=== PATIENT | female | born 1935 | race Caucasian/White ===

== ENCOUNTER 2016-08-07 06:30 | Inpatient (IN) ==
[2016-08-07] MEDS ORDERED: 0.9 % Sodium Chloride 1,000 ML IVC ONE ×2 (06:49→07:46)
[2016-08-07 07:15] LABS: Basophils % 0.1 %; Eosinophils # 0.1 K/mcL (0.0-0.6); Eosinophils % 0.5 %; Hematocrit 36.7 % (35.3-44.9); Hemoglobin 11.8 g/dL (11.5-15.4); Immature Granulocytes % 0.7 % (0-4); Immature Platelets 1.2 % (1.1-6.1); Lymphocytes # 0.4 K/mcL (0.6-4.6); Mean Corpuscular HGB Conc 32.2 g/dL (31.6-35.5); Mean Corpuscular Hemoglobin 29.8 pg (28.0-33.3); Mean Corpuscular Volume 92.7 fL (83.0-100.0); Mean Platelet Volume 9.7 fL (9.4-12.4); Monocytes # 0.4 K/mcL (0.0-1.3); Monocytes % 3.1 %; Neutrophils # 12.1 K/mcL (1.6-8.9); Platelet Count 239 K/mcL (140-400); Red Blood Count 3.96 M/mcL (3.82-4.97); Red Cell Distribution Width 16.1 % (11.5-14.5); Segmented Neutrophils % 92.6 %
[2016-08-07 07:21] LABS: INR 3.2; Prothrombin Time 35.7 Seconds (9.4-12.1)
--- NOTE | 2016-08-07 07:21 | Emergency Department Note ---
Disposition Clinical Impression: SIRS (systemic inflammatory response syndrome) Cellulitis Qualifiers: Site of cellulitis: extremity Site of cellulitis of extremity: lower extremity Laterality: right Qualified Code(s): L03.115 - Cellulitis of right lower limb Disposition: Admitted As Inpatient Condition: Good Referrals: Beth Cedeno CNP [Primary Care Provider] - Forms: Work/School Release, ED Satisfaction Letter Time of Disposition: 09:02 General Adult HPI - General Chief complaint: ED Weakness Stated complaint: shaky Time Seen by Provider: 08/07/16 06:49 Source: patient, family Limitations: no limitations Nursing Notes Reviewed: Yes Vital Signs Reviewed: Yes - History of Present Illness HPI Narrative: Female patient workup this morning shaking all over. She does report an area of ulceration to her right lower extremity. She denies any chest pain or shortness of breath. She does report some dyspnea on exertion that is chronic for her. She does report some pain to the area of ulceration. She denies any calf tenderness. There are no provoking or alleviating factors. There is no radiation. Pain Scale: 0 - Related Data Home Medications Medication Instructions Recorded Confirmed Allopurinol [Zyloprim 100 MG] 100 mg PO DAILY 08/07/16 08/07/16 Amitriptyline HCl 100 mg PO DAILY 08/07/16 08/07/16 Atenolol 100 mg PO DAILY 08/07/16 08/07/16 Furosemide [Lasix] 20 mg PO DAILY 08/07/16 08/07/16 Lisinopril [Zestril] 40 mg PO BID 08/07/16 08/07/16 Pravastatin Sodium [Pravachol] 40 mg PO DAILY 08/07/16 08/07/16 Ropinirole HCl [Requip] 2 mg PO BID 08/07/16 08/07/16 Sitagliptin Phosphate [Januvia] 50 mg PO DAILY 08/07/16 08/07/16 Terazosin HCl 2 mg PO BID 08/07/16 08/07/16 Tramadol HCl [Ultram] 50 mg PO TID PRN 08/07/16 08/07/16 Warfarin [Coumadin] 3 mg PO TU 08/07/16 08/07/16 Warfarin [Coumadin] 6 mg PO SUMOWETHFRSA 08/07/16 08/07/16 cloNIDine HCl [Clonidine HCl] 0.3 mg PO TID 08/07/16 08/07/16 Allergies Allergy/AdvReac Type Severity Reaction Status Date / Time alendronate sodium Allergy See Verified 08/16/15 09:03 [From Fosamax] Comments amlodipine [From Norvasc] Allergy Blister Verified 08/16/15 09:00 atorvastatin Allergy See Verified 08/16/15 09:03 Comments cephalexin [From Keflex] Allergy Rash Verified 08/16/15 09:00 cinacalcet [From Sensipar] Allergy Blister Verified 08/07/16 08:46 denosumab [From Prolia] Allergy Blister Verified 08/16/15 09:00 felodipine Allergy Blister Verified 08/16/15 09:00 Hydralazine Allergy Blister Verified 08/16/15 09:00 olmesartan [From Benicar] Allergy See Verified 08/16/15 09:04 Comments Penicillins [PCN] Allergy Vomiting Verified 08/16/15 08:32 trandolapril Allergy See Verified 08/16/15 09:06 Comments Verapamil Allergy See Verified 08/16/15 09:06 Comments Review of Systems: Female patient complaining of shakiness. Denies any fevers or chills at home. Denies any shortness of breath or chest pain. She does report dyspnea on exertion. She denies any cough or congestion. She does report a clear rhinorrhea that is chronic for her. She denies a headache or vision changes. She denies any nausea vomiting or diarrhea. She denies any hematochezia or melena or hematuria. She denies any swelling to her extremities however she does report some ulcerations to her lower extremities. She states one has recently busted open. All systems ED: reviewed and negative except as stated. Past Medical History - Past Medical History Attestation: Yes The following information was validated with the patient. Medical history: Reports: diabetes, renal disease - Social History Smoking Status: Never smoker Smokeless Tobacco Status: No Alcohol use: Reports: none Drug use: Reports: none Physical Exam - General Limitations: no limitations General appearance: alert, in no apparent distress - Head Head exam: atraumatic, normocephalic, normal inspection - Eye Eye exam: Present: normal appearance, PERRL, EOMI. Absent: scleral icterus - ENT ENT exam: normal exam, normal oropharynx, mucous membranes moist - Neck Neck exam: Present: normal inspection, full ROM, trachea midline. Absent: tenderness, meningismus, lymphadenopathy - Chest Chest inspection: Present: normal inspection, symmetric chest wall rise. Absent : tenderness - Respiratory Respiratory exam: Present: normal lung sounds bilaterally. Absent: respiratory distress, wheezes - Cardiovascular Cardiovascular exam: Present: regular rate, normal rhythm, normal heart sounds - Abdominal Exam Abdominal exam: Present: soft, Non-Tender, normal bowel sounds. Absent: tenderness, distention, guarding, rebound, rigidity, organomegaly - Extremities Exam Extremities exam: Present: normal inspection, full ROM, normal capillary refill. Absent: tenderness, pedal edema - Back Exam Back exam: Present: normal inspection, full ROM. Absent: tenderness, CVA tenderness (R), CVA tenderness (L) - Neurological Exam Neurological exam: Present: alert, oriented X3 - Psychiatric Psychiatric exam: Present: normal affect, normal mood - Skin Skin exam: Present: warm, dry, intact, normal color. Absent: rash, cyanosis, diaphoresis Course Course Narrative: Well-appearing female patient resting in bed. She is complaining that this morning she woke up and she felt shaky all over. She denies any shortness of breath or chest pain. She does report a new open wound to her right lower leg. She states it was an ulcer and it looks like is starting to get worse. She has a Band-Aid over this. Anderson is removed there is a purulent discharge from this area. There are some mild cellulitic changes around it. She does have some venous stasis changes to her lower extremities. She is also complaining of some dyspnea on exertion. She states this is chronic for her however it is getting worse. Her oxygen saturation is in the low 90s on 2 L of oxygen. She does not wear oxygen at home. She has no respiratory complaints at this time While she is resting. Her skin feels warm to the touch but she is not febrile while she is here, I believe her shakiness was possibly due to rigor 's at home. Her lung sounds are clear heart tones are normal. Her abdomen is soft and nontender. She denies any urinary symptoms. We will begin the patient on some fluid at this time. Her mucous membranes are dry. She states she has been drinking but possibly not enough fluids. We will also do a sepsis workup on the patient. - Reevaluation(s) Reevaluation #1: Patient has a minimally elevated white blood cell count. It is heavy on neutrophils. We will begin patient on vancomycin due to a possible source of her infection being the site of lysis to her right lower extremity. Also gave her a second liter of fluid at this time. Her lactic acid is elevated. Her BUN and creatinine are also elevated however they have been this elevated previously. Anticipated admission for the patient. Time: 07:48 Reevaluation #2: We will admit patient to the hospital for sialitis of her right lower extremity. Generalized weakness. Patient has an elevated lactic acid. We will withhold the full fluid bolus of 30 mL/ kg due to patient's history of renal insufficiency. She sees Dr. Mitchell for this. Time: 08:16 - Consultations Consultation #1: Dr Willis accepted Pt in stable condition. Time: 08:31 Vital Signs Temperature 99.3 F 08/07/16 06:31 Pulse Rate 102 08/07/16 06:31 Respiratory Rate 22 08/07/16 06:31 Blood Pressure 114/69 08/07/16 06:31 O2 Sat by Pulse Oximetry 88 08/07/16 06:31 Temperature 99.3 F 08/07/16 06:31 Pulse Rate 93 08/07/16 08:06 Respiratory Rate 26 08/07/16 08:06 Blood Pressure 134/48 08/07/16 08:06 O2 Sat by Pulse Oximetry 97 08/07/16 08:06 Oxygen Delivery Oxygen Delivery Nasal Cannula Medical Decision Making - Medical Records Medical records reviewed: Yes I reviewed the patient's medical records. - Lab Data Lab results reviewed: Yes I reviewed the patient's lab results. Result diagrams: 08/07/16 06:59 08/07/16 06:59 Lab Results 08/07/16 08/07/16 08/07/16 Range/Units 06:59 06:59 06:59 WBC 13.1 H (4.3-11.1) K/mcL RBC 3.96 (3.82-4.97) M/mcL Hgb 11.8 (11.5-15.4) g/dL Hct 36.7 (35.3-44.9) % MCV 92.7 (83.0-100.0) fL MCH 29.8 (28.0-33.3) pg MCHC 32.2 (31.6-35.5) g/dL RDW 16.1 H (11.5-14.5) % Plt Count 239 (140-400) K/mcL MPV 9.7 (9.4-12.4) fL Immature Gran % 0.7 (0-4) % Seg Neutrophils % 92.6 % Lymphocytes % 3.0 % Monocytes % 3.1 % Eosinophils % 0.5 % Basophils % 0.1 % Neutrophils # 12.1 H (1.6-8.9) K/mcL Lymphocytes # 0.4 L (0.6-4.6) K/mcL Monocytes # 0.4 (0.0-1.3) K/mcL Eosinophils # 0.1 (0.0-0.6) K/mcL Basophils # 0.0 (0.0-0.2) K/mcL Immature Plt Fraction 1.2 (1.1-6.1) % PT 35.7 H (9.4-12.1) Seconds INR 3.2 APTT 32.9 (26.0-36.0) Seconds ABG pH (7.32-7.45) pH Units ABG pCO2 (35-45) mmHg ABG pO2 (85-104) mmHg ABG HCO3 (21-27) mEQ/L ABG Total CO2 (20-26) mEq/L ABG O2 Saturation (95-98) % ABG Base Excess (-2.0 to 3.0) mEq/L Liter Flow L/MIN Blood Gas Modality Inspired O2 % Sodium 138 (136-145) mEq/L Potassium 4.1 (3.5-4.5) mEq/L Chloride 109 (98-109) mEq/L Carbon Dioxide 20 (19-29) mEq/L BUN 53 H (7-20) mg/dL Creatinine 2.13 H (0.57-1.11) mg/dL Est GFR ( Amer) 27 L (> 60) Est GFR (Non-Af Amer) 22 L (> 60) BUN/Creatinine Ratio 25 (6-26) Glucose 103 H (70-99) mg/dL POC Glucose (58-89) Calculated Osmolality 301 H (280-300) Lactic Acid (0.5-2.2) mmol/L Calcium 10.7 (8.6-10.8) mg/dL Phosphorus 1.5 L (2.3-4.7) mg/dL Magnesium 1.6 (1.6-2.6) mg/dL Total Bilirubin 0.4 (0.2-1.2) mg/dL Direct Bilirubin 0.1 (0.0-0.5) mg/dL Indirect Bilirubin 0.3 (0.0-1.2) mg/dL AST 30 (5-34) Units/L ALT 21 (0-55) Units/L Alkaline Phosphatase 79 (38-126) Units/L Troponin I (0-0.03) ng/mL Serum Total Protein 7.0 (6.0-8.3) g/dL Albumin 3.1 L (3.5-5.0) g/dL Globulin 3.9 H (2.4-3.5) g/dL Albumin/Globulin Ratio 0.8 L (1.1-2.2) Urine Color (Yellow) Urine Clarity (Clear) Urine pH (5.0-8.0) pH Units Ur Specific [place] (1.010-1.025) Urine Protein (Neg-Trace) mg/dL Urine Glucose (UA) (Normal) mg/dL Urine Ketones (Negative) mg/dL Urine Blood (Negative) Urine Nitrite (Negative) Urine Bilirubin (Negative) Urine Urobilinogen (Normal) mg/dL Ur Leukocyte Esterase (Negative) Urine Microscopic RBC (0-3) per hpf Urine Microscopic WBC (0-3) per hpf Ur Squamous Epith Cells (None-Few) per lpf Urine Bacteria (None-Few) per hpf Hyaline Casts (None-Few) per lpf Ur Culture Indicated? (NO) 08/07/16 08/07/16 08/07/16 Range/Units 06:59 06:59 07:15 WBC (4.3-11.1) K/mcL RBC (3.82-4.97) M/mcL Hgb (11.5-15.4) g/dL Hct (35.3-44.9) % MCV (83.0-100.0) fL MCH (28.0-33.3) pg MCHC (31.6-35.5) g/dL RDW (11.5-14.5) % Plt Count (140-400) K/mcL MPV (9.4-12.4) fL Immature Gran % (0-4) % Seg Neutrophils % % Lymphocytes % % Monocytes % % Eosinophils % % Basophils % % Neutrophils # (1.6-8.9) K/mcL Lymphocytes # (0.6-4.6) K/mcL Monocytes # (0.0-1.3) K/mcL Eosinophils # (0.0-0.6) K/mcL Basophils # (0.0-0.2) K/mcL Immature Plt Fraction (1.1-6.1) % PT (9.4-12.1) Seconds INR APTT (26.0-36.0) Seconds ABG pH (7.32-7.45) pH Units ABG pCO2 (35-45) mmHg ABG pO2 (85-104) mmHg ABG HCO3 (21-27) mEQ/L ABG Total CO2 (20-26) mEq/L ABG O2 Saturation (95-98) % ABG Base Excess (-2.0 to 3.0) mEq/L Liter Flow L/MIN Blood Gas Modality Inspired O2 % Sodium (136-145) mEq/L Potassium (3.5-4.5) mEq/L Chloride (98-109) mEq/L Carbon Dioxide (19-29) mEq/L BUN (7-20) mg/dL Creatinine (0.57-1.11) mg/dL Est GFR ( Amer) (> 60) Est GFR (Non-Af Amer) (> 60) BUN/Creatinine Ratio (6-26) Glucose (70-99) mg/dL POC Glucose 98 H (58-89) Calculated Osmolality (280-300) Lactic Acid 2.4 H (0.5-2.2) mmol/L Calcium (8.6-10.8) mg/dL Phosphorus (2.3-4.7) mg/dL Magnesium (1.6-2.6) mg/dL Total Bilirubin (0.2-1.2) mg/dL Direct Bilirubin (0.0-0.5) mg/dL Indirect Bilirubin (0.0-1.2) mg/dL AST (5-34) Units/L ALT (0-55) Units/L Alkaline Phosphatase (38-126) Units/L Troponin I 0.02 (0-0.03) ng/mL Serum Total Protein (6.0-8.3) g/dL Albumin (3.5-5.0) g/dL Globulin (2.4-3.5) g/dL Albumin/Globulin Ratio (1.1-2.2) Urine Color (Yellow) Urine Clarity (Clear) Urine pH (5.0-8.0) pH Units Ur Specific [place] (1.010-1.025) Urine Protein (Neg-Trace) mg/dL Urine Glucose (UA) (Normal) mg/dL Urine Ketones (Negative) mg/dL Urine Blood (Negative) Urine Nitrite (Negative) Urine Bilirubin (Negative) Urine Urobilinogen (Normal) mg/dL Ur Leukocyte Esterase (Negative) Urine Microscopic RBC (0-3) per hpf Urine Microscopic WBC (0-3) per hpf Ur Squamous Epith Cells (None-Few) per lpf Urine Bacteria (None-Few) per hpf Hyaline Casts (None-Few) per lpf Ur Culture Indicated? (NO) 08/07/16 08/07/16 Range/Units 07:48 07:59 WBC (4.3-11.1) K/mcL RBC (3.82-4.97) M/mcL Hgb (11.5-15.4) g/dL Hct (35.3-44.9) % MCV (83.0-100.0) fL MCH (28.0-33.3) pg MCHC (31.6-35.5) g/dL RDW (11.5-14.5) % Plt Count (140-400) K/mcL MPV (9.4-12.4) fL Immature Gran % (0-4) % Seg Neutrophils % % Lymphocytes % % Monocytes % % Eosinophils % % Basophils % % Neutrophils # (1.6-8.9) K/mcL Lymphocytes # (0.6-4.6) K/mcL Monocytes # (0.0-1.3) K/mcL Eosinophils # (0.0-0.6) K/mcL Basophils # (0.0-0.2) K/mcL Immature Plt Fraction (1.1-6.1) % PT (9.4-12.1) Seconds INR APTT (26.0-36.0) Seconds ABG pH 7.42 (7.32-7.45) pH Units ABG pCO2 32 L (35-45) mmHg ABG pO2 60 L (85-104) mmHg ABG HCO3 20.8 L (21-27) mEQ/L ABG Total CO2 21.8 (20-26) mEq/L ABG O2 Saturation 91 L (95-98) % ABG Base Excess -3.0 L (-2.0 to 3.0) mEq/L Liter Flow 2 L/MIN Blood Gas Modality [place] Inspired O2 28 % Sodium (136-145) mEq/L Potassium (3.5-4.5) mEq/L Chloride (98-109) mEq/L Carbon Dioxide (19-29) mEq/L BUN (7-20) mg/dL Creatinine (0.57-1.11) mg/dL Est GFR ( Amer) (> 60) Est GFR (Non-Af Amer) (> 60) BUN/Creatinine Ratio (6-26) Glucose (70-99) mg/dL POC Glucose (58-89) Calculated Osmolality (280-300) Lactic Acid (0.5-2.2) mmol/L Calcium (8.6-10.8) mg/dL Phosphorus (2.3-4.7) mg/dL Magnesium (1.6-2.6) mg/dL Total Bilirubin (0.2-1.2) mg/dL Direct Bilirubin (0.0-0.5) mg/dL Indirect Bilirubin (0.0-1.2) mg/dL AST (5-34) Units/L ALT (0-55) Units/L Alkaline Phosphatase (38-126) Units/L Troponin I (0-0.03) ng/mL Serum Total Protein (6.0-8.3) g/dL Albumin (3.5-5.0) g/dL Globulin (2.4-3.5) g/dL Albumin/Globulin Ratio (1.1-2.2) Urine Color Yellow (Yellow) Urine Clarity Clear (Clear) Urine pH 6.0 (5.0-8.0) pH Units Ur Specific [place] 1.016 (1.010-1.025) Urine Protein Trace (Neg-Trace) mg/dL Urine Glucose (UA) Normal (Normal) mg/dL Urine Ketones Negative (Negative) mg/dL Urine Blood Trace H (Negative) Urine Nitrite Negative (Negative) Urine Bilirubin Negative (Negative) Urine Urobilinogen Normal (Normal) mg/dL Ur Leukocyte Esterase Moderate H (Negative) Urine Microscopic RBC 0-3 (0-3) per hpf Urine Microscopic WBC 5-15 H (0-3) per hpf Ur Squamous Epith Cells Many H (None-Few) per lpf Urine Bacteria None Seen (None-Few) per hpf Hyaline Casts None Seen (None-Few) per lpf Ur Culture Indicated? YES A (NO) - EKG Data EKG #2 EKG attestation: Yes I reviewed and interpreted this EKG.
[2016-08-07 07:23] LABS: Activated Partial Thrombo Time 32.9 Seconds (26.0-36.0)
--- NOTE | 2016-08-07 07:25 | Emergency Department Note ---
Disposition Clinical Impression: SIRS (systemic inflammatory response syndrome) Cellulitis Qualifiers: Site of cellulitis: extremity Site of cellulitis of extremity: lower extremity Laterality: right Qualified Code(s): L03.115 - Cellulitis of right lower limb Disposition: Admitted As Inpatient Condition: Good Referrals: Beth Cedeno CNP [Primary Care Provider] - Forms: ED Satisfaction Letter, Work/School Release General Adult HPI - General Chief complaint: ED Weakness Stated complaint: shaky Time Seen by Provider: 08/07/16 06:49 Source: patient, family Limitations: no limitations Nursing Notes Reviewed: Yes Vital Signs Reviewed: Yes - History of Present Illness Pain Scale: 0 - Related Data Home Medications Medication Instructions Recorded Confirmed Allopurinol [Zyloprim 100 MG] 100 mg PO DAILY 08/07/16 08/07/16 Amitriptyline HCl 100 mg PO DAILY 08/07/16 08/07/16 Atenolol 100 mg PO DAILY 08/07/16 08/07/16 Furosemide [Lasix] 20 mg PO DAILY 08/07/16 08/07/16 Lisinopril [Zestril] 40 mg PO BID 08/07/16 08/07/16 Pravastatin Sodium [Pravachol] 40 mg PO DAILY 08/07/16 08/07/16 Ropinirole HCl [Requip] 2 mg PO BID 08/07/16 08/07/16 Sitagliptin Phosphate [Januvia] 50 mg PO DAILY 08/07/16 08/07/16 Terazosin HCl 2 mg PO BID 08/07/16 08/07/16 Tramadol HCl [Ultram] 50 mg PO TID PRN 08/07/16 08/07/16 Warfarin [Coumadin] 3 mg PO TU 08/07/16 08/07/16 Warfarin [Coumadin] 6 mg PO SUMOWETHFRSA 08/07/16 08/07/16 cloNIDine HCl [Clonidine HCl] 0.3 mg PO TID 08/07/16 08/07/16 Allergies Allergy/AdvReac Type Severity Reaction Status Date / Time alendronate sodium Allergy See Verified 08/16/15 09:03 [From Fosamax] Comments amlodipine [From Norvasc] Allergy Blister Verified 08/16/15 09:00 atorvastatin Allergy See Verified 08/16/15 09:03 Comments cephalexin [From Keflex] Allergy Rash Verified 08/16/15 09:00 cinacalcet [From Sensipar] Allergy Blister Verified 08/07/16 08:46 denosumab [From Prolia] Allergy Blister Verified 08/16/15 09:00 felodipine Allergy Blister Verified 08/16/15 09:00 Hydralazine Allergy Blister Verified 08/16/15 09:00 olmesartan [From Benicar] Allergy See Verified 08/16/15 09:04 Comments Penicillins [PCN] Allergy Vomiting Verified 08/16/15 08:32 trandolapril Allergy See Verified 08/16/15 09:06 Comments Verapamil Allergy See Verified 08/16/15 09:06 Comments Past Medical History - Past Medical History Medical history: Reports: diabetes, renal disease - Social History Smoking Status: Never smoker Smokeless Tobacco Status: No Alcohol use: Reports: none Drug use: Reports: none Physical Exam - General Limitations: no limitations General appearance: alert, in no apparent distress Course Vital Signs Temperature 99.3 F 08/07/16 06:31 Pulse Rate 102 08/07/16 06:31 Respiratory Rate 22 08/07/16 06:31 Blood Pressure 114/69 08/07/16 06:31 O2 Sat by Pulse Oximetry 88 08/07/16 06:31 Temperature 99.3 F 08/07/16 06:31 Pulse Rate 87 08/07/16 09:00 Respiratory Rate 24 08/07/16 09:00 Blood Pressure 118/49 08/07/16 09:00 O2 Sat by Pulse Oximetry 96 08/07/16 09:00 Oxygen Delivery Oxygen Delivery Nasal Cannula Medical Decision Making - MDM Narrative Medical decision making narrative: I examined this patient and my medical decision-making was reviewed with the MENTAL HEALTH ASSISTANT/PA/Advanced Practice Nurse/Resident Physician. I agree with the documented findings, disposition and treatment plan as described except to the extent set forth below. Evaluate this patient on arrival with Dr. Nicole, I agree with her evaluation treatment plan, supravascular the patient's stay. Patient presents today with family she had an episode last evening about 2:30 in the morning where she felt really shaky possibly hot and sweaty. She says she had a little coughing she is a little bit dyspneic but she said that is, normal her lungs do sound congested on exam. She also is narrow and right lower extremity where there is an ulceration which she said is a blister but it is also get redness from the area consistent with a cellulitis, ordered a workup on her and then reassess. Most likely she will need admission. Once her blood is drawn and is started on vancomycin for the cellulitis. She is in agreement with this plan. 0706 hrs.: Patient had an EKG performed showing a sinus rhythm rate is 90, QRS is 120, QTC is 367, moderate interventricular conduction delay does have voltage criteria for LVH compared this to an EKG that had done in 2011 shows no changes except for your S is more wide now complexes of flipped in lead 3 no signs of acute ischemia today. She denies any chest pain. Chest X-Ray 08/07/16 07:50 IMPRESSION: No acute cardiopulmonary process. D/ / Jermain Gan MD / Jermain Gan MD Interpreting Provider: Jermain Gan MD 0829 hours: Patient has chronic renal deficiency and sees Dr. Beasley here for nephrology, she does have cellulitis in her leg, chest x-ray looks good. And patient is tolerating that well. Regarding and bring her in the hospital. She is in agreement. Possible slurred agreement to the admission. Impression is right lower extremity cellulitis, chronic renal insufficiency. Return to hold off on the full sepsis fluids since she does have her renal history and afraid that her kidneys will not tolerate that. Patient says she is feeling much better at this time. Critical care time exclusive of billable procedures is 30 minutes. - Lab Data Result diagrams: 08/07/16 06:59 08/07/16 06:59 Lab Results 08/07/16 08/07/16 08/07/16 Range/Units 06:59 06:59 06:59 WBC 13.1 H (4.3-11.1) K/mcL RBC 3.96 (3.82-4.97) M/mcL Hgb 11.8 (11.5-15.4) g/dL Hct 36.7 (35.3-44.9) % MCV 92.7 (83.0-100.0) fL MCH 29.8 (28.0-33.3) pg MCHC 32.2 (31.6-35.5) g/dL RDW 16.1 H (11.5-14.5) % Plt Count 239 (140-400) K/mcL MPV 9.7 (9.4-12.4) fL Immature Gran % 0.7 (0-4) % Seg Neutrophils % 92.6 % Lymphocytes % 3.0 % Monocytes % 3.1 % Eosinophils % 0.5 % Basophils % 0.1 % Neutrophils # 12.1 H (1.6-8.9) K/mcL Lymphocytes # 0.4 L (0.6-4.6) K/mcL Monocytes # 0.4 (0.0-1.3) K/mcL Eosinophils # 0.1 (0.0-0.6) K/mcL Basophils # 0.0 (0.0-0.2) K/mcL Immature Plt Fraction 1.2 (1.1-6.1) % PT 35.7 H (9.4-12.1) Seconds INR 3.2 APTT 32.9 (26.0-36.0) Seconds ABG pH (7.32-7.45) pH Units ABG pCO2 (35-45) mmHg ABG pO2 (85-104) mmHg ABG HCO3 (21-27) mEQ/L ABG Total CO2 (20-26) mEq/L ABG O2 Saturation (95-98) % ABG Base Excess (-2.0 to 3.0) mEq/L Liter Flow L/MIN Blood Gas Modality Inspired O2 % Sodium 138 (136-145) mEq/L Potassium 4.1 (3.5-4.5) mEq/L Chloride 109 (98-109) mEq/L Carbon Dioxide 20 (19-29) mEq/L BUN 53 H (7-20) mg/dL Creatinine 2.13 H (0.57-1.11) mg/dL Est GFR ( Amer) 27 L (> 60) Est GFR (Non-Af Amer) 22 L (> 60) BUN/Creatinine Ratio 25 (6-26) Glucose 103 H (70-99) mg/dL POC Glucose (58-89) Calculated Osmolality 301 H (280-300) Lactic Acid (0.5-2.2) mmol/L Calcium 10.7 (8.6-10.8) mg/dL Phosphorus 1.5 L (2.3-4.7) mg/dL Magnesium 1.6 (1.6-2.6) mg/dL Total Bilirubin 0.4 (0.2-1.2) mg/dL Direct Bilirubin 0.1 (0.0-0.5) mg/dL Indirect Bilirubin 0.3 (0.0-1.2) mg/dL AST 30 (5-34) Units/L ALT 21 (0-55) Units/L Alkaline Phosphatase 79 (38-126) Units/L Troponin I (0-0.03) ng/mL Serum Total Protein 7.0 (6.0-8.3) g/dL Albumin 3.1 L (3.5-5.0) g/dL Globulin 3.9 H (2.4-3.5) g/dL Albumin/Globulin Ratio 0.8 L (1.1-2.2) Urine Color (Yellow) Urine Clarity (Clear) Urine pH (5.0-8.0) pH Units Ur Specific [place] (1.010-1.025) Urine Protein (Neg-Trace) mg/dL Urine Glucose (UA) (Normal) mg/dL Urine Ketones (Negative) mg/dL Urine Blood (Negative) Urine Nitrite (Negative) Urine Bilirubin (Negative) Urine Urobilinogen (Normal) mg/dL Ur Leukocyte Esterase (Negative) Urine Microscopic RBC (0-3) per hpf Urine Microscopic WBC (0-3) per hpf Ur Squamous Epith Cells (None-Few) per lpf Urine Bacteria (None-Few) per hpf Hyaline Casts (None-Few) per lpf Ur Culture Indicated? (NO) 08/07/16 08/07/16 08/07/16 Range/Units 06:59 06:59 07:15 WBC (4.3-11.1) K/mcL RBC (3.82-4.97) M/mcL Hgb (11.5-15.4) g/dL Hct (35.3-44.9) % MCV (83.0-100.0) fL MCH (28.0-33.3) pg MCHC (31.6-35.5) g/dL RDW (11.5-14.5) % Plt Count (140-400) K/mcL MPV (9.4-12.4) fL Immature Gran % (0-4) % Seg Neutrophils % % Lymphocytes % % Monocytes % % Eosinophils % % Basophils % % Neutrophils # (1.6-8.9) K/mcL Lymphocytes # (0.6-4.6) K/mcL Monocytes # (0.0-1.3) K/mcL Eosinophils # (0.0-0.6) K/mcL Basophils # (0.0-0.2) K/mcL Immature Plt Fraction (1.1-6.1) % PT (9.4-12.1) Seconds INR APTT (26.0-36.0) Seconds ABG pH (7.32-7.45) pH Units ABG pCO2 (35-45) mmHg ABG pO2 (85-104) mmHg ABG HCO3 (21-27) mEQ/L ABG Total CO2 (20-26) mEq/L ABG O2 Saturation (95-98) % ABG Base Excess (-2.0 to 3.0) mEq/L Liter Flow L/MIN Blood Gas Modality Inspired O2 % Sodium (136-145) mEq/L Potassium (3.5-4.5) mEq/L Chloride (98-109) mEq/L Carbon Dioxide (19-29) mEq/L BUN (7-20) mg/dL Creatinine (0.57-1.11) mg/dL Est GFR ( Amer) (> 60) Est GFR (Non-Af Amer) (> 60) BUN/Creatinine Ratio (6-26) Glucose (70-99) mg/dL POC Glucose 98 H (58-89) Calculated Osmolality (280-300) Lactic Acid 2.4 H (0.5-2.2) mmol/L Calcium (8.6-10.8) mg/dL Phosphorus (2.3-4.7) mg/dL Magnesium (1.6-2.6) mg/dL Total Bilirubin (0.2-1.2) mg/dL Direct Bilirubin (0.0-0.5) mg/dL Indirect Bilirubin (0.0-1.2) mg/dL AST (5-34) Units/L ALT (0-55) Units/L Alkaline Phosphatase (38-126) Units/L Troponin I 0.02 (0-0.03) ng/mL Serum Total Protein (6.0-8.3) g/dL Albumin (3.5-5.0) g/dL Globulin (2.4-3.5) g/dL Albumin/Globulin Ratio (1.1-2.2) Urine Color (Yellow) Urine Clarity (Clear) Urine pH (5.0-8.0) pH Units Ur Specific [place] (1.010-1.025) Urine Protein (Neg-Trace) mg/dL Urine Glucose (UA) (Normal) mg/dL Urine Ketones (Negative) mg/dL Urine Blood (Negative) Urine Nitrite (Negative) Urine Bilirubin (Negative) Urine Urobilinogen (Normal) mg/dL Ur Leukocyte Esterase (Negative) Urine Microscopic RBC (0-3) per hpf Urine Microscopic WBC (0-3) per hpf Ur Squamous Epith Cells (None-Few) per lpf Urine Bacteria (None-Few) per hpf Hyaline Casts (None-Few) per lpf Ur Culture Indicated? (NO) 08/07/16 08/07/16 08/07/16 Range/Units 07:48 07:59 09:09 WBC (4.3-11.1) K/mcL RBC (3.82-4.97) M/mcL Hgb (11.5-15.4) g/dL Hct (35.3-44.9) % MCV (83.0-100.0) fL MCH (28.0-33.3) pg MCHC (31.6-35.5) g/dL RDW (11.5-14.5) % Plt Count (140-400) K/mcL MPV (9.4-12.4) fL Immature Gran % (0-4) % Seg Neutrophils % % Lymphocytes % % Monocytes % % Eosinophils % % Basophils % % Neutrophils # (1.6-8.9) K/mcL Lymphocytes # (0.6-4.6) K/mcL Monocytes # (0.0-1.3) K/mcL Eosinophils # (0.0-0.6) K/mcL Basophils # (0.0-0.2) K/mcL Immature Plt Fraction (1.1-6.1) % PT (9.4-12.1) Seconds INR APTT (26.0-36.0) Seconds ABG pH 7.42 (7.32-7.45) pH Units ABG pCO2 32 L (35-45) mmHg ABG pO2 60 L (85-104) mmHg ABG HCO3 20.8 L (21-27) mEQ/L ABG Total CO2 21.8 (20-26) mEq/L ABG O2 Saturation 91 L (95-98) % ABG Base Excess -3.0 L (-2.0 to 3.0) mEq/L Liter Flow 2 L/MIN Blood Gas Modality [place] Inspired O2 28 % Sodium (136-145) mEq/L Potassium (3.5-4.5) mEq/L Chloride (98-109) mEq/L Carbon Dioxide (19-29) mEq/L BUN (7-20) mg/dL Creatinine (0.57-1.11) mg/dL Est GFR ( Amer) (> 60) Est GFR (Non-Af Amer) (> 60) BUN/Creatinine Ratio (6-26) Glucose (70-99) mg/dL POC Glucose (58-89) Calculated Osmolality (280-300) Lactic Acid 2.0 (0.5-2.2) mmol/L Calcium (8.6-10.8) mg/dL Phosphorus (2.3-4.7) mg/dL Magnesium (1.6-2.6) mg/dL Total Bilirubin (0.2-1.2) mg/dL Direct Bilirubin (0.0-0.5) mg/dL Indirect Bilirubin (0.0-1.2) mg/dL AST (5-34) Units/L ALT (0-55) Units/L Alkaline Phosphatase (38-126) Units/L Troponin I (0-0.03) ng/mL Serum Total Protein (6.0-8.3) g/dL Albumin (3.5-5.0) g/dL Globulin (2.4-3.5) g/dL Albumin/Globulin Ratio (1.1-2.2) Urine Color Yellow (Yellow) Urine Clarity Clear (Clear) Urine pH 6.0 (5.0-8.0) pH Units Ur Specific [place] 1.016 (1.010-1.025) Urine Protein Trace (Neg-Trace) mg/dL Urine Glucose (UA) Normal (Normal) mg/dL Urine Ketones Negative (Negative) mg/dL Urine Blood Trace H (Negative) Urine Nitrite Negative (Negative) Urine Bilirubin Negative (Negative) Urine Urobilinogen Normal (Normal) mg/dL Ur Leukocyte Esterase Moderate H (Negative) Urine Microscopic RBC 0-3 (0-3) per hpf Urine Microscopic WBC 5-15 H (0-3) per hpf Ur Squamous Epith Cells Many H (None-Few) per lpf Urine Bacteria None Seen (None-Few) per hpf Hyaline Casts None Seen (None-Few) per lpf Ur Culture Indicated? YES A (NO)
[2016-08-07 07:29] LABS: Albumin 3.1 g/dL (3.5-5.0); Albumin/Globulin Ratio 0.8 (1.1-2.2); Bilirubin,Direct 0.1 mg/dL (0.0-0.5); Bilirubin,Indirect 0.3 mg/dL (0.0-1.2); Bilirubin,Total 0.4 mg/dL (0.2-1.2); Calcium 10.7 mg/dL (8.6-10.8); Globulin 3.9 g/dL (2.4-3.5); Magnesium 1.6 mg/dL (1.6-2.6); Phosphorous 1.5 mg/dL (2.3-4.7); Potassium 4.1 mEq/L (3.5-4.5)
[2016-08-07] MEDS ORDERED: Vancomycin 1,250 MG in D5% in Water 250 ML IVPB ONE (07:47)
[2016-08-07 07:57] LABS: ABG HCO3 20.8 mEQ/L (21-27); ABG Oxygen Saturation 91 % (95-98); ABG PCO2 32 mmHg (35-45); ABG PH 7.42 pH Units (7.32-7.45); ABG PO2 60 mmHg (85-104); ABG TCO2 21.8 mEq/L (20-26)
[2016-08-07 08:01] LABS: Blood Gas FiO2 28 %; Blood Gas Liter Flow 2 L/MIN
[2016-08-07 08:05] LABS: Bilirubin,Urine Negative (Negative); Blood,Urine Trace (Negative); Clarity,Urine Clear (Clear); Color,Urine Yellow (Yellow); Glucose,Urine (UA) Normal (Normal); Ketones,Urine Negative (Negative); Leukocyte Esterase,Urine Moderate (Negative); Nitrite,Urine Negative (Negative); Protein,Urine Trace mg/dL (Neg-Trace); Specific Gravity,Urine 1.016 (1.010-1.025); Urobilinogen,Urine Normal (Normal)
[2016-08-07 08:07] LABS: Bacteria,Urine None Seen per hpf (None-Few); Hyaline Casts,Urine None Seen per lpf (None-Few); RBC,Urine 0-3 per hpf (0-3); Squamous Epithelial Cell,Urine Many per lpf (None-Few)
--- NOTE | 2016-08-07 10:08 | Internal Med History&Physical ---
Date of Encounter: 08/07/16 Time of Encounter: 09:30 Assessment and Plan (1) Sepsis affecting skin Current visit: Yes Status: Acute Patient meets sepsis criteria with right LE cellulitis, HR 102, Lactic acid 2.4 and WBC of 13. Currently in stable but guarded condition. She has been started on broad spectrum antibiotics including Vancomycin, Flagyl and Azetronam. Blood cultures, urine culture have been collected in the emergency room. Plan: - Continue broad spectrum antibiotics as mentioned above - Repeat Lactic acid was 2.0, will continue IV fluids at 125ml/hr - continue inpatient monitoring. - Repeat CBC, CMP in am. (2) Cellulitis Current visit: Yes Status: Acute Patient has cellulites of the right LE with a 1cm x 1cm healing ulcer surrounded by erythema across the right pisano. There is symmetric warmth to both LE. The cellulites is superimposed on chronic venous stasis changes. - Patient says she has not been seen by wound care in the past and the lesion + erythema has improved. Her chills and shakes are new. - Risk factors: DM type II, venous stasis with vericous veins. - Recent SHEILA's of LE without significant findings of arterial obstruction. Plan: - Continue Vancomycin, Add Azetronam and Flagyl - Continue to keep healing ulcer clean and dry - Continue IV rehydration Qualifiers: Site of cellulitis: extremity Site of cellulitis of extremity: lower extremity Laterality: right Qualified Code(s): L03.115 - Cellulitis of right lower limb (3) Diabetes type 2, controlled Current visit: Yes Status: Acute Patient has a hx of controlled type II DM. She uses Jinuvia at home for glucose control. Her A1C has been roughly 6.5 since 2014. Admitting glucose is 103. Plan: - ACHS glucose checks - Low dose inpatient sliding scale - Diabetic diet. Qualifiers: Diabetes mellitus complication status: without complication Qualified Code( s): E11.9 - Type 2 diabetes mellitus without complications (4) Age related osteoporosis Current visit: Yes Status: Acute Hx of osteoperosis with numerous fractures requiring orthopedic intervention. She is a fall risk and has not been compliant with using assisted devices recently resulting in a fall one month ago. 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 She also has a IVC filter in place. - There should be consideration of the use of chronic warfarin therapy with the patient frequent falls. She denies any hx of arrhythmias - Patient fell one month ago with neck and facial injuries. Current mental stasis is appropriate and without notable AMS. Plan: - Continue warfarin therapy inpatient. - Daily PT/INR checks. (6) Venous stasis dermatitis Current visit: Yes Status: Acute Chronic. Continue LE care Qualifiers: Qualified Code(s): I87.2 - Venous insufficiency (chronic) (peripheral) (7) Insomnia Current visit: Yes Status: Acute Patient suffers from chronic insomina. - continue home medications. Qualifiers: Qualified Code(s): G47.00 - Insomnia, unspecified (8) Neck pain Current visit: Yes Status: Acute Patient has continued neck pain since a fall one month ago. She has the feeling that her head becomes to heavy to lift by the end of the day. MRI completed 12/2016 demonstrates chronic degenerative changes to the cervical spine with multilevel cervical foraminal narrowing. No fx were noted. - exam demonstrated tenderness to palpation of the left scalene muscles and spinous processes. Plan: - Inpatient physical therapy - Patient may require referral to outpatient orthopedic evaluation if her symptoms do not improve to evaluate if this is do to nerve compression. (9) HTN (hypertension) Current visit: Yes Status: Acute Hx of HTN, currently BP is controlled. Renal function is without KOBI. Will continue home medications. Qualifiers: Qualified Code(s): I10 - Essential (primary) hypertension (10) CKD (chronic kidney disease) stage 4, GFR 15-29 ml/min Current visit: Yes Status: Acute Known hx of CKD stage 4. Creatinine and GFR at baseline. - Patients Surgery Attendant is Dr. De La Rosa Plan: - Continue to renally dose antibiotics and avoid nephrotoxic medications - Monitor renal function daily with current therapy. (11) DVT prophylaxis Current visit: Yes Status: Acute SQ heparin at 5000 units Q8hrs. Internal Medicine - H&P: HPI Chief complaint: shakey Admitted From: Emergency Dept Plans for Post Hospital Care: Home History of present illness: Ms. Dobson is a 81 year old female with pmhx of DM type II, osteoperosis, HTN, Venous stasis, DVTs on chronic warfarin therapy was seen today in the emergency department after having shaking at home. She says that she started having shaking episodes this morning at 2am. She was awake watching television because she suffers from insomnia and can not sleep. She started to feel shakey and chilled but denies any other symptoms including fevers, N/V/D, chest pain, chest pressure, SOB, abdominal pain, cough, sputum production, change in urination, or urinary burning. She in general has not felt well over the past several months and has been seeking treatment for bilateral LE blisters and ulcers which are improving. She said that her lower extremity wounds are much better compared to the last several months and that the ulcer on her right lateral pisnao is improved and healing. She does have tenderness that is worse than before along the lateral ulcer and bilateral LE warmth that has been persistent.she feels the redness of her right LE is improved and has not worsened recently. There have been no changes to her appetite. She has fallen several times over the past few years resulting in a right hip fracture and left shoulder fracture. She fell roughly one month ago landing on her face resulting in left facial bruising and pain in her neck. She has had an MRI and cervical imaging that did not demonstrate a a fracture but continues to have discomfort in her neck that worsens throughout the day to the point she can not hold her head up at night. She denies any eyelid lagging, blurry vision. She does suffer from LE fatigue and cramping with walking but had recent SHEILA's performed that did not demonstrate claudication. Past Med Surg Social Fam HX - Past Medical History Medical history: diabetes, renal disease, venous stasis - Social History Smoking Status: Never smoker Smokeless Tobacco Status: No Alcohol use: none Drug use: none Internal Medicine - H&P: Meds Allopurinol [Zyloprim 100 MG] 100 mg PO DAILY 08/07/16 [History] Amitriptyline HCl 100 mg PO DAILY 08/07/16 [History] Atenolol 100 mg PO DAILY 08/07/16 [History] Furosemide [Lasix] 20 mg PO DAILY 08/07/16 [History] Lisinopril [Zestril] 40 mg PO BID 08/07/16 [History] Pravastatin Sodium [Pravachol] 40 mg PO DAILY 08/07/16 [History] Ropinirole HCl [Requip] 2 mg PO BID 08/07/16 [History] Sitagliptin Phosphate [Januvia] 50 mg PO DAILY 08/07/16 [History] Terazosin HCl 2 mg PO BID 08/07/16 [History] Tramadol HCl [Ultram] 50 mg PO TID PRN 08/07/16 [History] Warfarin [Coumadin] 3 mg PO TU 08/07/16 [History] Warfarin [Coumadin] 6 mg PO SUMOWETHFRSA 08/07/16 [History] cloNIDine HCl [Clonidine HCl] 0.3 mg PO TID 08/07/16 [History] Allergies alendronate sodium [From Fosamax] Allergy (Verified 08/16/15 09:03) See Comments jaw pain amlodipine [From Norvasc] Allergy (Verified 08/16/15 09:00) Blister atorvastatin Allergy (Verified 08/16/15 09:03) See Comments office and patient not sure of reaction cephalexin [From Keflex] Allergy (Verified 08/16/15 09:00) Rash cinacalcet [From Sensipar] Allergy (Verified 08/07/16 08:46) Blister denosumab [From Prolia] Allergy (Verified 08/16/15 09:00) Blister felodipine Allergy (Verified 08/16/15 09:00) Blister Hydralazine Allergy (Verified 08/16/15 09:00) Blister olmesartan [From Benicar] Allergy (Verified 08/16/15 09:04) See Comments dr davis's office did not have reaction listed and pt unsure. Penicillins [PCN] Allergy (Verified 08/16/15 08:32) Vomiting trandolapril Allergy (Verified 08/16/15 09:06) See Comments dr davis's office and pt unsure of reaction Verapamil Allergy (Verified 08/16/15 09:06) See Comments dr davis's office and pt unsure of reaction All Systems PM: A 10-system review of systems was performed and is negative for pertinent findings except as documented above in the HPI. - Constitutional Constitutional: chills, fatigue, falls, weakness, no anorexia, no excessive sweating - EENT Eyes: dry eye, no blurry vision, no change in vision, no diplopia, no loss of vision Nose, mouth and throat: neck pain, no change in voice, no dysphagia, no facial pain - Cardiovascular Cardiovascular ROS IM: dyspnea on exertion, no chest pain, no claudication, no dyspnea, no edema, no irregular heart rhythm, no palpitations - Respiratory Respiratory: dyspnea on exertion, no cough, no wheezing, no chest congestion, no excessive phlegm production, no pain with cough - Gastrointestinal Gastrointestinal: constipation, no abdominal pain, no change in bowel habits, no diarrhea - Genitourinary Genitourinary: no difficulty urinating, no urinary frequency, no urinary hesitancy - Integumentary Integumentary IM: erythema, non-healing lesions, skin ulcer - Constitutional Vitals: Temp Pulse Resp BP Pulse Ox 99.3 F 87 24 118/49 96 08/07/16 06:31 08/07/16 09:00 08/07/16 09:00 08/07/16 09:00 08/07/16 09:00 General appearance: Present: A&O X 3, pleasant, no acute distress - Head Head exam: Present: atraumatic, normal inspection, normocephalic - Eye Eye exam: Present: EOMI, conjuntiva pink, sclera anicteric - ENT ENT exam: Present: mucous membranes moist - Neck Neck exam general surgery: Present: normal inspection, supple, trachea midline Additional comments: tenderness to palpation of the left scalene muscles and spinus processes of C5- T2. Palpable nodule on right thyroid. - Respiratory Respiratory exam: Present: CTAB. Absent: accessory muscle use, rales, rhonchi, wheezes - Cardiovascular Cardiovascular exam: Present: RRR, +S1, +S2. Absent: diastolic murmur, gallop, rubs, systolic murmur - GI/Abdominal GI/Abdominal exam: Present: normal bowel sounds, soft, no peritoneal signs. Absent: distended, tenderness - Extremities Exam Extremities exam: Present: warm, radial pulses palpable and symetrical. Absent : calf tenderness, cyanotic, pedal edema Additional comments: Bilateral LE demonstrate chronic venous stasis changes around the bilateral mid to lower shins. The right LE has a lateral 1cm x 1cm healing ulcer with surrounding erythema that covers most of the right pisano. both LE are warm to palpation equally with appreciated pulses in the b/l posterior tibial. - Back Exam Back exam: Present: normal inspection - Neurological Exam Neurological exam: Present: alert, oriented X3, no focal deficits, strengths equal and symetr throughout. Absent: pronater drift, facial droop, speech deficit - Psychiatric Psychiatric exam: Present: normal affect, normal mood Internal Med - H&P Results - Labs CBC & Chem 7: 08/07/16 06:59 08/07/16 06:59 Labs: Short CBC 08/07/16 Range/Units 06:59 WBC 13.1 H (4.3-11.1) K/mcL Hgb 11.8 (11.5-15.4) g/dL Hct 36.7 (35.3-44.9) % Plt Count 239 (140-400) K/mcL Neutrophils # 12.1 H (1.6-8.9) K/mcL BMP 08/07/16 06:59 Sodium 138 Potassium 4.1 Chloride 109 Carbon Dioxide 20 BUN 53 H Creatinine 2.13 H Glucose 103 H Calcium 10.7 Cardiac Enzymes 08/07/16 Range/Units 06:59 Troponin I 0.02 (0-0.03) ng/mL Liver Function 08/07/16 Range/Units 06:59 Total Bilirubin 0.4 (0.2-1.2) mg/dL Direct Bilirubin 0.1 (0.0-0.5) mg/dL AST 30 (5-34) Units/L ALT 21 (0-55) Units/L Alkaline Phosphatase 79 (38-126) Units/L Albumin 3.1 L (3.5-5.0) g/dL Urine 08/07/16 Range/Units 07:59 Urine Color Yellow (Yellow) Urine Clarity Clear (Clear) Urine pH 6.0 (5.0-8.0) pH Units Ur Specific [place] 1.016 (1.010-1.025) Urine Protein Trace (Neg-Trace) mg/dL Urine Glucose (UA) Normal (Normal) mg/dL - ABG Interpretation ABG results: 08/07/16 07:48 ABG pH 7.42 ABG pCO2 32 L ABG pO2 60 L ABG HCO3 20.8 L ABG Total CO2 21.8 ABG O2 Saturation 91 L ABG Base Excess -3.0 L - Impressions ITS Impressions Chest X-Ray 08/07/16 07:50 IMPRESSION: No acute cardiopulmonary process. D/ / 08/07/2016 09:06:15 Jermain Gan MD / [place] Interpreting Provider: Jermain Gan MD
--- NOTE | 2016-08-07 11:00 | Event Note ---
Date of Encounter: 08/07/16 Time of Encounter: 10:57 Patient seen and examined with center medical director. Patient presents with right- leg cellulitis and severe sepsis. We give the patient Zyvox Aztreonam and Flagyl. She has CKD stage 4 and families concerned about vancomycin. 2 L of fluids given in the ER continue fluids cautiously because of hypoxemia in the emergency room requiring 2 L of oxygen probably due to some diastolic dysfunction. She complains of neck floppiness which occurs later through the day. She had recurrent falls with neck trauma and according to her MRI was performed showed evidence of arthritis only fractures. Will treat her cellulitis and see she still has that complain may consider ruling out myasthenia gravis. She is do not resuscitate. She is okay with intubation for respiratory purposes if the heart is still working
[2016-08-07] MEDS ORDERED: *HR* Dextrose 50 % in Water (Syg) 50 ML SYRINGE IVP PRN (11:04)
[2016-08-07] MEDS ORDERED: Dextrose Gel 15 GM PO PRN ×2 (11:04)
[2016-08-07] MEDS ORDERED: D5% in Water 1,000 ML IVC PRN (11:04)
[2016-08-07] MEDS ORDERED: Ondansetron ODT 4 MG TAB.RAPDIS SL PRN (11:09)
[2016-08-07] MEDS ORDERED: Naloxone 0.4 MG/ML INJ IVP PRN (11:09)
[2016-08-07] MEDS: 0.9 % Sodium Chloride 1,000 ML IVC SCH (11:41)
[2016-08-07] MEDS ORDERED: *HR* HYDROcodone/Acet 5/325 mg TABLET PO ONE (11:50)
[2016-08-07] MEDS ORDERED: *HR* Heparin 5,000 UNIT/ML VIAL SQ SCH (14:00)
[2016-08-07] MEDS: MetroNIDAZOLE 500 MG/100 ML 500 MG/100 ML BAG IVPB SCH ×2 (14:01→22:25)
[2016-08-07] MEDS: Insulin LISPRO 300 UNITS/3 ML VIAL SQ SCH ×3 (14:14→22:30)
[2016-08-07] MEDS: Aztreonam 500 MG in D5% in Water (Mini-Bag+) 100 ML IVPB SCH ×2 (16:53→22:20)
[2016-08-07] MEDS: cloNIDine HCl 0.1 MG TABLET PO SCH ×2 (16:53→22:18)
[2016-08-07] MEDS ORDERED: Warfarin perPT PO PRN (18:00)
[2016-08-07] MEDS: Acetaminophen 325 MG TABLET PO PRN (19:12)
[2016-08-07 19:52] LABS: Acinetobacter baumannii by PCR Not Detected (Not Detect); Candida albicans by PCR Not Detected (Not Detect); Candida glabrata by PCR Not Detected (Not Detect); Candida krusei by PCR Not Detected (Not Detect); Candida parapsilosis by PCR Not Detected (Not Detect); Candida tropicalis by PCR Not Detected (Not Detect); Enterococcus by PCR Not Detected (Not Detect); Escherichia coli by PCR Not Detected (Not Detect); Klebsiella oxytoca by PCR Not Detected (Not Detect); Klebsiella pneumoniae by PCR Not Detected (Not Detect); Pseudomonas aeruginosa by PCR Not Detected (Not Detect); Serratia marcescens by PCR Not Detected (Not Detect); Staphylococcus aureus by PCR Not Detected (Not Detect); Streptococcus agalactiae(B)PCR ***DETECTED*** (Not Detect); Streptococcus by PCR ***DETECTED*** (Not Detect); Streptococcus pneumoniae PCR Not Detected (Not Detect); Streptococcus pyogenes (A) PCR Not Detected (Not Detect); blaKPC Carbapenem-Resist Gene Not Detected (Not Detect); mecA Methicillin-Resist Gene Not Detected (Not Detect); vanA/B Vancomycin-Resist Genes Not Detected (Not Detect)
[2016-08-07] MEDS ORDERED: NON-FORMULARY MEDICATION 1 EACH EACH (Lisinopril [Zestril] 40 MG) PO SCH (21:00)
[2016-08-07] MEDS: rOPINIRole 1 MG TABLET PO SCH (22:19)
[2016-08-08] MEDS: 0.9 % Sodium Chloride 1,000 ML IVC SCH (01:10)
[2016-08-08] MEDS: Acetaminophen 325 MG TABLET PO PRN (04:06)
[2016-08-08 04:55] LABS: Basophils % 0.2 %; Eosinophils # 0.1 K/mcL (0.0-0.6); Eosinophils % 0.4 %; Hematocrit 30.6 % (35.3-44.9); Immature Granulocytes % 0.5 % (0-4); Lymphocytes % 7.3 %; Mean Corpuscular HGB Conc 32.4 g/dL (31.6-35.5); Mean Corpuscular Hemoglobin 29.8 pg (28.0-33.3); Mean Corpuscular Volume 92.2 fL (83.0-100.0); Mean Platelet Volume 9.9 fL (9.4-12.4); Monocytes # 0.9 K/mcL (0.0-1.3); Monocytes % 6.8 %; Neutrophils # 11.2 K/mcL (1.6-8.9); Platelet Count 207 K/mcL (140-400); Red Blood Count 3.32 M/mcL (3.82-4.97); Red Cell Distribution Width 16.5 % (11.5-14.5); Segmented Neutrophils % 84.8 %
[2016-08-08 04:56] LABS: Hemoglobin 9.9 g/dL (11.5-15.4)
[2016-08-08 05:02] LABS: INR 3.2; Prothrombin Time 35.6 Seconds (9.4-12.1)
[2016-08-08 05:04] LABS: Activated Partial Thrombo Time 37.1 Seconds (26.0-36.0)
[2016-08-08] MEDS: MetroNIDAZOLE 500 MG/100 ML 500 MG/100 ML BAG IVPB SCH (05:05)
[2016-08-08 05:11] LABS: Potassium 3.5 mEq/L (3.5-4.5)
[2016-08-08 05:15] LABS: Calcium 8.8 mg/dL (8.6-10.8)
[2016-08-08] MEDS: Aztreonam 500 MG in D5% in Water (Mini-Bag+) 100 ML IVPB SCH (06:23)
[2016-08-08] MEDS: cloNIDine HCl 0.1 MG TABLET PO SCH ×3 (08:38→20:06)
[2016-08-08] MEDS: Insulin LISPRO 300 UNITS/3 ML VIAL SQ SCH ×4 (08:38→21:51)
[2016-08-08] MEDS: rOPINIRole 1 MG TABLET PO SCH ×2 (08:38→20:07)
--- NOTE | 2016-08-08 12:58 | Internal Med Progress Note ---
<Asha Vgot - Last Filed: 08/08/16 18:58> Date of Encounter: 08/08/16 Time of Encounter: 12:56 - Assessment and plan (1) Bacteremia Current Visit: Yes Status: Acute Assessment and plan: Identified as gram-positive cocci blood cultures x2 and with concurrent urine culture results positive for Streptococcus agalactiae this is likely the cause of bacteremia. Urinary tract infection complicated with bacteremia there is a of pyelonephritis however will cover with antibiotics. Will treat with ampicillin IV 2 g every 6 hours to cover (G +) Streptococcus agalactiae. Repeat Blood cultures tomorrow Transthoracic echocardiogram tomorrow to rule out possible endocarditis/ vegetations. Morning labs: CBC as white count has continued to escalate. Have switched to appropriate ABX coverage of G + cocci. Will continue to monitor clinically for response. Discussed treatment with pharmacy per their recommendation as PCN not true allergy. (2) UTI (urinary tract infection) Current Visit: Yes Status: Acute Assessment and plan: Urine cultures positive for group B strep: Streptococcus agalactiae. Patient also has blood cultures with gram-positive bacteria suggestive of a likely source of bacteremia. Will continue to treat with ampicillin as above. Qualifiers: Urinary tract infection type: site unspecified Hematuria presence: without hematuria Qualified Code(s): N39.0 - Urinary tract infection, site not specified (3) Venous stasis dermatitis Current Visit: Yes Status: Acute Assessment and plan: Chronic. Lower extremity vascular changes/venous stasis with ulceration. Continue LE care: - Continue to keep healing ulcer clean and dry - Patient says she has not been seen by wound care in the past and the lesion + erythema has improved Qualifiers: Laterality: bilateral Qualified Code(s): I87.2 - Venous insufficiency ( chronic) (peripheral) (4) Insomnia Current Visit: Yes Status: Chronic Assessment and plan: Patient suffers from chronic insomina. - continue home medications: Amitriptyline at bedtime. Qualifiers: Insomnia type: unspecified Qualified Code(s): G47.00 - Insomnia, unspecified (5) Neck pain Current Visit: Yes Status: Acute Assessment and plan: Patient was in her lift chair and was attempting to stand when she slid down and hit her neck on the side of other furniture. Multilpe falls at home. Left SCM hypertonicity with muscle spasm is palpable on exam with warmth as tissue texture change. Patient has full range of motion however, she hesitates to turn her head to the left and winces in pain against shiva against resistance. May try a muscle relaxer such as cyclobenzaprine as pt needs medications that are tolerable to CKD to prevent further injury. Will start low dose due to patients age. 5 mg At bedtime. (6) CKD (chronic kidney disease) stage 4, GFR 15-29 ml/min Current Visit: Yes Status: Acute Assessment and plan: Continue to monitor BUN/Cr, GFR renal function daily. BUN:37<53 Cr:1.59<2.13 GFR:31>22 Renal dosing of medications to prevent further kidney injury and avoid nephrotoxic medications. IVF for hydration Renal function is without KOBI. - Patients Electrical Controls Assembler is Dr. De La Rosa (7) HTN (hypertension) Current Visit: Yes Status: Acute Assessment and plan: Hx of HTN, currently BP is controlled. Renal function is without KOBI. Will continue home medications. Qualifiers: Hypertension type: essential hypertension Qualified Code(s): I10 - Essential (primary) hypertension (8) Age related osteoporosis Current Visit: Yes Status: Acute Assessment and plan: Hx of osteoperosis with numerous fractures requiring orthopedic intervention. She is a fall risk and has not been compliant with using assisted devices recently resulting in a fall one month ago. - Allergies to Alendronate Plan: - Inpatient assisted devices Qualifiers: Presence of current pathological fracture: with current pathological fracture Encounter type: subsequent encounter Fracture healing: with routine healing Qualified Code(s): M80.00XD - Age-related osteoporosis with current pathological fracture, unspecified site, subsequent encounter for fracture with routine healing (9) Hx of deep venous thrombosis Current Visit: Yes Status: Acute (10) DVT prophylaxis Current Visit: Yes Status: Acute Assessment and plan: SQ heparin at 5000 units Q8hrs. - Subjective Interval history: Patient was seen and examined. Patient reports that she did not sleep well last night at all due to her neck being sore and that she is without her sleeping medication. She also describes that her mouth is very dry and that she uses Biotene at home for this and would like us to give her some. Patient reports that she has not had a bowel movement in days she is chronically constipated and takes docusate sodium once a day as well as MiraLAX for her chronic constipation. Patient is also requesting these medications be added to her regimen. Patient reports that she still feels "weak "but that she is minimally improved since admission. MAXIMUM TEMPERATURE 100.2 degrees Fahrenheit, otherwise stable vitals. No acute events overnight. Patient has been up to the bedside commode and has urinated without difficulty. She states that she has had increasing frequency in urination over the past few weeks but attributed it to her increased Lasix use and her diabetes. She denies urinary tract symptoms. - Constitutional Vitals: Temp Pulse Resp BP Pulse Ox 98.9 F 78 17 123/75 95 08/08/16 11:42 08/08/16 11:42 08/08/16 11:42 08/08/16 11:42 08/08/16 11:42 General appearance: Present: A&O X 3, pleasant, no acute distress Exam: General: Cooperative, pleasant, no acute distress, alert and oriented 3, answers questions appropriately HEENT: Normocephalic, traumatic left maxillary healing ecchymosis, neck with Left SCM hypertonicity with muscle spasm elicited on palpation warmth as tissue texture change. Patient has full range of motion however, she hesitates to turn her head to the left and winces in pain against shiva against resistance SCM strain/sprain, trachea midline, Conjunctiva pink, sclera anicteric, EOMI, PERRL, oral mucosa dry, no orophargeal erythema or exudates Respiratory: No accessory muscle usage, clear to auscultation bilaterally, no wheezes/rhonchi/rales appreciated Cardiovascular: Regular rate and rhythm, S1 and S2 present, no murmurs/rubs/ gallops/clicks appreciated GI/abdominal: Nondistended, nontender, soft, normal bowel sounds, no peritoneal signs Extremities: mild bilateral calf tenderness, noncyanotic, 1+ pedal edema appreciated, warm, lower extremity pulses palpable and symmetrical. Chronic venous stasis changes with ulceration. Neurological: Alert and oriented 3, no facial droop, no focal deficits Skin: Dry, intact, multiple areas of healing ecchymosis as patient frequently falls at home. There is a left inner thigh irregular macular erythematous rash that patient describes as "burning" on palpation Internal Medicine: Result - Labs CBC & Chem 7: 08/08/16 04:12 08/08/16 04:12 Labs: Short CBC 08/08/16 Range/Units 04:12 WBC 13.2 H (4.3-11.1) K/mcL Hgb 9.9 L D (11.5-15.4) g/dL Hct 30.6 L (35.3-44.9) % Plt Count 207 (140-400) K/mcL Neutrophils # 11.2 H (1.6-8.9) K/mcL BMP 08/08/16 04:12 Sodium 135 L Potassium 3.5 Chloride 107 Carbon Dioxide 21 BUN 37 H D Creatinine 1.59 H Glucose 99 Calcium 8.8 D - ABG Interpretation ABG results: ABG ABG pH 7.42 pH Units (7.32-7.45) 08/07/16 07:48 ABG pCO2 32 mmHg (35-45) L 08/07/16 07:48 ABG pO2 60 mmHg (85-104) L 08/07/16 07:48 ABG O2 Saturation 91 % (95-98) L 08/07/16 07:48 PT/INR, D-dimer PT 35.6 Seconds (9.4-12.1) H 08/08/16 04:12 Consult Discharge Plan - Plan Referrals: Beth Cedeno, PROPERTY DEVELOPER [Primary Care Provider] - <Zack Sarmiento - Last Filed: 08/09/16 08:23> Date of Encounter: 08/09/16 - Constitutional Vitals: Temp Pulse Resp BP Pulse Ox 98.5 F 62 14 150/87 96 08/09/16 07:36 08/09/16 07:36 08/09/16 07:36 08/09/16 07:36 08/09/16 07:36 Internal Medicine: Result - Labs CBC & Chem 7: 08/08/16 04:12 08/08/16 04:12 - ABG Interpretation ABG results: ABG ABG pH 7.42 pH Units (7.32-7.45) 08/07/16 07:48 ABG pCO2 32 mmHg (35-45) L 08/07/16 07:48 ABG pO2 60 mmHg (85-104) L 08/07/16 07:48 ABG O2 Saturation 91 % (95-98) L 08/07/16 07:48 PT/INR, D-dimer PT 27.7 Seconds (9.4-12.1) H 08/09/16 04:39 - Attending Attestation I examined this patient and my medical decision-making was reviewed with the LUMP ROLLER/PA/Advanced Practice Nurse/Resident Physician. I agree with the documented findings, disposition and treatment plan as described except to the extent set forth below. Bacteremia due to UTI, iv antibiotics, TTE. Zack Sarmiento
[2016-08-08] MEDS ORDERED: Saliva Stimulant 100ml BOTTLE PO PRN (13:52)
[2016-08-08] MEDS ORDERED: Simethicone 80 MG TAB.CHEW PO PRN (14:20)
[2016-08-08] MEDS: Ampicillin 2 GM in 0.9 % Sodium Chloride Mini Bag 100 ML IVPB SCH ×2 (18:29→23:54)
[2016-08-09] MEDS: 0.9 % Sodium Chloride 1,000 ML IVC SCH ×5 (03:04→23:46)
[2016-08-09 05:00] LABS: INR 2.5; Prothrombin Time 27.7 Seconds (9.4-12.1)
[2016-08-09] MEDS: Ampicillin 2 GM in 0.9 % Sodium Chloride Mini Bag 100 ML IVPB SCH ×4 (05:37→23:43)
[2016-08-09] MEDS: Insulin LISPRO 300 UNITS/3 ML VIAL SQ SCH ×4 (08:45→20:12)
[2016-08-09] MEDS: cloNIDine HCl 0.1 MG TABLET PO SCH ×3 (08:52→20:03)
[2016-08-09 08:53] LABS: Basophils % 0.1 %; Eosinophils # 0.2 K/mcL (0.0-0.6); Hematocrit 34.4 % (35.3-44.9); Hemoglobin 11.1 g/dL (11.5-15.4); Immature Granulocytes % 0.4 % (0-4); Lymphocytes # 1.1 K/mcL (0.6-4.6); Lymphocytes % 10.4 %; Mean Corpuscular HGB Conc 32.3 g/dL (31.6-35.5); Mean Corpuscular Hemoglobin 29.9 pg (28.0-33.3); Mean Corpuscular Volume 92.7 fL (83.0-100.0); Mean Platelet Volume 9.7 fL (9.4-12.4); Monocytes # 0.9 K/mcL (0.0-1.3); Monocytes % 8.7 %; Neutrophils # 8.4 K/mcL (1.6-8.9); Platelet Count 216 K/mcL (140-400); Red Blood Count 3.71 M/mcL (3.82-4.97); Red Cell Distribution Width 16.4 % (11.5-14.5); Segmented Neutrophils % 78.4 %
[2016-08-09] MEDS: rOPINIRole 1 MG TABLET PO SCH ×2 (08:53→20:01)
[2016-08-09 09:10] LABS: Potassium 3.7 mEq/L (3.5-4.5)
--- NOTE | 2016-08-09 10:09 | Internal Med Progress Note ---
<Asha Vogt - Last Filed: 08/09/16 12:01> Date of Encounter: 08/09/16 Time of Encounter: 08:00 - Assessment and plan (1) Bacteremia Current Visit: Yes Status: Acute Assessment and plan: Identified as gram-positive cocci blood cultures x2 and with concurrent urine culture results positive for Streptococcus agalactiae this is likely the cause of bacteremia. Urinary tract infection complicated with bacteremia there is a risk of pyelonephritis however will cover with antibiotics. Will treat with ampicillin IV 2 g every 6 hours to cover (G +) Streptococcus agalactiae. Repeat Blood cultures today. Pending. Will continue to follow. When blood cultres are negative patient may be discharged home on oral antibiotics for continued coverage for a total of 14 days. Transthoracic echocardiogram todayto rule out possible endocarditis/vegetations. Morning labs: CBC as white count has decreased since targeted therapy with Ampicillin to cover of G + cocci. Will continue to monitor clinically for response. Discussed treatment with pharmacy per their recommendation as PCN not true allergy. This morning patient reports no adverse rxn to abx. Will cocntinue therapy. Antibiotic therapy: Ampicillin IV 2 g every 6 hours; Day 2 for a total of 14 days antibiotic coverage due to complicated UTI with bacteremia. (2) UTI (urinary tract infection) Current Visit: Yes Status: Acute Assessment and plan: Urine cultures positive for group B strep: Streptococcus agalactiae. Patient also has blood cultures with gram-positive bacteria suggestive of a likely source of bacteremia. Will continue to treat with ampicillin as above. Qualifiers: Urinary tract infection type: site unspecified Hematuria presence: without hematuria Qualified Code(s): N39.0 - Urinary tract infection, site not specified (3) Venous stasis dermatitis Current Visit: Yes Status: Acute Assessment and plan: Chronic. Lower extremity vascular changes/venous stasis with ulceration. Continue LE care: - Continue to keep healing ulcer clean and dry - Patient says she has not been seen by wound care in the past and the lesion + erythema has improved Qualifiers: Laterality: bilateral Qualified Code(s): I87.2 - Venous insufficiency ( chronic) (peripheral) (4) Insomnia Current Visit: Yes Status: Chronic Assessment and plan: Patient suffers from chronic insomina. - continue home medications: Amitriptyline at bedtime. Qualifiers: Insomnia type: unspecified Qualified Code(s): G47.00 - Insomnia, unspecified (5) Neck pain Current Visit: Yes Status: Acute Assessment and plan: Patient was in her lift chair and was attempting to stand when she slid down and hit her neck on the side of other furniture. Multilpe falls at home. Left SCM hypertonicity with muscle spasm is palpable on exam with warmth as tissue texture change. Patient has full range of motion however, she hesitates to turn her head to the left and winces in pain against shiva against resistance. Tried a muscle relaxer: cyclobenzaprine as pt needs medications that are tolerable to CKD to prevent further injury. Will start low dose due to patients age. 5 mg At bedtime. Patient report significant improvement with relaxer slept well. Will continue. (6) CKD (chronic kidney disease) stage 4, GFR 15-29 ml/min Current Visit: Yes Status: Acute Assessment and plan: Continue to monitor BUN/Cr, GFR renal function daily. BUN: 24<37<53 Cr: 1.30<1.59<2.13 GFR: 40>31>22 Renal dosing of medications to prevent further kidney injury and avoid nephrotoxic medications. IVF for hydration Renal function is without KOBI. - Patients Ware Finisher is Dr. De La Rosa (7) HTN (hypertension) Current Visit: Yes Status: Acute Assessment and plan: Hx of HTN, currently BP is controlled. Renal function is without KOBI. Will continue home medications. Qualifiers: Hypertension type: essential hypertension Qualified Code(s): I10 - Essential (primary) hypertension (8) Age related osteoporosis Current Visit: Yes Status: Acute Assessment and plan: Hx of osteoperosis with numerous fractures requiring orthopedic intervention. She is a fall risk and has not been compliant with using assisted devices recently resulting in a fall one month ago. - Allergies to Alendronate Plan: - Inpatient assisted devices -PT OT have evaluated. Patient declines to go to extended care facility she would rather have home health that she feels that she gets better benefit and allotted time with therapist with home health. Qualifiers: Presence of current pathological fracture: with current pathological fracture Encounter type: subsequent encounter Fracture healing: with routine healing Qualified Code(s): M80.00XD - Age-related osteoporosis with current pathological fracture, unspecified site, subsequent encounter for fracture with routine healing (9) Hx of deep venous thrombosis Current Visit: Yes Status: Acute Assessment and plan: Patient has a history of DVTs as well as atrial fibrillation. She is on Coumadin however she presented supratherapeutic. Have been holding. Pharmacy to dose. (10) DVT prophylaxis Current Visit: Yes Status: Acute Assessment and plan: SQ heparin at 5000 units Q8hrs. (11) Atrial fibrillation Current Visit: Yes Status: Acute Assessment and plan: Patient presented supratherapeutic INR. Have been holding outpatient medication of Coumadin. Pharmacy to dose. We will plan to restart patient's Coumadin at 5 mg today. Patient has a long history of falling at home and is at high risk for intracranial bleeding. Discuss recent benefits of restarting Coumadin. Patient states that she will be more mindful at home with using her walker as directed. She would like to restart her medication. Patient does have DVTs and history of DVTs. [id number] -VASc score for atrial fibrillation stroke risk is 8 points. -Stroke risk was 10.8% per year in >90,000 patients (the [place] Atrial Fibrillation Cohort Study) and 15.2% risk of stroke/TIA/systemic embolism. We realize that 8 points showed a lower risk than 7 points, these were the findings in the study, obviously one should assume all scores =7 have a risk >10 %. Qualifiers: Atrial fibrillation type: unspecified Qualified Code(s): I48.91 - Unspecified atrial fibrillation - Subjective Interval history: Patient was seen and examined. Patient reports that she slept well last night. She states that she has not yet received her biotin and would like to have this. Patient states that after receiving the medication for her bowel she has had multiple bowel movements and gas this morning alone. No acute events overnight. Patient has been up ambulating with assistance to the restroom she has also been up to the chair and is feeling much stronger since admission. Patient has been receiving her ampicillin she reports no difficulty breathing, no rash, no abdominal pain or adverse reactions. Vital stable. Afebrile. - Constitutional Vitals: Temp Pulse Resp BP Pulse Ox 98.5 F 62 14 150/87 96 08/09/16 07:36 08/09/16 07:36 08/09/16 07:36 08/09/16 07:36 08/09/16 07:36 General appearance: Present: A&O X 3, pleasant, no acute distress Exam: General: Cooperative, pleasant, no acute distress, alert and oriented 3, answers questions appropriately HEENT: Normocephalic, traumatic left maxillary healing ecchymosis, neck with Left SCM hypertonicity with muscle spasm elicited on palpation warmth as tissue texture change. Patient has full range of motion however, she hesitates to turn her head to the left and winces in pain against shiva against resistance SCM strain/sprain, trachea midline, Conjunctiva pink, sclera anicteric, EOMI, PERRL, oral mucosa dry, no orophargeal erythema or exudates Respiratory: No accessory muscle usage, clear to auscultation bilaterally, no wheezes/rhonchi/rales appreciated Cardiovascular: Regular rate and rhythm, S1 and S2 present, no murmurs/rubs/ gallops/clicks appreciated GI/abdominal: Nondistended, nontender, soft, normal bowel sounds, no peritoneal signs Extremities: mild bilateral calf tenderness, noncyanotic, 1+ pedal edema appreciated, warm, lower extremity pulses palpable and symmetrical. Chronic venous stasis changes with ulceration. Neurological: Alert and oriented 3, no facial droop, no focal deficits Skin: Dry, intact, multiple areas of healing ecchymosis as patient frequently falls at home. There is a left inner thigh irregular macular erythematous rash that patient describes as "burning" on palpation unchanged from yesterday. Internal Medicine: Result - Labs CBC & Chem 7: 08/09/16 08:46 08/09/16 08:46 Labs: Short CBC 08/09/16 Range/Units 08:46 WBC 10.7 (4.3-11.1) K/mcL Hgb 11.1 L (11.5-15.4) g/dL Hct 34.4 L (35.3-44.9) % Plt Count 216 (140-400) K/mcL Neutrophils # 8.4 (1.6-8.9) K/mcL BMP 08/09/16 08:46 Sodium 138 Potassium 3.7 Chloride 110 H Carbon Dioxide 20 BUN 24 H D Creatinine 1.30 H Glucose 99 Calcium 9.0 - ABG Interpretation ABG results: ABG ABG pH 7.42 pH Units (7.32-7.45) 08/07/16 07:48 ABG pCO2 32 mmHg (35-45) L 08/07/16 07:48 ABG pO2 60 mmHg (85-104) L 08/07/16 07:48 ABG O2 Saturation 91 % (95-98) L 08/07/16 07:48 PT/INR, D-dimer PT 27.7 Seconds (9.4-12.1) H 08/09/16 04:39 Consult Discharge Plan - Plan Referrals: Beth Cedeno, REIMBURSEMENT REP [Primary Care Provider] - <Zack Sarmiento - Last Filed: 08/09/16 17:13> Date of Encounter: 08/09/16 - Constitutional Vitals: Temp Pulse Resp BP Pulse Ox 97.6 F 66 14 157/90 92 08/09/16 15:00 08/09/16 15:00 08/09/16 15:00 08/09/16 15:00 08/09/16 15:00 Internal Medicine: Result - Labs CBC & Chem 7: 08/09/16 08:46 08/09/16 08:46 Labs: Short CBC 08/09/16 Range/Units 08:46 WBC 10.7 (4.3-11.1) K/mcL Hgb 11.1 L (11.5-15.4) g/dL Hct 34.4 L (35.3-44.9) % Plt Count 216 (140-400) K/mcL Neutrophils # 8.4 (1.6-8.9) K/mcL BMP 08/09/16 08:46 Sodium 138 Potassium 3.7 Chloride 110 H Carbon Dioxide 20 BUN 24 H D Creatinine 1.30 H Glucose 99 Calcium 9.0 - ABG Interpretation ABG results: ABG ABG pH 7.42 pH Units (7.32-7.45) 08/07/16 07:48 ABG pCO2 32 mmHg (35-45) L 08/07/16 07:48 ABG pO2 60 mmHg (85-104) L 08/07/16 07:48 ABG O2 Saturation 91 % (95-98) L 08/07/16 07:48 PT/INR, D-dimer PT 27.7 Seconds (9.4-12.1) H 08/09/16 04:39 - Attending Attestation I examined this patient and my medical decision-making was reviewed with the IMAGING SERVICES DIRECTOR/PA/Advanced Practice Nurse/Resident Physician. I agree with the documented findings, disposition and treatment plan as described except to the extent set forth below. Agree wt Dr. Vogt. IV ampicilin, follow cultures, no endocarditis.
--- NOTE | 2016-08-09 15:26 | Electrocardiograph Report ---
NilaEVRYTHNG Test Date: 2016-08-07 Pat Name: Rhonda Dobson Department: [id number] Room: 3A41 Gender: F Hide Washer: GABRIEL : 1935 Requested By: Meera See Order Number: [id number] Reading MD: Isael Gu MD Measurements Intervals [place] Rate: 89 P: 31 NV: 162 QRS: 0 QRSD: 120 T: 12 QT: 321 QTc: 367 Interpretive Statements SINUS RHYTHM MODERATE INTRAVENTRICULAR CONDUCTION DELAY MINIMAL VOLTAGE CRITERIA FOR LVH, CONSIDER NORMAL VARIANT Electronically Signed On 08-09-2016 15:25:12 EDT by Isael Gu MD
[2016-08-09] MEDS ORDERED: *HR* Warfarin 5 MG TABLET PO ONE (18:00)
[2016-08-10] MEDS: 0.9 % Sodium Chloride 1,000 ML IVC SCH ×2 (01:35→08:04)
[2016-08-10] MEDS: Acetaminophen 325 MG TABLET PO PRN (04:04)
[2016-08-10 05:28] LABS: Prothrombin Time 21.8 Seconds (9.4-12.1)
[2016-08-10] MEDS: Ampicillin 2 GM in 0.9 % Sodium Chloride Mini Bag 100 ML IVPB SCH ×2 (05:53→12:29)
[2016-08-10] MEDS: Insulin LISPRO 300 UNITS/3 ML VIAL SQ SCH ×2 (07:57→12:19)
[2016-08-10] MEDS: cloNIDine HCl 0.1 MG TABLET PO SCH (08:01)
[2016-08-10] MEDS: rOPINIRole 1 MG TABLET PO SCH (08:02)
[2016-08-10] MEDS ORDERED: Furosemide 40 MG/4 ML VIAL IVP ONE (10:05)
--- NOTE | 2016-08-10 13:22 | Discharge Summary ---
<Asha Vogt - Last Filed: 08/10/16 14:23> Date of Encounter: 08/10/16 Time of Encounter: 08:00 - Discharge Diagnosis (1) Bacteremia Priority: Primary Status: Acute (2) UTI (urinary tract infection) Priority: Primary Status: Acute Qualifiers: Urinary tract infection type: site unspecified Hematuria presence: without hematuria Qualified Code(s): N39.0 - Urinary tract infection, site not specified (3) Venous stasis dermatitis Priority: Secondary Status: Chronic Qualifiers: Laterality: bilateral Qualified Code(s): I87.2 - Venous insufficiency ( chronic) (peripheral) (4) Insomnia Priority: Secondary Status: Chronic Qualifiers: Insomnia type: unspecified Qualified Code(s): G47.00 - Insomnia, unspecified (5) Neck pain Priority: Primary Status: Acute (6) CKD (chronic kidney disease) stage 4, GFR 15-29 ml/min Priority: Secondary Status: Chronic (7) HTN (hypertension) Priority: Secondary Status: Chronic Qualifiers: Hypertension type: essential hypertension Qualified Code(s): I10 - Essential (primary) hypertension (8) Age related osteoporosis Priority: Secondary Status: Chronic Qualifiers: Presence of current pathological fracture: with current pathological fracture Encounter type: subsequent encounter Fracture healing: with routine healing Qualified Code(s): M80.00XD - Age-related osteoporosis with current pathological fracture, unspecified site, subsequent encounter for fracture with routine healing (9) Hx of deep venous thrombosis Priority: Secondary Status: Chronic (10) DVT prophylaxis Priority: Secondary Status: Acute (11) Atrial fibrillation Priority: Secondary Status: Chronic Qualifiers: Atrial fibrillation type: unspecified Qualified Code(s): I48.91 - Unspecified atrial fibrillation - Discharge Medications Prescriptions: Amoxicillin/Clavulanate [Augmentin] 875 mg PO BID #24 tablet Cyclobenzaprine [Flexeril] 5 mg PO HS #7 tablet Docusate [Colace] 100 mg PO DAILY #60 capsule Polyethylene Glycol 3350 [MiraLAX Powder Bulk 17.9 Oz] 1 scoop PO DAILY #510 gm Home Medications: Allopurinol [Zyloprim 100 MG] 100 mg PO DAILY 08/07/16 [History] Amitriptyline HCl 100 mg PO DAILY 08/07/16 [History] Atenolol 100 mg PO DAILY 08/07/16 [History] Furosemide [Lasix] 20 mg PO DAILY 08/07/16 [History] Lisinopril [Zestril] 40 mg PO BID 08/07/16 [History] Pravastatin Sodium [Pravachol] 40 mg PO DAILY 08/07/16 [History] Ropinirole HCl [Requip] 2 mg PO BID 08/07/16 [History] Sitagliptin Phosphate [Januvia] 50 mg PO DAILY 08/07/16 [History] Terazosin HCl 2 mg PO BID 08/07/16 [History] Tramadol HCl [Ultram] 50 mg PO TID PRN 08/07/16 [History] Warfarin [Coumadin] 3 mg PO TU 08/07/16 [History] Warfarin [Coumadin] 6 mg PO SUMOWETHFRSA 08/07/16 [History] cloNIDine HCl [Clonidine HCl] 0.3 mg PO TID 08/07/16 [History] Amoxicillin/Clavulanate [Augmentin] 875 mg PO BID #24 tablet 08/10/16 [Rx] Cyclobenzaprine [Flexeril] 5 mg PO HS #7 tablet 08/10/16 [Rx] Docusate [Colace] 100 mg PO DAILY #60 capsule 08/10/16 [Rx] Polyethylene Glycol 3350 [MiraLAX Powder Bulk 17.9 Oz] 1 scoop PO DAILY #510 gm 08/10/16 [Rx] Allergies/Adverse Reactions: Allergies alendronate sodium [From Fosamax] Allergy (Verified 08/16/15 09:03) See Comments jaw pain amlodipine [From Norvasc] Allergy (Verified 08/16/15 09:00) Blister atorvastatin Allergy (Verified 08/16/15 09:03) See Comments office and patient not sure of reaction cephalexin [From Keflex] Allergy (Verified 08/16/15 09:00) Rash cinacalcet [From Sensipar] Allergy (Verified 08/07/16 08:46) Blister denosumab [From Prolia] Allergy (Verified 08/16/15 09:00) Blister felodipine Allergy (Verified 08/16/15 09:00) Blister Hydralazine Allergy (Verified 08/16/15 09:00) Blister olmesartan [From Benicar] Allergy (Verified 08/16/15 09:04) See Comments dr ryan's office did not have reaction listed and pt unsure. Penicillins [PCN] Allergy (Verified 08/16/15 08:32) Vomiting trandolapril Allergy (Verified 08/16/15 09:06) See Comments dr davis's office and pt unsure of reaction Verapamil Allergy (Verified 08/16/15 09:06) See Comments dr davis's office and pt unsure of reaction Procedures/tests Complete & Pending: Procedures Performed prior 72 hours Category Date Time Status EV echocardiogram Stat Y 08/08/16 14:42 Completed Date of admission: 08/07/16 18:48 Primary care physician: Beth Cedeno CNP Consults: 08/09/16 14:54 Consult to Wound Care [CONS] Routine Reason for Consult: lower extremity ulcer, DM Call Completed: No Discharging clinician: Zack Sarmiento Anticipated date of discharge: 08/10/16 - Patient Status Disposition: Home Health Service Condition: Fair Functional capacity at discharge: uses cane/walker Overall status at discharge: patient is progressing back to baseline - Discharge Instructions Instructions: Urinary Tract Infection in Women (DC) Follow Up With: Michelle Christina CNP [Advanced Practice Nurse] - 08/16/16 10:00 am - Diet and Activity Activity: ambulate only with your walker Diet: advance to your usual diet Interval History: Ms. Dobson is a 81-year-old female who presented to [facility] emergency department for evaluation of shaking and chills. Patient has long history of lower extremity venous stasis changes with occasional ulceration specifically occurring when she her legs become edematous from volume overload. On admission patient's white blood cell count was 13.1 with left shift elevated BUN and creatinine not above her baseline with mildly elevated BNP. Patient complained of urinary frequency and urgency as well as fever and chills. She was initially placed on broad-spectrum antibiotics including vancomycin, Flagyl, aztreonam pending blood cultures urine cultures. Patient's urinalysis demonstrated GBS: Streptococcus agalactiae and 2 concurrent peripheral blood cultures demonstrated Streptococcus agalactiae as likely the source of her bacteremia. Patient was diagnosed with urinary tract infection and bacteremia and her course of antibiotics was adjusted for coverage. She was started on ampicillin IV 2 g every 6 hours for 2 days pending negative blood cultures. On 08/09/16, patient's blood cultures were negative and she was switched to oral antibiotics for discharge home with renal dosing by creatinine clearance patient will be discharged home on Augmentin 875 mg PO BID for a 12 days to complete a total antibiotic coverage of 14 days. During the course of her stay patient had edema of her lower extremities that was treated with IV Lasix. Patient has a small ulceration on the right lower extremity that has had dressing change daily with daily wound checks. Patient will follow-up outpatient with wound care for further evaluation and management. No evidence of wound infection or cellulitis. Patient also had difficulty stooling and was given docusate and MiraLAX to help encourage bowel movement with success. Patient does have a history of chronic constipation. Additionally, patient complained of left sided neck pain after sustaining a fall at home on physical examination she demonstrated paraspinal musculature hypertonicity with muscle spasms on palpation suggestive of muscle strain sprain of the left sternocleidomastoid. Patient was given low-dose 5 mg cyclobenzaprine and she had significant relief of muscle spasm will continue medication outpatient. Patient has a history of atrial fibrillation and deep vein thrombosis as well as age-related osteoporosis and due to her recurrent falling at home she was evaluated by PT and OT here. Patient declined to be discharged to his intermediate facility for rehabilitation as she states that home health care spends more time and she has better success with rehabilitation at home. Her Coumadin was initially held because she was supratherapeutic on admission. Risks and benefits were discussed with restarting therapy as patient is a high risk for falls and potential intracranial bleeds. Patient elected to restart her Coumadin therapy at a lower dose. We will plan to discharge patient with home health rehabilitation. Patient is stable to discharge home from a medical standpoint. Continue home medications. Hospital course: Ms. Dobson is a 81 year old female - Time Spent with Patient Total time spent providing and/or coordinating discharge services: - Constitutional Vitals: Temp Pulse Resp BP Pulse Ox 97.6 F 59 18 153/80 95 08/10/16 10:29 08/10/16 10:29 08/10/16 10:29 08/10/16 10:29 08/10/16 10:29 General appearance: Present: A&O X 3, pleasant, no acute distress Exam: General: Cooperative, pleasant, no acute distress, alert and oriented 3, answers questions appropriately, is seen walking by herself from the bathroom to the bed without assistance HEENT: Normocephalic, traumatic left maxillary healing ecchymosis, neck with Left SCM hypertonicity with muscle spasm elicited on palpation warmth as tissue texture change. Patient has full range of motion however, she hesitates to turn her head to the left and winces in pain against shiva against resistance SCM strain/sprain, trachea midline, Conjunctiva pink, sclera anicteric, EOMI, PERRL, oral mucosa dry, no orophargeal erythema or exudates, patient is wearing her glasses today reading the paper Respiratory: No accessory muscle usage, clear to auscultation bilaterally, no wheezes/rhonchi/rales appreciated Cardiovascular: Regular rate and rhythm, S1 and S2 present, no murmurs/rubs/ gallops/clicks appreciated GI/abdominal: Nondistended, nontender, soft, normal bowel sounds, no peritoneal signs Extremities: mild bilateral calf tenderness, noncyanotic, 2+ pedal edema appreciated, warm, lower extremity pulses palpable and symmetrical. Chronic venous stasis changes with ulceration bandage present on right lower extremity. Neurological: Alert and oriented 3, no facial droop, no focal deficits Skin: Dry, intact, multiple areas of healing ecchymosis as patient frequently falls at home. There is a left inner thigh irregular macular erythematous rash that patient describes as "burning" on palpation unchanged from prior <Zack Sarmiento - Last Filed: 08/10/16 15:52> Date of Encounter: 08/10/16 Procedures/tests Complete & Pending: Procedures Performed prior 72 hours Category Date Time Status EV echocardiogram Stat Y 08/08/16 14:42 Completed Date of admission: 08/07/16 18:48 Primary care physician: Beth Cedeno CNP Consults: 08/09/16 14:54 Consult to Wound Care [CONS] Routine Reason for Consult: lower extremity ulcer, DM Call Completed: No Hospital course: Ms. Dobson is a 81 year old female - Time Spent with Patient Total time spent providing and/or coordinating discharge services: - Constitutional Vitals: Temp Pulse Resp BP Pulse Ox 97.3 F L 65 18 163/75 95 08/10/16 14:59 08/10/16 14:59 08/10/16 14:59 08/10/16 14:59 08/10/16 14:59 - Attending Attestation I examined this patient and my medical decision-making was reviewed with the FIRER PORTABLE BOILER/PA/Advanced Practice Nurse/Resident Physician. I agree with the documented findings, disposition and treatment plan as described except to the extent set forth below. UTI, continue with po augment, complete 2 weeks, follow up with pcp.
--- NOTE | 2016-08-10 14:20 | Physician Discharge Referral ---
<Asha Vogt - Last Filed: 08/10/16 14:17> Home Health/Hosp Referral Info Transfer to: Home Health Attending Provider: zuleima Provider in Charge Post Discharge: PCP - Diagnosis (1) Bacteremia Priority: Primary Status: Acute (2) UTI (urinary tract infection) Priority: Primary Status: Acute (3) Venous stasis dermatitis Priority: Secondary Status: Chronic (4) Insomnia Priority: Secondary Status: Chronic (5) Neck pain Priority: Primary Status: Acute (6) CKD (chronic kidney disease) stage 4, GFR 15-29 ml/min Priority: Secondary Status: Chronic (7) HTN (hypertension) Priority: Secondary Status: Chronic (8) Age related osteoporosis Priority: Secondary Status: Chronic (9) Hx of deep venous thrombosis Priority: Secondary Status: Chronic (10) DVT prophylaxis Priority: Secondary Status: Acute (11) Atrial fibrillation Priority: Secondary Status: Chronic - Respiratory Orders Smoking Cessation: Smoking cessation has been advised. For more information, call the [employer] Quit Line at 9-013-MSVB-NOW. - Dressing/Wound Care Site: Right lower extremity - Diet/Nutrition Diet/Nutrition Orders: Renal - Activity Activity Orders: Walker (Patient is high risk for falls with multiple falls in the past. She also has had fractures as she has osteoporosis. Encourage her to use her walker with ambulation to prevent this.) - Services Needed Following services are medically necessary services: Nursing (Wound care), Physical Therapy, Occupational Therapy - Transfer Medications Prescriptions: Amoxicillin/Clavulanate [Augmentin] 875 mg PO BID #24 tablet Cyclobenzaprine [Flexeril] 5 mg PO HS #7 tablet Docusate [Colace] 100 mg PO DAILY #60 capsule Polyethylene Glycol 3350 [MiraLAX Powder Bulk 17.9 Oz] 1 scoop PO DAILY #510 gm Home Medications: Allopurinol [Zyloprim 100 MG] 100 mg PO DAILY 08/07/16 [History] Amitriptyline HCl 100 mg PO DAILY 08/07/16 [History] Atenolol 100 mg PO DAILY 08/07/16 [History] Furosemide [Lasix] 20 mg PO DAILY 08/07/16 [History] Lisinopril [Zestril] 40 mg PO BID 08/07/16 [History] Pravastatin Sodium [Pravachol] 40 mg PO DAILY 08/07/16 [History] Ropinirole HCl [Requip] 2 mg PO BID 08/07/16 [History] Sitagliptin Phosphate [Januvia] 50 mg PO DAILY 08/07/16 [History] Terazosin HCl 2 mg PO BID 08/07/16 [History] Tramadol HCl [Ultram] 50 mg PO TID PRN 08/07/16 [History] Warfarin [Coumadin] 3 mg PO TU 08/07/16 [History] Warfarin [Coumadin] 6 mg PO SUMOWETHFRSA 08/07/16 [History] cloNIDine HCl [Clonidine HCl] 0.3 mg PO TID 08/07/16 [History] Amoxicillin/Clavulanate [Augmentin] 875 mg PO BID #24 tablet 08/10/16 [Rx] Cyclobenzaprine [Flexeril] 5 mg PO HS #7 tablet 08/10/16 [Rx] Docusate [Colace] 100 mg PO DAILY #60 capsule 08/10/16 [Rx] Polyethylene Glycol 3350 [MiraLAX Powder Bulk 17.9 Oz] 1 scoop PO DAILY #510 gm 08/10/16 [Rx] Allergies/Adverse Reactions: Allergies alendronate sodium [From Fosamax] Allergy (Verified 08/16/15 09:03) See Comments jaw pain amlodipine [From Norvasc] Allergy (Verified 08/16/15 09:00) Blister atorvastatin Allergy (Verified 08/16/15 09:03) See Comments office and patient not sure of reaction cephalexin [From Keflex] Allergy (Verified 08/16/15 09:00) Rash cinacalcet [From Sensipar] Allergy (Verified 08/07/16 08:46) Blister denosumab [From Prolia] Allergy (Verified 08/16/15 09:00) Blister felodipine Allergy (Verified 08/16/15 09:00) Blister Hydralazine Allergy (Verified 08/16/15 09:00) Blister olmesartan [From Benicar] Allergy (Verified 08/16/15 09:04) See Comments dr davis's office did not have reaction listed and pt unsure. Penicillins [PCN] Allergy (Verified 08/16/15 08:32) Vomiting trandolapril Allergy (Verified 08/16/15 09:06) See Comments dr davis's office and pt unsure of reaction Verapamil Allergy (Verified 08/16/15 09:06) See Comments dr davis's office and pt unsure of reaction Certification: Further, I certify that my clinical findings support that this patient is homebound (i.e. absences from home require considerable and taxing effort and are for medical reasons or sikhism services or infrequently or short duration when for other reasons) because: Homebound Reason: Patient requires assistance of a person or device to safely leave home Attestation: My signature below is to certify that this patient is under my care and that I, or nurse practitioner, or a physician's community relations assistant working with me, has a face-to -face encounter with this patient. <Zack Sarmiento - Last Filed: 08/10/16 15:53> - Respiratory Orders Smoking Cessation: Smoking cessation has been advised. For more information, call the [employer] Quit Line at 7-656-VCGH-NOW. Certification: Further, I certify that my clinical findings support that this patient is homebound (i.e. absences from home require considerable and taxing effort and are for medical reasons or sikhism services or infrequently or short duration when for other reasons) because: Attestation: My signature below is to certify that this patient is under my care and that I, or nurse practitioner, or a physician's community relations assistant working with me, has a face-to -face encounter with this patient.
[2016-08-10 15:01] VITALS: BP 163/75
[2016-08-10] MEDS ORDERED: Aminoglycoside Consult 1 EACH MC ONE (15:18)
[2016-08-10] MEDS ORDERED: *HR* Warfarin 5 MG TABLET PO ONE (18:00)
== END 2016-08-10 15:19 | disposition home health service (06) | DRG 872 ==
LOC: EMEROO 06:30 → 3ANU 06:30 → SUATTDRO 18:48
PROVIDERS: ADMIT Hospitalist; ATTEND Internal Medicine

== ENCOUNTER 2016-08-18 15:19 | Inpatient (IN) ==
[2016-08-18] MEDS ORDERED: 0.9 % Sodium Chloride 500 ML IVC ONE (16:21)
--- NOTE | 2016-08-18 16:23 | Emergency Department Note ---
Disposition Clinical Impression: KOBI (acute kidney injury), Supratherapeutic INR Disposition: Admitted As Inpatient Condition: Good Referrals: Beth Cedeno CNP [Primary Care Provider] - Forms: ED Satisfaction Letter Time of Disposition: 18:14 General Adult HPI - General Chief complaint: ED Extremity Problem,Nontraumatic Stated complaint: leg pain/swelling, possible allergic reaction Time Seen by Provider: 08/18/16 15:44 Source: patient Mode of arrival: ambulatory Limitations: no limitations Nursing Notes Reviewed: Yes Vital Signs Reviewed: Yes - History of Present Illness HPI Narrative: 81-year-old female history of atrial fibrillation on coumadin, hypertension, diabetes presents with worsening leg swelling. Patient has a history of chronic venous stasis for several years now. She was recently hospitalized for bacteremia initially thought due to wound infection to her leg. She was treated initially with ampicillin IV while hospitalized and 2 days later developed a drug reaction with erythema over her chest trunk and extremities. Since then she has been on all different antibiotics with no significant relief. Patient has home health nurse's that come to attend to her legs. Today they appear to be more erythematous and had crossed the demarcation line drawn by her PCP. She called Beth Cedeno her PCP was instructed to be here for further evaluation. She denies any recent fevers, illness, cough, difficulty breathing, chest pain or difficulty swallowing. Denies any abdominal pain, diarrhea, bloody stools or black tarry stools. She continues to have an increased drug rash developing with no significant relief. Her current antibiotics are Bactrim Levaquin for the group B strep. No other new medications. Denies history of congestive heart failure. Last echocardiogram revealed 55% ejection fraction. Pain Scale: 7 - Related Data Home Medications Medication Instructions Recorded Confirmed Allopurinol [Zyloprim 100 MG] 100 mg PO DAILY 08/07/16 08/07/16 Amitriptyline HCl 100 mg PO DAILY 08/07/16 08/07/16 Atenolol 100 mg PO DAILY 08/07/16 08/07/16 Furosemide [Lasix] 20 mg PO DAILY 08/07/16 08/07/16 Lisinopril [Zestril] 40 mg PO BID 08/07/16 08/07/16 Pravastatin Sodium [Pravachol] 40 mg PO DAILY 08/07/16 08/07/16 Ropinirole HCl [Requip] 2 mg PO BID 08/07/16 08/07/16 Sitagliptin Phosphate [Januvia] 50 mg PO DAILY 08/07/16 08/07/16 Terazosin HCl 2 mg PO BID 08/07/16 08/07/16 Tramadol HCl [Ultram] 50 mg PO TID PRN 08/07/16 08/07/16 Warfarin [Coumadin] 3 mg PO TU 08/07/16 08/07/16 Warfarin [Coumadin] 6 mg PO SUMOWETHFRSA 08/07/16 08/07/16 cloNIDine HCl [Clonidine HCl] 0.3 mg PO TID 08/07/16 08/07/16 Previous Rx's Medication Instructions Recorded Cyclobenzaprine [Flexeril] 5 mg PO HS #7 tablet 08/10/16 Docusate [Colace] 100 mg PO DAILY #60 capsule 08/10/16 Polyethylene Glycol 3350 [MiraLAX 1 scoop PO DAILY #510 gm 08/10/16 Powder Bulk 17.9 Oz] Sulfamethoxazole/Trimeth DS 1 each PO BID #20 tablet 08/12/16 [Bactrim DS] levoFLOXacin [Levaquin] 500 mg PO DAILY #10 tablet 08/12/16 Allergies Allergy/AdvReac Type Severity Reaction Status Date / Time alendronate sodium Allergy See Verified 08/12/16 20:29 [From Fosamax] Comments amlodipine [From Norvasc] Allergy Blister Verified 08/12/16 20:29 atorvastatin Allergy See Verified 08/12/16 20:29 Comments cephalexin [From Keflex] Allergy Rash Verified 08/12/16 20:29 cinacalcet [From Sensipar] Allergy Blister Verified 08/12/16 20:29 denosumab [From Prolia] Allergy Blister Verified 08/12/16 20:29 felodipine Allergy Blister Verified 08/12/16 20:29 Hydralazine Allergy Blister Verified 08/12/16 20:29 olmesartan [From Benicar] Allergy See Verified 08/12/16 20:29 Comments Penicillins [PCN] Allergy Vomiting Verified 08/12/16 20:29 trandolapril Allergy See Verified 08/12/16 20:29 Comments Verapamil Allergy See Verified 08/12/16 20:29 Comments All systems ED: reviewed and negative except as stated. Constitutional: Denies: fever, chills Cardiovascular: Denies: chest pain, palpitations Respiratory: Denies: cough, dyspnea Gastrointestinal: Denies: abdominal pain, nausea, vomiting, diarrhea Genitourinary: Denies: urgency, dysuria Musculoskeletal: Denies: back pain, neck pain Integumentary: Reports: rash, lesions. Denies: abrasion Neurological: Denies: headache, weakness, numbness Hematological/Lymphatic: Denies: easy bleeding, easy bruising Past Medical History - Past Medical History Attestation: Yes The following information was validated with the patient. Source: patient Medical history: Reports: diabetes, hypertension, osteoporosis, renal disease, venous stasis Surgical history: Reports: orthopedic, other, thyroidectomy Psychiatric history: Reports: no psych history - Social History Smoking Status: Never smoker Smokeless Tobacco Status: No Alcohol use: Reports: none Drug use: Reports: none Physical Exam - General Limitations: no limitations General appearance: alert, in no apparent distress, other (appears weak) - Head Head exam: atraumatic, normocephalic, normal inspection - Eye Eye exam: Present: normal appearance, PERRL, EOMI, other (no mucosal lesions) - ENT ENT exam: normal exam, normal oropharynx, mucous membranes dry - Neck Neck exam: Present: normal inspection, full ROM, trachea midline - Chest Chest inspection: Present: normal inspection, symmetric chest wall rise, rash ( confluent erythema to chest) - Respiratory Respiratory exam: Present: normal lung sounds bilaterally. Absent: respiratory distress, wheezes, stridor - Cardiovascular Cardiovascular exam: Present: regular rate, normal rhythm, normal heart sounds - Abdominal Exam Abdominal exam: Present: soft, Non-Tender, normal bowel sounds, other (rash, diffuse macular). Absent: tenderness, distention, guarding, rebound, rigidity - Extremities Exam Extremities exam: Present: normal inspection, full ROM, pedal edema (+2 symmetrical edema, likely chronic venous stasis), other (leg are seeping). Absent: tenderness, calf tenderness - Back Exam Back exam: Present: normal inspection, full ROM. Absent: tenderness - Neurological Exam Neurological exam: Present: alert, oriented X3 - Psychiatric Psychiatric exam: Present: normal affect, normal mood - Skin Skin exam: Present: warm, dry, intact, rash (diffuse along face, chest, abdomen , and extremities) - Expanded Skin Exam Description: Present: erythematous, confluent, other (open wound to right lower leg) Course Course Narrative: 81-year-old female presents with leg swelling. She has a generalized drug reaction has been chronic over the past week. Today she has noticed increase erythema above a demarcated line on her lower extremities. Airway is patent with good oxygen saturation. No evidence of anaphlyatic reaction at this time. It appears to be a drug like reaction and possible petechiae. No mucosal involvement to suggest SJS or TENS. The rash is non-blanchable. No desquamation. There is no fluctuance to the lower extremities. They are symmetrical and given her current anticoagulation stasis believe DVT is less likely at this time. Patients afebrile not tachycardic. Concern for possible infection, given her recent bacteremia will check CVC, BMP, INR, lactate and blood cultures. She is not have a cough to suggest infection. Will also get a urinalysis. Patient is in agreement with this plan. - Reevaluation(s) Reevaluation #1: Critical lab called for supratherapeutic INR 9.2. No signs of active bleeding. Will give Vit K 5mg according to the recommended management guidelines. Time: 17:14 Reevaluation #2: Significant elevation to creatinine 4.68. History of CKD and sees Dr. Fragoso. She continues to make urine but has been unable to urinate. Will straight cath. At this time is not required immediate HD. Will continue to hydrate cautiously and place on maintenance. CK 119. There does not appear to be any active source of infection at this time. Blood cultures have been ordered. Will defer any antibiotic treatment until a source arrives. Given her KOBI, suspect that it may be the cause of the KOBI and INR.S he is not septic appearing. Plan to admit, patient is in agreement with this plan. Time: 17:57 - Consultations Consultation #1: Spoke with on-call hospitalist wilbert Cruz to admit for supratherapeutic INR and KOBI. No further orders at this time. Time: 18:11 Vital Signs Temperature 97.8 F 08/18/16 15:22 Pulse Rate 73 08/18/16 15:22 Respiratory Rate 20 08/18/16 15:22 Blood Pressure 101/50 08/18/16 15:22 O2 Sat by Pulse Oximetry 95 06/16/17 15:22 Temperature 97.8 F 08/18/16 15:22 Pulse Rate 73 08/18/16 15:22 Respiratory Rate 20 08/18/16 15:22 Blood Pressure 101/50 08/18/16 15:22 O2 Sat by Pulse Oximetry 95 08/18/16 15:22 Oxygen Delivery Oxygen Delivery Room Air Medical Decision Making - Medical Records Medical records reviewed: Yes I reviewed the patient's medical records. - Lab Data Lab results reviewed: Yes I reviewed the patient's lab results. Result diagrams: 08/18/16 16:41 08/18/16 16:41 Lab Results 08/18/16 08/18/16 08/18/16 Range/Units 16:41 16:41 16:41 WBC 14.9 H (4.3-11.1) K/mcL RBC 3.40 L (3.82-4.97) M/mcL Hgb 10.2 L (11.5-15.4) g/dL Hct 30.7 L (35.3-44.9) % MCV 90.3 (83.0-100.0) fL MCH 30.0 (28.0-33.3) pg MCHC 33.2 (31.6-35.5) g/dL RDW 16.6 H (11.5-14.5) % Plt Count 319 (140-400) K/mcL MPV 9.4 (9.4-12.4) fL Immature Gran % 0.7 (0-4) % Seg Neutrophils % 83.5 % Lymphocytes % 5.6 % Monocytes % 6.5 % Eosinophils % 3.6 % Basophils % 0.1 % Neutrophils # 12.4 H (1.6-8.9) K/mcL Lymphocytes # 0.8 (0.6-4.6) K/mcL Monocytes # 1.0 (0.0-1.3) K/mcL Eosinophils # 0.5 (0.0-0.6) K/mcL Basophils # 0.0 (0.0-0.2) K/mcL Immature Plt Fraction 1.2 (1.1-6.1) % PT 106.7 H* (9.4-12.1) Seconds INR 9.2 H* APTT 52.0 H (26.0-36.0) Seconds Sodium 136 (136-145) mEq/L Potassium 4.8 H (3.5-4.5) mEq/L Chloride 105 (98-109) mEq/L Carbon Dioxide 18 L (19-29) mEq/L BUN 79 H (7-20) mg/dL Creatinine 4.63 H (0.57-1.11) mg/dL Est GFR ( Amer) 11 L (> 60) Est GFR (Non-Af Amer) 9 L (> 60) BUN/Creatinine Ratio 17 (6-26) Glucose 100 H (70-99) mg/dL Calculated Osmolality 306 H (280-300) Lactic Acid (0.5-2.2) mmol/L Calcium 9.9 (8.6-10.8) mg/dL Phosphorus (2.3-4.7) mg/dL Magnesium (1.6-2.6) mg/dL Creatine Kinase 119 (29-168) Units/L 08/18/16 08/18/16 Range/Units 16:41 16:41 WBC (4.3-11.1) K/mcL RBC (3.82-4.97) M/mcL Hgb (11.5-15.4) g/dL Hct (35.3-44.9) % MCV (83.0-100.0) fL MCH (28.0-33.3) pg MCHC (31.6-35.5) g/dL RDW (11.5-14.5) % Plt Count (140-400) K/mcL MPV (9.4-12.4) fL Immature Gran % (0-4) % Seg Neutrophils % % Lymphocytes % % Monocytes % % Eosinophils % % Basophils % % Neutrophils # (1.6-8.9) K/mcL Lymphocytes # (0.6-4.6) K/mcL Monocytes # (0.0-1.3) K/mcL Eosinophils # (0.0-0.6) K/mcL Basophils # (0.0-0.2) K/mcL Immature Plt Fraction (1.1-6.1) % PT (9.4-12.1) Seconds INR APTT (26.0-36.0) Seconds Sodium (136-145) mEq/L Potassium (3.5-4.5) mEq/L Chloride (98-109) mEq/L Carbon Dioxide (19-29) mEq/L BUN (7-20) mg/dL Creatinine (0.57-1.11) mg/dL Est GFR ( Amer) (> 60) Est GFR (Non-Af Amer) (> 60) BUN/Creatinine Ratio (6-26) Glucose (70-99) mg/dL Calculated Osmolality (280-300) Lactic Acid 1.1 (0.5-2.2) mmol/L Calcium (8.6-10.8) mg/dL Phosphorus 5.5 H (2.3-4.7) mg/dL Magnesium 1.8 (1.6-2.6) mg/dL Creatine Kinase (29-168) Units/L
[2016-08-18] MEDS ORDERED: Hydrocortisone Sodium Succ 100 MG/2 ML VIAL IVP ONE (16:30)
--- NOTE | 2016-08-18 16:36 | Emergency Department Note ---
START Narrative - START START: I examined this patient and my medical decision-making was reviewed with the DIP DYER/PA/Advanced Practice Nurse/Resident Physician. I agree with the documented findings, disposition and treatment plan as described except to the extent set forth below. ED attending note: Patient seen with emergency medicine resident Dr. DOUGLAS. Please see a copy of his note for details of the H&P, evaluation, management and disposition of this patient. We independently had [id number] contact with the patient Briefly: A 81-year-old female history of being admitted for septicemia treated with IV antibiotics which had a drug reaction to an discharge home on oral antibiotics Bactrim and another agent. Complains of increased swelling of bilateral lower extremity worsening rash. 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 No airway compromise or stridor no shortness of breath or chest pain. Patient get a sepsis workup. Admission anticipated disposition pending.
[2016-08-18 16:53] LABS: Basophils % 0.1 %; Eosinophils # 0.5 K/mcL (0.0-0.6); Eosinophils % 3.6 %; Hematocrit 30.7 % (35.3-44.9); Hemoglobin 10.2 g/dL (11.5-15.4); Immature Granulocytes % 0.7 % (0-4); Immature Platelets 1.2 % (1.1-6.1); Lymphocytes # 0.8 K/mcL (0.6-4.6); Lymphocytes % 5.6 %; Mean Corpuscular HGB Conc 33.2 g/dL (31.6-35.5); Mean Corpuscular Volume 90.3 fL (83.0-100.0); Mean Platelet Volume 9.4 fL (9.4-12.4); Monocytes % 6.5 %; Neutrophils # 12.4 K/mcL (1.6-8.9); Platelet Count 319 K/mcL (140-400); Red Cell Distribution Width 16.6 % (11.5-14.5); Segmented Neutrophils % 83.5 %
[2016-08-18 17:08] LABS: INR 9.2; Prothrombin Time 106.7 Seconds (9.4-12.1)
[2016-08-18 17:15] LABS: Magnesium 1.8 mg/dL (1.6-2.6); Phosphorous 5.5 mg/dL (2.3-4.7)
[2016-08-18 17:16] LABS: Calcium 9.9 mg/dL (8.6-10.8); Potassium 4.8 mEq/L (3.5-4.5)
[2016-08-18] MEDS ORDERED: *HR* Phytonadione 5 MG TABLET PO ONE (17:26)
[2016-08-18 18:20] LABS: Bilirubin,Urine Negative (Negative); Blood,Urine Negative (Negative); Clarity,Urine Clear (Clear); Color,Urine Yellow (Yellow); Glucose,Urine (UA) Normal (Normal); Ketones,Urine Negative (Negative); Leukocyte Esterase,Urine Negative (Negative); Nitrite,Urine Negative (Negative); PH,Urine 5.5 pH Units (5.0-8.0); Protein,Urine Negative (Neg-Trace); Specific Gravity,Urine 1.015 (1.010-1.025); Urobilinogen,Urine Normal (Normal)
[2016-08-18] MEDS: 0.9 % Sodium Chloride 1,000 ML IVC SCH (18:52)
[2016-08-18] MEDS ORDERED: Albuterol 2.5 MG/3 ML NEBULIZER IH STA (19:03)
[2016-08-18] MEDS ORDERED: Famotidine 20 MG/2 ML VIAL IVP SCH ×2 (19:06→19:45)
[2016-08-18] MEDS ORDERED: *HR* EPINEPHrine 0.3 MG/0.3 ML (PEN) IM PRN (19:11)
[2016-08-18] MEDS ORDERED: Naloxone 0.4 MG/ML INJ IVP PRN (19:32)
[2016-08-18] MEDS ORDERED: Levofloxacin 750 MG/150 ML 750 MG/150 ML BAG IVPB SCH (21:00)
[2016-08-18] MEDS: rOPINIRole 1 MG TABLET PO SCH (21:10)
[2016-08-18] MEDS: Acetaminophen 325 MG TABLET PO PRN (21:11)
[2016-08-18] MEDS: traMADol 50 MG TABLET PO PRN (21:11)
[2016-08-18] MEDS ORDERED: *HR* Dextrose 50 % in Water (Syg) 50 ML SYRINGE IVP PRN (21:42)
[2016-08-18] MEDS ORDERED: D5% in Water 1,000 ML IVC PRN (21:42)
[2016-08-18] MEDS ORDERED: Dextrose Gel 15 GM PO PRN ×2 (21:42)
--- NOTE | 2016-08-18 21:44 | Internal Med History&Physical ---
Date of Encounter: 08/18/16 Time of Encounter: 21:41 Assessment and Plan (1) Adverse reaction to drug Current visit: Yes Status: Acute Patient had reaction to ampicillin during previous hospitalization and augmentin as outpatient. She was switched to bactrim and levaquin. Patient continues with erythema, itching, and is reporting lip swelling and trouble swallowing. Patient does require antibiotics for cellulitis, will continue with levaquin, but hold bactrim. Solu-medrol 60mg IVP Q6hr benedryl 25mg IVP q6hr albuterol nebulizer Q2hr PRN pepcid 20mg IVP daily (renal dosing) Epi-pen PRN for anaphylaxis Qualifiers: Encounter type: initial encounter Qualified Code(s): T88.7XXA - Unspecified adverse effect of drug or medicament, initial encounter (2) Acute on chronic kidney failure Current visit: Yes Status: Acute Patient with chronic kidney disease, follows with Dr. Mitchell. Cr 4.63 today, up from previous of 1.3. Hold bactrim, lasix, lisinopril, NSAIDS. 0.9NS at 125mL/hr Recheck chemistry in the morning Consult to Nephrology/Dr. Mitchell, will need to be called in the morning. (3) Cellulitis Current visit: Yes Status: Acute Patient with BLE beefy red erythema, swelling and tenderness to palpation. RLE has chronic ulcer laterally. WBC elevated to 14.9. Previous blood cultures were sensitive to levaquin. Will give levaquin Q48hr ( renal dosing), and Zyvox. Blood cultures drawn and sent by ED. IV fluids Qualifiers: Site of cellulitis: extremity Site of cellulitis of extremity: lower extremity Laterality: right Qualified Code(s): L03.115 - Cellulitis of right lower limb (4) Supratherapeutic INR Current visit: Yes Status: Acute INR of 9.2. Patient without any reports of bleeding. Hgb stable at 10.2. 5mg Vitamin K given in ED. Hold coumadin. Check PT/INR/PTT daily. (5) Atrial fibrillation Current visit: No Status: Chronic Patient on atenolol for rate control and coumadin for anticoagulation. INR is supratherapeutic, we will hold coumadin and check PT/INR/PTT daily. Patient is hypotensive, holding atenolol for now. Qualifiers: Atrial fibrillation type: unspecified Qualified Code(s): I48.91 - Unspecified atrial fibrillation (6) DVT prophylaxis Current visit: No Status: Acute Patient on coumadin and INR is supratherpeutic at 9.2, additional pharmacologic prophylaxis not warranted. Internal Medicine - H&P: HPI Chief complaint: Leg pain Admitted From: Emergency Dept Plans for Post Hospital Care: Home History of present illness: Ms. Dobson is a 81 year old female with hypertension, diabetes, chronic kidney disease, atrial fibrillation on Coumadin, venous stasis presented to the emergency room today with complaints of increased leg pain and swelling. Patient was recently admitted with bacteremia and cellulitis. She had allergic reaction to the ampicillin and Augmentin she was given for her infection, and she was switched to Bactrim and Levaquin a few days after discharge. She presents today with increased erythema in her bilateral lower extremities spreading above the line demarcated by her PCP she is itching, has full body erythema, is complaining of swollen lips and difficulty swallowing. She is not drooling and reports she is able to swallow her saliva, she just feels there is something caught in her throat when she swallows food. She denies any headache , lightheadedness, chest pain, wheezing, palpitations nausea, vomiting. Evaluation in the emergency department revealed elevated white blood cell count of 14.9, supratherapeutic INR 9.2, KOBI on CKD with creatinine of 4.6, up from previous of 1.3, mildly elevated potassium of 4.8. She was given steroids for her allergic reaction, IV fluids for her KOBI, and vitamin K for her supratherapeutic INR. On exam, patient alert and oriented, lungs with diffuse wheezes. Heart has regular rate and rhythm. She is diffusely erythematous, with beefy redness in BLE below the knees. She has a venous stasis ulcer on right lateral calf. Lips are red, tongue is not swollen, airway is patent. Past Med Surg Social Fam HX - Past Medical History Medical history: atrial fibrillation, diabetes, hypertension, osteoporosis, renal disease, venous stasis Psychiatric history: no psych history - Past Surgical History Surgical History: orthopedic, other, thyroidectomy - Social History Smoking Status: Never smoker Smokeless Tobacco Status: No Alcohol use: none Drug use: none Internal Medicine - H&P: Meds Allopurinol [Zyloprim 100 MG] 100 mg PO DAILY 08/07/16 [History] Amitriptyline HCl 100 mg PO HS 08/07/16 [History] Atenolol 100 mg PO DAILY 08/07/16 [History] Furosemide [Lasix] 20 mg PO DAILY 08/07/16 [History] Lisinopril [Zestril] 40 mg PO BID 08/07/16 [History] Pravastatin Sodium [Pravachol] 40 mg PO HS 08/07/16 [History] Ropinirole HCl [Requip] 2 mg PO BID 08/07/16 [History] Sitagliptin Phosphate [Januvia] 50 mg PO DAILY 08/07/16 [History] Terazosin HCl 2 mg PO BID 08/07/16 [History] Tramadol HCl [Ultram] 50 mg PO TID PRN 08/07/16 [History] Warfarin [Coumadin] 3 mg PO TU 08/07/16 [History] Warfarin [Coumadin] 6 mg PO SUMOWETHFRSA 08/07/16 [History] cloNIDine HCl [Clonidine HCl] 0.3 mg PO TID 08/07/16 [History] Cyclobenzaprine [Flexeril] 5 mg PO HS #7 tablet 08/10/16 [Rx] Docusate [Colace] 100 mg PO DAILY #60 capsule 08/10/16 [Rx] Polyethylene Glycol 3350 [MiraLAX Powder Bulk 17.9 Oz] 1 scoop PO DAILY #510 gm 08/10/16 [Rx] Sulfamethoxazole/Trimeth DS [Bactrim DS] 1 each PO BID #20 tablet 08/12/16 [Rx] levoFLOXacin [Levaquin] 500 mg PO DAILY #10 tablet 08/12/16 [Rx] Allergies alendronate sodium [From Fosamax] Allergy (Verified 08/12/16 20:29) See Comments jaw pain amlodipine [From Norvasc] Allergy (Verified 08/12/16 20:29) Blister atorvastatin Allergy (Verified 08/12/16 20:29) See Comments office and patient not sure of reaction cephalexin [From Keflex] Allergy (Verified 08/12/16 20:29) Rash cinacalcet [From Sensipar] Allergy (Verified 08/12/16 20:29) Blister denosumab [From Prolia] Allergy (Verified 08/12/16 20:29) Blister felodipine Allergy (Verified 08/12/16 20:29) Blister Hydralazine Allergy (Verified 08/12/16 20:29) Blister olmesartan [From Benicar] Allergy (Verified 08/12/16 20:29) See Comments dr davis's office did not have reaction listed and pt unsure. Penicillins [PCN] Allergy (Verified 08/12/16 20:29) Vomiting trandolapril Allergy (Verified 08/12/16 20:29) See Comments dr davis's office and pt unsure of reaction Verapamil Allergy (Verified 08/12/16 20:29) See Comments dr davis's office and pt unsure of reaction All Systems PM: A 10-system review of systems was performed and is negative for pertinent findings except as documented above in the HPI. - Constitutional Constitutional: chills, no fever(s), no night sweats - EENT Eyes: no change in vision, no discharge, no pain, no photophobia Ears: no ear discharge, no ear pain, no tinnitus Nose, mouth and throat: dysphagia, lip swelling, no nasal discharge, no neck pain, no sore throat - Cardiovascular Cardiovascular ROS IM: edema, no chest pain, no diaphoresis, no dyspnea, no lightheadedness, no palpitations, no syncope - Respiratory Respiratory: no cough, no dyspnea, no wheezing, no excessive phlegm production - Gastrointestinal Gastrointestinal: no abdominal pain, no diarrhea, no hematemesis, no hematochezia, no melena, no nausea, no vomiting - Genitourinary Genitourinary: no change in urinary stream, no dysuria, no flank pain, no hematuria - Musculoskeletal Musculoskeletal ROS IM: no numbness, no tingling - Integumentary Integumentary IM: erythema, pruritus, rash (diffuse rash), skin ulcer (right leg ), no unusual bruising - Neurological Neurological ROS: no confusion, no convulsions, no focal weakness, no numbness, no tingling, no tremor(s) - Hematologic/Lymphatic Hematologic/Lymphatic: no easy bruising - Allergic/Immunologic Allergic/Immunologic: lip swelling - Constitutional Vitals: Temp Pulse Resp BP Pulse Ox 97.6 F 78 18 111/58 97 08/18/16 19:15 08/18/16 19:15 08/18/16 20:00 08/18/16 19:15 08/18/16 20:00 General appearance: Present: A&O X 3, pleasant - Head Head exam: Present: atraumatic, normocephalic - Eye Eye exam: Present: PERRL, conjuntiva pink, sclera anicteric Pupils: Present: PERRL - Expanded ENT Exam Mouth exam: Present: tongue normal Throat exam: Present: normal inspection - Neck Neck exam general surgery: Present: supple, trachea midline. Absent: lymphadenopathy - Respiratory Respiratory exam: Present: wheezes. Absent: accessory muscle use, rales, rhonchi - Cardiovascular Cardiovascular exam: Present: RRR, +S1, +S2. Absent: diastolic murmur, gallop, rubs, systolic murmur - GI/Abdominal GI/Abdominal exam: Present: distended, normal bowel sounds, no peritoneal signs. Absent: tenderness - Extremities Exam Extremities exam: Present: pedal edema, tenderness, warm, radial pulses palpable and symetrical. Absent: calf tenderness, cyanotic - Expanded Lower Extremities Exam Lower Leg exam: Present: erythema (beefy red below knees ) - Neurological Exam Neurological exam: Present: CN II-XII intact, oriented X3, no focal deficits. Absent: facial droop, speech deficit - Skin Skin exam: Present: dry, erythema, rash Internal Med - H&P Results - Labs CBC & Chem 7: 08/18/16 16:41 08/18/16 16:41 Labs: All Lab Results (24 Hours) 08/18/16 08/18/16 08/18/16 Range/Units 16:41 16:41 16:41 WBC 14.9 H (4.3-11.1) K/mcL RBC 3.40 L (3.82-4.97) M/mcL Hgb 10.2 L (11.5-15.4) g/dL Hct 30.7 L (35.3-44.9) % MCV 90.3 (83.0-100.0) fL MCH 30.0 (28.0-33.3) pg MCHC 33.2 (31.6-35.5) g/dL RDW 16.6 H (11.5-14.5) % Plt Count 319 (140-400) K/mcL MPV 9.4 (9.4-12.4) fL Immature Gran % 0.7 (0-4) % Seg Neutrophils % 83.5 % Lymphocytes % 5.6 % Monocytes % 6.5 % Eosinophils % 3.6 % Basophils % 0.1 % Neutrophils # 12.4 H (1.6-8.9) K/mcL Lymphocytes # 0.8 (0.6-4.6) K/mcL Monocytes # 1.0 (0.0-1.3) K/mcL Eosinophils # 0.5 (0.0-0.6) K/mcL Basophils # 0.0 (0.0-0.2) K/mcL Immature Plt Fraction 1.2 (1.1-6.1) % PT 106.7 H* (9.4-12.1) Seconds INR 9.2 H* APTT 52.0 H (26.0-36.0) Seconds Sodium 136 (136-145) mEq/L Potassium 4.8 H (3.5-4.5) mEq/L Chloride 105 (98-109) mEq/L Carbon Dioxide 18 L (19-29) mEq/L BUN 79 H (7-20) mg/dL Creatinine 4.63 H (0.57-1.11) mg/dL Est GFR ( Amer) 11 L (> 60) Est GFR (Non-Af Amer) 9 L (> 60) BUN/Creatinine Ratio 17 (6-26) Glucose 100 H (70-99) mg/dL Calculated Osmolality 306 H (280-300) Lactic Acid (0.5-2.2) mmol/L Calcium 9.9 (8.6-10.8) mg/dL Phosphorus (2.3-4.7) mg/dL Magnesium (1.6-2.6) mg/dL Creatine Kinase 119 (29-168) Units/L Urine Color (Yellow) Urine Clarity (Clear) Urine pH (5.0-8.0) pH Units Ur Specific [place] (1.010-1.025) Urine Protein (Neg-Trace) mg/dL Urine Glucose (UA) (Normal) mg/dL Urine Ketones (Negative) mg/dL Urine Blood (Negative) Urine Nitrite (Negative) Urine Bilirubin (Negative) Urine Urobilinogen (Normal) mg/dL Ur Leukocyte Esterase (Negative) Ur Culture Indicated? (NO) 06/16/17 06/16/17 06/16/17 Range/Units 16:41 16:41 18:00 WBC (4.3-11.1) K/mcL RBC (3.82-4.97) M/mcL Hgb (11.5-15.4) g/dL Hct (35.3-44.9) % MCV (83.0-100.0) fL MCH (28.0-33.3) pg MCHC (31.6-35.5) g/dL RDW (11.5-14.5) % Plt Count (140-400) K/mcL MPV (9.4-12.4) fL Immature Gran % (0-4) % Seg Neutrophils % % Lymphocytes % % Monocytes % % Eosinophils % % Basophils % % Neutrophils # (1.6-8.9) K/mcL Lymphocytes # (0.6-4.6) K/mcL Monocytes # (0.0-1.3) K/mcL Eosinophils # (0.0-0.6) K/mcL Basophils # (0.0-0.2) K/mcL Immature Plt Fraction (1.1-6.1) % PT (9.4-12.1) Seconds INR APTT (26.0-36.0) Seconds Sodium (136-145) mEq/L Potassium (3.5-4.5) mEq/L Chloride (98-109) mEq/L Carbon Dioxide (19-29) mEq/L BUN (7-20) mg/dL Creatinine (0.57-1.11) mg/dL Est GFR ( Amer) (> 60) Est GFR (Non-Af Amer) (> 60) BUN/Creatinine Ratio (6-26) Glucose (70-99) mg/dL Calculated Osmolality (280-300) Lactic Acid 1.1 (0.5-2.2) mmol/L Calcium (8.6-10.8) mg/dL Phosphorus 5.5 H (2.3-4.7) mg/dL Magnesium 1.8 (1.6-2.6) mg/dL Creatine Kinase (29-168) Units/L Urine Color Yellow (Yellow) Urine Clarity Clear (Clear) Urine pH 5.5 (5.0-8.0) pH Units Ur Specific [place] 1.015 (1.010-1.025) Urine Protein Negative (Neg-Trace) mg/dL Urine Glucose (UA) Normal (Normal) mg/dL Urine Ketones Negative (Negative) mg/dL Urine Blood Negative (Negative) Urine Nitrite Negative (Negative) Urine Bilirubin Negative (Negative) Urine Urobilinogen Normal (Normal) mg/dL Ur Leukocyte Esterase Negative (Negative) Ur Culture Indicated? NO (NO) - Diagnostic Studies Chest x-ray Additional comments: Chest X-Ray 08/18/16 19:25 IMPRESSION: No acute process. Bibasilar scarring unchanged. D/ / Alfonso Amos MD / Alfonso Amos MD Interpreting Provider: Alfonso Amos MD
[2016-08-18] MEDS ORDERED: Insulin LISPRO 300 UNITS/3 ML VIAL SQ SCH (21:45)
--- NOTE | 2016-08-18 21:56 | Event Note ---
Date of Encounter: 08/18/16 Time of Encounter: 21:50 Patient seen and examined with nurse practitioner. Multiple problems. 1st patient to the drug hypersensitivity reaction with diffuses rash but there is no disqualification of skin or mucous membranes affection. Patient will be started on IV steroids Benadryl and H1 lockers. Culprit medications will be discontinued. Hydrate. There are no clinical sciences suggest Ballesteros-Hernando syndrome or toxic epidermal necrolysis. 2nd patient has acute and chronic renal failure likely due to decrease PO intake, Bactrim therapy. She will be hydrated. We will also ruled out interstitial nephritis. check urine esinophils. Patient had 400 and muscles of urine in the Bruce catheter during my interview. I will cover patient empirically with antibiotics since she had recent group B strep bacteremia and has multiple areas of skin breakdown in her legs. She will be started on Zyvox took over from [place] as well as levofloxacin gofer for gram-negative according to prior culture. Super therapeutic INR without evidence of bleeding. She received vitamin K in the emergency room will follow INR. Prognosis guarded. she is do not resuscitate do not intubate
[2016-08-18] MEDS: methylPREDNISolone 125 MG/2 ML VIAL IVP SCH (23:40)
[2016-08-18] MEDS: Insulin LISPRO 300 UNITS/3 ML VIAL SQ SCH (23:47)
[2016-08-19] MEDS: methylPREDNISolone 125 MG/2 ML VIAL IVP SCH ×4 (06:25→18:58)
[2016-08-19] MEDS: Insulin LISPRO 300 UNITS/3 ML VIAL SQ SCH ×5 (06:27→21:21)
[2016-08-19 06:45] LABS: Basophils % 0.2 %; Eosinophils % 0.1 %; Hematocrit 32.5 % (35.3-44.9); Hemoglobin 10.5 g/dL (11.5-15.4); Immature Granulocytes % 0.7 % (0-4); Immature Platelets 1.1 % (1.1-6.1); Lymphocytes # 0.6 K/mcL (0.6-4.6); Lymphocytes % 6.6 %; Mean Corpuscular HGB Conc 32.3 g/dL (31.6-35.5); Mean Corpuscular Hemoglobin 29.6 pg (28.0-33.3); Mean Corpuscular Volume 91.5 fL (83.0-100.0); Mean Platelet Volume 9.8 fL (9.4-12.4); Monocytes # 0.1 K/mcL (0.0-1.3); Monocytes % 1.3 %; Neutrophils # 8.9 K/mcL (1.6-8.9); Platelet Count 321 K/mcL (140-400); Red Blood Count 3.55 M/mcL (3.82-4.97); Red Cell Distribution Width 16.5 % (11.5-14.5); Segmented Neutrophils % 91.1 %
[2016-08-19 06:55] LABS: Activated Partial Thrombo Time 47.4 Seconds (26.0-36.0)
[2016-08-19 06:58] LABS: INR 6.1; Prothrombin Time 69.8 Seconds (9.4-12.1)
[2016-08-19 07:05] LABS: Calcium 9.6 mg/dL (8.6-10.8); Magnesium 1.6 mg/dL (1.6-2.6); Phosphorous 3.7 mg/dL (2.3-4.7); Potassium 4.5 mEq/L (3.5-4.5)
[2016-08-19] MEDS ORDERED: Insulin LISPRO 300 UNITS/3 ML VIAL SQ SCH (07:30)
--- NOTE | 2016-08-19 08:12 | Nephrology Consult Note ---
Date of Encounter: 08/19/16 Time of Encounter: 08:10 Assessment and Plan (1) KOBI (acute kidney injury) Current Visit: Yes Status: Acute The patient has acute kidney injury superimposed on chronic kidney disease in the setting of what appears to be an allergic drug reaction. She may have accompanying acute interstitial nephritis. She is currently on steroids. Her renal function is already starting to improve. We need to avoid further nephrotoxins. Patient has a long list of medications that she is allergic to. We will continue to monitor her renal function. We will check a urine for eosinophils if that is not already been done. (2) CKD (chronic kidney disease) stage 4, GFR 15-29 ml/min Current Visit: No Status: Chronic (3) Atrial fibrillation Current Visit: No Status: Chronic Qualifiers: Atrial fibrillation type: unspecified Qualified Code(s): I48.91 - Unspecified atrial fibrillation (4) Adverse reaction to drug Current Visit: Yes Status: Acute Qualifiers: Encounter type: initial encounter Qualified Code(s): T88.7XXA - Unspecified adverse effect of drug or medicament, initial encounter History of Present Illness - History of Present Illness This is a 81-year-old female who is followed as an outpatient for stage III to stage IV chronic kidney disease. Patient was hospitalized in early August with a urinary tract infection and bacteremia as well as cellulitis. She was treated with ampicillin. Patient now returns to the hospital with worsening red rash on her legs as well as worsening diffuse drug type allergic reaction. She has been taken off ampicillin. She has been started on IV steroids and IV fluids. Her renal function has worsened. On admission creatinine was up to 4.63. In early August creatinine range from 1.3-1.59. Creatinine has improved down to 3.71 today. Patient has pain and itching of the legs as well as of her chest. She also was noted to have an INR of 9.2. This morning is down to 6.1. She is making urine. Vital signs are stable. Past Med Surg Social Fam HX - Past Medical History Medical history: atrial fibrillation, diabetes, hypertension, osteoporosis, renal disease, venous stasis Psychiatric history: no psych history - Past Surgical History Surgical History: orthopedic, other, thyroidectomy - Social History Smoking Status: Never smoker Smokeless Tobacco Status: No Alcohol use: none Drug use: none Medications and Allergies Allopurinol [Zyloprim 100 MG] 100 mg PO DAILY 06/05/17 [History] Amitriptyline HCl 100 mg PO HS 08/07/16 [History] Atenolol 100 mg PO DAILY 08/07/16 [History] Furosemide [Lasix] 20 mg PO DAILY 08/07/16 [History] Lisinopril [Zestril] 40 mg PO BID 08/07/16 [History] Pravastatin Sodium [Pravachol] 40 mg PO HS 08/07/16 [History] Ropinirole HCl [Requip] 2 mg PO BID 08/07/16 [History] Sitagliptin Phosphate [Januvia] 50 mg PO DAILY 08/07/16 [History] Terazosin HCl 2 mg PO BID 08/07/16 [History] Tramadol HCl [Ultram] 50 mg PO TID PRN 08/07/16 [History] Warfarin [Coumadin] 3 mg PO TU 08/07/16 [History] Warfarin [Coumadin] 6 mg PO SUMOWETHFRSA 08/07/16 [History] cloNIDine HCl [Clonidine HCl] 0.3 mg PO TID 08/07/16 [History] Cyclobenzaprine [Flexeril] 5 mg PO HS #7 tablet 08/10/16 [Rx] Docusate [Colace] 100 mg PO DAILY #60 capsule 08/10/16 [Rx] Polyethylene Glycol 3350 [MiraLAX Powder Bulk 17.9 Oz] 1 scoop PO DAILY #510 gm 08/10/16 [Rx] Sulfamethoxazole/Trimeth DS [Bactrim DS] 1 each PO BID #20 tablet 08/12/16 [Rx] levoFLOXacin [Levaquin] 500 mg PO DAILY #10 tablet 08/12/16 [Rx] Allergies alendronate sodium [From Fosamax] Allergy (Verified 08/12/16 20:29) See Comments jaw pain amlodipine [From Norvasc] Allergy (Verified 08/12/16 20:29) Blister atorvastatin Allergy (Verified 08/12/16 20:29) See Comments office and patient not sure of reaction cephalexin [From Keflex] Allergy (Verified 08/12/16 20:29) Rash cinacalcet [From Sensipar] Allergy (Verified 08/12/16 20:29) Blister denosumab [From Prolia] Allergy (Verified 08/12/16 20:29) Blister felodipine Allergy (Verified 08/12/16 20:29) Blister Hydralazine Allergy (Verified 08/12/16 20:29) Blister olmesartan [From Benicar] Allergy (Verified 08/12/16 20:29) See Comments dr davis's office did not have reaction listed and pt unsure. Penicillins [PCN] Allergy (Verified 08/12/16 20:29) Vomiting trandolapril Allergy (Verified 08/12/16 20:29) See Comments dr davis's office and pt unsure of reaction Verapamil Allergy (Verified 08/12/16 20:29) See Comments dr davis's office and pt unsure of reaction Review of Systems All Systems review (narrative): Patient is alert and oriented. Lungs diminished breath sounds. Heart irregular rate and rhythm. Abdomen normal bowel sounds appraise masses or megaly or tenderness. Lower extremity show bilateral edema with erythematous rash consistent with cellulitis. The patient's trunk demonstrates a erythematous rash as well that likely represents a drug eruption. Constitutional: as per HPI Eyes: bilateral: blurred vision (patient denies), diplopia (patient denies) Nose, mouth and throat: no dizziness, no headache(s) Cardiovascular: dyspnea, dyspnea on exertion, no chest pain, no palpitations Respiratory: cough, dyspnea, dyspnea on exertion Gastrointestinal: no abdominal pain, no change in bowel habits Musculoskeletal: no muscle weakness, no numbness Integumentary: new lesions, pruritus, rash, skin pain, swelling, wounds Exam - Vital Signs Vital signs: Initial Vital Signs Temp Pulse Resp BP Pulse Ox 97.8 F 73 20 101/50 95 08/18/16 15:22 08/18/16 15:22 08/18/16 15:22 08/18/16 15:22 08/18/16 15:22 Vital Signs - Last 8 Hours Temp Pulse Resp BP Pulse Ox 08/19/16 06:58 97.8 F 87 15 116/72 94 08/19/16 04:13 98.3 F 85 16 142/102 99 Intake and Output 08/18/16 08/19/16 08/19/16 23:59 07:59 15:59 Intake Total 270 / 770 Output Total 850 / 850 700 / 700 Balance -580 / -80 -700 / -700 Intake: IV Fluids 150 / 150 Levaquin Premix 750mg/150 150 / 150 mL 750 mg In 150 ml @ 100 mls/hr IVPB Q48H [facility] Rx#:[id number] Oral 120 / 120 Output: Catheter 850 / 850 700 / 700 Other: # Bowel Movements 0 Blood Glucose* 194 165 - General Appearance Exam: Patient is alert and oriented. Lungs diminished breath sounds. Heart irregular rate and rhythm. Abdomen shows normal bowel sounds braze masses or megaly or tenderness. Extremities show bilateral lower extremity edema. She has evidence of a erythematous rash consistent with cellulitis on both lower extremities. There is a diffuse erythematous rash on the trunk consistent with a drug eruption. Results - Lab Results 08/19/16 05:50 08/19/16 05:50 Most recent lab results Calcium 9.6 mg/dL (8.6-10.8) 08/19/16 05:50 Phosphorus 3.7 mg/dL (2.3-4.7) 08/19/16 05:50 Magnesium 1.6 mg/dL (1.6-2.6) 08/19/16 05:50 Consult Discharge Plan - Plan Referrals: Beth Cedeno MANUFACTURING MANAGER [Primary Care Provider] -
[2016-08-19] MEDS: rOPINIRole 1 MG TABLET PO SCH ×2 (08:16→21:08)
--- NOTE | 2016-08-19 10:59 | Internal Med Progress Note ---
Date of Encounter: 08/19/16 Time of Encounter: 10:57 - Assessment and plan (1) Hypersensitivity reaction Current Visit: Yes Status: Acute Assessment and plan: Patient is noted to have multiple medication allergies including penicillin. She was recently treated for lower extremity cellulitis with Unasyn and discharged on Augmentin after which she developed significant erythematous rash with scattered bullae over her trunk and extremities and face. As per admit notes, patient seems significantly improved clinically. Taper down IV steroids and continue H2 brianna and Benadryl. No evidence of mucosal involvement. Qualifiers: Encounter type: subsequent encounter Qualified Code(s): T78.40XD - Allergy , unspecified, subsequent encounter (2) Cellulitis Current Visit: Yes Status: Acute Assessment and plan: Patient is noted to have bilateral lower extremity cellulitis, right more than left. Continue IV Levaquin and Zyvox for now. Noted to have group B streptococcal bacteremia and UTI during previous admission. Follow-up blood cultures this time. Lower extremity elevation. Supportive care. Qualifiers: Site of cellulitis: extremity Site of cellulitis of extremity: lower extremity Laterality: right Qualified Code(s): L03.115 - Cellulitis of right lower limb (3) Diabetes type 2, controlled Current Visit: Yes Status: Chronic Assessment and plan: Accu-Chek blood glucose monitoring with sliding scale insulin. Diabetic diet. 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 Chronic kidney disease stage: stage 4 (severe) Qualified Code(s): E11.22 - Type 2 diabetes mellitus with diabetic chronic kidney disease; N18.4 - Chronic kidney disease, stage 4 (severe); Z79.4 - intermediate accountant (current) use of insulin (4) CKD (chronic kidney disease) stage 4, GFR 15-29 ml/min Current Visit: Yes Status: Chronic (5) HTN (hypertension) Current Visit: Yes Status: Chronic Qualifiers: Hypertension type: essential hypertension Qualified Code(s): I10 - Essential (primary) hypertension (6) Supratherapeutic INR Current Visit: Yes Status: Acute Assessment and plan: Due to Coumadin toxicity and concurrent use of multiple antibiotics. Received vitamin K in the emergency room. INR noted to be improving, 6.1 today. Continue to monitor. (7) Acute on chronic kidney failure Current Visit: Yes Status: Acute Assessment and plan: Baseline serum creatinine noted to be 1.5-2. Patient presented with serum creatinine of around 4.5, improving to 3.7 today. 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 Follow up urine eosinophil count. Avoid nephrotoxic agents and monitor closely. IV hydration. (8) Atrial fibrillation Current Visit: Yes Status: Chronic Assessment and plan: Currently rate controlled. Continue beta brianna. Hold Coumadin for now due to supratherapeutic INR. Telemetry monitoring. Qualifiers: Atrial fibrillation type: chronic Qualified Code(s): I48.2 - Chronic atrial fibrillation - Subjective Interval history: Sitting up in chair; diffuse erythema and allergic rash over face, chest wall, back- improving today; has leg swelling, pain and discoloration in both legs; also reports hand tremors; - Constitutional Vitals: Temp Pulse Resp BP Pulse Ox 97.8 F 87 15 116/72 94 08/19/16 06:58 08/19/16 06:58 08/19/16 06:58 08/19/16 06:58 08/19/16 06:58 General appearance: Present: A&O X 3, obese, answers questions appropriately - Respiratory Respiratory exam: Present: CTAB. Absent: accessory muscle use, rales, rhonchi, wheezes - Cardiovascular Cardiovascular exam: Present: RRR, +S1, +S2. Absent: diastolic murmur, gallop, rubs, systolic murmur - GI/Abdominal GI/Abdominal exam: Present: normal bowel sounds, soft, no peritoneal signs. Absent: distended, tenderness - Extremities Exam Extremities exam: Present: full ROM, pedal edema, warm, radial pulses palpable and symetrical. Absent: calf tenderness, cyanotic - Neurological Exam Neurological exam: Present: CN II-XII intact, oriented X3, no focal deficits. Absent: pronater drift, facial droop, speech deficit - Skin Skin exam: Present: dry, erythema (diffuse erythema with bulla- nape of neck, right leg- improving overall;), intact Additional comments: B/L legs- diffuse intense purplish erythema, edema, tenderness; right distal lateral leg ulcer; Internal Medicine: Result - Labs CBC & Chem 7: 08/19/16 05:50 08/19/16 05:50 Labs: Short CBC 08/19/16 Range/Units 05:50 WBC 9.8 (4.3-11.1) K/mcL Hgb 10.5 L (11.5-15.4) g/dL Hct 32.5 L (35.3-44.9) % Plt Count 321 (140-400) K/mcL Neutrophils # 8.9 (1.6-8.9) K/mcL BMP 08/19/16 05:50 Sodium 138 Potassium 4.5 Chloride 108 Carbon Dioxide 17 L BUN 69 H Creatinine 3.71 H Glucose 116 H Calcium 9.6 - ABG Interpretation ABG results: PT/INR, D-dimer PT 69.8 Seconds (9.4-12.1) H* 08/19/16 05:50 Consult Discharge Plan - Plan Referrals: Beth Cedeno, VINOD [Primary Care Provider] -
[2016-08-19] MEDS: 0.9 % Sodium Chloride 1,000 ML IVC SCH (14:54)
[2016-08-19] MEDS ORDERED: methylPREDNISolone 125 MG/2 ML VIAL IVP SCH (17:17)
[2016-08-19] MEDS: Famotidine 20 MG/2 ML VIAL IVP SCH (21:09)
[2016-08-20] MEDS: Insulin LISPRO 300 UNITS/3 ML VIAL SQ SCH ×6 (01:11→20:39)
[2016-08-20] MEDS: 0.9 % Sodium Chloride 1,000 ML IVC SCH ×3 (01:12→04:25)
[2016-08-20] MEDS: methylPREDNISolone 125 MG/2 ML VIAL IVP SCH ×2 (01:12→07:54)
[2016-08-20 03:39] LABS: Basophils % 0.1 %; Eosinophils % 0.1 %; Hematocrit 29.2 % (35.3-44.9); Hemoglobin 9.6 g/dL (11.5-15.4); Immature Granulocytes % 0.8 % (0-4); Lymphocytes # 0.9 K/mcL (0.6-4.6); Lymphocytes % 6.8 %; Mean Corpuscular HGB Conc 32.9 g/dL (31.6-35.5); Mean Corpuscular Hemoglobin 29.9 pg (28.0-33.3); Mean Platelet Volume 9.8 fL (9.4-12.4); Monocytes # 0.5 K/mcL (0.0-1.3); Monocytes % 3.9 %; Neutrophils # 11.5 K/mcL (1.6-8.9); Platelet Count 317 K/mcL (140-400); Red Blood Count 3.21 M/mcL (3.82-4.97); Red Cell Distribution Width 16.2 % (11.5-14.5); Segmented Neutrophils % 88.3 %
[2016-08-20 03:55] LABS: Albumin 2.5 g/dL (3.5-5.0); Albumin/Globulin Ratio 0.7 (1.1-2.2); Bilirubin,Total 0.3 mg/dL (0.2-1.2); Calcium 9.1 mg/dL (8.6-10.8); Globulin 3.4 g/dL (2.4-3.5); Phosphorous 2.3 mg/dL (2.3-4.7); Potassium 3.9 mEq/L (3.5-4.5); Total Protein 5.9 g/dL (6.0-8.3)
[2016-08-20] MEDS: rOPINIRole 1 MG TABLET PO SCH ×2 (07:54→20:18)
[2016-08-20 08:48] LABS: INR 2.9; Prothrombin Time 31.9 Seconds (9.4-12.1)
--- NOTE | 2016-08-20 09:42 | Internal Med Progress Note ---
Date of Encounter: 08/20/16 Time of Encounter: 08:45 - Assessment and plan (1) Acute encephalopathy Current Visit: Yes Status: Acute Assessment and plan: Likely related to medications-Benadryl, IV steroids, narcotic pain medications, tramadol, Elavil. Hold Benadryl and steroids for now. Supportive care and fall precautions. Patient slipped from the edge of her bed yesterday, no injuries noted, physical therapy evaluation. (2) Acute respiratory failure Current Visit: Yes Status: Acute Assessment and plan: Likely secondary to volume overload due to IV fluids. Chest x-ray reviewed independently, shows bilateral pulmonary edema. Discontinue IV fluids. Supplemental oxygen and supportive care. Will hold off on Lasix at this time due to underlying renal dysfunction. Monitor closely. Qualifiers: Respiratory failure complication: hypoxia Qualified Code(s): J96.01 - Acute respiratory failure with hypoxia (3) Hypersensitivity reaction Current Visit: Yes Status: Acute Assessment and plan: Patient is noted to have multiple medication allergies including penicillin. She was recently treated for lower extremity cellulitis with Unasyn and discharged on Augmentin after which she developed significant erythematous rash with scattered bullae over her trunk and extremities and face. Significantly improved today. Hold steroids, Benadryl. Qualifiers: Encounter type: subsequent encounter Qualified Code(s): T78.40XD - Allergy , unspecified, subsequent encounter (4) Cellulitis Current Visit: Yes Status: Acute Assessment and plan: Patient is noted to have bilateral lower extremity cellulitis, right more than left. Significant improvement noted clinically. Continue IV Levaquin and Zyvox for now. Noted to have group B streptococcal bacteremia and UTI during previous admission. Preliminary blood cultures are negative so far this time. Lower extremity elevation. Supportive care. Qualifiers: Site of cellulitis: extremity Site of cellulitis of extremity: lower extremity Laterality: right Qualified Code(s): L03.115 - Cellulitis of right lower limb (5) Diabetes type 2, controlled Current Visit: Yes Status: Chronic Assessment and plan: Accu-Chek blood glucose monitoring with sliding scale insulin. Diabetic diet. 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: with mcc use Chronic kidney disease stage: stage 4 (severe) Qualified Code(s): E11.22 - Type 2 diabetes mellitus with diabetic chronic kidney disease; N18.4 - Chronic kidney disease, stage 4 (severe); Z79.4 - [facility] (current) use of insulin (6) CKD (chronic kidney disease) stage 4, GFR 15-29 ml/min Current Visit: Yes Status: Chronic (7) HTN (hypertension) Current Visit: Yes Status: Chronic Qualifiers: Hypertension type: essential hypertension Qualified Code(s): I10 - Essential (primary) hypertension (8) Supratherapeutic INR Current Visit: Yes Status: Acute Assessment and plan: Due to Coumadin toxicity and concurrent use of multiple antibiotics. Received vitamin K in the emergency room. INR noted to be 2.9 today. Continue to monitor. (9) Acute on chronic kidney failure Current Visit: Yes Status: Acute Assessment and plan: Baseline serum creatinine noted to be 1.5-2. Patient presented with serum creatinine of around 4.5, improving to 2.6 today. 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 urine eosinophil count noted to be 0. Avoid nephrotoxic agents and monitor closely. (10) Atrial fibrillation Current Visit: Yes Status: Chronic Assessment and plan: Currently rate controlled. Continue beta brianna. Hold Coumadin for now due to supratherapeutic INR. Telemetry monitoring. Qualifiers: Atrial fibrillation type: chronic Qualified Code(s): I48.2 - Chronic atrial fibrillation - Subjective Interval history: Feels short of breath with some audible wheezing; able to answer questions but feels slightly off; improving leg swelling and rash; - Constitutional Vitals: Temp Pulse Resp BP Pulse Ox 97.8 F 92 18 150/87 97 08/20/16 07:28 08/20/16 07:28 08/20/16 07:28 08/20/16 07:28 08/20/16 07:28 General appearance: Present: mild distress, A&O X 3, answers questions appropriately - Respiratory Respiratory exam: Present: wheezes (bibasal wheezing and crackles). Absent: accessory muscle use, rales, rhonchi - Cardiovascular Cardiovascular exam: Present: RRR, +S1, +S2. Absent: diastolic murmur, gallop, rubs, systolic murmur - GI/Abdominal GI/Abdominal exam: Present: normal bowel sounds, soft, no peritoneal signs. Absent: distended, tenderness - Extremities Exam Extremities exam: Present: pedal edema (improving pedal edema), warm, radial pulses palpable and symetrical. Absent: calf tenderness, cyanotic - Skin Skin exam: Present: dry, erythema (significantly improved generalized erythematous reaction), intact Additional comments: improving erythema, edema and tenderness over B/L legs Internal Medicine: Result - Labs CBC & Chem 7: 08/20/16 02:48 08/20/16 02:48 Labs: Short CBC 08/20/16 Range/Units 02:48 WBC 13.0 H (4.3-11.1) K/mcL Hgb 9.6 L (11.5-15.4) g/dL Hct 29.2 L (35.3-44.9) % Plt Count 317 (140-400) K/mcL Neutrophils # 11.5 H (1.6-8.9) K/mcL BMP 08/20/16 02:48 Sodium 141 Potassium 3.9 Chloride 113 H Carbon Dioxide 19 BUN 58 H Creatinine 2.68 H Glucose 100 H Calcium 9.1 Liver Function 08/20/16 Range/Units 02:48 Total Bilirubin 0.3 (0.2-1.2) mg/dL AST 23 (5-34) Units/L ALT 18 (0-55) Units/L Alkaline Phosphatase 63 (38-126) Units/L Albumin 2.5 L (3.5-5.0) g/dL - ABG Interpretation ABG results: PT/INR, D-dimer PT 31.9 Seconds (9.4-12.1) H D 08/20/16 08:32 - Impressions Impressions Chest X-Ray 08/20/16 08:16 IMPRESSION: Cardiomegaly with mild interstitial edema. Atelectasis or infiltrate at the left lung base. Follow up to resolution is suggested. D/ / 08/20/2016 09:04:03 Jennifer Finn MD / karlee Interpreting Provider: Jennifer Finn MD Consult Discharge Plan - Plan Referrals: Beth Cedeno, VINOD [Primary Care Provider] -
[2016-08-20] MEDS: Levofloxacin 750 MG/150 ML 750 MG/150 ML BAG IVPB SCH (20:17)
[2016-08-20] MEDS: Famotidine 20 MG/2 ML VIAL IVP SCH (20:19)
[2016-08-20] MEDS ORDERED: Furosemide 40 MG/4 ML VIAL IVP ONE (22:56)
[2016-08-20] MEDS ORDERED: Furosemide 40 MG/4 ML VIAL ONE (22:58)
[2016-08-20] MEDS ORDERED: Ipratropium/Albuterol Neb 3 ML ONE (23:09)
[2016-08-20] MEDS ORDERED: *HR* LORazepam 2 MG/ML VIAL ONE (23:23)
[2016-08-20 23:38] LABS: ABG HCO3 21.2 mEQ/L (21-27); ABG Oxygen Saturation 100 % (95-98); ABG PCO2 43 mmHg (35-45); ABG PO2 295 mmHg (85-104); ABG TCO2 22.5 mEq/L (20-26); Blood Gas FiO2 100 %
[2016-08-21] MEDS ORDERED: *HR* LORazepam 2 MG/ML VIAL IVP ONE ×2 (00:02→05:43)
[2016-08-21] MEDS ORDERED: Furosemide 20 MG/2 ML VIAL IVP ONE (00:02)
--- NOTE | 2016-08-21 00:05 | Event Note ---
Date of Encounter: 08/20/16 Time of Encounter: 23:00 On-call Hospitalist note: I was paged to see the pt with Shortness of breath; Hypoxia. O/E: B/L crackles noted. Pt in respiratory distress. CXR showed pulmonary edema. Pt was given Lasix IV 60 mg stat; started on BiPAP therapy, with clinical improvement. Pt's family at bedside and discussed and expained the details. 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
[2016-08-21] MEDS: Insulin LISPRO 300 UNITS/3 ML VIAL SQ SCH ×6 (01:08→21:42)
[2016-08-21 05:58] LABS: Basophils % 0.1 %; Eosinophils % 0.2 %; Hemoglobin 9.7 g/dL (11.5-15.4); Immature Granulocytes % 0.7 % (0-4); Lymphocytes # 1.2 K/mcL (0.6-4.6); Lymphocytes % 7.2 %; Mean Corpuscular HGB Conc 31.3 g/dL (31.6-35.5); Mean Corpuscular Hemoglobin 28.9 pg (28.0-33.3); Mean Corpuscular Volume 92.3 fL (83.0-100.0); Mean Platelet Volume 9.4 fL (9.4-12.4); Monocytes # 1.4 K/mcL (0.0-1.3); Monocytes % 8.6 %; Neutrophils # 13.9 K/mcL (1.6-8.9); Platelet Count 337 K/mcL (140-400); Red Blood Count 3.36 M/mcL (3.82-4.97); Red Cell Distribution Width 16.8 % (11.5-14.5); Segmented Neutrophils % 83.2 %
[2016-08-21 06:11] LABS: Albumin 2.6 g/dL (3.5-5.0); Calcium 8.7 mg/dL (8.6-10.8); Phosphorous 2.8 mg/dL (2.3-4.7); Potassium 3.9 mEq/L (3.5-4.5)
[2016-08-21] MEDS: rOPINIRole 1 MG TABLET PO SCH ×2 (08:20→21:42)
[2016-08-21] MEDS ORDERED: Haloperidol Lactate 5 MG/ML VIAL IVP ONE (10:01)
[2016-08-21] MEDS ORDERED: Furosemide 40 MG/4 ML VIAL IVP ONE (11:06)
--- NOTE | 2016-08-21 11:58 | Nephrology Progress Note ---
Date of Encounter: 08/21/16 Time of Encounter: 11:30 - Assessment and Plan (1) Acute on chronic kidney failure Current Visit: Yes Status: Acute KOBI/CKD in setting of what appears to be an allergic reaction. Baseline creat 1.3-1.6. Renal fct improving. Creat today 2.23. Documented urine output 500cc past 24 hours. Will continue to monitor. Subjective Interval history: On BiPap. States breathing easier. Family in room. Objective - Vital Signs Vital signs: Vital Signs Temp Pulse Resp BP Pulse Ox 08/21/16 10:55 98.4 F 78 14 158/85 99 08/21/16 08:56 98.1 F 80 18 156/84 99 08/21/16 08:22 98.6 F 83 17 149/73 96 08/21/16 06:31 98.6 F 83 17 149/73 96 08/21/16 03:28 98.6 F 82 22 134/72 98 08/21/16 02:05 98.5 F 90 30 127/64 94 08/21/16 02:00 98.5 F 90 30 127/64 94 08/21/16 00:10 99.2 F 112 36 132/68 95 08/20/16 23:30 99.2 F 112 36 132/68 95 08/20/16 23:00 28 96 08/20/16 22:45 32 96 08/20/16 20:20 97.7 F 82 82 139/78 90 08/20/16 20:19 90 08/20/16 15:54 98.8 F 89 16 144/84 94 Intake and Output 08/20/16 08/21/16 08/21/16 23:59 07:59 15:59 Intake Total 450 / 450 0 / 0 0 / 0 Output Total 1200 / 1200 500 / 500 Balance 450 / 450 -1200 / -1200 -500 / -500 Intake: IV Fluids 450 / 450 Levaquin Premix 750mg/150 150 / 150 mL 750 mg In 150 ml @ 100 mls/hr IVPB Q48H ARMANDO Rx#:[id number] Zyvox Premix 600mg/300mL 300 / 300 600 mg In 300 ml @ 150 mls/hr IVPB Q12HR ARMANDO Rx# :[id number] Oral 0 / 0 0 / 0 0 / 0 Output: Urine 900 / 900 500 / 500 Urethral (Bruce) 300 / 300 Catheter 300 / 300 Other: Percent of Meal Consumed 45% # Voids 2 # Urine Diapers 1 Weight 94 kg Blood Glucose* 144 89 113 - General Appearance General appearance: Present: well-developed, well-nourished, appears started age EENT: Present: mucous membranes moist Neck: Present: no JVD Additional Comments: diminished BS Cardiology: Present: edema, irregular rhythm Additional Comments: LE edema, chronic vascular skin changes. Gastrointestinal: Present: normoactive bowel sounds, no tenderness, no guarding Integumentary: Present: warm and dry Psychiatric: Present: mood/affect appropriate, cooperative - Lab 08/21/16 05:09 08/21/16 05:09 Most recent lab results ABG pH 7.30 pH Units (7.32-7.45) L 08/20/16 23:00 ABG pCO2 43 mmHg (35-45) 08/20/16 23:00 ABG pO2 295 mmHg (85-104) H 08/20/16 23:00 ABG HCO3 21.2 mEQ/L (21-27) 08/20/16 23:00 ABG O2 Saturation 100 % (95-98) H 08/20/16 23:00 Calcium 8.7 mg/dL (8.6-10.8) 08/21/16 05:09 Phosphorus 2.8 mg/dL (2.3-4.7) 08/21/16 05:09 Magnesium 1.6 mg/dL (1.6-2.6) 08/19/16 05:50 Consult Discharge Plan - Plan Referrals: Beth Cedeno CNP [Primary Care Provider] - 08/28/16 1:45 pm (please follow up as schedule...)
[2016-08-21] MEDS: Famotidine 20 MG TABLET PO SCH (12:08)
[2016-08-21 13:03] LABS: INR 2.3
--- NOTE | 2016-08-21 14:47 | Internal Med Progress Note ---
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 Stable at this time but not at baseline. Off steroids and Benadryl now. When necessary Haldol for extreme agitation and restlessness. Continue soft restraints for patient's safety. Fall precautions and supportive care. Patient's family requests for placement. Physical and occupational therapy evaluation. (2) Acute respiratory failure Current Visit: Yes Status: Acute Assessment and plan: secondary to volume overload due to IV fluids. Off IV fluids. Received 60 mg IV Lasix last night, will give 40 mg IV Lasix now. Noted to have appropriate urine output. Continue BiPAP support and wean down FiO2 as tolerated. Supplemental oxygen and supportive care. Qualifiers: Respiratory failure complication: hypoxia Qualified Code(s): J96.01 - Acute respiratory failure with hypoxia (3) Hypersensitivity reaction Current Visit: Yes Status: Acute Assessment and plan: Stable. Continues to improve. Qualifiers: Encounter type: subsequent encounter Qualified Code(s): T78.40XD - Allergy , unspecified, subsequent encounter (4) Cellulitis Current Visit: Yes Status: Acute Assessment and plan: Patient is noted to have bilateral lower extremity cellulitis, right more than left. Significant improvement noted clinically. Continue IV Levaquin and Zyvox for 10 days total of antibiotics. Noted to have group B streptococcal bacteremia and UTI during previous admission. Preliminary blood cultures are negative so far this time. Lower extremity elevation. Supportive care. Qualifiers: Site of cellulitis: extremity Site of cellulitis of extremity: lower extremity Laterality: right Qualified Code(s): L03.115 - Cellulitis of right lower limb (5) Diabetes type 2, controlled Current Visit: Yes Status: Chronic Assessment and plan: Accu-Chek blood glucose monitoring with sliding scale insulin. Diabetic diet. 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 Chronic kidney disease stage: stage 4 (severe) Qualified Code(s): E11.22 - Type 2 diabetes mellitus with diabetic chronic kidney disease; N18.4 - Chronic kidney disease, stage 4 (severe); Z79.4 - jail (current) use of insulin (6) CKD (chronic kidney disease) stage 4, GFR 15-29 ml/min Current Visit: Yes Status: Chronic (7) HTN (hypertension) Current Visit: Yes Status: Chronic Qualifiers: Hypertension type: essential hypertension Qualified Code(s): I10 - Essential (primary) hypertension (8) Supratherapeutic INR Current Visit: Yes Status: Acute Assessment and plan: Due to Coumadin toxicity and concurrent use of multiple antibiotics. Received vitamin K in the emergency room. INR noted to be 2.3 today. Restart Coumadin and Continue to monitor. (9) Acute on chronic kidney failure Current Visit: Yes Status: Acute Assessment and plan: Baseline serum creatinine noted to be 1.5-2. Patient presented with serum creatinine of around 4.5, improving to 2.2 today. Nephrology follow-up appreciated, likely component of interstitial nephritis. urine eosinophil count noted to be 0. Avoid nephrotoxic agents and monitor closely. (10) Atrial fibrillation Current Visit: Yes Status: Chronic Assessment and plan: Currently rate controlled. Continue beta brianna. Restart Coumadin. Telemetry monitoring. Qualifiers: Atrial fibrillation type: chronic Qualified Code(s): I48.2 - Chronic atrial fibrillation - Subjective Interval history: Noted to be on BiPAP. Slightly drowsy but arousable to touch. Reports feeling well. Plan of care discussed with family at bedside. A shunt was noted to have respiratory distress overnight and she received 1 dose of IV Lasix and was placed on BiPAP with improvement. - Constitutional Vitals: Temp Pulse Resp BP Pulse Ox 98.4 F 78 14 158/85 99 08/21/16 10:55 08/21/16 10:55 08/21/16 10:55 08/21/16 10:55 08/21/16 10:55 General appearance: Present: A&O X 1 (Continues to be confused and disoriented) . Absent: answers questions appropriately - Respiratory Respiratory exam: Present: rales (Faint crackles bilateral bases). Absent: accessory muscle use, rhonchi, wheezes - Cardiovascular Cardiovascular exam: Present: RRR, +S1, +S2. Absent: diastolic murmur, gallop, rubs, systolic murmur - GI/Abdominal GI/Abdominal exam: Present: normal bowel sounds, soft, no peritoneal signs. Absent: distended, tenderness - Extremities Exam Extremities exam: Present: pedal edema (Significantly improved), warm, radial pulses palpable and symetrical. Absent: calf tenderness, cyanotic Additional comments: Bilateral legs with near complete resolution of erythema, edema and induration. - Skin Skin exam: Present: dry, erythema (Almost resolved hypersensitivity reaction over the face, trunk and extremities), intact Internal Medicine: Result - Labs CBC & Chem 7: 08/21/16 05:09 08/21/16 05:09 Labs: Short CBC 08/21/16 Range/Units 05:09 WBC 16.6 H (4.3-11.1) K/mcL Hgb 9.7 L (11.5-15.4) g/dL Hct 31.0 L (35.3-44.9) % Plt Count 337 (140-400) K/mcL Neutrophils # 13.9 H (1.6-8.9) K/mcL BMP 08/21/16 05:09 Sodium 142 Potassium 3.9 Chloride 112 H Carbon Dioxide 21 BUN 51 H Creatinine 2.23 H Glucose 88 Calcium 8.7 Liver Function 08/21/16 Range/Units 05:09 Albumin 2.6 L (3.5-5.0) g/dL - ABG Interpretation ABG results: ABG ABG pH 7.30 pH Units (7.32-7.45) L 08/20/16 23:00 ABG pCO2 43 mmHg (35-45) 08/20/16 23:00 ABG pO2 295 mmHg (85-104) H 08/20/16 23:00 ABG O2 Saturation 100 % (95-98) H 08/20/16 23:00 PT/INR, D-dimer PT 25.0 Seconds (9.4-12.1) H 08/21/16 12:30 - Impressions Impressions Chest X-Ray 08/20/16 00:00 IMPRESSION: Stable examination with cardiomegaly and mild central pulmonary edema. D/ / Garret Brennan MD / Garret Brennan MD Interpreting Provider: Garret Brennan MD Chest X-Ray 08/20/16 08:16 IMPRESSION: Cardiomegaly with mild interstitial edema. Atelectasis or infiltrate at the left lung base. Follow up to resolution is suggested. D/ / 08/20/2016 09:04:03 Jennifer Finn MD / karlee Interpreting Provider: Jennifer Finn MD Consult Discharge Plan - Plan Referrals: Beth Cedeno, VINOD [Primary Care Provider] - 08/28/16 1:45 pm (please follow up as schedule...)
[2016-08-21] MEDS: traMADol 50 MG TABLET PO PRN (14:51)
--- NOTE | 2016-08-21 15:05 | Electrocardiograph Report ---
[place] [id number] Test Date: 2016-08-18 Pat Name: Rhonda Dobson Department: 112 Room: 2A25 Gender: F Grades 1 Through 6 Teacher: ARIE : [id number] Requested By: Janina Webster Order Number: [id number] Reading MD: Vini Kuhn MD Measurements Intervals [place] Rate: 77 P: 3 WA: 161 QRS: 0 QRSD: 113 T: 1 QT: 379 QTc: 411 Interpretive Statements SINUS RHYTHM MODERATE VOLTAGE CRITERIA FOR LVH Electronically Signed On 08-21-2016 15:03:19 EDT by Vini Kuhn MD
[2016-08-21] MEDS ORDERED: *HR* Warfarin 3 MG TABLET PO ONE (18:00)
[2016-08-21] MEDS ORDERED: Warfarin perPT PO PRN (18:00)
[2016-08-22] MEDS: traMADol 50 MG TABLET PO PRN (03:03)
[2016-08-22 06:12] LABS: Basophils % 0.1 %; Eosinophils # 1.5 K/mcL (0.0-0.6); Eosinophils % 10.8 %; Immature Granulocytes % 0.7 % (0-4); Lymphocytes # 1.6 K/mcL (0.6-4.6); Lymphocytes % 11.9 %; Mean Corpuscular HGB Conc 32.2 g/dL (31.6-35.5); Mean Corpuscular Hemoglobin 29.7 pg (28.0-33.3); Mean Corpuscular Volume 92.3 fL (83.0-100.0); Mean Platelet Volume 9.2 fL (9.4-12.4); Monocytes # 1.3 K/mcL (0.0-1.3); Monocytes % 9.3 %; Neutrophils # 9.1 K/mcL (1.6-8.9); Platelet Count 351 K/mcL (140-400); Red Cell Distribution Width 16.8 % (11.5-14.5); Segmented Neutrophils % 67.2 %
[2016-08-22 06:18] LABS: Hemoglobin 11.6 g/dL (11.5-15.4)
[2016-08-22 06:19] LABS: INR 2.1; Prothrombin Time 23.7 Seconds (9.4-12.1)
[2016-08-22 06:30] LABS: Albumin 2.7 g/dL (3.5-5.0); Calcium 9.2 mg/dL (8.6-10.8); Phosphorous 2.2 mg/dL (2.3-4.7); Potassium 3.9 mEq/L (3.5-4.5)
[2016-08-22] MEDS: Insulin LISPRO 300 UNITS/3 ML VIAL SQ SCH ×4 (07:40→23:41)
[2016-08-22] MEDS: Famotidine 20 MG TABLET PO SCH (07:52)
[2016-08-22] MEDS: rOPINIRole 1 MG TABLET PO SCH ×2 (07:52→20:33)
--- NOTE | 2016-08-22 16:17 | Internal Med Progress Note ---
Date of Encounter: 08/22/16 Time of Encounter: 10:00 - Assessment and plan (1) Cellulitis Current Visit: Yes Status: Acute Assessment and plan: Patient is noted to have bilateral lower extremity cellulitis, right more than left. Significant improvement noted clinically. Continue IV Zyvox for 10 days total of antibiotics. Noted to have group B streptococcal bacteremia and UTI during previous admission. Preliminary blood cultures are negative so far this time. Lower extremity elevation. Supportive care. Qualifiers: Site of cellulitis: extremity Site of cellulitis of extremity: lower extremity Laterality: right Qualified Code(s): L03.115 - Cellulitis of right lower limb (2) DVT prophylaxis Current Visit: No Status: Acute Assessment and plan: Patient is on Coumadin (3) HTN (hypertension) Current Visit: Yes Status: Chronic Assessment and plan: Continue home medication atenolol, hold lisinopril and Lasix because of KOBI. Monitor blood pressure Qualifiers: Hypertension type: essential hypertension Qualified Code(s): I10 - Essential (primary) hypertension (4) Atrial fibrillation Current Visit: Yes Status: Chronic Assessment and plan: Currently rate controlled. Continue beta brianna. Restart Coumadin. Telemetry monitoring. Qualifiers: Atrial fibrillation type: chronic Qualified Code(s): I48.2 - Chronic atrial fibrillation (5) Supratherapeutic INR Current Visit: Yes Status: Acute Assessment and plan: Due to Coumadin toxicity and concurrent use of multiple antibiotics. Received vitamin K in the emergency room. INR noted to be 2.1 today. Restart Coumadin and Continue to monitor. (6) Acute on chronic kidney failure Current Visit: Yes Status: Acute Assessment and plan: Baseline serum creatinine noted to be 1.5-2. Patient presented with serum creatinine of around 4.5, improving to 2.08 today. Nephrology follow-up appreciated, likely component of interstitial nephritis. Avoid nephrotoxic agents and monitor closely. Will give low rate IVF. (7) Hypersensitivity reaction Current Visit: Yes Status: Acute Assessment and plan: Stable. Continues to improve. Cont H1 and H2 antagonist. Topical steroid added. Patient has no wheezing right now Qualifiers: Encounter type: subsequent encounter Qualified Code(s): T78.40XD - Allergy , unspecified, subsequent encounter - Time Spent With Patient 25 - 35 minutes - Subjective Interval history: Patient is a 81-year-old female admitted for cellulitis and allergic reaction of antibiotics. Past medical history is significant for A. fib on Coumadin, diabetes, hypertension, CKD. Patient was seen and examined. She still complaining of itching, there is obvious hive and scratch trace on both thigh. Vitals are stable. Patient is not tolerating systemic steroid. We will place topical steroid. Continue Benadryl and famotidine. Continue antibiotic Linezolid for cellulitis. - Constitutional Vitals: Temp Pulse Resp BP Pulse Ox 98.4 F 91 16 133/71 94 08/22/16 15:28 08/22/16 15:28 08/22/16 15:28 08/22/16 15:28 08/22/16 15:28 General appearance: Present: A&O X 1 (Continues to be confused and disoriented) . Absent: answers questions appropriately - Head Head exam: Present: atraumatic, normocephalic - Eye Eye exam: Present: PERRL, conjuntiva pink, sclera anicteric Pupils: Present: PERRL - Neck Neck exam general surgery: Present: supple, trachea midline. Absent: lymphadenopathy - Respiratory Respiratory exam: Present: CTAB. Absent: accessory muscle use, rales, rhonchi, wheezes - Cardiovascular Cardiovascular exam: Present: RRR, +S1, +S2. Absent: diastolic murmur, gallop, rubs, systolic murmur - GI/Abdominal GI/Abdominal exam: Present: normal bowel sounds, soft, no peritoneal signs. Absent: distended, tenderness - Extremities Exam Extremities exam: Present: warm, radial pulses palpable and symetrical. Absent : calf tenderness, cyanotic, pedal edema - Neurological Exam Neurological exam: Present: CN II-XII intact, oriented X3, no focal deficits. Absent: pronater drift, facial droop, speech deficit - Skin Skin exam: Present: dry, intact Additional comments: Hive on both thigh, with scratch sign. Internal Medicine: Result - Labs CBC & Chem 7: 08/22/16 05:19 08/22/16 05:19 Labs: Short CBC 08/22/16 Range/Units 05:19 WBC 13.5 H (4.3-11.1) K/mcL Hgb 11.6 D (11.5-15.4) g/dL Hct 36.0 (35.3-44.9) % Plt Count 351 (140-400) K/mcL Neutrophils # 9.1 H (1.6-8.9) K/mcL BMP 08/22/16 05:19 Sodium 142 Potassium 3.9 Chloride 107 Carbon Dioxide 27 BUN 44 H Creatinine 2.08 H Glucose 87 Calcium 9.2 Liver Function 08/22/16 Range/Units 05:19 Albumin 2.7 L (3.5-5.0) g/dL - ABG Interpretation ABG results: ABG ABG pH 7.30 pH Units (7.32-7.45) L 08/20/16 23:00 ABG pCO2 43 mmHg (35-45) 08/20/16 23:00 ABG pO2 295 mmHg (85-104) H 08/20/16 23:00 ABG O2 Saturation 100 % (95-98) H 08/20/16 23:00 PT/INR, D-dimer PT 23.7 Seconds (9.4-12.1) H 08/22/16 05:19 - VTE Documentation of Mechanical Device: Intermittent pneumatic compression device Consult Discharge Plan - Plan Referrals: Beth Cedeno, VINOD [Primary Care Provider] - 08/28/16 1:45 pm (please follow up as schedule...)
[2016-08-22] MEDS: Hydrocortisone Lotion 59 ML BOTTLE TP PRN (17:52)
[2016-08-22] MEDS: 0.9 % Sodium Chloride 1,000 ML IVC SCH (17:52)
[2016-08-22] MEDS ORDERED: *HR* Warfarin 3 MG TABLET PO ONE (18:00)
[2016-08-22] MEDS: *HR* HYDROcodone/Acet 5/325 mg TABLET PO PRN (20:33)
[2016-08-22] MEDS: Levofloxacin 750 MG/150 ML 750 MG/150 ML BAG IVPB SCH (20:34)
[2016-08-23] MEDS: *HR* HYDROcodone/Acet 5/325 mg TABLET PO PRN (03:08)
[2016-08-23 05:07] LABS: Basophils % 0.3 %; Eosinophils # 1.8 K/mcL (0.0-0.6); Eosinophils % 15.4 %; Hemoglobin 11.1 g/dL (11.5-15.4); Immature Granulocytes % 0.3 % (0-4); Lymphocytes # 1.7 K/mcL (0.6-4.6); Lymphocytes % 14.2 %; Mean Corpuscular HGB Conc 31.7 g/dL (31.6-35.5); Mean Corpuscular Hemoglobin 29.6 pg (28.0-33.3); Mean Corpuscular Volume 93.3 fL (83.0-100.0); Mean Platelet Volume 9.2 fL (9.4-12.4); Monocytes # 0.9 K/mcL (0.0-1.3); Monocytes % 8.1 %; Neutrophils # 7.1 K/mcL (1.6-8.9); Platelet Count 297 K/mcL (140-400); Red Blood Count 3.75 M/mcL (3.82-4.97); Red Cell Distribution Width 16.6 % (11.5-14.5); Segmented Neutrophils % 61.7 %
[2016-08-23 05:11] LABS: INR 2.1; Prothrombin Time 22.7 Seconds (9.4-12.1)
[2016-08-23 05:26] LABS: Calcium 9.2 mg/dL (8.6-10.8); Potassium 4.4 mEq/L (3.5-4.5)
--- NOTE | 2016-08-23 08:16 | Event Note ---
Date of Encounter: 08/23/16 Time of Encounter: 08:16 The patient's renal function has returned to her baseline. Nephrology will sign off. Please call again if needed.
[2016-08-23] MEDS: Insulin LISPRO 300 UNITS/3 ML VIAL SQ SCH ×4 (09:21→22:15)
[2016-08-23] MEDS: rOPINIRole 1 MG TABLET PO SCH ×2 (09:22→22:15)
[2016-08-23] MEDS: Hydrocortisone Lotion 59 ML BOTTLE TP PRN ×2 (09:23→16:38)
[2016-08-23] MEDS: Famotidine 20 MG TABLET PO SCH (09:23)
[2016-08-23] MEDS ORDERED: *HR* HYDROcodone/Acet 5/325 mg TABLET PO PRN (11:40)
[2016-08-23] MEDS: predniSONE 20 MG TABLET PO SCH (16:28)
[2016-08-23] MEDS: Linezolid 600 MG TABLET PO SCH (16:28)
--- NOTE | 2016-08-23 16:54 | Internal Med Progress Note ---
Date of Encounter: 08/23/16 Time of Encounter: 13:00 - Assessment and plan (1) Cellulitis Current Visit: Yes Status: Acute Assessment and plan: Patient is noted to have bilateral lower extremity cellulitis, right more than left. Significant improvement noted clinically. Continue Zyvox for 10 days total of antibiotics, switch to po today. Noted to have group B streptococcal bacteremia and UTI during previous admission. Preliminary blood cultures are negative so far this time. Lower extremity elevation. Supportive care. Qualifiers: Site of cellulitis: extremity Site of cellulitis of extremity: lower extremity Laterality: right Qualified Code(s): L03.115 - Cellulitis of right lower limb (2) DVT prophylaxis Current Visit: No Status: Acute Assessment and plan: Patient is on Coumadin (3) HTN (hypertension) Current Visit: Yes Status: Chronic Assessment and plan: Continue home medication atenolol, hold lisinopril and Lasix because of KOBI. Monitor blood pressure Qualifiers: Hypertension type: essential hypertension Qualified Code(s): I10 - Essential (primary) hypertension (4) Atrial fibrillation Current Visit: Yes Status: Chronic Assessment and plan: Currently rate controlled. Continue beta brianna. Restart Coumadin. Telemetry monitoring. Qualifiers: Atrial fibrillation type: chronic Qualified Code(s): I48.2 - Chronic atrial fibrillation (5) Supratherapeutic INR Current Visit: Yes Status: Acute Assessment and plan: Due to Coumadin toxicity and concurrent use of multiple antibiotics. Received vitamin K in the emergency room. INR noted to be 2.1 today. Restart Coumadin and Continue to monitor. (6) Acute on chronic kidney failure Current Visit: Yes Status: Acute Assessment and plan: Baseline serum creatinine noted to be 1.5-2. Patient presented with serum creatinine of around 4.5, improving to 1.7 today. Nephrology follow-up appreciated, likely component of interstitial nephritis. Avoid nephrotoxic agents and monitor closely. Will cont low rate IVF. (7) Hypersensitivity reaction Current Visit: Yes Status: Acute Assessment and plan: Still worse rashed. Cont H1 and H2 antagonist, restart systemic steroid. Topical steroid added. Patient has no wheezing right now Qualifiers: Encounter type: subsequent encounter Qualified Code(s): T78.40XD - Allergy , unspecified, subsequent encounter - Time Spent With Patient 25 - 35 minutes - Subjective Interval history: Patient is a 81-year-old female admitted for cellulitis and allergic reaction of antibiotics. Past medical history is significant for A. fib on Coumadin, diabetes, hypertension, CKD. Patient was seen and examined. She still complaining of itching, there is obvious hive and scratch trace on both thigh, seems worse today. Vitals are stable. Pt has sometimes confusion, was thought b/o systemic steroid, however pt still confused today although steroid discontinued. Consider pain med or benadryl attribute the confusion, will resume systemic steroid as rashes is getting worse. Hold pain med. Close monitor pt. - Constitutional Vitals: Temp Pulse Resp BP Pulse Ox 97.6 F 72 15 126/71 95 08/23/16 16:38 08/23/16 16:38 08/23/16 16:38 08/23/16 16:38 08/23/16 16:38 General appearance: Present: A&O X 2. Absent: answers questions appropriately - Head Head exam: Present: atraumatic, normocephalic - Eye Eye exam: Present: PERRL, conjuntiva pink, sclera anicteric Pupils: Present: PERRL - Neck Neck exam general surgery: Present: supple, trachea midline. Absent: lymphadenopathy - Respiratory Respiratory exam: Present: CTAB. Absent: accessory muscle use, rales, rhonchi, wheezes - Cardiovascular Cardiovascular exam: Present: RRR, +S1, +S2. Absent: diastolic murmur, gallop, rubs, systolic murmur - GI/Abdominal GI/Abdominal exam: Present: normal bowel sounds, soft, no peritoneal signs. Absent: distended, tenderness - Extremities Exam Extremities exam: Present: warm, radial pulses palpable and symetrical. Absent : calf tenderness, cyanotic, pedal edema - Neurological Exam Neurological exam: Present: CN II-XII intact, oriented X3, no focal deficits. Absent: pronater drift, facial droop, speech deficit - Skin Skin exam: Present: dry, intact Additional comments: Hives all over thighs B/L and B/L forarms, with scratching trace. Internal Medicine: Result - Labs CBC & Chem 7: 08/23/16 04:54 08/23/16 04:54 Labs: Short CBC 08/23/16 Range/Units 04:54 WBC 11.6 H (4.3-11.1) K/mcL Hgb 11.1 L (11.5-15.4) g/dL Hct 35.0 L (35.3-44.9) % Plt Count 297 (140-400) K/mcL Neutrophils # 7.1 (1.6-8.9) K/mcL BMP 08/23/16 04:54 Sodium 141 Potassium 4.4 Chloride 108 Carbon Dioxide 24 BUN 31 H D Creatinine 1.71 H Glucose 95 Calcium 9.2 - ABG Interpretation ABG results: ABG ABG pH 7.30 pH Units (7.32-7.45) L 08/20/16 23:00 ABG pCO2 43 mmHg (35-45) 08/20/16 23:00 ABG pO2 295 mmHg (85-104) H 08/20/16 23:00 ABG O2 Saturation 100 % (95-98) H 08/20/16 23:00 PT/INR, D-dimer PT 22.7 Seconds (9.4-12.1) H 08/23/16 04:54 - Impressions Impressions Head CT 08/23/16 11:02 IMPRESSION: No acute intracranial abnormality. Diffuse atrophic changes with findings suggesting chronic microvascular ischemia D/ / Bob Garcia MD / Bob Garcia MD Interpreting Provider: Bob Garcia MD - VTE Documentation of Mechanical Device: Intermittent pneumatic compression device Consult Discharge Plan - Plan Referrals: Beth Cedeno, ROOFER GYPSUM [Primary Care Provider] - 08/28/16 1:45 pm (please follow up as schedule...)
[2016-08-23] MEDS ORDERED: *HR* Warfarin 3 MG TABLET PO ONE (18:00)
[2016-08-23] MEDS: Acetaminophen 325 MG TABLET PO PRN (22:14)
[2016-08-24] MEDS: 0.9 % Sodium Chloride 1,000 ML IVC SCH ×2 (05:40→14:07)
[2016-08-24] MEDS: Linezolid 600 MG TABLET PO SCH ×2 (05:45→17:09)
[2016-08-24 06:17] LABS: Basophils % 0.3 %; Eosinophils % 0.2 %; Hematocrit 36.7 % (35.3-44.9); Hemoglobin 11.4 g/dL (11.5-15.4); Immature Granulocytes % 0.5 % (0-4); Lymphocytes # 0.9 K/mcL (0.6-4.6); Lymphocytes % 13.3 %; Mean Corpuscular HGB Conc 31.1 g/dL (31.6-35.5); Mean Corpuscular Hemoglobin 29.1 pg (28.0-33.3); Mean Corpuscular Volume 93.6 fL (83.0-100.0); Mean Platelet Volume 9.9 fL (9.4-12.4); Monocytes # 0.1 K/mcL (0.0-1.3); Monocytes % 1.9 %; Neutrophils # 5.4 K/mcL (1.6-8.9); Platelet Count 296 K/mcL (140-400); Red Blood Count 3.92 M/mcL (3.82-4.97); Red Cell Distribution Width 16.6 % (11.5-14.5); Segmented Neutrophils % 83.8 %
[2016-08-24 06:19] LABS: INR 1.9; Prothrombin Time 21.2 Seconds (9.4-12.1)
[2016-08-24 06:36] LABS: Calcium 9.6 mg/dL (8.6-10.8); Potassium 4.3 mEq/L (3.5-4.5)
[2016-08-24] MEDS: predniSONE 20 MG TABLET PO SCH (08:10)
[2016-08-24] MEDS: Famotidine 20 MG TABLET PO SCH (08:11)
[2016-08-24] MEDS: rOPINIRole 1 MG TABLET PO SCH ×2 (08:11→21:35)
[2016-08-24] MEDS: Insulin LISPRO 300 UNITS/3 ML VIAL SQ SCH ×4 (08:11→21:31)
--- NOTE | 2016-08-24 16:03 | Internal Med Progress Note ---
Date of Encounter: 08/24/16 Time of Encounter: 09:00 - Assessment and plan (1) Cellulitis Current Visit: Yes Status: Acute Assessment and plan: Patient is noted to have bilateral lower extremity cellulitis, right more than left. Significant improvement noted clinically. Continue Zyvox for 10 days total of antibiotics, switch to po now (Day 5 today). Noted to have group B streptococcal bacteremia and UTI during previous admission. Preliminary blood cultures are negative so far this time. Lower extremity elevation. Supportive care. Qualifiers: Site of cellulitis: extremity Site of cellulitis of extremity: lower extremity Laterality: right Qualified Code(s): L03.115 - Cellulitis of right lower limb (2) DVT prophylaxis Current Visit: No Status: Acute Assessment and plan: Patient is on Coumadin (3) HTN (hypertension) Current Visit: Yes Status: Chronic Assessment and plan: Continue home medication atenolol, hold lisinopril and Lasix because of KOBI. Acceptable blood pressure Qualifiers: Hypertension type: essential hypertension Qualified Code(s): I10 - Essential (primary) hypertension (4) Atrial fibrillation Current Visit: Yes Status: Chronic Assessment and plan: Currently rate controlled. Continue beta brianna. Restart Coumadin. Telemetry monitoring. F/U INR Qualifiers: Atrial fibrillation type: chronic Qualified Code(s): I48.2 - Chronic atrial fibrillation (5) Supratherapeutic INR Current Visit: Yes Status: Acute Assessment and plan: INR 9.2 upon admission. Due to Coumadin toxicity and concurrent use of multiple antibiotics. Received vitamin K in the emergency room. INR noted to be 1.9 today. Continue Coumadin, dosed by pharmacy (6) Acute on chronic kidney failure Current Visit: Yes Status: Acute Assessment and plan: Baseline serum creatinine noted to be 1.5-2. Patient presented with serum creatinine of around 4.5, improving to 1.6 today. Nephrology follow-up appreciated, likely component of interstitial nephritis. Avoid nephrotoxic agents and monitor closely. D/C IVF. (7) Hypersensitivity reaction Current Visit: Yes Status: Acute Assessment and plan: Improved rashes and itching. Cont H1 and H2 antagonist, Cont systemic and typical steroid. Patient has no wheezing right now Qualifiers: Encounter type: subsequent encounter Qualified Code(s): T78.40XD - Allergy , unspecified, subsequent encounter - Time Spent With Patient 25 - 35 minutes - Subjective Interval history: Patient is a 81-year-old female admitted for cellulitis and allergic reaction of antibiotics. Past medical history is significant for A. fib on Coumadin, diabetes, hypertension, CKD. Patient was seen and examined. Itching and rashes has improved but pt still has mild itching. Vitals are stable. Pt shows sleepy but can be wake up and answer question properly, consider due to Benadryl. Will cont current medication , probably d/c regular benadryl and change to PRN upon discharge pt to [facility]. - Constitutional Vitals: Temp Pulse Resp BP Pulse Ox 97.4 F L 88 16 148/77 95 08/24/16 10:46 08/24/16 10:46 08/24/16 10:46 08/24/16 10:46 08/24/16 10:46 General appearance: Present: A&O X 3, no acute distress. Absent: answers questions appropriately - Head Head exam: Present: atraumatic, normocephalic - Eye Eye exam: Present: PERRL, conjuntiva pink, sclera anicteric Pupils: Present: PERRL - Neck Neck exam general surgery: Present: supple, trachea midline. Absent: lymphadenopathy - Respiratory Respiratory exam: Present: CTAB. Absent: accessory muscle use, rales, rhonchi, wheezes - Cardiovascular Cardiovascular exam: Present: RRR, +S1, +S2. Absent: diastolic murmur, gallop, rubs, systolic murmur - GI/Abdominal GI/Abdominal exam: Present: normal bowel sounds, soft, no peritoneal signs. Absent: distended, tenderness - Extremities Exam Extremities exam: Present: warm, radial pulses palpable and symetrical. Absent : calf tenderness, cyanotic, pedal edema - Neurological Exam Neurological exam: Present: CN II-XII intact, oriented X3, no focal deficits. Absent: pronater drift, facial droop, speech deficit - Skin Skin exam: Present: dry, intact Additional comments: Improved hives on both legs and forearms. Internal Medicine: Result - Labs CBC & Chem 7: 08/24/16 04:10 08/24/16 04:10 Labs: Short CBC 08/24/16 Range/Units 04:10 WBC 6.4 (4.3-11.1) K/mcL Hgb 11.4 L (11.5-15.4) g/dL Hct 36.7 (35.3-44.9) % Plt Count 296 (140-400) K/mcL Neutrophils # 5.4 (1.6-8.9) K/mcL BMP 08/24/16 04:10 Sodium 140 Potassium 4.3 Chloride 108 Carbon Dioxide 25 BUN 29 H Creatinine 1.62 H Glucose 177 H Calcium 9.6 - ABG Interpretation ABG results: ABG ABG pH 7.30 pH Units (7.32-7.45) L 08/20/16 23:00 ABG pCO2 43 mmHg (35-45) 08/20/16 23:00 ABG pO2 295 mmHg (85-104) H 08/20/16 23:00 ABG O2 Saturation 100 % (95-98) H 08/20/16 23:00 PT/INR, D-dimer PT 21.2 Seconds (9.4-12.1) H 08/24/16 04:10 - VTE Documentation of Mechanical Device: Intermittent pneumatic compression device Consult Discharge Plan - Plan Referrals: Beth Cedeno CNP [Primary Care Provider] - 08/28/16 1:45 pm (please follow up as schedule...)
[2016-08-24] MEDS ORDERED: *HR* Warfarin 5 MG TABLET PO ONE (18:00)
[2016-08-25] MEDS: Linezolid 600 MG TABLET PO SCH (05:39)
[2016-08-25 08:01] LABS: Basophils % 0.2 %; Eosinophils % 0.1 %; Hematocrit 41.9 % (35.3-44.9); Hemoglobin 12.8 g/dL (11.5-15.4); Immature Granulocytes % 0.9 % (0-4); Lymphocytes # 1.3 K/mcL (0.6-4.6); Lymphocytes % 10.9 %; Mean Corpuscular HGB Conc 30.5 g/dL (31.6-35.5); Mean Corpuscular Hemoglobin 29.2 pg (28.0-33.3); Mean Corpuscular Volume 95.7 fL (83.0-100.0); Mean Platelet Volume 10.8 fL (9.4-12.4); Monocytes # 0.4 K/mcL (0.0-1.3); Monocytes % 3.2 %; Neutrophils # 9.8 K/mcL (1.6-8.9); Nucleated Red Blood Cells 0.2 /100 WBC (0); Platelet Count 224 K/mcL (140-400); Red Blood Count 4.38 M/mcL (3.82-4.97); Red Cell Distribution Width 16.8 % (11.5-14.5); Segmented Neutrophils % 84.7 %
[2016-08-25] MEDS: Insulin LISPRO 300 UNITS/3 ML VIAL SQ SCH ×2 (08:03→12:04)
[2016-08-25 08:14] LABS: Potassium 4.5 mEq/L (3.5-4.5)
[2016-08-25 08:21] LABS: INR 2.3; Prothrombin Time 25.5 Seconds (9.4-12.1)
[2016-08-25] MEDS: predniSONE 20 MG TABLET PO SCH (09:17)
[2016-08-25] MEDS: Famotidine 20 MG TABLET PO SCH (09:17)
[2016-08-25] MEDS: rOPINIRole 1 MG TABLET PO SCH (09:17)
--- NOTE | 2016-08-25 11:50 | Discharge Summary ---
Date of Encounter: 08/25/16 Time of Encounter: 10:00 - Discharge Diagnosis (1) Cellulitis Priority: Primary Status: Acute Qualifiers: Site of cellulitis: extremity Site of cellulitis of extremity: lower extremity Laterality: right Qualified Code(s): L03.115 - Cellulitis of right lower limb (2) DVT prophylaxis Priority: Secondary Status: Acute (3) HTN (hypertension) Priority: Secondary Status: Chronic Qualifiers: Hypertension type: essential hypertension Qualified Code(s): I10 - Essential (primary) hypertension (4) Atrial fibrillation Priority: Secondary Status: Chronic Qualifiers: Atrial fibrillation type: chronic Qualified Code(s): I48.2 - Chronic atrial fibrillation (5) Supratherapeutic INR Priority: Secondary Status: Acute (6) Acute on chronic kidney failure Priority: Primary Status: Acute (7) Hypersensitivity reaction Priority: Primary Status: Acute Qualifiers: Encounter type: subsequent encounter Qualified Code(s): T78.40XD - Allergy , unspecified, subsequent encounter - Discharge Medications Prescriptions: Linezolid [Zyvox] 600 mg PO Q12HR #10 tablet DiphenhydraMINE [Benadryl] 25 mg PO BID PRN #10 capsule PRN Reason: Itching/Rash Famotidine [Pepcid] 20 mg PO DAILY #14 tablet Hydrocortisone Lotion 1 appl TP BID PRN #1 bottle PRN Reason: Skin Rash/Allergic Dermatitis predniSONE [PredniSONE] See Taper PO DAILY #12 tablet Warfarin [Coumadin] 4 mg PO DAILY #10 tablet Home Medications: Allopurinol [Zyloprim 100 MG] 100 mg PO DAILY 08/07/16 [History] Amitriptyline HCl 100 mg PO HS 08/07/16 [History] Atenolol 100 mg PO DAILY 08/07/16 [History] Pravastatin Sodium [Pravachol] 40 mg PO HS 08/07/16 [History] Ropinirole HCl [Requip] 2 mg PO BID 08/07/16 [History] Sitagliptin Phosphate [Januvia] 50 mg PO DAILY 08/07/16 [History] Docusate [Colace] 100 mg PO DAILY #60 capsule 08/10/16 [Rx] DiphenhydraMINE [Benadryl] 25 mg PO BID PRN #10 capsule 08/25/16 [Rx] Famotidine [Pepcid] 20 mg PO DAILY #14 tablet 08/25/16 [Rx] Hydrocortisone Lotion 1 appl TP BID PRN #1 bottle 08/25/16 [Rx] Linezolid [Zyvox] 600 mg PO Q12HR #10 tablet 08/25/16 [Rx] Warfarin [Coumadin] 4 mg PO DAILY #10 tablet 08/25/16 [Rx] predniSONE [PredniSONE] See Taper PO DAILY #12 tablet 08/25/16 [Rx] Allergies/Adverse Reactions: Allergies alendronate sodium [From Fosamax] Allergy (Verified 08/12/16 20:29) See Comments jaw pain amlodipine [From Norvasc] Allergy (Verified 08/12/16 20:29) Blister atorvastatin Allergy (Verified 08/12/16 20:29) See Comments office and patient not sure of reaction cephalexin [From Keflex] Allergy (Verified 08/12/16 20:29) Rash cinacalcet [From Sensipar] Allergy (Verified 08/12/16 20:29) Blister denosumab [From Prolia] Allergy (Verified 08/12/16 20:29) Blister felodipine Allergy (Verified 08/12/16 20:29) Blister Hydralazine Allergy (Verified 08/12/16 20:29) Blister olmesartan [From Benicar] Allergy (Verified 08/12/16 20:29) See Comments dr davis's office did not have reaction listed and pt unsure. Penicillins [PCN] Allergy (Verified 08/12/16 20:29) Vomiting trandolapril Allergy (Verified 08/12/16 20:29) See Comments dr davis's office and pt unsure of reaction Verapamil Allergy (Verified 08/12/16 20:29) See Comments dr davis's office and pt unsure of reaction Procedures/tests Complete & Pending: Procedures Performed prior 72 hours Category Date Time Status CT head/brain wo con [CT] Stat Cat Scan 08/23/16 11:02 Completed - Notes to Outpatient Provider 1. Patient has A. fib on Coumadin. Her INR is supratherapeutic on admission. Her Coumadin dose has been decreased to 4 mg by mouth daily now. Please follow up closely for the INR level. 2. Patient had acute kidney injury on admission, her multiple home medications has been on hold which include: Lasix, lisinopril, terazosin, clonidine, flexeril, Miralax, and tramadol. Her blood pressure is stable and acceptable during hospitalization. Please monitor BP and may restart these medications if necessary. 3. Patient has a allergy reaction with the rashes and itching upon admission. Symptoms improved and now. Will continue prednisone for tapered down dose: 40 mg daily for 2 days, then 20 mg daily for 3 days, then 2 mg this for 3 days. Will continue Famotidine 20 mg daily for 14 days. Will continue Benadryl and hydrocortisone lotion as needed for itching. 4. Will continue by mouth Linezolid 600mg po bid for 5 more days for cellulitis. Date of admission: 08/18/16 19:32 Primary care physician: Beth Cedeno CNP Consults: 08/19/16 18:59 PT [Consult to Physical Therapy] [CONS] Stat Comment: Evaluate, develop and implement POC Reason for Consult: fall 08/21/16 07:14 Consult to Occupational Therapy [CONS] Routine Comment: Evaluate, develop and implement POC Reason for Consult: eval for [facility]cf placement per pt request 08/22/16 13:30 Consult to [employer] [CONS] Routine Reason for SW Consult: NEED ECF PER THERAPY NOTES, TRADITIONS PREF PER ED SW NOTES Discharging clinician: Jason Claire Anticipated date of discharge: 08/25/16 - Patient Status Disposition: Transfer SNF Condition: Good Functional capacity at discharge: uses cane/walker Overall status at discharge: patient is progressing back to baseline - Discharge Instructions Follow Up With: Beth Cedeno CNP [Primary Care Provider] - 08/28/16 1:45 pm (please follow up as schedule...) - Diet and Activity Activity: as per physical therapy Diet: diabetic diet Interval History: Ms. Dobson is a 81 year old female with hypertension, diabetes, chronic kidney disease, atrial fibrillation on Coumadin, venous stasis presented to the emergency room today with complaints of increased leg pain and swelling. Patient was recently admitted with bacteremia and cellulitis. She had allergic reaction to the ampicillin and Augmentin she was given for her infection, and she was switched to Bactrim and Levaquin a few days after discharge. She presents today with increased erythema in her bilateral lower extremities spreading above the line demarcated by her PCP she is itching, has full body erythema, is complaining of swollen lips and difficulty swallowing. She is not drooling and reports she is able to swallow her saliva, she just feels there is something caught in her throat when she swallows food. She denies any headache , lightheadedness, chest pain, wheezing, palpitations nausea, vomiting. Evaluation in the emergency department revealed elevated white blood cell count of 14.9, supratherapeutic INR 9.2, KOBI on CKD with creatinine of 4.6, up from previous of 1.3, mildly elevated potassium of 4.8. She was given steroids for her allergic reaction, IV fluids for her KOBI, and vitamin K for her supratherapeutic INR. On exam, patient alert and oriented, lungs with diffuse wheezes. Heart has regular rate and rhythm. She is diffusely erythematous, with beefy redness in BLE below the knees. She has a venous stasis ulcer on right lateral calf. Lips are red, tongue is not swollen, airway is patent. Hospital course: Ms. Dobson is a 81 year old female admitted for cellulitis and allergic reaction to medications (Bactrim and Levaquin). Patient was treated with Linezolid for cellulitis. She was also placed on prednisone, hydrocortisone lotion, Benadryl, and famotidine for allergic reaction. After treatment, her condition has improved. Rash and itching has trended down. Patient also has acute renal injury and was treated with IV fluid, her renal function gets back to baseline after treatment. Patient also on Coumadin for A. fib, her INR is supratherapeutic on admission to 9.2. Her Coumadin was on hold and restarted as INR gets to therapeutic level. I saw and examined the patient today. She is awake alert, oriented 3. No further itching, body rash has significantly decreased. No fever, vital signs stable. Patient is stable to discharge to [facility] for further management. Bactrim and Levaquin added to her allergy medication list. - Time Spent with Patient Total time spent providing and/or coordinating discharge services: 40 minutes Greater than 30 minutes - Constitutional Vitals: Temp Pulse Resp BP Pulse Ox 98.2 F 86 20 164/94 97 08/25/16 07:41 08/25/16 07:41 08/25/16 07:41 08/25/16 07:41 08/25/16 07:41 General appearance: Present: A&O X 3, no acute distress. Absent: answers questions appropriately - Head Head exam: Present: atraumatic, normocephalic - Eye Eye exam: Present: PERRL, conjuntiva pink, sclera anicteric Pupils: Present: PERRL - Neck Neck exam general surgery: Present: supple, trachea midline. Absent: lymphadenopathy - Respiratory Respiratory exam: Present: CTAB. Absent: accessory muscle use, rales, rhonchi, wheezes - Cardiovascular Cardiovascular exam: Present: RRR, +S1, +S2. Absent: diastolic murmur, gallop, rubs, systolic murmur - GI/Abdominal GI/Abdominal exam: Present: normal bowel sounds, soft, no peritoneal signs. Absent: distended, tenderness - Extremities Exam Extremities exam: Present: warm, radial pulses palpable and symetrical. Absent : calf tenderness, cyanotic, pedal edema - Neurological Exam Neurological exam: Present: CN II-XII intact, oriented X3, no focal deficits. Absent: pronater drift, facial droop, speech deficit - Skin Skin exam: Present: dry, intact, rash (Improved hives on both thigh and forearm) - VTE Documentation of Mechanical Device: Intermittent pneumatic compression device
[2016-08-25 11:55] VITALS: BP 148/85
--- NOTE | 2016-08-25 12:39 | Physician Discharge Referral ---
[facility] Referral Info Transfer To: F Provider in Charge after Transfer: Other - Diagnosis (1) Cellulitis Status: Acute (2) DVT prophylaxis Status: Acute (3) HTN (hypertension) Status: Chronic (4) Atrial fibrillation Status: Chronic (5) Supratherapeutic INR Status: Acute (6) Acute on chronic kidney failure Status: Acute (7) Hypersensitivity reaction Status: Acute - Transfer Medications Prescriptions: Linezolid [Zyvox] 600 mg PO Q12HR #10 tablet DiphenhydraMINE [Benadryl] 25 mg PO BID PRN #10 capsule PRN Reason: Itching/Rash Famotidine [Pepcid] 20 mg PO DAILY #14 tablet Hydrocortisone Lotion 1 appl TP BID PRN #1 bottle PRN Reason: Skin Rash/Allergic Dermatitis predniSONE [PredniSONE] See Taper PO DAILY #12 tablet Warfarin [Coumadin] 4 mg PO DAILY #10 tablet Home Medications: Allopurinol [Zyloprim 100 MG] 100 mg PO DAILY 08/07/16 [History] Amitriptyline HCl 100 mg PO HS 08/07/16 [History] Atenolol 100 mg PO DAILY 08/07/16 [History] Pravastatin Sodium [Pravachol] 40 mg PO HS 08/07/16 [History] Ropinirole HCl [Requip] 2 mg PO BID 08/07/16 [History] Sitagliptin Phosphate [Januvia] 50 mg PO DAILY 08/07/16 [History] Docusate [Colace] 100 mg PO DAILY #60 capsule 08/10/16 [Rx] DiphenhydraMINE [Benadryl] 25 mg PO BID PRN #10 capsule 08/25/16 [Rx] Famotidine [Pepcid] 20 mg PO DAILY #14 tablet 08/25/16 [Rx] Hydrocortisone Lotion 1 appl TP BID PRN #1 bottle 08/25/16 [Rx] Linezolid [Zyvox] 600 mg PO Q12HR #10 tablet 08/25/16 [Rx] Warfarin [Coumadin] 4 mg PO DAILY #10 tablet 08/25/16 [Rx] predniSONE [PredniSONE] See Taper PO DAILY #12 tablet 08/25/16 [Rx] Allergies/Adverse Reactions: Allergies alendronate sodium [From Fosamax] Allergy (Verified 08/12/16 20:29) See Comments jaw pain amlodipine [From Norvasc] Allergy (Verified 08/12/16 20:29) Blister atorvastatin Allergy (Verified 08/12/16 20:29) See Comments office and patient not sure of reaction cephalexin [From Keflex] Allergy (Verified 08/12/16 20:29) Rash cinacalcet [From Sensipar] Allergy (Verified 08/12/16 20:29) Blister denosumab [From Prolia] Allergy (Verified 08/12/16 20:29) Blister felodipine Allergy (Verified 08/12/16 20:29) Blister Hydralazine Allergy (Verified 08/12/16 20:29) Blister levofloxacin [From Levaquin] Allergy (Verified 08/25/16 12:19) Hives olmesartan [From Benicar] Allergy (Verified 08/12/16 20:29) See Comments dr davis's office did not have reaction listed and pt unsure. Penicillins [PCN] Allergy (Verified 08/12/16 20:29) Vomiting sulfamethoxazole [From Bactrim] Allergy (Verified 08/25/16 12:19) Hives trandolapril Allergy (Verified 08/12/16 20:29) See Comments dr davis's office and pt unsure of reaction trimethoprim [From Bactrim] Allergy (Verified 08/25/16 12:19) Hives Verapamil Allergy (Verified 08/12/16 20:29) See Comments dr davis's office and pt unsure of reaction - Respiratory Orders Smoking Cessation: Smoking cessation has been advised. For more information, call the [place] Tobacco Quit Line at 3-671-ULMZ-NOW. - Lab Orders Lab Orders: Other (include drug levels w/frequency) (PT/INR on Sunday (08/28/16)) - Advance Directives Code Status: DNR-Arrest/Don't Intubate - Rehabiliation Orders Rehab Potential: Fair Rehab Orders: Evaluation for Physical Therapy, Evaluation for Occupational Therapy - Diet Orders No Concentrated Sweets CERTIFICATION: I certify that the transfer of the above named patient to an Extended Care Facility is necessary for the continuing treatment of the diagnosis listed. The above information is true and accurate reflection of patient's current condition. Confidential - Redisclosure prohibited without a patient's written consent.
[2016-08-25] MEDS ORDERED: *HR* Warfarin 3 MG TABLET PO ONE (18:00)
== END 2016-08-25 15:45 | DRG 602 ==
LOC: 2ANU 15:19 → EMEROO 15:19 → 2ANU 19:03 → SUATTDRO 19:32
PROVIDERS: ADMIT Internal Medicine; ATTEND Internal Medicine

== ENCOUNTER 2018-03-05 10:40 | Inpatient (IN) ==
[2018-03-05 11:31] LABS: Basophils % 0.2 %; Hemoglobin 12.4 g/dL (11.5-15.4); Immature Granulocytes % 0.6 % (0-4); Lymphocytes # 0.9 K/mcL (0.6-4.6); Mean Corpuscular HGB Conc 32.6 g/dL (31.6-35.5); Mean Platelet Volume 9.9 fL (9.4-12.4); Monocytes # 0.9 K/mcL (0.0-1.3); Monocytes % 4.9 %; Platelet Count 193 K/mcL (140-400); Red Cell Distribution Width 14.4 % (11.5-14.5); Segmented Neutrophils % 89.3 %
[2018-03-05 11:42] LABS: INR 1.4; Prothrombin Time 15.5 Seconds (9.4-12.1)
[2018-03-05 11:43] LABS: Bilirubin,Urine Negative (Negative); Blood,Urine Moderate (Negative); Clarity,Urine Cloudy (Clear); Color,Urine Yellow (Yellow); Glucose,Urine (UA) Normal (Normal); Ketones,Urine Negative (Negative); Leukocyte Esterase,Urine Moderate (Negative); Nitrite,Urine Positive (Negative); PH,Urine 5.5 pH Units (5.0-8.0); Protein,Urine 100 mg/dL (Neg-Trace); Specific Gravity,Urine 1.008 (1.010-1.025); Urobilinogen,Urine Normal (Normal)
--- NOTE | 2018-03-05 11:44 | Emergency Department Note ---
Disposition Clinical Impression: Myalgia, Rigors UTI (urinary tract infection) Qualifiers: Urinary tract infection type: acute cystitis Hematuria presence: without hilario turia Qualified Code(s): N30.00 - Acute cystitis without hematuria Disposition: Admitted As Inpatient Condition: Fair General Adult HPI - General Chief complaint: ED Fever Stated complaint: shakes/fever Time Seen by Provider: 03/05/18 10:46 Source: patient Limitations: no limitations Nursing Notes Reviewed: Yes Vital Signs Reviewed: Yes - History of Present Illness HPI Narrative: 82-year-old female presenting with fever to 103 as well as shakes. States this is happened previously when she had a UTI and this feels similar. She does admit to some nausea without vomiting. She states this has been ongoing for a few days. She otherwise states she has had a cough without production of sputum for approximately 2 weeks. She states she has been feeling increasingly short of breath. She states she otherwise does not have any dysuria, hematuria, chest pain, hematochezia, melena, headache, or abdominal pain. Pain Scale: 7 - Related Data Home Medications Medication Instructions Recorded Confirmed Allopurinol [Zyloprim 100 MG] 100 mg PO HS 08/07/16 03/05/18 Amitriptyline HCl 100 mg PO HS 08/07/16 03/05/18 Atenolol 100 mg PO DAILY 08/07/16 03/05/18 Pravastatin Sodium [Pravachol] 40 mg PO HS 08/07/16 03/05/18 Ropinirole HCl [Requip] 2 mg PO BID 08/07/16 03/05/18 Sitagliptin Phosphate [Januvia] 50 mg PO DAILY 08/07/16 03/05/18 Lisinopril [Zestril] 40 mg PO BID 10/11/16 03/05/18 Terazosin HCl 4 mg PO BID 10/11/16 03/05/18 cloNIDine HCl [Clonidine HCl] 0.6 mg PO QAM 10/11/16 03/05/18 Docusate [Colace] 100 mg PO DAILY PRN 03/05/18 03/05/18 Ferrous Gluconate 324 mg PO BID 03/05/18 03/05/18 Furosemide [Lasix] 20 mg PO DAILY 03/05/18 03/05/18 Tramadol HCl [Ultram] 50 mg PO TID PRN 03/05/18 03/05/18 Warfarin Sodium 3 mg PO TUTHSA 03/05/18 03/05/18 Warfarin Sodium [Coumadin] 6 mg PO SUMOWEFR 03/05/18 03/05/18 cloNIDine HCl [Clonidine HCl] 0.3 mg PO HS 03/05/18 03/05/18 Previous Rx's Medication Instructions Recorded DiphenhydraMINE [Benadryl] 25 mg PO BID PRN #10 capsule 08/25/16 Allergies Allergy/AdvReac Type Severity Reaction Status Date / Time alendronate sodium Allergy See Verified 03/05/18 14:43 [From Fosamax] Comments amlodipine [From Norvasc] Allergy Blister Verified 03/05/18 14:43 atorvastatin Allergy See Verified 03/05/18 14:43 Comments cephalexin [From Keflex] Allergy Rash Verified 03/05/18 14:43 cinacalcet [From Sensipar] Allergy Blister Verified 03/05/18 14:43 denosumab [From Prolia] Allergy Blister Verified 03/05/18 14:43 felodipine Allergy Blister Verified 03/05/18 14:43 Hydralazine Allergy Blister Verified 03/05/18 14:43 levofloxacin [From Levaquin] Allergy Hives Verified 03/05/18 14:43 olmesartan [From Benicar] Allergy See Verified 03/05/18 14:43 Comments sulfamethoxazole Allergy Hives Verified 03/05/18 14:43 [From Bactrim] trandolapril Allergy See Verified 03/05/18 14:43 Comments trimethoprim [From Bactrim] Allergy Hives Verified 03/05/18 14:43 Verapamil Allergy See Verified 03/05/18 14:43 Comments Penicillins [PCN] AdvReac Vomiting Verified 03/05/18 14:43 Constitutional: Reports: fever, chills, weakness. Denies: weight change, night sweats Eyes: Denies: eye pain, eye discharge ENT ED: Denies: ear pain, throat pain Cardiovascular: Reports: dyspnea on exertion. Denies: chest pain, palpitations, orthopnea Respiratory: Reports: cough, dyspnea. Denies: wheezes, hemoptysis, stridor Gastrointestinal: Denies: abdominal pain, nausea, vomiting, diarrhea, constipation, hematemesis, melena, hematochezia Genitourinary: Denies: urgency, dysuria, frequency, hematuria Musculoskeletal: Denies: back pain, neck pain Integumentary: Denies: rash, abrasion Neurological: Denies: headache, confusion Psychiatric: Denies: anxiety, depression Past Medical History - Past Medical History Attestation: Yes The following information was validated with the patient. Source: patient Medical history: Reports: atrial fibrillation, DVT, diabetes, hyperlipidemia, hypertension, osteoporosis, renal disease, thyroid disease, venous stasis Surgical history: Reports: orthopedic, other, thyroidectomy Psychiatric history: Reports: no psych history - Social History Smoking Status: Never smoker Smokeless Tobacco Status: No Alcohol use: Reports: none Drug use: Reports: none Physical Exam - General Limitations: no limitations General appearance: alert - Head Head exam: atraumatic, normocephalic - Eye Eye exam: Present: normal appearance, PERRL - ENT ENT exam: normal exam, normal oropharynx, mucous membranes moist - Neck Neck exam: Present: normal inspection - Chest Chest inspection: Present: normal inspection, symmetric chest wall rise. Absent: tenderness - Respiratory Respiratory exam: Present: normal lung sounds bilaterally. Absent: respiratory distress, wheezes, stridor - Cardiovascular Cardiovascular exam: Present: regular rate, normal rhythm, normal heart sounds - Abdominal Exam Abdominal exam: Present: soft, Non-Tender, normal bowel sounds. Absent: distention, guarding, rebound, rigidity - Extremities Exam Extremities exam: Present: normal inspection. Absent: pedal edema - Neurological Exam Neurological exam: Present: alert, oriented X3 - Psychiatric Psychiatric exam: Present: normal affect, normal mood - Skin Skin exam: Present: warm, dry, intact Course Vital Signs Temperature 99.4 F 03/05/18 10:43 Pulse Rate 101 03/05/18 10:43 Respiratory Rate 18 03/05/18 10:43 Blood Pressure 182/77 03/05/18 10:43 O2 Sat by Pulse Oximetry 96 03/05/18 10:43 Temperature 98.4 F 03/05/18 15:17 Pulse Rate 88 03/05/18 15:17 Respiratory Rate 19 03/05/18 15:17 Blood Pressure 127/77 03/05/18 15:17 O2 Sat by Pulse Oximetry 94 03/05/18 15:17 Oxygen Delivery Oxygen Delivery Room Air Medical Decision Making - [facility] Narrative Medical decision making narrative: 82-year-old female with fever, cough and shakes. Obtained lab work including troponin, EKG, chest x-ray as well as CBC, BMP. Patient does have significant leukocytosis but troponin is negative and EKG unremarkable. Chest x-ray unremarkable. There is no evidence of pneumonia. Urinalysis does show gross infection and symptoms do seem consistent with rigors. Flu swab negative. Does have significant leukocytosis. The patient does have significant history of previous urinary tract infection with many allergies to antibiotics with severe reactions. Given her many medication allergies and history of drug resistant bacteria will admit the patient is a very few by mouth antibiotics which are available to the patient. Discussed the case with infectious disease psychological operations, Dr. Parrish who recommends ertapenem, 500 mg started here in the emergency Department department. Discussed the case with on-call hospitalist who agrees with plan for admission. Patient agrees with and understands course of treatment plan including plan for admission. All questions answered. - Medical Records Medical records reviewed: Yes I reviewed the patient's medical records. - Lab Data Lab results reviewed: Yes I reviewed the patient's lab results. Result diagrams: 03/05/18 11:17 03/05/18 11:17 Lab Results 03/05/18 03/05/18 03/05/18 Range/Units 11:17 11:17 11:17 WBC 17.9 H (4.3-11.1) K/mcL RBC 4.00 (3.82-4.97) M/mcL Hgb 12.4 (11.5-15.4) g/dL Hct 38.0 (35.3-44.9) % MCV 95.0 (83.0-100.0) fL MCH 31.0 (28.0-33.3) pg MCHC 32.6 (31.6-35.5) g/dL RDW 14.4 (11.5-14.5) % Plt Count 193 (140-400) K/mcL MPV 9.9 (9.4-12.4) fL Immature Gran % 0.6 (0-4) % Seg Neutrophils % 89.3 % Lymphocytes % 5.0 % Monocytes % 4.9 % Eosinophils % 0.0 % Basophils % 0.2 % Neutrophils # 16.0 H (1.6-8.9) K/mcL Lymphocytes # 0.9 (0.6-4.6) K/mcL Monocytes # 0.9 (0.0-1.3) K/mcL Eosinophils # 0.0 (0.0-0.6) K/mcL Basophils # 0.0 (0.0-0.2) K/mcL PT 15.5 H (9.4-12.1) Seconds INR 1.4 APTT (26.0-36.0) Seconds Sodium 137 (136-145) mEq/L Potassium 4.3 (3.5-5.1) mEq/L Chloride 105 (98-107) mEq/L Carbon Dioxide 23 (23-29) mEq/L BUN 31 H (8-23) mg/dL Creatinine 1.95 H (0.60-1.20) mg/dL Est GFR ( Amer) 30 L (> 60) Est GFR (Non-Af Amer) 25 L (> 60) BUN/Creatinine Ratio 16 (6-26) Glucose 163 H (70-105) mg/dL Calculated Osmolality 294 (280-300) Calcium 8.7 (8.6-10.3) mg/dL Urine Color (Yellow) Urine Clarity (Clear) Urine pH (5.0-8.0) pH Units Ur Specific [place] (1.010-1.025) Urine Protein (Neg-Trace) mg/dL Urine Glucose (UA) (Normal) mg/dL Urine Ketones (Negative) mg/dL Urine Blood (Negative) Urine Nitrite (Negative) Urine Bilirubin (Negative) Urine Urobilinogen (Normal) mg/dL Ur Leukocyte Esterase (Negative) Urine Microscopic RBC (0-3) per hpf Urine Microscopic WBC (0-3) per hpf Ur Squamous Epith Cells (None-Few) per lpf Amorphous Sediment (Few) Urine Bacteria (None-Few) per hpf Hyaline Casts (None-Few) per lpf Ur Culture Indicated? (NO) 03/05/18 03/05/18 Range/Units 11:17 11:30 WBC (4.3-11.1) K/mcL RBC (3.82-4.97) M/mcL Hgb (11.5-15.4) g/dL Hct (35.3-44.9) % MCV (83.0-100.0) fL MCH (28.0-33.3) pg MCHC (31.6-35.5) g/dL RDW (11.5-14.5) % Plt Count (140-400) K/mcL MPV (9.4-12.4) fL Immature Gran % (0-4) % Seg Neutrophils % % Lymphocytes % % Monocytes % % Eosinophils % % Basophils % % Neutrophils # (1.6-8.9) K/mcL Lymphocytes # (0.6-4.6) K/mcL Monocytes # (0.0-1.3) K/mcL Eosinophils # (0.0-0.6) K/mcL Basophils # (0.0-0.2) K/mcL PT (9.4-12.1) Seconds INR APTT 30.3 (26.0-36.0) Seconds Sodium (136-145) mEq/L Potassium (3.5-5.1) mEq/L Chloride (98-107) mEq/L Carbon Dioxide (23-29) mEq/L BUN (8-23) mg/dL Creatinine (0.60-1.20) mg/dL Est GFR ( Amer) (> 60) Est GFR (Non-Af Amer) (> 60) BUN/Creatinine Ratio (6-26) Glucose (70-105) mg/dL Calculated Osmolality (280-300) Calcium (8.6-10.3) mg/dL Urine Color Yellow (Yellow) Urine Clarity Cloudy A (Clear) Urine pH 5.5 (5.0-8.0) pH Units Ur Specific [place] 1.008 L (1.010-1.025) Urine Protein 100 H (Neg-Trace) mg/dL Urine Glucose (UA) Normal (Normal) mg/dL Urine Ketones Negative (Negative) mg/dL Urine Blood Moderate H (Negative) Urine Nitrite Positive A (Negative) Urine Bilirubin Negative (Negative) Urine Urobilinogen Normal (Normal) mg/dL Ur Leukocyte Esterase Moderate H (Negative) Urine Microscopic RBC 3-5 H (0-3) per hpf Urine Microscopic WBC 50-100 H (0-3) per hpf Ur Squamous Epith Cells Moderate H (None-Few) per lpf Amorphous Sediment Few (Few) Urine Bacteria Many H (None-Few) per hpf Hyaline Casts None Seen (None-Few) per lpf Ur Culture Indicated? YES A (NO) - Radiology Data Radiology results reviewed: Yes I reviewed the patient's radiology results. Chest X-Ray 03/05/18 11:06 IMPRESSION: No acute focal process. Stable cardiomegaly. No evidence of pulmonary edema. D/ / Garret Brennan MD / Garret Brennan MD Interpreting Provider: Garret Brennan MD - EKG Data EKG #1 EKG attestation: Yes I reviewed and interpreted this EKG. EKG results narrative: Normal sinus rhythm rate of 86. Normal axis. DC 180, QRS 96, QT 350, QTC 419. No evidence of ST elevation. When compared with prior from 08/18/16 there are no significant changes. Attestation Statement - Attestation Attestation: I, Rell Turner DO, examined this patient [id number] and my medical d ecision-making was reviewed with Dr. Francisca Adrian Resident Physician. I agree with the documented findings, disposition and treatment plan as described except to the extent set forth below. Please see my progress notes for details.
[2018-03-05 11:45] LABS: Bacteria,Urine Many per hpf (None-Few); Hyaline Casts,Urine None Seen per lpf (None-Few); Squamous Epithelial Cell,Urine Moderate per lpf (None-Few); WBC,Urine 50-100 per hpf (0-3)
[2018-03-05 11:47] LABS: Calcium 8.7 mg/dL (8.6-10.3); Potassium 4.3 mEq/L (3.5-5.1)
--- NOTE | 2018-03-05 12:00 | Emergency Department Note ---
Disposition Clinical Impression: Myalgia, Rigors UTI (urinary tract infection) Qualifiers: Urinary tract infection type: acute cystitis Hematuria presence: without hilario turia Qualified Code(s): N30.00 - Acute cystitis without hematuria Disposition: Admitted As Inpatient Condition: Fair Time of Disposition: 14:40 General Adult HPI - General Chief complaint: ED Fever Stated complaint: shakes/fever Time Seen by Provider: 03/05/18 10:46 Source: patient Limitations: no limitations - History of Present Illness Pain Scale: 7 - Related Data Home Medications Medication Instructions Recorded Confirmed Allopurinol [Zyloprim 100 MG] 100 mg PO DAILY 08/07/16 10/11/16 Amitriptyline HCl 100 mg PO HS 08/07/16 10/11/16 Atenolol 100 mg PO DAILY 08/07/16 10/11/16 Pravastatin Sodium [Pravachol] 40 mg PO DAILY 08/07/16 10/11/16 Ropinirole HCl [Requip] 2 mg PO BID 08/07/16 10/11/16 Sitagliptin Phosphate [Januvia] 50 mg PO DAILY 08/07/16 10/11/16 Ferrous Sulfate 325 mg PO BID 10/11/16 10/11/16 Furosemide [Lasix] 40 mg PO BID 10/11/16 10/11/16 Lisinopril [Zestril] 40 mg PO BID 10/11/16 10/11/16 Terazosin HCl 2 mg PO BID 10/11/16 10/11/16 Warfarin [Coumadin] 3 mg PO DAILY 10/11/16 10/11/16 cloNIDine HCl [Clonidine HCl] 0.3 mg PO TID 10/11/16 10/11/16 Previous Rx's Medication Instructions Recorded Docusate [Colace] 100 mg PO DAILY #60 capsule 08/10/16 DiphenhydraMINE [Benadryl] 25 mg PO BID PRN #10 capsule 08/25/16 Famotidine [Pepcid] 20 mg PO DAILY #14 tablet 08/25/16 Allergies Allergy/AdvReac Type Severity Reaction Status Date / Time alendronate sodium Allergy See Verified 10/11/16 11:16 [From Fosamax] Comments amlodipine [From Norvasc] Allergy Blister Verified 03/05/18 10:54 atorvastatin Allergy See Verified 03/05/18 10:54 Comments cephalexin [From Keflex] Allergy Rash Verified 03/05/18 10:54 cinacalcet [From Sensipar] Allergy Blister Verified 03/05/18 10:54 denosumab [From Prolia] Allergy Blister Verified 03/05/18 10:54 felodipine Allergy Blister Verified 03/05/18 10:54 Hydralazine Allergy Blister Verified 03/05/18 10:54 levofloxacin [From Levaquin] Allergy Hives Verified 03/05/18 10:54 olmesartan [From Benicar] Allergy See Verified 03/05/18 10:54 Comments sulfamethoxazole Allergy Hives Verified 03/05/18 10:54 [From Bactrim] trandolapril Allergy See Verified 03/05/18 10:54 Comments trimethoprim [From Bactrim] Allergy Hives Verified 03/05/18 10:54 Verapamil Allergy See Verified 03/05/18 10:54 Comments Penicillins [PCN] AdvReac Vomiting Verified 03/05/18 12:16 Past Medical History - Past Medical History Medical history: Reports: atrial fibrillation, DVT, diabetes, hyperlipidemia, hypertension, osteoporosis, renal disease, thyroid disease, venous stasis Surgical history: Reports: orthopedic, other, thyroidectomy Psychiatric history: Reports: no psych history - Social History Smoking Status: Never smoker Smokeless Tobacco Status: No Alcohol use: Reports: none Drug use: Reports: none Physical Exam - General Limitations: no limitations General appearance: alert Course Vital Signs Temperature 99.4 F 03/05/18 10:43 Pulse Rate 101 03/05/18 10:43 Respiratory Rate 18 03/05/18 10:43 Blood Pressure 182/77 03/05/18 10:43 O2 Sat by Pulse Oximetry 96 03/05/18 10:43 Temperature 99.4 F 03/05/18 10:58 Pulse Rate 85 03/05/18 13:29 Respiratory Rate 16 03/05/18 13:29 Blood Pressure 130/50 03/05/18 13:29 O2 Sat by Pulse Oximetry 95 03/05/18 13:29 Oxygen Delivery Oxygen Delivery Room Air Medical Decision Making - Lab Data Result diagrams: 03/05/18 11:17 03/05/18 11:17 Lab Results 03/05/18 03/05/18 03/05/18 Range/Units 11:17 11:17 11:17 WBC 17.9 H (4.3-11.1) K/mcL RBC 4.00 (3.82-4.97) M/mcL Hgb 12.4 (11.5-15.4) g/dL Hct 38.0 (35.3-44.9) % MCV 95.0 (83.0-100.0) fL MCH 31.0 (28.0-33.3) pg MCHC 32.6 (31.6-35.5) g/dL RDW 14.4 (11.5-14.5) % Plt Count 193 (140-400) K/mcL MPV 9.9 (9.4-12.4) fL Immature Gran % 0.6 (0-4) % Seg Neutrophils % 89.3 % Lymphocytes % 5.0 % Monocytes % 4.9 % Eosinophils % 0.0 % Basophils % 0.2 % Neutrophils # 16.0 H (1.6-8.9) K/mcL Lymphocytes # 0.9 (0.6-4.6) K/mcL Monocytes # 0.9 (0.0-1.3) K/mcL Eosinophils # 0.0 (0.0-0.6) K/mcL Basophils # 0.0 (0.0-0.2) K/mcL PT 15.5 H (9.4-12.1) Seconds INR 1.4 APTT (26.0-36.0) Seconds Sodium 137 (136-145) mEq/L Potassium 4.3 (3.5-5.1) mEq/L Chloride 105 (98-107) mEq/L Carbon Dioxide 23 (23-29) mEq/L BUN 31 H (8-23) mg/dL Creatinine 1.95 H (0.60-1.20) mg/dL Est GFR ( Amer) 30 L (> 60) Est GFR (Non-Af Amer) 25 L (> 60) BUN/Creatinine Ratio 16 (6-26) Glucose 163 H (70-105) mg/dL Calculated Osmolality 294 (280-300) Calcium 8.7 (8.6-10.3) mg/dL Urine Color (Yellow) Urine Clarity (Clear) Urine pH (5.0-8.0) pH Units Ur Specific [place] (1.010-1.025) Urine Protein (Neg-Trace) mg/dL Urine Glucose (UA) (Normal) mg/dL Urine Ketones (Negative) mg/dL Urine Blood (Negative) Urine Nitrite (Negative) Urine Bilirubin (Negative) Urine Urobilinogen (Normal) mg/dL Ur Leukocyte Esterase (Negative) Urine Microscopic RBC (0-3) per hpf Urine Microscopic WBC (0-3) per hpf Ur Squamous Epith Cells (None-Few) per lpf Amorphous Sediment (Few) Urine Bacteria (None-Few) per hpf Hyaline Casts (None-Few) per lpf Ur Culture Indicated? (NO) 03/05/18 03/05/18 Range/Units 11:17 11:30 WBC (4.3-11.1) K/mcL RBC (3.82-4.97) M/mcL Hgb (11.5-15.4) g/dL Hct (35.3-44.9) % MCV (83.0-100.0) fL MCH (28.0-33.3) pg MCHC (31.6-35.5) g/dL RDW (11.5-14.5) % Plt Count (140-400) K/mcL MPV (9.4-12.4) fL Immature Gran % (0-4) % Seg Neutrophils % % Lymphocytes % % Monocytes % % Eosinophils % % Basophils % % Neutrophils # (1.6-8.9) K/mcL Lymphocytes # (0.6-4.6) K/mcL Monocytes # (0.0-1.3) K/mcL Eosinophils # (0.0-0.6) K/mcL Basophils # (0.0-0.2) K/mcL PT (9.4-12.1) Seconds INR APTT 30.3 (26.0-36.0) Seconds Sodium (136-145) mEq/L Potassium (3.5-5.1) mEq/L Chloride (98-107) mEq/L Carbon Dioxide (23-29) mEq/L BUN (8-23) mg/dL Creatinine (0.60-1.20) mg/dL Est GFR ( Amer) (> 60) Est GFR (Non-Af Amer) (> 60) BUN/Creatinine Ratio (6-26) Glucose (70-105) mg/dL Calculated Osmolality (280-300) Calcium (8.6-10.3) mg/dL Urine Color Yellow (Yellow) Urine Clarity Cloudy A (Clear) Urine pH 5.5 (5.0-8.0) pH Units Ur Specific [place] 1.008 L (1.010-1.025) Urine Protein 100 H (Neg-Trace) mg/dL Urine Glucose (UA) Normal (Normal) mg/dL Urine Ketones Negative (Negative) mg/dL Urine Blood Moderate H (Negative) Urine Nitrite Positive A (Negative) Urine Bilirubin Negative (Negative) Urine Urobilinogen Normal (Normal) mg/dL Ur Leukocyte Esterase Moderate H (Negative) Urine Microscopic RBC 3-5 H (0-3) per hpf Urine Microscopic WBC 50-100 H (0-3) per hpf Ur Squamous Epith Cells Moderate H (None-Few) per lpf Amorphous Sediment Few (Few) Urine Bacteria Many H (None-Few) per hpf Hyaline Casts None Seen (None-Few) per lpf Ur Culture Indicated? YES A (NO) Attestation Statement - Attestation Attestation: I, Rell Turner DO, examined this patient [id number] and my medical decision-making was reviewed with Dr. Espinosa [facility] Resident Physician. I agree with the documented findings, disposition and treatment plan as described except to the extent set forth below. Please see my progress notes for details. 82-year-old female presents emergency room with complaint of generalized malaise rigors fevers. Patient had this happen 1 previous time in the past when she had a urinary tract infection. Denies any specific complaints of dysuria at this time. Currently denying chest pain, shortness breath, headache, vision changes. Denies any nausea vomiting or diarrhea. Vital signs initially show a tachycardia and no acute signs of decompensation. Temperature has been controlled. Her most recent temperature this morning was 103 at home. She denies any falls or injuries. Denies any recent antibiotic regiment. Lungs are clear heart is regular. Patient is otherwise showing no acute signs of distress or decompensation. She does have mild abdominal discomfort but no guarding or rigidity. No peritoneal symptoms at this time. Patient does appear to be ill and uncomfortable. Fluids will be given nausea medication as needed. Tylenol was taken prior to coming in. Patient does not take Motrin secondary to renal related issues. She has no specific history of cardiac related issues or pulmonary congestion. Patient otherwise is stable. Fluids. Lungs are clear heart is regular. Abdomen is soft nontender nondistended with mild suprapubic cramping and discomfort. Patient has been eating and drinking fine home but over the last 1 week she slowly progressed into generalized malaise and muscle aches. Disposition pending the full workup and treatment course. See detailed documentation the physical exam, medical intervention, medical decision-making and disposition in the resident physician's note. No critical care provider the patient's treatment course at this time. 1200 Patient is found to have grossly contaminated urine very consistent with urinary tract infection. Single dose of IV Rocephin will be given here and then Keflex regimen will be started for home. Patient is asymptomatic. She will most lik davis build to be discharged home with stable presentation. Reevaluation will be completed once the medications have been provided 1315 Patient has multiple antibiotic allergies. Most of these appear to be real allergies at this time. Because of the urinary tract infection as well as infectious presentation patient will have blood cultures and lactic acid and a non-. We are unable to find an appropriate oral antibiotic to treat her home with at this point. She will be admitted for symptomatic control antibiotic regiment and possible PICC line placement for home IV antibiotics. Patient ot herwise clinically stable. Family is been informed. The infectious disease physician agronomy internship has been contacted for the recommendations of antibiotic choice. Patient will be admitted for continuation of medication and placement. Hospitalist will be paged at this time. Hospitalist was contacted. No other recommendations or concerns noted. Patient will be admitted for IV antibiotics and medical management.
[2018-03-05 12:02] LABS: Amorphous Sediment,Urine Few (Few)
[2018-03-05] MEDS ORDERED: cefTRIAXone 1,000 MG in Water for inj. (sterile) 20 ML 10 ML IVP ONE (12:07)
[2018-03-05] MEDS ORDERED: Ondansetron ODT 4 MG TAB.RAPDIS SL ONE (12:15)
[2018-03-05] MEDS ORDERED: Ondansetron 4 MG/2 ML VIAL IVP STA (12:18)
[2018-03-05] MEDS: 0.9 % Sodium Chloride 1,000 ML IVC ONE ×2 (12:30→13:47)
--- NOTE | 2018-03-05 14:52 | Internal Med History&Physical ---
<Dayne Velasco P - Last Filed: 03/05/18 16:30> Date of Encounter: 03/05/18 Time of Encounter: 14:30 Internal Medicine - H&P: HPI Chief complaint: Fever with chills , Cough Admitted From: Emergency Dept Plans for Post Hospital Care: Home History of present illness: Ms. Dobson is a 82 year old female with past medical history of diabetes, hypertension, hypothyroid, osteoporosis, coronary kidney disease, A. fib, DVT presented to ED for fever with chills and cough without sputum since yesterday. The temperature was 103F recorded at home, she also admitted chills/rigor. She stated that she has had pain and discomfort in lower abdomen and burning urination even though she has had urinary incontinence. The patient also admitted that she has been feeling weak and myalgia for last couple of days and she has had urinary tract infection on and off in the past. The patient denied any chest pain, palpitation, headache, shortness of breath,calf swelling, syncope, any h/o falls. Chest x-ray done in ED did not show any congestion or Consolidation, EKG did not show any evidence of ST /T changes. Urine-analysis done in ED was suggestive of urinary tract infection and we are waiting for urine culture. Her lab report in ED: Creatinine 1.95, BUN 31, GFR 25, PT 15.5 INR 1.4, white cell cell count 17.9 and neutrophil 16.0. Her vitals where temperature 99.4, , pulse 85, respirations 16, blood pressure 1:30/50, saturation 95% in room air. We admitted her for IV antibiotic for her UTI and we will closely monitor for sepsis. Recently she does not meet sepsis criteria: She only has focus of in fection: UTI and elevated white cell count 17.9, recorded temperature was less than 100F, lactate 1.4 normal Past Med Surg Social Fam HX - Past Medical History Medical history: atrial fibrillation, DVT, diabetes, hyperlipidemia, hype rtension, osteoporosis, renal disease, thyroid disease, venous stasis Additional medical history: IVC filter Psychiatric history: no psych history - Past Surgical History Surgical History: orthopedic, other, thyroidectomy Additional surgical history: left shoulder replacement. left arm. IVC filter - Social History Smoking Status: Never smoker Smokeless Tobacco Status: No Alcohol use: none Drug use: none Internal Medicine - H&P: Meds Allopurinol [Zyloprim 100 MG] 100 mg PO HS 08/07/16 [History] Amitriptyline HCl 100 mg PO HS 08/07/16 [History] Atenolol 100 mg PO DAILY 08/07/16 [History] Pravastatin Sodium [Pravachol] 40 mg PO HS 08/07/16 [History] Ropinirole HCl [Requip] 2 mg PO BID 08/07/16 [History] Sitagliptin Phosphate [Januvia] 50 mg PO DAILY 08/07/16 [History] DiphenhydraMINE [Benadryl] 25 mg PO BID PRN #10 capsule 08/25/16 [Rx] Lisinopril [Zestril] 40 mg PO BID 10/11/16 [History] Terazosin HCl 4 mg PO BID 10/11/16 [History] cloNIDine HCl [Clonidine HCl] 0.6 mg PO QAM 10/11/16 [History] Docusate [Colace] 100 mg PO DAILY PRN 03/05/18 [History] Ferrous Gluconate 324 mg PO BID 03/05/18 [History] Furosemide [Lasix] 20 mg PO DAILY 03/05/18 [History] Tramadol HCl [Ultram] 50 mg PO TID PRN 03/05/18 [History] Warfarin Sodium 3 mg PO TUTHSA 03/05/18 [History] Warfarin Sodium [Coumadin] 6 mg PO SUMOWEFR 03/05/18 [History] cloNIDine HCl [Clonidine HCl] 0.3 mg PO HS 03/05/18 [History] Allergy/AdvReac Type Severity Reaction Status Date / Time alendronate sodium Allergy See Verified 03/05/18 14:43 [From Fosamax] Comments amlodipine [From Norvasc] Allergy Blister Verified 03/05/18 14:43 atorvastatin Allergy See Verified 03/05/18 14:43 Comments cephalexin [From Keflex] Allergy Rash Verified 03/05/18 14:43 cinacalcet [From Sensipar] Allergy Blister Verified 03/05/18 14:43 denosumab [From Prolia] Allergy Blister Verified 03/05/18 14:43 felodipine Allergy Blister Verified 03/05/18 14:43 Hydralazine Allergy Blister Verified 03/05/18 14:43 levofloxacin [From Levaquin] Allergy Hives Verified 03/05/18 14:43 olmesartan [From Benicar] Allergy See Verified 03/05/18 14:43 Comments sulfamethoxazole Allergy Hives Verified 03/05/18 14:43 [From Bactrim] trandolapril Allergy See Verified 03/05/18 14:43 Comments trimethoprim [From Bactrim] Allergy Hives Verified 03/05/18 14:43 Verapamil Allergy See Verified 03/05/18 14:43 Comments Penicillins [PCN] AdvReac Vomiting Verified 03/05/18 14:43 All Systems PM: A 10-system review of systems was performed and is negative for pertinent findings except as documented above in the HPI. - Constitutional Constitutional: chills, fatigue, fever(s), weakness - EENT Eyes: diplopia, discharge, photophobia Ears: ear discharge Nose, mouth and throat: bleeding gums, dental pain, epistaxis, mouth lesions, nasal congestion, nasal obstruction - Cardiovascular Cardiovascular ROS IM: chest pain, diaphoresis, dyspnea, orthopnea, palpitations - Respiratory Respiratory: cough, no hemoptysis, no dyspnea on exertion, no chest congestion - Gastrointestinal Gastrointestinal: abdominal pain, loose stools - Genitourinary Genitourinary: dysuria - Musculoskeletal Musculoskeletal ROS IM: no arthralgias, no joint swelling, no muscle cramps, no numbness, no stiffness - Integumentary Integumentary IM: no pruritus, no skin ulcer, no jaundice - Neurological Neurological ROS: weakness, no abnormal movements, no abnormal speech, no behavioral changes, no confusion, no convulsions, no focal weakness, no headache(s), no tremor(s) - Psychiatric Psychiatric: no anxiety, no confusion, no depression, no hallucinations - Endocrine Endocrine IM: polyuria, other (Urine incontinence), no cold intolerance, no deeping of the voice, no heat intolerance - Allergic/Immunologic Allergic/Immunologic: no tongue swelling, no uticaria - Constitutional Vitals: Temp Pulse Resp BP Pulse Ox 99.4 F 85 16 130/50 95 03/05/18 10:58 03/05/18 13:29 03/05/18 13:29 03/05/18 13:29 03/05/18 13:29 General appearance: Present: A&O X 3, no acute distress, obese, answers questions appropriately Exam: Gen: Alert, awake , Oriented to time,place and person, not in acute distress, looks a little bit sleepy , afebrile , dry mucous in mouth and oropharynx. Chest: Slightly Diminished BS b/l, No crackles, No rales, No wheezing Heart: S1S2+ RRR No Murmurs Abd: Soft, slightly distended, nontender BS + No organomegaly Ext: mild to moderate edema, pulses are palpable, no tenderness Neuro: No focal neuro deficits Psych: Normal mood Skin: No rash Internal Med - H&P Results - Labs CBC & Chem 7: 03/05/18 11:17 03/05/18 11:17 Labs: Short CBC 03/05/18 Range/Units 11:17 WBC 17.9 H (4.3-11.1) K/mcL Hgb 12.4 (11.5-15.4) g/dL Hct 38.0 (35.3-44.9) % Plt Count 193 (140-400) K/mcL Neutrophils # 16.0 H (1.6-8.9) K/mcL BMP 03/05/18 11:17 Sodium 137 Potassium 4.3 Chloride 105 Carbon Dioxide 23 BUN 31 H Creatinine 1.95 H Glucose 163 H Calcium 8.7 Urine 03/05/18 Range/Units 11:30 Urine Color Yellow (Yellow) Urine Clarity Cloudy A (Clear) Urine pH 5.5 (5.0-8.0) pH Units Ur Specific Riddle 1.008 L (1.010-1.025) Urine Protein 100 H (Neg-Trace) mg/dL Urine Glucose (UA) Normal (Normal) mg/dL - Impressions ITS Impressions Chest X-Ray 03/05/18 11:06 IMPRESSION: No acute focal process. Stable cardiomegaly. No evidence of pulmonary edema. D/ / Garret Brennan MD / Garret Brennan MD Interpreting Provider: Garret Brennan MD - Assessment and plan (1) UTI (urinary tract infection) Current Visit: Yes Status: Acute Assessment and plan: The patient has history of fever with chills at home, recorded tem 103 at home . Mild suprapubic discomfort and burning. Urinalysis showed urinary tract infection, urine culture report has been awaited. Total count 17.9, neutrophil 16.0. IV antibiotic Entrapenum 500 mg IV (renal dose adjustment) , the antibiotic has been started with advise from infectious disease .The patient is known diabetes and chronic kidney disease: stage 4 ( GFR ,25), Qualifiers: Urinary tract infection type: site unspecified Hematuria presence: without hematuria Qualified Code(s): N39.0 - Urinary tract infection, site not specified (2) Sepsis Current Visit: Yes Status: Acute Assessment and plan: The patient has one episode of fever /recorded 103 at home, but she does not have any fever while she is in hospital. Her urinalysis showed infection and her white cell count has been elevated with neutrophilia, But she does not meet criteria for sepsis: Lactate normal 1.4, temperature 99.4, pulse 85, respirations 16, blood pressure 130/50. We will closely monitor for new developments and assess whether she would met sepsis criteria. We have already started IV antibiotic and will adjust antibiotic after urine culture report Qualifiers: Sepsis type: sepsis due to unspecified organism Qualified Code(s): A41.9 - Sepsis, unspecified organism (3) Diabetes Current Visit: Yes Status: Acute Assessment and plan: The patient is chronic patient of diabetes, her latest A1c ( 6.5 as pt said), blood glucose 163. He is taking Januvia 50 MG daily. We will resume insulin sliding scale while she is in hospital. Qualifiers: Diabetes mellitus type: type 2 Diabetes mellitus complication status: with unspecified complications Qualified Code(s): E11.8 - Type 2 diabetes mellitus with unspecified complications (4) CKD (chronic kidney disease) Current Visit: Yes Status: Acute Assessment and plan: Patient is diabetes with chronic kidney disease: stage 4 , her GFR is 25 and BUN 31, creatinine 1.95. Her baseline creatinine is 1.59, we will hold nephrotoxic medication and will consult microphone operator while she is in hospital Qualifiers: Chronic kidney disease stage: stage 4 (severe) Qualified Code(s): N18.4 - C hronic kidney disease, stage 4 (severe) (5) Hypertension Current Visit: Yes Status: Acute Assessment and plan: The patient has history of hypertension she is on atenolol 100 MG daily. Her latest blood pressure is 130/50 Qualifiers: Hypertension type: essential hypertension Qualified Code(s): I10 - Essential (primary) hypertension (6) DVT (deep venous thrombosis) Current Visit: Yes Status: Acute Assessment and plan: Patient is on warfarin 6 MG daily and additional 3 mg on alternative day. Her PT is 15.5, INR 1.4 Qualifiers: Laterality: unspecified laterality Qualified Code(s): I82.409 - Acute embolism and thrombosis of unspecified deep veins of unspecified lower extremity (7) Afib Current Visit: Yes Status: Acute Assessment and plan: The patient is a case of A fib on warfarin for anticoagulation, the patient PT 15.5, we will monitor her while she is in inpatient Qualifiers: Atrial fibrillation type: chronic Qualified Code(s): I48.2 - Chronic atrial fibrillation - Time Spent With Patient Total time spent is greater than 50% in coordination of care (as documented) at patient's floor/unit and/or counseling patient: <Amy Mckenzie - Last Filed: 03/05/18 17:30> Date of Encounter: 03/05/18 Internal Medicine - H&P: HPI History of present illness: Ms. Dobson is a 82 year old female All Systems PM: A 10-system review of systems was performed and is negative for pertinent findings except as documented above in the HPI. - Constitutional Vitals: Temp Pulse Resp BP Pulse Ox 98.4 F 88 19 127/77 94 03/05/18 15:17 03/05/18 15:17 03/05/18 15:17 03/05/18 15:17 03/05/18 15:17 Internal Med - H&P Results - Labs CBC & Chem 7: 03/05/18 11:17 03/05/18 11:17 Labs: Short CBC 03/05/18 Range/Units 11:17 WBC 17.9 H (4.3-11.1) K/mcL Hgb 12.4 (11.5-15.4) g/dL Hct 38.0 (35.3-44.9) % Plt Count 193 (140-400) K/mcL Neutrophils # 16.0 H (1.6-8.9) K/mcL BMP 03/05/18 11:17 Sodium 137 Potassium 4.3 Chloride 105 Carbon Dioxide 23 BUN 31 H Creatinine 1.95 H Glucose 163 H Calcium 8.7 Urine 03/05/18 Range/Units 11:30 Urine Color Yellow (Yellow) Urine Clarity Cloudy A (Clear) Urine pH 5.5 (5.0-8.0) pH Units Ur Specific Riddle 1.008 L (1.010-1.025) Urine Protein 100 H (Neg-Trace) mg/dL Urine Glucose (UA) Normal (Normal) mg/dL - Impressions ITS Impressions Chest X-Ray 03/05/18 11:06 IMPRESSION: No acute focal process. Stable cardiomegaly. No evidence of pulmonary edema. D/ / Garret Brennan MD / Garret Brennan MD Interpreting Provider: Garret Brennan MD - Time Spent With Patient Total time spent is greater than 50% in coordination of care (as documented) at patient's floor/unit and/or counseling patient: - Attending Attestation I examined this patient and my medical decision-making was reviewed with the Resident Physician. I agree with the documented findings, disposition and treatment plan as described except to the extent set forth below. 82 year old female presented for increasing fevers and rigors over past several days, mostly worsened since yesterday. She also complains of dysuria, change in urine odor, and urinary frequency. She is in no acute distress on my exam but appears uncomfortable, skin is warm to touch, mucus members is dry. she is alert and cooperative with exam. VS: reviewed, HR on admission 101, BP is normal range, No fevers as of now. Labs show WBC 17.9k. Patient with sepsis secondary to UTI. She has MDRO UTI's in the past and she needs broad spectrum abx. Ertapenem started in ED since she has multiple drug allergies. ID consulted, recommendations pending. Follow-up blood and urine cultures.
[2018-03-05] MEDS ORDERED: Naloxone 0.4 MG/ML INJ IVP PRN ×3 (15:24→15:47)
[2018-03-05] MEDS ORDERED: 0.9 % Sodium Chloride 500 ML IVC ONE (15:29)
[2018-03-05] MEDS ORDERED: 0.9 % Sodium Chloride 1,000 ML IVC ONE (15:38)
[2018-03-05] MEDS ORDERED: *HR* Dextrose 50 % in Water (Syg) 50 ML SYRINGE IVP PRN (16:07)
[2018-03-05] MEDS ORDERED: Dextrose Gel 15 GM/37.5 ML TUBE PO PRN ×2 (16:07)
[2018-03-05] MEDS ORDERED: D5% in Water 1,000 ML IVC PRN (16:07)
[2018-03-05] MEDS: Insulin LISPRO 300 UNITS/3 ML VIAL SQ SCH (17:09)
[2018-03-05] MEDS ORDERED: *HR* Warfarin 3 MG TABLET PO SCH (18:00)
[2018-03-05] MEDS: Acetaminophen 325 MG TABLET PO PRN (19:38)
[2018-03-05] MEDS: rOPINIRole 1 MG TABLET PO SCH (21:13)
[2018-03-05] MEDS: Lisinopril 20 MG TABLET PO SCH (21:14)
[2018-03-05] MEDS: cloNIDine HCl 0.1 MG TABLET PO SCH (21:14)
[2018-03-06 02:28] LABS: Acinetobacter baumannii by PCR Not Detected (Not Detect); Candida albicans by PCR Not Detected (Not Detect); Candida glabrata by PCR Not Detected (Not Detect); Candida krusei by PCR Not Detected (Not Detect); Candida parapsilosis by PCR Not Detected (Not Detect); Candida tropicalis by PCR Not Detected (Not Detect); Enterobacter cloacae Cmplx PCR Not Detected (Not Detect); Enterobacteriaceae by PCR Not Detected (Not Detect); Enterococcus by PCR Not Detected (Not Detect); Escherichia coli by PCR Not Detected (Not Detect); Klebsiella oxytoca by PCR Not Detected (Not Detect); Klebsiella pneumoniae by PCR Not Detected (Not Detect); Proteus by PCR Not Detected (Not Detect); Pseudomonas aeruginosa by PCR Not Detected (Not Detect); Serratia marcescens by PCR Not Detected (Not Detect); Staphylococcus aureus by PCR Not Detected (Not Detect); Staphylococcus by PCR Not Detected (Not Detect); Streptococcus agalactiae(B)PCR DETECTED (Not Detect); Streptococcus by PCR DETECTED (Not Detect); Streptococcus pneumoniae PCR Not Detected (Not Detect); Streptococcus pyogenes (A) PCR Not Detected (Not Detect)
[2018-03-06] MEDS: Insulin LISPRO 300 UNITS/3 ML VIAL SQ SCH ×3 (07:19→17:44)
[2018-03-06 07:57] LABS: Basophils % 0.1 %; Eosinophils % 0.1 %; Hematocrit 33.2 % (35.3-44.9); Hemoglobin 11.2 g/dL (11.5-15.4); Immature Granulocytes % 0.9 % (0-4); Lymphocytes # 0.9 K/mcL (0.6-4.6); Lymphocytes % 6.3 %; Mean Corpuscular HGB Conc 33.7 g/dL (31.6-35.5); Mean Corpuscular Hemoglobin 31.5 pg (28.0-33.3); Mean Corpuscular Volume 93.5 fL (83.0-100.0); Mean Platelet Volume 10.4 fL (9.4-12.4); Monocytes # 0.8 K/mcL (0.0-1.3); Monocytes % 5.6 %; Neutrophils # 11.8 K/mcL (1.6-8.9); Platelet Count 127 K/mcL (140-400); Red Blood Count 3.55 M/mcL (3.82-4.97); Red Cell Distribution Width 14.5 % (11.5-14.5)
[2018-03-06 08:04] LABS: INR 1.4; Prothrombin Time 15.3 Seconds (9.4-12.1)
[2018-03-06 08:06] LABS: Activated Partial Thrombo Time 28.1 Seconds (26.0-36.0)
[2018-03-06 08:46] LABS: Albumin 2.9 g/dL (3.5-5.7); Albumin/Globulin Ratio 1.2 (1.1-2.2); Bilirubin,Total 0.4 mg/dL (0.3-1.0); Calcium 7.3 mg/dL (8.6-10.3); Chol/HDL Ratio 5.4 (0-4.9); Globulin 2.5 g/dL (2.4-3.5); Magnesium 1.4 mg/dL (1.6-2.6); Potassium 3.9 mEq/L (3.5-5.1); Total Protein 5.4 g/dL (6.4-8.9)
--- NOTE | 2018-03-06 08:49 | Infectious Disease Consult ---
Date of Encounter: 03/06/18 Time of Encounter: 09:55 Assessment and Plan (1) Sepsis Status: Resolved Assessment and plan: 3 sepsis criteria noted on admission. Likely secondary to bacteremia and UTI. Improved clinically. She was febrile with a MAXIMUM TEMPERATURE of 103.1 overnight. Leukocytosis has improved. Tachycardia has resolved. Blood cultures drawn on 03/05/18 are +2 out of 2 sets for group B strep per the PCR. Recommendations: Await final ID and susceptibilities. Repeat blood cultures x 2. Await urine culture, but likely GBS as well. Continue Ertapenem 500mg IV daily. Will likely de-escalate once we have urine culture back. Duration of treatment depends on the clinical picture. Monitor renal function and dose-adjust antibiotics. Qualifiers: Sepsis type: Streptococcus group B Qualified Code(s): A40.1 - Sepsis due to streptococcus, group B (2) Bacteremia Status: Acute Assessment and plan: Causative organism: GBS. Source: Likely UTI. Complicated due to presence of hardware in the left shoulder and right hip. No endocarditis stigmata noted on exam. The patient has two Modified Blanton's criteria. Currently on IV ertapenem. (3) UTI (urinary tract infection) Status: Acute Assessment and plan: Causative organism unclear, but likely GBS given the blood culture results. Urine culture collected and pending. Currently on IV Ertapenem. Qualifiers: Urinary tract infection type: site unspecified Hematuria presence: without hematuria Qualified Code(s): N39.0 - Urinary tract infection, site not specified (4) Diabetes Status: Chronic Assessment and plan: Strict glucose control. 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 Avoid nephrotoxins. Qualifiers: Chronic kidney disease stage: stage 4 (severe) Qualified Code(s): N18.4 - Chronic kidney disease, stage 4 (severe) (6) Allergy to multiple antibiotics Status: Chronic Assessment and plan: Keflex- Rash Levaquin - Hives. Per pharmacy, patient treated with Levaquin when dx'd with GBS in 2017. Bactrim - Hives PCN - Vomiting, rash. (7) Hypertension Status: Acute Qualifiers: Hypertension type: essential hypertension Qualified Code(s): I10 - Essential (primary) hypertension (8) URTI (acute upper respiratory infection) Status: Acute Assessment and plan: Likely viral. CXR negative. Supportive care per the primary team. Infectious Disease HPI - Data of Consult Patient: new to practice Consult date: 03/06/18 Requesting Physician: Tommy Resendez Primary Care Provider: Beth Cedeno CNP - Consult Narrative Reason for consult: UTI History of present illness: Ms. Dobson is a 82 year old female with a past medical history of A. fib, DVT, diabetes, hyperlipidemia, hypertension, chronic kidney disease, and recurrent UTIs. The patient was admitted to the hospital 03/05/18 for UTI, fever, and myalgias. We are consulted 03/06/17 for antibiotic recommendations for UTI. Briefly, the patient is an 82-year-old female with past medical history as stated above. The patient presented to the emergency department with complaints of fever and rigors with a fever of 103 at home. Upon arrival, the patient was afebrile, but she was tachycardic and hypertensive. She will leukocytosis with neutrophilic predominance. Her serum creatinine was elevated consistent with her chronic kidney disease. Urinalysis was positive for pyuria and specimen was sent for culture. Flu antigen swab was negative. The chest x-ray that was negative for acute process. Cultures were obtained 2 sets. She was given a dose of IV Rocephin. The emergency room physician contacted the ID service who recommended starting IV ertapenem due to the patient's multiple antibiotic allergies. She was admitted to the hospital for further evaluation. Since admission, the patient has had a fever with a MAXIMUM TEMPERATURE of 103.1 . Tachycardia has resolved. Her white blood cell count is improved today. Blood cultures obtained in the emergency department were +2 out of 2 sets for group B strep per the PCR. Currently, the patient is on IV ertapenem. We have asked to evaluate and make further recommendations. During my exam today, the patient endorses a history as stated above. She states that a few days prior to admission she began feeling poorly with fevers, shivers, and chills. She reports some intermittent headaches, but denies any neck pain or stiffness or dizziness. She states she had generalized fatigue and malaise. She denies any congestion or earache, but does endorse a sore throat. She reports a moist nonproductive cough, but denies any chest pain or shortness of breath. She reports some nausea, but denies vomiting. She denies any abdominal pain, does report some right-sided flank pain a few days ago that had resolved before she came to the hospital. She states she is normally incontinent of urine, but noticed that she had to change her pads more frequently. She denies any suprapubic pain or dysuria. She denies any oral thrush or new skin lesions. She states her appetite was not very good prior to coming to the hospital. Today, she states she feels about 75% better. The patient lives at home with her . She does not work outside the home. She denies any chronic infectious diseases. She denies any recent travel or pet/animal exposures. She denies any tobacco, alcohol, or illicit drug use. Review of the medical record indicates that she had bacteremia and a urinary t ract infection with group B strep back in August 2016. Urine culture from October 2016 grew out 2 strains of Escherichia coli. Urine culture in April 2017 also grew out Escherichia coli. CC: Tommy Resendez Past Med Surg Social Fam HX - Past Medical History Attestation: Yes The following information was validated with the patient. Source: patient, old records reviewed, nursing notes reviewed Medical history: atrial fibrillation, DVT, diabetes, hyperlipidemia, hypertension, osteoporosis, renal disease, thyroid disease, venous stasis Additional medical history: IVC filter, UTI, bacteremia Psychiatric history: no psych history - Past Surgical History Surgical History: orthopedic, other, thyroidectomy Additional surgical history: left shoulder replacement. left arm. IVC filter - Social History Smoking Status: Never smoker Smokeless Tobacco Status: No Alcohol use: none Drug use: none Infectious Disease-CN:Meds RX: Allopurinol [Zyloprim 100 MG] 100 mg PO HS 08/07/16 [History] RX: Amitriptyline HCl 100 mg PO HS 08/07/16 [History] RX: Atenolol 100 mg PO DAILY 08/07/16 [History] RX: Pravastatin Sodium [Pravachol] 40 mg PO HS 08/07/16 [History] RX: Ropinirole HCl [Requip] 2 mg PO BID 08/07/16 [History] RX: Sitagliptin Phosphate [Januvia] 50 mg PO DAILY 08/07/16 [History] RX: DiphenhydraMINE [Benadryl] 25 mg PO BID PRN #10 capsule 08/25/16 [Rx] Lisinopril [Zestril] 40 mg PO BID 10/11/16 [History] RX: Terazosin HCl 4 mg PO BID 10/11/16 [History] cloNIDine HCl [Clonidine HCl] 0.6 mg PO QAM 10/11/16 [History] RX: Docusate [Colace] 100 mg PO DAILY PRN 03/05/18 [History] RX: Ferrous Gluconate 324 mg PO BID 03/05/18 [History] RX: Furosemide [Lasix] 20 mg PO DAILY 03/05/18 [History] RX: Warfarin Sodium 3 mg PO TUTHSA 03/05/18 [History] RX: cloNIDine HCl [Clonidine HCl] 0.3 mg PO HS 03/05/18 [History] Tramadol HCl [Ultram] 50 mg PO TID PRN 03/05/18 [History] Warfarin Sodium [Coumadin] 6 mg PO SUMOWEFR 03/05/18 [History] Allergy/AdvReac Type Severity Reaction Status Date / Time alendronate sodium Allergy See Verified 03/05/18 14:43 [From Fosamax] Comments amlodipine [From Norvasc] Allergy Blister Verified 03/05/18 14:43 atorvastatin Allergy See Verified 03/05/18 14:43 Comments cephalexin [From Keflex] Allergy Rash Verified 03/05/18 14:43 cinacalcet [From Sensipar] Allergy Blister Verified 03/05/18 14:43 denosumab [From Prolia] Allergy Blister Verified 03/05/18 14:43 felodipine Allergy Blister Verified 03/05/18 14:43 Hydralazine Allergy Blister Verified 03/05/18 14:43 levofloxacin [From Levaquin] Allergy Hives Verified 03/05/18 14:43 olmesartan [From Benicar] Allergy See Verified 03/05/18 14:43 Comments sulfamethoxazole Allergy Hives Verified 03/05/18 14:43 [From Bactrim] trandolapril Allergy See Verified 03/05/18 14:43 Comments trimethoprim [From Bactrim] Allergy Hives Verified 03/05/18 14:43 Verapamil Allergy See Verified 03/05/18 14:43 Comments Penicillins [PCN] AdvReac Vomiting Verified 03/05/18 14:43 All systems: reviewed and no additional remarkable complaints except as stated Exam - Constitutional Vitals: Temp Pulse Resp BP Pulse Ox 98.0 F 69 17 114/58 97 03/06/18 07:00 03/06/18 07:00 03/06/18 07:00 03/06/18 07:00 03/06/18 07:00 General appearance: cooperative, no acute distress, obese - Head Head exam: Present: atraumatic, normal inspection, normocephalic - Eye Eye exam: Present: EOMI, normal appearance, PERRL Pupils: Present: normal accommodation Additional comments: No subconjunctival hemorrhage noted. - ENT ENT exam: Present: mucous membranes moist - Neck Neck exam: Present: normal inspection - Respiratory Respiratory exam: Present: CTAB. Absent: rales, respiratory distress, rhonchi, wheezes Additional comments: Moist cough noted on exam. - Cardiovascular Cardiovascular exam: Present: RRR, +S1, +S2 - GI/Abdominal GI/Abdominal exam: Present: distended (Obese), normal bowel sounds, soft. Absent: tenderness - Extremities Exam Extremities exam: Absent: normal inspection (Venous stasis dermatitis noted to the bilateral lower extremities.), pedal edema - Back Exam Back exam: Present: normal inspection. Absent: CVA tenderness (L), CVA tenderness (R) - Neurological Exam Neurological exam: Present: alert, oriented X3, no focal deficits - Psychiatric Psychiatric exam: Present: normal affect, normal mood - Skin Skin exam: Present: dry, intact, normal color, warm Infectious Disease CN: Results - Labs CBC & Chem 7: 03/07/18 06:26 03/07/18 06:26 Cultures: Cultures 03/05/18 14:10 Blood Culture - Preliminary Peripheral Venipuncture Gram Positive Cocci 03/05/18 14:18 Blood Culture - Preliminary Peripheral Venipuncture Gram Positive Cocci 03/05/18 12:24 Influenza Types A,B Antigen - Final Nasopharyngeal Serology: Serology 03/05/18 03/05/18 Range/Units 14:18 11:30 Urine Color Yellow (Yellow) Urine Clarity Cloudy A (Clear) Urine pH 5.5 (5.0-8.0) pH Units Ur Specific [place] 1.008 L (1.010-1.025) Urine Protein 100 H (Neg-Trace) mg/dL Urine Glucose (UA) Normal (Normal) mg/dL Urine Ketones Negative (Negative) mg/dL Urine Blood Moderate H (Negative) Urine Nitrite Positive A (Negative) Urine Bilirubin Negative (Negative) Urine Urobilinogen Normal (Normal) mg/dL Ur Leukocyte Esterase Moderate H (Negative) Urine Microscopic RBC 3-5 H (0-3) per hpf Urine Microscopic WBC 50-100 H (0-3) per hpf Ur Squamous Epith Cells Moderate H (None-Few) per lpf Amorphous Sediment Few (Few) Urine Bacteria Many H (None-Few) per hpf Hyaline Casts None Seen (None-Few) per lpf Ur Culture Indicated? YES A (NO) A. baumannii (PCR) Not Detected (Not Detect) Megan albicans (PCR) Not Detected (Not Detect) C. glabrata (PCR) Not Detected (Not Detect) C. krusei (PCR) Not Detected (Not Detect) C. parapsilosis (PCR) Not Detected (Not Detect) C. tropicalis (PCR) Not Detected (Not Detect) Enterobacteriac sp PCR Not Detected (Not Detect) E. cloacae complex PCR Not Detected (Not Detect) Enterococcus sp PCR Not Detected (Not Detect) E. coli (PCR) Not Detected (Not Detect) H. influenzae (PCR) Not Detected (Not Detect) Klebsiella oxytoca PCR Not Detected (Not Detect) Klebsiella pneumoniae Not Detected (Not Detect) List. monocytogenes PCR Not Detected (Not Detect) N. meningitidis (PCR) Not Detected (Not Detect) Proteus species (PCR) Not Detected (Not Detect) Serratia marcescens PCR Not Detected (Not Detect) Staphylococcus sp PCR Not Detected (Not Detect) Staph aureus (PCR) Not Detected (Not Detect) mecA-Methicil Res Gene N/A (Not Detect) Streptococcus sp PCR DETECTED A (Not Detect) Group A Strep DNA Not Detected (Not Detect) Group B Strep (PCR) DETECTED A (Not Detect) Strep pneumoniae (PCR) Not Detected (Not Detect) P. aeruginosa (PCR) Not Detected (Not Detect) Madeline/B-Vanco Res Genes N/A (Not Detect) KPC (blaKPC) Detect PCR N/A (Not Detect) Consult Discharge Plan - Plan Referrals: Beth Cedeno, SENIOR INTERACTIVE DEVELOPER [Primary Care Provider] - - Attending Attestation I examined this patient and my medical decision-making was reviewed with the Resident Physician. I agree with the documented findings, disposition and treatment plan as described except to the extent set forth below.
--- NOTE | 2018-03-06 09:47 | Internal Med Progress Note ---
<BernardinoKlever R - Last Filed: 03/06/18 12:56> Hospitalist Progress Note - Encounter Date of Encounter: 03/06/18 Time of Encounter: 09:00 - Subjective Interval History: Mrs. Rhonda Dobson is a 82F who presented to the E.D. on 03/05/18 with chills, fever and cough. She was diagnosed with a UTI and sepsis on admission. She was started IV Rocephin and IV Ertapenem. Blood culture results came back with group b streptococcus which is the same organism of past UTI with sepsis in August of 2016. Due to the patients history of drug resistence GBS and mutliple drug allergies I & D was consulted. According to I and D they plan to maintain current drug therapy. Today she states she is feeling much better, resting peacefully in bed. She denies fever or chills, headache, dizziness, N/V, belly pain, pain with urination, SOB, or chest pain. She states here cough has been about the same. She states its a non productive cough that has been going on for a while. Denies postnasal drip, sinus pressure or congestion. Wishes for something to loosen up mucus. - Exam Vitals: Temp Pulse Resp BP Pulse Ox 98.0 F 69 17 114/58 97 03/06/18 07:00 03/06/18 07:00 03/06/18 07:00 03/06/18 07:00 03/06/18 07:00 Exam: Gen: Alert and oriented in no acute distress. Peacefully laying in bed with no complaints CV: Rate controlled a-fib, No murmurs gallops or rubs. Resp: Bilateral lower lobular expiratory wheezes, with no ronchi or rales. GI: BSx4, non-tender to palpitations x 4. Extremities: PP intact UE and LE, venous statis dayne LE, no pedal edema - Assessment and Plan (1) Bacteremia Current Visit: Yes Status: Acute Assessment and Plan: Blood Culture showed group B streptococcus. In August 2016 she had a similiar bought of UTI associated bacteremia with Group B Strep. That was treated with Ertapenem. I & D was consulted due to drug resistence and allergies and agreed with the current treatment plan. At this point WBC has come down from 17.9 to 13.8 on current drug therapy within 24 hours, patient stating she is feeling better. At this point the plan is to continue IV Ertapenem. We will to re- evaluate blood culture on 03/07/18. (2) UTI (urinary tract infection) Current Visit: Yes Status: Acute Assessment and Plan: Waiting for urine culture to be completed. She presented with abdominal pain and painful urination. She has a PHx of UTI with bacteremia in August of 2016. At this point we will continue Ertapenem and monitor symptoms of UTI. Since yesterday she states that she is already feeling better. She denied belly pain or painful urination. (3) Sepsis Current Visit: Yes Status: Resolved Assessment and Plan: Patient presented to ER with fever, tachycardia, leukocytosis, hypotension on 03/05/18. Lactate was 1.4 on admission. She has a PHx of UTI associated sepsis. With urinary complaints a urine sample was conducted and found nitrites, bacteria and WBC's. Patient improved with IV fluilds, IV Ertapenem. Currently patient is stable. (4) Diabetes Current Visit: Yes Status: Acute Assessment and Plan: Type II non insulin dependent diabetic. She takes 50 mg/daily of Junevia at home. Last A1C was 6.8 on 10/24/18. Currently taking Humalog in the hospital. Last blood glucose was 114 on 03/06/18. Continue sliding scale monitoring of blood glucose with a target range of 140 - 180. (5) CKD (chronic kidney disease) Current Visit: Yes Status: Acute Assessment and Plan: Talking with the patient she states that her CR regularly runs ~ 1.8. On admission her CR was 1.9 and has increased 2.0. Discussed change and value with patient and will hold off consulting renal currently. Continue to monitor kidney function to ensure acute injury doesn't occur with UTI. (6) Afib Current Visit: Yes Status: Acute Assessment and Plan: Rate controlled and asymptomatic a - fib. INR of 1.4 the past 2 days. On atenolol and warfarin for management. PCP discussed with patient about adjustment of INR after results were supratherapeutic. Adjustment of Warfarin so therapeutic range of 2.0 - 3.0 can be attained and maintained. - Time Spent with Patient Total time spent is greater than 50% in coordination of care (as documented) at patient's floor/unit and/or counseling patient: less than 15 minutes Plan of Care Discussed with: patient Internal Medicine: Result - Labs CBC & Chem 7: 03/06/18 07:36 03/06/18 07:36 Labs: Short CBC 03/05/18 03/06/18 Range/Units 11:17 07:36 WBC 17.9 H 13.6 H (4.3-11.1) K/mcL Hgb 12.4 11.2 L (11.5-15.4) g/dL Hct 38.0 33.2 L (35.3-44.9) % Plt Count 193 127 L (140-400) K/mcL Neutrophils # 16.0 H 11.8 H (1.6-8.9) K/mcL BMP 03/05/18 03/06/18 11:17 07:36 Sodium 137 135 L Potassium 4.3 3.9 Chloride 105 109 H Carbon Dioxide 23 14 L BUN 31 H 36 H Creatinine 1.95 H 2.08 H Glucose 163 H 119 H Calcium 8.7 7.3 L Liver Function 03/06/18 Range/Units 07:36 Total Bilirubin 0.4 (0.3-1.0) mg/dL AST 36 (13-39) Units/L ALT 16 (7-52) Units/L Alkaline Phosphatase 45 (34-104) Units/L Albumin 2.9 L (3.5-5.7) g/dL Urine 03/05/18 Range/Units 11:30 Urine Color Yellow (Yellow) Urine Clarity Cloudy A (Clear) Urine pH 5.5 (5.0-8.0) pH Units Ur Specific [place] 1.008 L (1.010-1.025) Urine Protein 100 H (Neg-Trace) mg/dL Urine Glucose (UA) Normal (Normal) mg/dL - ABG Interpretation ABG results: PT/INR, D-dimer PT 15.3 Seconds (9.4-12.1) H 03/06/18 07:36 - Impressions Impressions Chest X-Ray 03/05/18 11:06 IMPRESSION: No acute focal process. Stable cardiomegaly. No evidence of pulmonary edema. D/ / Garret Brennan MD / Garret Brennan MD Interpreting Provider: Garret Brennan MD Consult Discharge Plan - Plan Referrals: Beth Cedeno, THREADING MACHINE SETTER [Primary Care Provider] - <Adali Mckenzieul Arabella - Last Filed: 03/06/18 16:07> Hospitalist Progress Note - Encounter Date of Encounter: 03/06/18 - Exam Vitals: Temp Pulse Resp BP Pulse Ox 98.8 F 71 15 94/58 92 03/06/18 14:20 03/06/18 14:20 03/06/18 14:20 03/06/18 14:20 03/06/18 14:20 - Time Spent with Patient Total time spent is greater than 50% in coordination of care (as documented) at patient's floor/unit and/or counseling patient: Internal Medicine: Result - Labs CBC & Chem 7: 03/06/18 07:36 03/06/18 07:36 Labs: Short CBC 03/06/18 Range/Units 07:36 WBC 13.6 H (4.3-11.1) K/mcL Hgb 11.2 L (11.5-15.4) g/dL Hct 33.2 L (35.3-44.9) % Plt Count 127 L (140-400) K/mcL Neutrophils # 11.8 H (1.6-8.9) K/mcL BMP 03/06/18 07:36 Sodium 135 L Potassium 3.9 Chloride 109 H Carbon Dioxide 14 L BUN 36 H Creatinine 2.08 H Glucose 119 H Calcium 7.3 L Liver Function 03/06/18 Range/Units 07:36 Total Bilirubin 0.4 (0.3-1.0) mg/dL AST 36 (13-39) Units/L ALT 16 (7-52) Units/L Alkaline Phosphatase 45 (34-104) Units/L Albumin 2.9 L (3.5-5.7) g/dL - ABG Interpretation ABG results: PT/INR, D-dimer PT 15.3 Seconds (9.4-12.1) H 03/06/18 07:36 - Attending Attestation I examined this patient and my medical decision-making was reviewed with the Medical Student and Resident Physician who has seen the patient as well. I agree with the documented findings, disposition and treatment plan as described except to the extent set forth below. Patient states she is feeling much better today. On exam she appears better hydrated than my exam yesterday but still dehydrated. Labs show creatinine is 2.08 and yesterday on admission was 1.95. Her baseline ranges 1.6-2.04. blood cultures are positive for GPC in two sets. Will continue Ertapenem and await ID recommendations. <Klever Lebron - Last Filed: 03/06/18 12:56> (2) UTI (urinary tract infection) Qualifiers: Urinary tract infection type: site unspecified Hematuria presence: without hematuria Qualified Code(s): N39.0 - Urinary tract infection, site not specified (3) Sepsis Qualifiers: Sepsis type: Streptococcus group B Qualified Code(s): A40.1 - Sepsis due to streptococcus, group B (4) Diabetes Qualifiers: Diabetes mellitus type: type 2 Diabetes mellitus complication status: with unspecified complications Qualified Code(s): E11.8 - Type 2 diabetes mellitus with unspecified complications (5) CKD (chronic kidney disease) Qualifiers: Chronic kidney disease stage: stage 4 (severe) Qualified Code(s): N18.4 - Chronic kidney disease, stage 4 (severe) (6) Afib Qualifiers: Atrial fibrillation type: chronic Qualified Code(s): I48.2 - Chronic atrial fibrillation
[2018-03-06] MEDS: rOPINIRole 1 MG TABLET PO SCH ×2 (10:33→21:09)
[2018-03-06] MEDS: cloNIDine HCl 0.1 MG TABLET PO SCH ×2 (10:33→21:11)
[2018-03-06] MEDS ORDERED: Ringers Solution, Lactated 1,000 ML IVC SCH (11:15)
--- NOTE | 2018-03-06 16:00 | Electrocardiograph Report ---
[place] [id number] Test Date: 2018-03-05 Pat Name: Rhonda Dobson Department: [id number] Room: 3A53 Gender: F Fusion Analyst: : [id number] Requested By: Francisca Adrian Order Number: [id number] Reading MD: Alfonso Long Measurements Intervals [place] Rate: 86 P: 61 MS: 180 QRS: 14 QRSD: 96 T: 15 QT: 350 QTc: 419 Interpretive Statements Sinus rhythm Nonspecific ST-T changes Electronically Signed On 03-06-2018 15:58:35 EST by Alfonso Long
[2018-03-06] MEDS ORDERED: *HR* Warfarin 3 MG TABLET PO ONE (18:00)
[2018-03-06] MEDS ORDERED: *HR* Warfarin 3 MG TABLET PO SCH (18:00)
[2018-03-06] MEDS ORDERED: Warfarin perPT PO PRN (18:00)
[2018-03-07 06:43] LABS: Basophils % 0.3 %; Eosinophils # 0.2 K/mcL (0.0-0.6); Eosinophils % 2.6 %; Hematocrit 32.9 % (35.3-44.9); Hemoglobin 10.6 g/dL (11.5-15.4); Immature Granulocytes % 0.4 % (0-4); Lymphocytes % 11.1 %; Mean Corpuscular HGB Conc 32.2 g/dL (31.6-35.5); Mean Corpuscular Hemoglobin 31.1 pg (28.0-33.3); Mean Corpuscular Volume 96.5 fL (83.0-100.0); Mean Platelet Volume 10.4 fL (9.4-12.4); Monocytes % 10.7 %; Neutrophils # 6.7 K/mcL (1.6-8.9); Platelet Count 140 K/mcL (140-400); Red Blood Count 3.41 M/mcL (3.82-4.97); Red Cell Distribution Width 15.1 % (11.5-14.5); Segmented Neutrophils % 74.9 %
[2018-03-07 06:50] LABS: INR 1.2; Prothrombin Time 13.9 Seconds (9.4-12.1)
[2018-03-07 07:07] LABS: Calcium 7.6 mg/dL (8.6-10.3); Potassium 3.7 mEq/L (3.5-5.1)
[2018-03-07] MEDS: Insulin LISPRO 300 UNITS/3 ML VIAL SQ SCH ×3 (07:08→17:03)
--- NOTE | 2018-03-07 07:48 | Internal Med Progress Note ---
<Klever Lebron R - Last Filed: 03/07/18 13:41> Hospitalist Progress Note - Encounter Date of Encounter: 03/07/18 Time of Encounter: 07:43 - Subjective Interval History: 03/07/18 --> Mrs. Dobson states shes feeling a little worse then yesterday. She states her cough is bothering her more today then yesterday. She complains of chest congestion with productive cough. She denies nasal congestion, sore throat, post nasal drip, SOB, chest pain or chest tightness. She also states that she noticed that her R leg was a little red, warm and swollen compared to her L leg. She states its painful to touch in one spot and there has been a bruise that has formed medial and superior to the R knee. She states that she noticed it this morning while taking a shower. When asked about her Coumadin use for her A - fib she doesn't even know what a - fib is. 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 She denies SOB chest pain, palpatations or tachycardia. She denies any N/V/D or belly pain. - Exam Vitals: Temp Pulse Resp BP Pulse Ox 98.0 F 60 16 131/97 94 03/07/18 07:02 03/07/18 07:02 03/07/18 07:02 03/07/18 07:02 03/07/18 07:02 Exam: Gen: Alert and oriented in no acute distress. Resting upright in her chair this morning CV: RRR, no murmurs, gallops or rubs. No a- fib noted this morning Resp: Scattered rhonchi in basilar lung greene on R and L side, Cleared with cough, no wheezing or rales GI: BS x 4, no pain on palpation. Extremities: R lower extremity red, hot to touch and swollen compared to L lower extremity. Bruising to the superior and medial aspect of the R knee. Tender to touch on the medial aspect of the popliteal fossa. Venous stasis noted in L lower extremity without edema. Radial and Pedal pulses present 2/4 bilaterally. - Assessment and Plan (1) Pain and swelling of lower extremity Current Visit: Yes Status: Acute Assessment and Plan: Patient state she noticed pain and swelling of R lower extremity around the knee this morning while being bathed She states that her R leg felt swollen, warm, and painful to touch on the medial aspect of her knee when she woke up On PE patient's R knee is swollen compared to L leg at the knee and below. Visually the leg is red. There is new ecchymosis superiorly and medially to the R knee. Warm to touch around the knee. On palpation of the medial aspect of the popliteal fossa patient admits to pain. There is considerable swelling below the knee compared to the L leg. When asked about her Coumadin use she states that it is for DVT prophalxysis Looking back at medical records, she has INR values from 2015. Concerning for DVT since INR is subtherapeutic and not on heperin. INR 03/06/18 = 1.4; 03/07/18 = 1.2 Started back on home coumadin regimine 03/06/18 at 1800 hours. Pharmacy is handling coumadin regimine. Ultrasound of the leg ordered Start IV heperin to bridge coumadin regardless of stat Ultrasound of R leg (2) Bacteremia Current Visit: Yes Status: Acute Assessment and Plan: Patient states that she is feeling a little worse today due to her cough Improvement of WBC from 13.6 on 03/06/18 to 9.0 on 03/07/18 I&D switch Etrapenem to Levaquin 750mg IV UTI is likely source at UTI culture came back GBS Management of antibiotics by I&D as patient has multiple drug allergies Blood culture taken 03/07/18 at 630 results pending If blood cultures come back negative I & D will handle antibiotic therapy at discharge (3) UTI (urinary tract infection) Current Visit: Yes Status: Acute Assessment and Plan: Urine culture came back Group B strep Continues to be asymptomatic GBS bacteremia being treated with Levaquin 750mg IV likely caused by UTI PHx of GBS UTI and Bacteremia August 2016 Treat with levaquin 750mg IV and monitor patient for signs and symptoms of UTI. (4) Sepsis Current Visit: Yes Status: Resolved Assessment and Plan: Initially met SIRS sepsis criteria on 03/05/18 with tachycardia, fever and leukocytosis Today vitals are normal and WBC = 9.0 Sepsis resolved with antibiotics and IV fluids (5) Diabetes Current Visit: Yes Status: Chronic Assessment and Plan: Morning sugar was 110 Hx of non insulin dependent diabetes that is well controlled Last HA1C was 6.8% in October of 2017 On humalog as inpatient Januvia 50 mg PO daily Have patient return to home meds when discharged (6) CKD (chronic kidney disease) Current Visit: Yes Status: Acute Assessment and Plan: 03/06/18 Cr was 2.0, held lisinopril due to fear of possible KOBI following GBS UTI Discussed with patient Cr results and she stated that her normal Cr was around 1.8 Today Cr was 1.7 Today 03/07/18 will start back on home meds of lisinopril 40mg PO Continue to monitor Cr and BP during length of stay No need for Renal consult at current time. (7) Afib Current Visit: Yes Status: Acute Assessment and Plan: Discussed Coumadin treatment with patient this morning. 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 Current visit had a - fib in PMHx and looked back to August of 2016 ER visit with a - fib on medical record at admission. No previous chart could be pulled for review to determine when a - fib diagnosis was made. Review of ER ekg showed normal sinus rhythm at previous 3 visits to the ED. INR 03/06/18 = 1.4 INR 03/07/18 = 1.2 Received first dose of home Warfarin 03/06/18 at 1800 Monitoring by pharmacy to achieve therapeutic window Need to discuss with patient about A- fib diagnosis. Couldn't find a start date for A - fib diagnosis. Mrs. Dobson denies cardiology consult. If if was diagnosed with a - fib then she has the right to know and if she was given the a - fib diagnosis incorrectly then it needs to be corrected on her chart. Atenolol and Warfarin are her home meds for a -fib Continues to be rate and rhythm controlled - Time Spent with Patient Total time spent is greater than 50% in coordination of care (as documented) at patient's floor/unit and/or counseling patient: less than 15 minutes Plan of Care Discussed with: patient Internal Medicine: Result - Labs CBC & Chem 7: 03/07/18 06:26 03/07/18 06:26 Labs: Short CBC 03/06/18 03/07/18 Range/Units 07:36 06:26 WBC 13.6 H 9.0 (4.3-11.1) K/mcL Hgb 11.2 L 10.6 L (11.5-15.4) g/dL Hct 33.2 L 32.9 L (35.3-44.9) % Plt Count 127 L 140 (140-400) K/mcL Neutrophils # 11.8 H 6.7 (1.6-8.9) K/mcL BMP 03/06/18 03/07/18 07:36 06:26 Sodium 135 L 135 L Potassium 3.9 3.7 Chloride 109 H 109 H Carbon Dioxide 14 L 20 L BUN 36 H 35 H Creatinine 2.08 H 1.71 H Glucose 119 H 110 H Calcium 7.3 L 7.6 L Liver Function 03/06/18 Range/Units 07:36 Total Bilirubin 0.4 (0.3-1.0) mg/dL AST 36 (13-39) Units/L ALT 16 (7-52) Units/L Alkaline Phosphatase 45 (34-104) Units/L Albumin 2.9 L (3.5-5.7) g/dL - ABG Interpretation ABG results: PT/INR, D-dimer PT 13.9 Seconds (9.4-12.1) H 03/07/18 06:26 Consult Discharge Plan - Plan Referrals: Beth Cedeno, [employer] TRUING INSPECTOR [Primary Care Provider] - <Amy Mckenzie - Last Filed: 03/07/18 19:25> Hospitalist Progress Note - Encounter Date of Encounter: 03/07/18 - Exam Vitals: Temp Pulse Resp BP Pulse Ox 98.1 F 63 18 127/81 99 03/07/18 14:51 03/07/18 14:51 03/07/18 16:07 03/07/18 14:51 03/07/18 16:07 - Time Spent with Patient Total time spent is greater than 50% in coordination of care (as documented) at patient's floor/unit and/or counseling patient: Internal Medicine: Result - Labs CBC & Chem 7: 03/07/18 06:26 03/07/18 06:26 Labs: Short CBC 03/07/18 Range/Units 06:26 WBC 9.0 (4.3-11.1) K/mcL Hgb 10.6 L (11.5-15.4) g/dL Hct 32.9 L (35.3-44.9) % Plt Count 140 (140-400) K/mcL Neutrophils # 6.7 (1.6-8.9) K/mcL BMP 03/07/18 06:26 Sodium 135 L Potassium 3.7 Chloride 109 H Carbon Dioxide 20 L BUN 35 H Creatinine 1.71 H Glucose 110 H Calcium 7.6 L - ABG Interpretation ABG results: PT/INR, D-dimer PT 13.9 Seconds (9.4-12.1) H 03/07/18 06:26 - Attending Attestation I examined this patient and my medical decision-making was reviewed with the Resident Physician and Medical Student. I agree with the documented findings, disposition and treatment plan as described except to the extent set forth below. Patient feeling some nausea today with mild cough and chest congestion. She also has complaints of right inner thigh pain. On exam it appears to have generalized bruising, with some tenderness on palpation, followed by swelling b elow the tender region. VS: reviewed, Labs: reviewed. WBC count improving. Cr improving 2.08 now 1.71 today. Patient has history of DVT and she takes coumadin and is subtherapeutic. There is concern for DVT of RLE with this new tenderness. Will start heparin drip and obtain venous ultrasound. In regards to Bacteremia and sepsis, + GBS, Levaquin started. <Klever Lebron - Last Filed: 03/07/18 13:41> (1) Pain and swelling of lower extremity Qualifiers: Laterality: right Qualified Code(s): M79.604 - Pain in right leg; M79.89 - Other specified soft tissue disorders (3) UTI (urinary tract infection) Qualifiers: Urinary tract infection type: site unspecified Hematuria presence: without hematuria Qualified Code(s): N39.0 - Urinary tract infection, site not specified (4) Sepsis Qualifiers: Sepsis type: Streptococcus group B Qualified Code(s): A40.1 - Sepsis due to streptococcus, group B (5) Diabetes Qualifiers: Diabetes mellitus type: type 2 Diabetes 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
[2018-03-07] MEDS: cloNIDine HCl 0.1 MG TABLET PO SCH ×2 (09:47→20:21)
[2018-03-07] MEDS: rOPINIRole 1 MG TABLET PO SCH ×2 (09:47→20:22)
[2018-03-07] MEDS ORDERED: *HR* Heparin 5,000 UNIT/ML VIAL IVP PRN ×2 (10:54)
[2018-03-07] MEDS ORDERED: *HR* Heparin 5,000 UNIT/ML VIAL IVP ONE (10:54)
[2018-03-07] MEDS ORDERED: GuaiFENesin Liq 200 MG/10 ML UDC PO PRN (10:58)
[2018-03-07] MEDS ORDERED: Ipratropium/Albuterol Neb 3 ML IH ONE (11:00)
--- NOTE | 2018-03-07 11:25 | Infectious Disease Progress No ---
Date of Encounter: 03/07/18 Time of Encounter: 11:23 - Assessment and Plan (1) Sepsis Current Visit: Yes Status: Resolved 3 sepsis criteria noted on admission. Likely secondary to bacteremia and UTI. Improved clinically. She was febrile with a MAXIMUM TEMPERATURE 99.7 overnight. Leukocytosis and tachycardia resolved. Blood cultures drawn on 03/05/18 are +2 out of 2 sets for group B strep per the PCR. Repeat blood cultures drawn 03/07/18 are pending x 2 sets. Recommendations: Await repeat blood cultures x 2. Discontinue Ertapenem. Start Levaquin 750mg IV daily. The patient has a documented allergy to Levaquin, but tolerated it without a problem when she took it in 2017. Will trial it and monitor the patient closely. Duration of treatment depends on the clinical picture. Monitor renal function and dose-adjust antibiotics. Qualifiers: Sepsis type: Streptococcus group B Qualified Code(s): A40.1 - Sepsis due to streptococcus, group B (2) Bacteremia Current Visit: Yes Status: Acute Causative organism: GBS. Source: Likely UTI. Complicated due to presence of hardware in the left shoulder and right hip. No endocarditis stigmata noted on exam. The patient has two Modified Blanton's criteria. Currently on IV ertapenem. (3) UTI (urinary tract infection) Current Visit: Yes Status: Acute Causative organism GBS. Currently on IV Ertapenem. Qualifiers: Urinary tract infection type: site unspecified Hematuria presence: without hematuria Qualified Code(s): N39.0 - Urinary tract infection, site not specified (4) Diabetes Current Visit: Yes Status: Chronic Strict glucose control. Qualifiers: Diabetes mellitus type: type 2 Diabetes mellitus jail insulin use: without terminal gauger supervisor use Diabetes mellitus complication status: with unspecified complications Qualified Code(s): E11.8 - Type 2 diabetes mellitus with unspecified complications (5) CKD (chronic kidney disease) Current Visit: Yes Status: Acute Monitor renal function and dose-adjust antibiotics. Avoid nephrotoxins. Qualifiers: Chronic kidney disease stage: stage 4 (severe) Qualified Code(s): N18.4 - Chronic kidney disease, stage 4 (severe) (6) Allergy to multiple antibiotics Current Visit: Yes Status: Chronic Keflex- Rash Levaquin - Hives. Per pharmacy, patient treated with Levaquin when dx'd with GBS in 2017. Bactrim - Hives PCN - Vomiting, rash. (7) Hypertension Current Visit: Yes Status: Acute Qualifiers: Hypertension type: essential hypertension Qualified Code(s): I10 - Essential (primary) hypertension (8) URTI (acute upper respiratory infection) Current Visit: Yes Status: Acute Likely viral. CXR negative. Flu ATG swab negative. Supportive care per the primary team. - Subjective Interval history: Patient seen and examined. No acute events noted overnight. Patient sitting up in the bedside chair with daughter at bedside. Denies fevers, chills, or rigors. Denies chest pain or shortness of breath. Reports chest congestion and a moist cough with scant clear sputum. Reports some nausea that she thinks is from the chest congestion. Denies vomiting or diarrhea. Last BM was MANNEQUIN MOUNTER. Denies abdominal pain or urinary complaints. Denies oral thrush or new skin lesions. Complains of pain, redness, and swelling with bruising to the right inner thigh. Infect Dis PN-Objective Data - Labs CBC & Chem 7: 03/08/18 00:25 03/08/18 00:25 Labs: Laboratory Results - last 24 hr 03/06/18 03/06/18 03/06/18 07:03 10:56 16:33 WBC RBC Hgb Hct MCV MCH MCHC RDW Plt Count MPV Immature Gran % Seg Neutrophils % Lymphocytes % Monocytes % Eosinophils % Basophils % Neutrophils # Lymphocytes # Monocytes # Eosinophils # Basophils # PT INR Sodium Potassium Chloride Carbon Dioxide BUN Creatinine Est GFR ( Amer) Est GFR (Non-Af Amer) BUN/Creatinine Ratio Glucose POC Glucose 117 H 138 H 169 H Calculated Osmolality Calcium Phosphorus Magnesium 03/06/18 03/07/18 03/07/18 20:46 06:26 06:26 WBC 9.0 RBC 3.41 L Hgb 10.6 L Hct 32.9 L MCV 96.5 MCH 31.1 MCHC 32.2 RDW 15.1 H Plt Count 140 MPV 10.4 Immature Gran % 0.4 Seg Neutrophils % 74.9 Lymphocytes % 11.1 Monocytes % 10.7 Eosinophils % 2.6 Basophils % 0.3 Neutrophils # 6.7 Lymphocytes # 1.0 Monocytes # 1.0 Eosinophils # 0.2 Basophils # 0.0 PT INR Sodium 135 L Potassium 3.7 Chloride 109 H Carbon Dioxide 20 L BUN 35 H Creatinine 1.71 H Est GFR ( Amer) 35 L Est GFR (Non-Af Amer) 29 L BUN/Creatinine Ratio 20 Glucose 110 H POC Glucose 107 H Calculated Osmolality 289 Calcium 7.6 L Phosphorus 3.0 Magnesium 2.0 03/07/18 06:26 WBC RBC Hgb Hct MCV MCH MCHC RDW Plt Count MPV Immature Gran % Seg Neutrophils % Lymphocytes % Monocytes % Eosinophils % Basophils % Neutrophils # Lymphocytes # Monocytes # Eosinophils # Basophils # PT 13.9 H INR 1.2 Sodium Potassium Chloride Carbon Dioxide BUN Creatinine Est GFR ( Amer) Est GFR (Non-Af Amer) BUN/Creatinine Ratio Glucose POC Glucose Calculated Osmolality Calcium Phosphorus Magnesium Cultures: Cultures 03/07/18 06:15 Blood Culture - Preliminary Peripheral Venipuncture Culture is incubating and being continuously monitored for growth. Final report to follow. 03/07/18 06:25 Blood Culture - Preliminary Peripheral Venipuncture Culture is incubating and being continuously monitored for growth. Final report to follow. 03/05/18 14:10 Blood Culture - Final Peripheral Venipuncture Strep agalactiae - (Group B) 03/05/18 14:18 Blood Culture - Final Peripheral Venipuncture Strep agalactiae - (Group B) 03/05/18 11:30 Urine Culture - Preliminary Urine,Clean Catch Strep agalactiae - (Group B) 03/05/18 12:24 Influenza Types A,B Antigen - Final Nasopharyngeal Serology 03/05/18 03/05/18 Range/Units 14:18 11:30 Urine Color Yellow (Yellow) Urine Clarity Cloudy A (Clear) Urine pH 5.5 (5.0-8.0) pH Units Ur Specific [place] 1.008 L (1.010-1.025) Urine Protein 100 H (Neg-Trace) mg/dL Urine Glucose (UA) Normal (Normal) mg/dL Urine Ketones Negative (Negative) mg/dL Urine Blood Moderate H (Negative) Urine Nitrite Positive A (Negative) Urine Bilirubin Negative (Negative) Urine Urobilinogen Normal (Normal) mg/dL Ur Leukocyte Esterase Moderate H (Negative) Urine Microscopic RBC 3-5 H (0-3) per hpf Urine Microscopic WBC 50-100 H (0-3) per hpf Ur Squamous Epith Cells Moderate H (None-Few) per lpf Amorphous Sediment Few (Few) Urine Bacteria Many H (None-Few) per hpf Hyaline Casts None Seen (None-Few) per lpf Ur Culture Indicated? YES A (NO) A. baumannii (PCR) Not Detected (Not Detect) Megan albicans (PCR) Not Detected (Not Detect) C. glabrata (PCR) Not Detected (Not Detect) C. krusei (PCR) Not Detected (Not Detect) C. parapsilosis (PCR) Not Detected (Not Detect) C. tropicalis (PCR) Not Detected (Not Detect) Enterobacteriac sp PCR Not Detected (Not Detect) E. cloacae complex PCR Not Detected (Not Detect) Enterococcus sp PCR Not Detected (Not Detect) E. coli (PCR) Not Detected (Not Detect) H. influenzae (PCR) Not Detected (Not Detect) Klebsiella oxytoca PCR Not Detected (Not Detect) Klebsiella pneumoniae Not Detected (Not Detect) List. monocytogenes PCR Not Detected (Not Detect) N. meningitidis (PCR) Not Detected (Not Detect) Proteus species (PCR) Not Detected (Not Detect) Serratia marcescens PCR Not Detected (Not Detect) Staphylococcus sp PCR Not Detected (Not Detect) Staph aureus (PCR) Not Detected (Not Detect) mecA-Methicil Res Gene N/A (Not Detect) Streptococcus sp PCR DETECTED A (Not Detect) Group A Strep DNA Not Detected (Not Detect) Group B Strep (PCR) DETECTED A (Not Detect) Strep pneumoniae (PCR) Not Detected (Not Detect) P. aeruginosa (PCR) Not Detected (Not Detect) Madeline/B-Vanco Res Genes N/A (Not Detect) KPC (blaKPC) Detect PCR N/A (Not Detect) Exam - Constitutional Vitals: Temp Pulse Resp BP Pulse Ox 98.2 F 82 15 137/68 95 03/07/18 10:07 03/07/18 10:07 03/07/18 10:07 03/07/18 10:07 03/07/18 10:07 General appearance: cooperative, no acute distress, obese - Head Head exam: Present: atraumatic, normal inspection, normocephalic - Eye Eye exam: Present: EOMI, normal appearance, PERRL Pupils: Present: normal accommodation Additional comments: No subconjunctival hemorrhage noted. - ENT ENT exam: Present: mucous membranes moist - Neck Neck exam: Present: normal inspection - Respiratory Respiratory exam: Present: CTAB. Absent: rales, respiratory distress, rhonchi, wheezes - Cardiovascular Cardiovascular exam: Present: RRR, +S1, +S2 - GI/Abdominal GI/Abdominal exam: Present: distended (obese), normal bowel sounds, soft. Absent: tenderness - Extremities Exam Extremities exam: Present: tenderness (Right inner thigh.). Absent: normal inspection (Erythema, warmth, and ecchymosis noted to the right inner thigh.) - Neurological Exam Neurological exam: Present: alert, oriented X3, no focal deficits - Psychiatric Psychiatric exam: Present: normal affect, normal mood - Skin Skin exam: Present: dry, intact, normal color, warm Consult Discharge Plan - Plan Referrals: Beth Cedeno, [employer] FACER [Primary Care Provider] - - Attending Attestation I examined this patient and my medical decision-making was reviewed with the Resident Physician. I agree with the documented findings, disposition and treatment plan as described except to the extent set forth below.
[2018-03-07] MEDS: Lisinopril 20 MG TABLET PO SCH ×2 (11:52→20:22)
[2018-03-07] MEDS: Heparin 25,000 UNIT/500 ML D5W 25,000 UNIT/500 ML BAG IVC SCH (12:02)
[2018-03-07] MEDS ORDERED: Levofloxacin 750 MG/150 ML 750 MG/150 ML BAG IVPB SCH (16:00)
[2018-03-07] MEDS ORDERED: *HR* Warfarin 3 MG TABLET PO ONE (18:00)
[2018-03-07] MEDS ORDERED: Calcium Gluconate 2,000 MG in D5% in Water 100 ML IVPB ONE (19:23)
[2018-03-07] MEDS ORDERED: Calcium Gluconate 2,000 MG in 0.9 % Sodium Chloride 100 ML IVPB ONE (19:45)
[2018-03-07] MEDS: Acetaminophen 325 MG TABLET PO PRN (20:22)
[2018-03-08 00:43] LABS: Basophils % 0.1 %; Eosinophils # 0.4 K/mcL (0.0-0.6); Eosinophils % 4.6 %; Hematocrit 32.2 % (35.3-44.9); Hemoglobin 10.6 g/dL (11.5-15.4); Immature Granulocytes % 0.5 % (0-4); Lymphocytes # 1.3 K/mcL (0.6-4.6); Lymphocytes % 17.5 %; Mean Corpuscular HGB Conc 32.9 g/dL (31.6-35.5); Mean Corpuscular Volume 94.2 fL (83.0-100.0); Mean Platelet Volume 10.4 fL (9.4-12.4); Monocytes # 0.8 K/mcL (0.0-1.3); Neutrophils # 5.1 K/mcL (1.6-8.9); Platelet Count 164 K/mcL (140-400); Red Blood Count 3.42 M/mcL (3.82-4.97); Red Cell Distribution Width 14.7 % (11.5-14.5); Segmented Neutrophils % 66.3 %
[2018-03-08 00:46] LABS: Heparin anti-factor XA UFH 0.53 IU/mL (0.30-0.70)
[2018-03-08 00:47] LABS: INR 1.3; Prothrombin Time 15.1 Seconds (9.4-12.1)
[2018-03-08 01:00] LABS: Potassium 3.8 mEq/L (3.5-5.1)
[2018-03-08] MEDS: Acetaminophen 325 MG TABLET PO PRN (06:22)
[2018-03-08] MEDS: Heparin 25,000 UNIT/500 ML D5W 25,000 UNIT/500 ML BAG IVC SCH (07:53)
[2018-03-08] MEDS: Insulin LISPRO 300 UNITS/3 ML VIAL SQ SCH ×3 (08:17→16:15)
[2018-03-08] MEDS: cloNIDine HCl 0.1 MG TABLET PO SCH ×2 (08:32→21:17)
[2018-03-08] MEDS: Lisinopril 20 MG TABLET PO SCH ×2 (08:33→21:18)
[2018-03-08] MEDS: rOPINIRole 1 MG TABLET PO SCH ×2 (08:33→21:17)
--- NOTE | 2018-03-08 09:42 | Internal Med Progress Note ---
<Tj Rodríguez R - Last Filed: 03/08/18 13:52> Hospitalist Progress Note - Encounter Date of Encounter: 03/08/18 Time of Encounter: 09:00 - Subjective Interval History: Patient was seen and evaluated at the bedside. She reports persistent right lower extremity edema as well as erythema and itchiness of the posterior thigh. She is reporting history of cellulitis is extremity in the past. She denies nausea, vomiting, fever, chills, abdominal pain, changes in bowel habits, shortness of breath, chest pain. Reports that urinary symptoms have resolved, denying flank pain, dysuria, hematuria. - Exam Vitals: Temp Pulse Resp BP Pulse Ox 97.7 F 68 15 151/84 96 03/08/18 07:00 03/08/18 07:00 03/08/18 07:00 03/08/18 07:00 03/08/18 07:00 Exam: General: Seated upright in chair eating breakfast, no apparent distress HEENT: Pupils PERRLA, head atraumatic, moist mucous membranes, anicteric sclera Neck: Soft, no lymphadenopathy Cardio: Regular rate and rhythm, no murmurs, rubs, or gallops Respiratory: Clear to auscultation bilaterally, no wheezing, rales, rhonchi Abdomen: Obese, soft, nontender, nondistended Extremities: Right lower extremity edema up to the thigh, minimally tender, erythema of the posterior thigh with associated skin thickening Neuro: Alert and oriented to person, place, and time, no focal deficits Psych: Appropriate mood and affect - Time Spent with Patient Total time spent is greater than 50% in coordination of care (as documented) at patient's floor/unit and/or counseling patient: Internal Medicine: Result - Labs CBC & Chem 7: 03/08/18 00:25 03/08/18 00:25 Labs: Short CBC 03/08/18 Range/Units 00:25 WBC 7.6 (4.3-11.1) K/mcL Hgb 10.6 L (11.5-15.4) g/dL Hct 32.2 L (35.3-44.9) % Plt Count 164 (140-400) K/mcL Neutrophils # 5.1 (1.6-8.9) K/mcL BMP 03/08/18 00:25 Sodium 137 Potassium 3.8 Chloride 110 H Carbon Dioxide 18 L BUN 34 H Creatinine 1.54 H Glucose 151 H Calcium 8.0 L - ABG Interpretation ABG results: PT/INR, D-dimer PT 15.1 Seconds (9.4-12.1) H 03/08/18 00:25 Consult Discharge Plan - Plan Referrals: Beth Cedeno, STRAPPING MACHINE TENDER [Primary Care Provider] - <Amy Mckenzie - Last Filed: 03/08/18 14:07> Hospitalist Progress Note - Encounter Date of Encounter: 03/08/18 - Exam Vitals: Temp Pulse Resp BP Pulse Ox 97.5 F L 62 14 115/75 94 03/08/18 10:26 03/08/18 10:26 03/08/18 10:26 03/08/18 10:26 03/08/18 10:26 - Assessment and Plan (1) Bacteremia Current Visit: Yes Status: Acute Assessment and Plan: Likely source is UTI. Patient had sepsis on admission that has now resolved. Blood cultures from 03/05/18: GBS in 2 sets. Repeat cultures 03/07/18: NGTD On IV Ertapenem as patient has multiple drug allergies. ID consulted, recommendations appreciated. (2) Sepsis Current Visit: Yes Status: Resolved Assessment and Plan: Initially met SIRS sepsis criteria on 03/05/18 with tachycardia, fever and leukocytosis Today vitals are normal and WBC = 9.0 Sepsis resolved with antibiotics and IV fluids (3) Afib Current Visit: Yes Status: Acute Assessment and Plan: Discussed Coumadin treatment with patient this morning. 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 Current visit had a - fib in PMHx and looked back to August of 2016 ER visit with a - fib on medical record at admission. No previous chart could be pulled for review to determine when a - fib diagnosis was made. Review of ER ekg showed normal sinus rhythm at previous 3 visits to the ED. INR 03/06/18 = 1.4 INR 03/07/18 = 1.2 Received first dose of home Warfarin 03/06/18 at 1800 Monitoring by pharmacy to achieve therapeutic window Need to discuss with patient about A- fib diagnosis. Couldn't find a start date for A - fib diagnosis. Mrs. Dobson denies cardiology consult. If if was diagnosed with a - fib then she has the right to know and if she was given the a - fib diagnosis incorrectly then it needs to be corrected on her chart. Atenolol and Warfarin are her home meds for a -fib Continues to be rate and rhythm controlled (4) CKD (chronic kidney disease) Current Visit: Yes Status: Acute Assessment and Plan: Renally dose medications. Creatinine improved to 1.5 today which is better than usual baseline. (5) Hypertension Current Visit: Yes Status: Acute (6) Leg pain Current Visit: Yes Status: Acute Assessment and Plan: U/S right lower extremity ruled out DVT. CT scan leg showed stranding that my be cellulitis. This pain and swelling was most prominent yesterday but today is less tender. She is on IV Ertapenem for UTI. No treatment adjustment now, will monitor. (7) Allergy to multiple antibiotics Current Visit: Yes Status: Chronic (8) Diabetes Current Visit: Yes Status: Chronic Assessment and Plan: Controlled at home. Continue ISS (9) CKD (chronic kidney disease) stage 4, GFR 15-29 ml/min Current Visit: No Status: Chronic (10) Hx of deep venous thrombosis Current Visit: No Status: Chronic - Time Spent with Patient Total time spent is greater than 50% in coordination of care (as documented) at patient's floor/unit and/or counseling patient: Internal Medicine: Result - Labs CBC & Chem 7: 03/08/18 00:25 03/08/18 00:25 Labs: Short CBC 03/08/18 Range/Units 00:25 WBC 7.6 (4.3-11.1) K/mcL Hgb 10.6 L (11.5-15.4) g/dL Hct 32.2 L (35.3-44.9) % Plt Count 164 (140-400) K/mcL Neutrophils # 5.1 (1.6-8.9) K/mcL BMP 03/08/18 00:25 Sodium 137 Potassium 3.8 Chloride 110 H Carbon Dioxide 18 L BUN 34 H Creatinine 1.54 H Glucose 151 H Calcium 8.0 L - ABG Interpretation ABG results: PT/INR, D-dimer PT 15.1 Seconds (9.4-12.1) H 03/08/18 00:25 - Impressions Impressions Lower Extremity CT 03/08/18 11:00 IMPRESSION: 1. Skin thickening and subcutaneous stranding about the anterior and proximal right thigh, scarring versus cellulitis. 2. Diffuse skin thickening and subcutaneous edema throughout the lower thigh, leg and foot. Considerations include chronic lymphedema and venous congestion. Superimposed cellulitis not excluded. 3. Right inguinal lymphadenopathy, likely reactive. D/ / 03/08/2018 12:24:04 Kang Hayes MD / [email or web address] Interpreting Provider: Kang Hayes MD <Amy Mckenzie - Last Filed: 03/08/18 14:07> (2) Sepsis Qualifiers: Sepsis type: Streptococcus group B Qualified Code(s): A40.1 - Sepsis due to streptococcus, group B (3) Afib Qualifiers: Atrial fibrillation type: chronic Qualified Code(s): I48.2 - Chronic atrial fibrillation (4) CKD (chronic kidney disease) Qualifiers: Chronic kidney disease stage: stage 4 (severe) Qualified Code(s): N18.4 - Chronic kidney disease, stage 4 (severe) (5) Hypertension Qualifiers: Hypertension type: essential hypertension Qualified Code(s): I10 - Essential (primary) hypertension (6) Leg pain Qualifiers: Laterality: right Qualified Code(s): M79.604 - Pain in right leg (8) Diabetes Qualifiers: Diabetes mellitus type: type 2 Diabetes mellitus chcf insulin use: without chcf use Diabetes mellitus complication status: with unspecified complications Qualified Code(s): E11.8 - Type 2 diabetes mellitus with unspecified complications
--- NOTE | 2018-03-08 13:52 | Infectious Disease Progress No ---
Date of Encounter: 03/08/18 Time of Encounter: 13:50 - Assessment and Plan (1) Sepsis Current Visit: Yes Status: Resolved 3 sepsis criteria noted on admission. Likely secondary to bacteremia and UTI. Improved clinically. Afebrile. Leukocytosis and tachycardia resolved. Blood cultures drawn on 03/05/18 are +2 out of 2 sets for group B strep. Repeat blood cultures drawn 03/07/18 are pending x 2 sets. Recommendations: Await repeat blood cultures x 2. Continue Ertapenem 500mg IV daily for now. Unfortunately, we are very limited as to which antibiotics we can use in this patient. It is documented that the patient tolerated Levaquin in the past. She cannot tell me the nature/timing of her allergic reaction to the Levaquin so I am not sure if this has happened since we gave it to her in 2017 and neither is the patient. She remains hesitant to take it. At this point, the only oral option we have for the GBS UTI/bacteremia is clindamycin. It is not first line treatment, but the strain is susceptible and it is a viable option. Can give fosfomycin 3 grams PO x 1 dose now to cover the E. coli UTI. Duration of treatment depends on the clinical picture, but recommend a total of 14 days of treatment for the bacteremia from the first set of negative blood cultures. If the 03/07/18 cultures remain negative, treat through 03/20/18. Monitor renal function and dose-adjust antibiotics. Start probiotics. Qualifiers: Sepsis type: Streptococcus group B Qualified Code(s): A40.1 - Sepsis due to streptococcus, group B (2) Bacteremia Current Visit: Yes Status: Acute Causative organism: GBS. Source: Likely UTI. Complicated due to presence of hardware in the left shoulder and right hip. No endocarditis stigmata noted on exam. The patient has two Modified Blanton's criteria. Currently on IV ertapenem. (3) UTI (urinary tract infection) Current Visit: Yes Status: Acute Causative organism GBS and E. coli, resistant to fluroroquinolones. Currently on IV Ertapenem. Qualifiers: Urinary tract infection type: site unspecified Hematuria presence: without hematuria Qualified Code(s): N39.0 - Urinary tract infection, site not specified (4) Diabetes Current Visit: Yes Status: Chronic Strict glucose control. 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 Avoid nephrotoxins. Qualifiers: Chronic kidney disease stage: stage 4 (severe) Qualified Code(s): N18.4 - Chronic kidney disease, stage 4 (severe) (6) Allergy to multiple antibiotics Current Visit: Yes Status: Chronic Keflex- Rash Levaquin - Hives. Per pharmacy, patient treated with Levaquin when dx'd with GBS in 2017. Bactrim - Hives PCN - Vomiting, rash. (7) Hypertension Current Visit: Yes Status: Acute Qualifiers: Hypertension type: essential hypertension Qualified Code(s): I10 - Es sential (primary) hypertension (8) URTI (acute upper respiratory infection) Current Visit: Yes Status: Acute Likely viral. CXR negative. Flu ATG swab negative. Supportive care per the primary team. (9) Leg pain Current Visit: Yes Status: Acute Location: RLE. Etiology unclear. DVT study negative. CT of the RLE shows skin thickening and subcutaneous stranding about the anterior proximal right thigh, scarring versus cellulitis. There is diffuse skin thickening and subcutaneous edema throughout the lower thigh, leg, and foot. Considerations include chronic liymphedema and venous congestion, but superimposed cellulitis cannot be excluded. Clinically improved today. Qualifiers: Laterality: right Qualified Code(s): M79.604 - Pain in right leg - Subjective Interval history: Patient seen and examined. No acute events noted overnight. Patient sitting up in the bedside chair. Denies fevers, chills, or rigors. Denies chest pain or shortness of breath. Reports chest congestion and a moist cough with scant clear sputum. Denies nausea, vomiting or diarrhea. Last BM was yesterday. Denies abdominal pain or urinary complaints. Denies oral thrush or new skin lesions. Complains of pain, redness, and swelling with bruising to the right inner thigh that is improved today. The patient was switched to Levaquin last night but refused due to previously documented allergy. The patient is unclear the nature/timing of the reaction, but is still hesitant to try Levaquin. Infect Dis PN-Objective Data - Labs CBC & Chem 7: 01/04/19 00:25 03/08/18 00:25 Labs: Laboratory Results - last 24 hr 03/07/18 03/07/18 03/07/18 07:00 11:17 16:16 WBC RBC Hgb Hct MCV MCH MCHC RDW Plt Count MPV Immature Gran % Seg Neutrophils % Lymphocytes % Monocytes % Eosinophils % Basophils % Neutrophils # Lymphocytes # Monocytes # Eosinophils # Basophils # PT INR Heparin Anti-Xa, Unfract Sodium Potassium Chloride Carbon Dioxide BUN Creatinine Est GFR ( Amer) Est GFR (Non-Af Amer) BUN/Creatinine Ratio Glucose POC Glucose 91 138 H 132 H Calculated Osmolality Calcium 03/07/18 03/07/18 03/08/18 17:48 20:04 00:25 WBC 7.6 RBC 3.42 L Hgb 10.6 L Hct 32.2 L MCV 94.2 MCH 31.0 MCHC 32.9 RDW 14.7 H Plt Count 164 MPV 10.4 Immature Gran % 0.5 Seg Neutrophils % 66.3 Lymphocytes % 17.5 Monocytes % 11.0 Eosinophils % 4.6 Basophils % 0.1 Neutrophils # 5.1 Lymphocytes # 1.3 Monocytes # 0.8 Eosinophils # 0.4 Basophils # 0.0 PT INR Heparin Anti-Xa, Unfract 0.80 H Sodium Potassium Chloride Carbon Dioxide BUN Creatinine Est GFR ( Amer) Est GFR (Non-Af Amer) BUN/Creatinine Ratio Glucose POC Glucose 174 H Calculated Osmolality Calcium 03/08/18 03/08/18 03/08/18 00:25 00:25 08:08 WBC RBC Hgb Hct MCV MCH MCHC RDW Plt Count MPV Immature Gran % Seg Neutrophils % Lymphocytes % Monocytes % Eosinophils % Basophils % Neutrophils # Lymphocytes # Monocytes # Eosinophils # Basophils # PT 15.1 H INR 1.3 Heparin Anti-Xa, Unfract 0.53 0.51 Sodium 137 Potassium 3.8 Chloride 110 H Carbon Dioxide 18 L BUN 34 H Creatinine 1.54 H Est GFR ( Amer) 39 L Est GFR (Non-Af Amer) 32 L BUN/Creatinine Ratio 22 Glucose 151 H POC Glucose Calculated Osmolality 295 Calcium 8.0 L Cultures: Cultures 03/05/18 11:30 Urine Culture - Final Urine,Clean Catch Strep agalactiae - (Group B) Escherichia coli 03/05/18 14:18 Blood Culture - Final Peripheral Venipuncture Strep agalactiae - (Group B) 03/07/18 06:15 Blood Culture - Preliminary Peripheral Venipuncture Culture is incubating and being continuously mo nitored for growth. Final report to follow. 03/07/18 06:25 Blood Culture - Preliminary Peripheral Venipuncture Culture is incubating and being continuously monitored for growth. Final report to follow. 03/05/18 14:10 Blood Culture - Final Peripheral Venipuncture Strep agalactiae - (Group B) 03/05/18 12:24 Influenza Types A,B Antigen - Final Nasopharyngeal Serology 03/05/18 03/05/18 Range/Units 14:18 11:30 Urine Color Yellow (Yellow) Urine Clarity Cloudy A (Clear) Urine pH 5.5 (5.0-8.0) pH Units Ur Specific [place] 1.008 L (1.010-1.025) Urine Protein 100 H (Neg-Trace) mg/dL Urine Glucose (UA) Normal (Normal) mg/dL Urine Ketones Negative (Negative) mg/dL Urine Blood Moderate H (Negative) Urine Nitrite Positive A (Negative) Urine Bilirubin Negative (Negative) Urine Urobilinogen Normal (Normal) mg/dL Ur Leukocyte Esterase Moderate H (Negative) Urine Microscopic RBC 3-5 H (0-3) per hpf Urine Microscopic WBC 50-100 H (0-3) per hpf Ur Squamous Epith Cells Moderate H (None-Few) per lpf Amorphous Sediment Few (Few) Urine Bacteria Many H (None-Few) per hpf Hyaline Casts None Seen (None-Few) per lpf Ur Culture Indicated? YES A (NO) A. baumannii (PCR) Not Detected (Not Detect) Megan albicans (PCR) Not Detected (Not Detect) C. glabrata (PCR) Not Detected (Not Detect) C. krusei (PCR) Not Detected (Not Detect) C. parapsilosis (PCR) Not Detected (Not Detect) C. tropicalis (PCR) Not Detected (Not Detect) Enterobacteriac sp PCR Not Detected (Not Detect) E. cloacae complex PCR Not Detected (Not Detect) Enterococcus sp PCR Not Detected (Not Detect) E. coli (PCR) Not Detected (Not Detect) H. influenzae (PCR) Not Detected (Not Detect) Klebsiella oxytoca PCR Not Detected (Not Detect) Klebsiella pneumoniae Not Detected (Not Detect) List. monocytogenes PCR Not Detected (Not Detect) N. meningitidis (PCR) Not Detected (Not Detect) Proteus species (PCR) Not Detected (Not Detect) Serratia marcescens PCR Not Detected (Not Detect) Staphylococcus sp PCR Not Detected (Not Detect) Staph aureus (PCR) Not Detected (Not Detect) mecA-Methicil Res Gene N/A (Not Detect) Streptococcus sp PCR DETECTED A (Not Detect) Group A Strep DNA Not Detected (Not Detect) Group B Strep (PCR) DETECTED A (Not Detect) Strep pneumoniae (PCR) Not Detected (Not Detect) P. aeruginosa (PCR) Not Detected (Not Detect) Madeline/B-Vanco Res Genes N/A (Not Detect) KPC (blaKPC) Detect PCR N/A (Not Detect) - Impressions Impressions Lower Extremity CT 03/08/18 11:00 IMPRESSION: 1. Skin thickening and subcutaneous stranding about the anterior and proximal right thigh, scarring versus cellulitis. 2. Diffuse skin thickening and subcutaneous edema throughout the lower thigh, leg and foot. Considerations include chronic lymphedema and venous congestion. Superimposed cellulitis not excluded. 3. Right inguinal lymphadenopathy, likely reactive. D/ / 03/08/2018 12:24:04 Kang Hayes MD / [facility] Interpreting Provider: Kang Hayes MD Exam - Constitutional Vitals: Temp Pulse Resp BP Pulse Ox 97.5 F L 62 14 115/75 94 03/08/18 10:26 03/08/18 10:26 03/08/18 10:26 03/08/18 10:26 03/08/18 10:26 General appearance: cooperative, no acute distress, obese - Head Head exam: Present: atraumatic, normal inspection, normocephalic - Eye Eye exam: Present: EOMI, normal appearance, PERRL Pupils: Present: normal accommodation - ENT ENT exam: Present: mucous membranes moist - Neck Neck exam: Present: normal inspection - Respiratory Respiratory exam: Present: CTAB. Absent: rales, respiratory distress, rhonchi, wheezes Additional comments: Dry cough noted on exam. - Cardiovascular Cardiovascular exam: Present: RRR, +S1, +S2 - GI/Abdominal GI/Abdominal exam: Present: distended (obese), normal bowel sounds, soft. Absent: tenderness - Extremities Exam Extremities exam: Absent: normal inspection (Erythema/ecchymosis noted to the right inner thigh with mild tenderness. No warmth or fluctuance or open lesion noted.) - Neurological Exam Neurological exam: Present: alert, oriented X3, no focal deficits - Psychiatric Psychiatric exam: Present: normal affect, normal mood - Skin Skin exam: Present: dry, intact, normal color, warm Consult Discharge Plan - Plan Referrals: Beth Cedeno, EARLY CHILDHOOD ASSOCIATE TEACHER [Primary Care Provider] - - Attending Attestation I examined this patient and my medical decision-making was reviewed with the Resident Physician. I agree with the documented findings, disposition and treatment plan as described except to the extent set forth below. Patient is agreeable to levofloxacin so we will try that and stop the cl indamycin.
[2018-03-08] MEDS ORDERED: Fosfomycin Tromethamine 3 GM Packet PO ONE (15:45)
[2018-03-08] MEDS: traMADol 50 MG TABLET PO PRN (17:48)
[2018-03-08] MEDS ORDERED: *HR* Warfarin 7.5 MG TABLET PO ONE (18:00)
[2018-03-09] MEDS: Heparin 25,000 UNIT/500 ML D5W 25,000 UNIT/500 ML BAG IVC SCH ×2 (05:26→05:27)
[2018-03-09] MEDS: Insulin LISPRO 300 UNITS/3 ML VIAL SQ SCH ×3 (07:48→16:51)
[2018-03-09 08:11] LABS: Heparin anti-factor XA UFH 0.44 IU/mL (0.30-0.70)
[2018-03-09 08:24] LABS: Calcium 8.7 mg/dL (8.6-10.3); Potassium 3.9 mEq/L (3.5-5.1)
[2018-03-09 08:29] LABS: Basophils % 0.3 %; Eosinophils # 0.4 K/mcL (0.0-0.6); Hemoglobin 11.1 g/dL (11.5-15.4); Immature Granulocytes % 0.8 % (0-4); Lymphocytes # 1.3 K/mcL (0.6-4.6); Lymphocytes % 16.6 %; Mean Corpuscular HGB Conc 32.6 g/dL (31.6-35.5); Mean Corpuscular Hemoglobin 31.2 pg (28.0-33.3); Mean Corpuscular Volume 95.5 fL (83.0-100.0); Mean Platelet Volume 10.9 fL (9.4-12.4); Monocytes % 12.9 %; Platelet Count 184 K/mcL (140-400); Red Blood Count 3.56 M/mcL (3.82-4.97); Red Cell Distribution Width 14.7 % (11.5-14.5); Segmented Neutrophils % 64.4 %
[2018-03-09 08:31] LABS: INR 1.8; Prothrombin Time 20.1 Seconds (9.4-12.1)
[2018-03-09] MEDS: cloNIDine HCl 0.1 MG TABLET PO SCH ×2 (08:59→20:39)
[2018-03-09] MEDS: Lisinopril 20 MG TABLET PO SCH ×2 (08:59→20:39)
[2018-03-09] MEDS: rOPINIRole 1 MG TABLET PO SCH ×2 (08:59→20:39)
--- NOTE | 2018-03-09 16:25 | Internal Med Progress Note ---
Hospitalist Progress Note - Encounter Date of Encounter: 03/09/18 Time of Encounter: 16:23 - Subjective Interval History: Patient having increasing right lower extremity swelling and tenderness. She denies fevers/chills, n/v, palpitations. - Exam Vitals: Temp Pulse Resp BP Pulse Ox 97.8 F 76 16 163/92 96 03/09/18 07:40 03/09/18 07:40 03/09/18 07:40 03/09/18 07:40 03/09/18 07:40 Exam: General: Seated upright in chair eating breakfast, no apparent distress HEENT: Pupils PERRLA, head atraumatic, moist mucous membranes, anicteric sclera Neck: Soft, no lymphadenopathy Cardio: Regular rate and rhythm, no murmurs, rubs, or gallops Respiratory: Clear to auscultation bilaterally, no wheezing, rales, rhonchi Abdomen: Obese, soft, nontender, nondistended Extremities: Right lower extremity edema up to the thigh, minimally tender, erythema of the posterior thigh with associated skin thickening, worsened since yesterday Neuro: Alert and oriented to person, place, and time, no focal deficits Psych: Appropriate mood and affect - Assessment and Plan (1) Bacteremia Current Visit: Yes Status: Acute Assessment and Plan: Likely source is UTI. Patient had sepsis on admission that has now resolved. Blood cultures from 03/05/18: GBS in 2 sets. Repeat cultures 03/07/18: NGTD On IV Ertapenem as patient has multiple drug allergies. ID consulted, recommendations appreciated. Patient states she is willing to switch to Levaquin for coverage of UTI and see how she tolerates it. (2) Sepsis Current Visit: Yes Status: Resolved Assessment and Plan: Initially met SIRS sepsis criteria on 03/05/18 with tachycardia, fever and leukocytosis Sepsis resolved with antibiotics and IV fluids (3) Cellulitis of right leg Current Visit: Yes Status: Acute Assessment and Plan: Initially had mild swelling and tenderness. Occurred despite patient being on ertapenem. Typical organisms not covered by ertapenem include MRSA. Will start vancomycin and monitor closely. (4) Afib Current Visit: Yes Status: Acute (5) CKD (chronic kidney disease) Current Visit: Yes Status: Acute (6) Hypertension Current Visit: Yes Status: Acute (7) Allergy to multiple antibiotics Current Visit: Yes Status: Chronic (8) Diabetes Current Visit: Yes Status: Chronic Assessment and Plan: Controlled at home. Continue ISS (9) CKD (chronic kidney disease) stage 4, GFR 15-29 ml/min Current Visit: No Status: Chronic (10) Hx of deep venous thrombosis Current Visit: No Status: Chronic Assessment and Plan: On coumadin, subtherapeutic, will continue to bridge with heparin until INR 2.0- 3.0 - Time Spent with Patient Total time spent is greater than 50% in coordination of care (as documented) at patient's floor/unit and/or counseling patient: Internal Medicine: Result - Labs CBC & Chem 7: 03/09/18 07:51 03/09/18 07:51 Labs: Short CBC 03/09/18 Range/Units 07:51 WBC 7.8 (4.3-11.1) K/mcL Hgb 11.1 L (11.5-15.4) g/dL Hct 34.0 L (35.3-44.9) % Plt Count 184 (140-400) K/mcL Neutrophils # 5.0 (1.6-8.9) K/mcL BMP 03/09/18 07:51 Sodium 139 Potassium 3.9 Chloride 109 H Carbon Dioxide 21 L BUN 30 H Creatinine 1.60 H Glucose 120 H Calcium 8.7 - ABG Interpretation ABG results: PT/INR, D-dimer PT 20.1 Seconds (9.4-12.1) H 03/09/18 07:51 - Impressions Impressions Lower Extremity CT 03/08/18 11:00 IMPRESSION: 1. Skin thickening and subcutaneous stranding about the anterior and proximal right thigh, scarring versus cellulitis. 2. Diffuse skin thickening and subcutaneous edema throughout the lower thigh, leg and foot. Considerations include chronic lymphedema and venous congestion. Superimposed cellulitis not excluded. 3. Right inguinal lymphadenopathy, likely reactive. D/ / 03/08/2018 12:24:04 Kang Hayes MD / [facility] Interpreting Provider: Kang Hayes MD Lower Extremity CT 03/09/18 11:57 IMPRESSION: 1. Pronounced subcutaneous edema involving the imaged right lower extremity with scattered dystrophic calcifications present. Findings similar to recent exam dated March 08, 2018. Differential considerations include lymph edema and chronic venous stasis. Recommend clinical correlation to exclude superimposed cellulitis. Edema does appear more pronounced within the right lower extremity when compared with the partially imaged contralateral left lower extremity. No organized drainable fluid collection identified. No evidence for subcutaneous gas. 2. No acute osseous abnormality evident. D/ / Wilbur Mathias MD / Wilbur Mathias MD Interpreting Provider: Wilbur Mathias MD Consult Discharge Plan - Plan Referrals: Beth Cedeno, OIL AND GAS PRINCIPAL [Primary Care Provider] - (2) Sepsis Qualifiers: Sepsis type: Streptococcus group B Qualified Code(s): A40.1 - Sepsis due to streptococcus, group B (4) Afib Qualifiers: Atrial fibrillation type: chronic Qualified Code(s): I48.2 - Chronic atrial fibrillation (5) CKD (chronic kidney disease) Qualifiers: Chronic kidney disease stage: stage 4 (severe) Qualified Code(s): N18.4 - Chronic kidney disease, stage 4 (severe) (6) Hypertension Qualifiers: Hypertension type: essential hypertension Qualified Code(s): I10 - Essential (primary) hypertension (8) Diabetes Qualifiers: Diabetes mellitus type: type 2 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
[2018-03-09] MEDS ORDERED: Levofloxacin 750 MG/150 ML 750 MG/150 ML BAG IVPB SCH (17:00)
[2018-03-09] MEDS ORDERED: *HR* Warfarin 3 MG TABLET PO ONE (18:00)
[2018-03-10] MEDS: Heparin 25,000 UNIT/500 ML D5W 25,000 UNIT/500 ML BAG IVC SCH (03:01)
[2018-03-10 03:54] LABS: Basophils % 0.3 %; Eosinophils # 0.5 K/mcL (0.0-0.6); Eosinophils % 7.5 %; Hematocrit 29.6 % (35.3-44.9); Hemoglobin 9.8 g/dL (11.5-15.4); Immature Granulocytes % 1.2 % (0-4); Lymphocytes # 1.6 K/mcL (0.6-4.6); Lymphocytes % 24.5 %; Mean Corpuscular HGB Conc 33.1 g/dL (31.6-35.5); Mean Corpuscular Hemoglobin 31.3 pg (28.0-33.3); Mean Corpuscular Volume 94.6 fL (83.0-100.0); Mean Platelet Volume 10.7 fL (9.4-12.4); Monocytes # 0.8 K/mcL (0.0-1.3); Monocytes % 11.9 %; Neutrophils # 3.6 K/mcL (1.6-8.9); Platelet Count 197 K/mcL (140-400); Red Blood Count 3.13 M/mcL (3.82-4.97); Red Cell Distribution Width 14.8 % (11.5-14.5); Segmented Neutrophils % 54.6 %
[2018-03-10 04:11] LABS: Calcium 8.1 mg/dL (8.6-10.3); Potassium 3.7 mEq/L (3.5-5.1)
[2018-03-10] MEDS ORDERED: Ondansetron 4 MG/2 ML VIAL IVP PRN (04:50)
[2018-03-10] MEDS: Insulin LISPRO 300 UNITS/3 ML VIAL SQ SCH ×3 (08:42→16:55)
[2018-03-10] MEDS: cloNIDine HCl 0.1 MG TABLET PO SCH ×2 (08:47→21:34)
[2018-03-10] MEDS: traMADol 50 MG TABLET PO PRN ×2 (08:48→21:33)
[2018-03-10] MEDS: rOPINIRole 1 MG TABLET PO SCH ×2 (08:49→21:33)
[2018-03-10] MEDS: Lisinopril 20 MG TABLET PO SCH ×2 (08:49→21:33)
[2018-03-10] MEDS ORDERED: Levofloxacin 750 MG/150 ML 750 MG/150 ML BAG IVPB SCH (09:00)
--- NOTE | 2018-03-10 11:42 | Internal Med Progress Note ---
Hospitalist Progress Note - Encounter Date of Encounter: 03/10/18 Time of Encounter: 11:54 - Subjective Interval History: Patient having increasing right lower extremity swelling and tenderness that is improving since yesterday. She denies fevers/chills, n/v, palpitations. - Exam Vitals: Temp Pulse Resp BP Pulse Ox 97.7 F 65 16 126/78 95 03/10/18 11:18 03/10/18 11:18 03/10/18 11:18 03/10/18 11:18 03/10/18 11:18 Exam: General: Seated upright in chair eating breakfast, no apparent distress HEENT: Pupils PERRLA, head atraumatic, moist mucous membranes, anicteric sclera Neck: Soft, no lymphadenopathy Cardio: Regular rate and rhythm, no murmurs, rubs, or gallops Respiratory: Clear to auscultation bilaterally, no wheezing, rales, rhonchi Abdomen: Obese, soft, nontender, nondistended Extremities: Right lower extremity edema up to the thigh, Redness and tenderness improved. Swelling about same since yesterday. Neuro: Alert and oriented to person, place, and time, no focal deficits Psych: Appropriate mood and affect - Assessment and Plan (1) Bacteremia Current Visit: Yes Status: Acute Assessment and Plan: Likely source is UTI. Patient had sepsis on admission that has now resolved. Blood cultures from 03/05/18: GBS in 2 sets. Repeat cultures 03/07/18: NGTD On IV Ertapenem as patient has multiple drug allergies. ID consulted, recommendations appreciated. Patient states she is willing to switch to Levaquin for coverage of UTI and see how she tolerates it. (2) Sepsis Current Visit: Yes Status: Resolved Assessment and Plan: Initially met SIRS sepsis criteria on 03/05/18 with tachycardia, fever and leukocytosis Sepsis resolved with antibiotics and IV fluids GBS grew in blood GBS & E coli grew in urine culture. (3) Cellulitis of right leg Current Visit: Yes Status: Acute Assessment and Plan: Initially had mild swelling and tenderness. Occurred despite patient being on ertapenem. Swelling and tenderness worsened. Typical organisms not covered by ertapenem include MRSA. Vancomycin started yesterday, patient noted improving symptoms. I appreciate decreased redness on exam as well. (4) CKD (chronic kidney disease) Current Visit: Yes Status: Acute Assessment and Plan: Renally dose medications. Creatinine improved to 1.5 today which is better than usual baseline. (5) Hypertension Current Visit: Yes Status: Acute Assessment and Plan: Continue home medications. (6) Allergy to multiple antibiotics Current Visit: Yes Status: Chronic (7) Diabetes Current Visit: Yes Status: Chronic Assessment and Plan: Controlled at home. Continue ISS (8) Hx of deep venous thrombosis Current Visit: No Status: Chronic Assessment and Plan: On coumadin, INR 2.0, DC heparin drip. (9) CKD (chronic kidney disease) stage 3, GFR 30-59 ml/min Current Visit: Yes Status: Acute Assessment and Plan: Renal function appears to be improving from normal baseline. GFR currently 40, but still cautious with medications as patient is requiring vancomycin for cellulitis. - Time Spent with Patient Total time spent is greater than 50% in coordination of care (as documented) at patient's floor/unit and/or counseling patient: Internal Medicine: Result - Labs CBC & Chem 7: 03/10/18 03:21 03/10/18 03:21 Labs: Short CBC 03/10/18 Range/Units 03:21 WBC 6.6 (4.3-11.1) K/mcL Hgb 9.8 L (11.5-15.4) g/dL Hct 29.6 L (35.3-44.9) % Plt Count 197 (140-400) K/mcL Neutrophils # 3.6 (1.6-8.9) K/mcL BMP 03/10/18 03:21 Sodium 142 Potassium 3.7 Chloride 115 H Carbon Dioxide 19 L BUN 24 H Creatinine 1.28 H Glucose 129 H Calcium 8.1 L - ABG Interpretation ABG results: PT/INR, D-dimer PT 23.0 Seconds (9.4-12.1) H 03/10/18 03:21 - Impressions Impressions Lower Extremity CT 03/08/18 11:00 IMPRESSION: 1. Skin thickening and subcutaneous stranding about the anterior and proximal right thigh, scarring versus cellulitis. 2. Diffuse skin thickening and subcutaneous edema throughout the lower thigh, leg and foot. Considerations include chronic lymphedema and venous congestion. Superimposed cellulitis not excluded. 3. Right inguinal lymphadenopathy, likely reactive. D/ / 03/08/2018 12:24:04 Kang Hayes MD / tanika Interpreting Provider: Kang Hayes MD Lower Extremity CT 03/09/18 11:57 IMPRESSION: 1. Pronounced subcutaneous edema involving the imaged right lower extremity with scattered dystrophic calcifications present. Findings similar to recent exam dated March 08, 2018. Differential considerations include lymph edema and chronic venous stasis. Recommend clinical correlation to exclude superimposed cellulitis. Edema does appear more pronounced within the right lower extremity when compared with the partially imaged contralateral left lower extremity. No organized drainable fluid collection identified. No evidence for subcutaneous gas. 2. No acute osseous abnormality evident. D/ / Wilbur Mathias MD / Wilbur Mathias MD Interpreting Provider: Wilbur Mathias MD Consult Discharge Plan - Plan Referrals: Beth Cedeno, [employer] [Primary Care Provider] - (2) Sepsis Qualifiers: Sepsis type: Streptococcus group B Qualified Code(s): A40.1 - Sepsis due to streptococcus, group B (4) CKD (chronic kidney disease) Qualifiers: Chronic kidney disease stage: stage 4 (severe) Qualified Code(s): N18.4 - Chronic kidney disease, stage 4 (severe) (5) Hypertension Qualifiers: Hypertension type: essential hypertension Qualified Code(s): I10 - Essential (primary) hypertension (7) Diabetes Qualifiers: Diabetes mellitus type: type 2 Diabetes mellitus 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
[2018-03-10] MEDS ORDERED: Furosemide 40 MG/4 ML VIAL IVP ONE (15:25)
[2018-03-10] MEDS: Ertapenem 1,000 MG in 0.9 % Sodium Chloride Mini Bag 100 ML IVPB SCH (16:09)
[2018-03-10] MEDS ORDERED: *HR* Warfarin 3 MG TABLET PO ONE (18:30)
[2018-03-11 06:30] LABS: Basophils # 0.1 K/mcL (0.0-0.2); Basophils % 0.7 %; Eosinophils # 0.5 K/mcL (0.0-0.6); Eosinophils % 7.2 %; Hematocrit 31.2 % (35.3-44.9); Hemoglobin 10.2 g/dL (11.5-15.4); Lymphocytes # 1.5 K/mcL (0.6-4.6); Mean Corpuscular HGB Conc 32.7 g/dL (31.6-35.5); Mean Corpuscular Hemoglobin 30.9 pg (28.0-33.3); Mean Corpuscular Volume 94.5 fL (83.0-100.0); Mean Platelet Volume 10.6 fL (9.4-12.4); Monocytes # 0.8 K/mcL (0.0-1.3); Monocytes % 11.2 %; Neutrophils # 4.4 K/mcL (1.6-8.9); Platelet Count 236 K/mcL (140-400); Red Cell Distribution Width 14.8 % (11.5-14.5); Segmented Neutrophils % 58.9 %
[2018-03-11 06:36] LABS: INR 2.4; Prothrombin Time 26.5 Seconds (9.4-12.1)
[2018-03-11 06:47] LABS: Calcium 8.6 mg/dL (8.6-10.3); Potassium 3.8 mEq/L (3.5-5.1)
[2018-03-11] MEDS: Insulin LISPRO 300 UNITS/3 ML VIAL SQ SCH ×3 (08:22→17:39)
[2018-03-11] MEDS ORDERED: Furosemide 20 MG/2 ML VIAL IVP ONE (09:16)
[2018-03-11] MEDS: cloNIDine HCl 0.1 MG TABLET PO SCH ×2 (09:21→19:57)
[2018-03-11] MEDS: Lisinopril 20 MG TABLET PO SCH ×2 (09:21→19:58)
[2018-03-11] MEDS: Ertapenem 1,000 MG in 0.9 % Sodium Chloride Mini Bag 100 ML IVPB SCH (09:21)
[2018-03-11] MEDS: rOPINIRole 1 MG TABLET PO SCH ×2 (09:21→19:58)
--- NOTE | 2018-03-11 10:12 | Internal Med Progress Note ---
Addendum entered and electronically signed by Amy Mckenzie MD 03/11/18 15:41: I examined this patient and my medical decision-making was reviewed with the Medical Student and the supervising Resident Physician. I agree with the documented findings, disposition and treatment plan as described except to the extent set forth below. Patient right leg is still swollen but tenderness is improving gradually. VS and Labs reviewed. Physical exam shows right leg with diffuse edema with some erythema noted yesterday slowly improved. Otherwise physical exam unremarkable. Transition to oral PO antibiotics today. Likely home early tomorrow. Original Note: <EdilsonkittyKlever R - Last Filed: 03/11/18 14:31> Hospitalist Progress Note - Encounter Date of Encounter: 03/11/18 Time of Encounter: 09:40 - Subjective Interval History: Mrs. Dobson is a plesant 82 YO F who presented on the 03/05/18 for sepsis and bacteremia from UTI. ON 03/07/18 she had R LE swelling and edema due to cellulitis. Today she is sitting up in her chair eating breakfast, she states she is feeling better with improvement of her R LE swelling and redness. She stated that R LE swelling redness was at its worse Sunday and has improved since. She still complains off productive cough and states it hasn't gotten much better. She denies headaches, chest pain, SOB, N/V diarrhea and constipation. She admits to urinary incontinence but denies any dysuria, polyuria or hematuria. - Exam Vitals: Temp Pulse Resp BP Pulse Ox 98.2 F 71 15 136/79 92 03/11/18 06:59 03/11/18 06:59 03/11/18 06:59 03/11/18 06:59 03/11/18 06:59 Exam: Gen: Alert and oriented in no acute distress CV: RRR no murmur, gallops or rubs Resp: Dimished basilar breath sounds, slight early expitory wheezing in the RUL field. no rhonchi or rales GI: BS x 4, Non tender to palpation. Extremities: R LE swelling and redness. Redness located on the medial and posterior aspect of R leg from mid thigh to mid R leg Skin: LE venous statis, skin dry, redness on R LE. Bruising on forearms dayne. no rashes noted. Neuro: Grossly intact sensation and motor - Assessment and Plan (1) Bacteremia Current Visit: Yes Status: Acute Assessment and Plan: Presented with SIRS sepsis (tachycardia, leaukocytopenia, febrile) criteria with GBS bacteremia on 03/05/18 Treatment with Etrapenum until 03/07/18 when she was switched to Levaquin following sensitivity of culture 2 x blood culture on 03/07/18 with nothing grown to date Continue Levaquin for 14 days following negative blood cultures (03/20/18) (2) Sepsis Current Visit: Yes Status: Resolved Assessment and Plan: Presented with SIRS sepsis criteria 03/05/18 with febrile, laukocytopenia, and tachycardia Treated with Etrapenum and IV fluids Symptoms resolved and labs improved with treatment of GBS bacteremia with Etrapenum and Levaquin (3) Pain and swelling of lower extremity Current Visit: Yes Status: Acute Assessment and Plan: Patient presented on 03/07/18 with R LE swelling, pain and redness DVT ruled out by ultrasound and started on IV heparin Cellulitis of R LE diagnosed on 03/08/18 Started on IV vancomyocin Symptoms were worst Sunday (03/09/18) Improvement of symptoms today, states the swelling, redness and pain is going down Infection disease consulted and advised switching vancomycin to oral doxycycline 100mg BID until 03/23/18 PT/OT consulted as patient has trouble ambulating Currently continue to monitor R leg (4) UTI (urinary tract infection) Current Visit: Yes Status: Acute Assessment and Plan: PMHx of GBS UTI with bacteremia and sepsis in 2017 Urine culture came back GBS Etrapenum and Levaquin was used to treat GBS bacteremia and covers Patient is symptom free as of 03/06/18 Continue treatment with Levaquin Continue to monitor for signs of dysuria, hematuria, or polyuria (5) Diabetes Current Visit: Yes Status: Chronic Assessment and Plan: Morning sugar was 121 Hx of non insulin dependent diabetes that is well controlled Last HA1C was 6.8% in October of 2017 On humalog as inpatient Januvia 50 mg PO daily Have patient return to home meds when discharged (6) CKD (chronic kidney disease) Current Visit: Yes Status: Acute Assessment and Plan: Discussed with patient Cr results and she stated that her normal Cr was around 1.8 Her Cr today is 1.40 Continue to monitor Cr and BP during length of stay - Time Spent with Patient Total time spent is greater than 50% in coordination of care (as documented) at patient's floor/unit and/or counseling patient: Internal Medicine: Result - Labs CBC & Chem 7: 03/11/18 05:52 03/11/18 05:52 Labs: Short CBC 03/11/18 Range/Units 05:52 WBC 7.4 (4.3-11.1) K/mcL Hgb 10.2 L (11.5-15.4) g/dL Hct 31.2 L (35.3-44.9) % Plt Count 236 (140-400) K/mcL Neutrophils # 4.4 (1.6-8.9) K/mcL BMP 03/11/18 05:52 Sodium 143 Potassium 3.8 Chloride 113 H Carbon Dioxide 23 BUN 23 Creatinine 1.40 H Glucose 121 H Calcium 8.6 - ABG Interpretation ABG results: PT/INR, D-dimer PT 26.5 Seconds (9.4-12.1) H 03/11/18 05:52 Consult Discharge Plan - Plan Referrals: Beth Cedeno CNP [Primary Care Provider] - <Amy Mckenzie - Last Filed: 03/11/18 15:41> Hospitalist Progress Note - Encounter Date of Encounter: 03/11/18 - Exam Vitals: Temp Pulse Resp BP Pulse Ox 97.5 F L 66 15 153/87 95 03/11/18 14:19 03/11/18 14:19 03/11/18 14:19 03/11/18 14:19 03/11/18 14:19 - Assessment and Plan (1) Bacteremia Current Visit: Yes Status: Acute (2) Sepsis Current Visit: Yes Status: Resolved (3) Cellulitis of right leg Current Visit: Yes Status: Acute (4) CKD (chronic kidney disease) Current Visit: Yes Status: Acute (5) Hypertension Current Visit: Yes Status: Acute (6) Allergy to multiple antibiotics Current Visit: Yes Status: Chronic (7) Diabetes Current Visit: Yes Status: Chronic (8) Hx of deep venous thrombosis Current Visit: No Status: Chronic (9) CKD (chronic kidney disease) stage 3, GFR 30-59 ml/min Current Visit: Yes Status: Acute - Time Spent with Patient Total time spent is greater than 50% in coordination of care (as documented) at patient's floor/unit and/or counseling patient: Internal Medicine: Result - Labs CBC & Chem 7: 03/11/18 05:52 03/11/18 05:52 Labs: Short CBC 03/11/18 Range/Units 05:52 WBC 7.4 (4.3-11.1) K/mcL Hgb 10.2 L (11.5-15.4) g/dL Hct 31.2 L (35.3-44.9) % Plt Count 236 (140-400) K/mcL Neutrophils # 4.4 (1.6-8.9) K/mcL BMP 03/11/18 05:52 Sodium 143 Potassium 3.8 Chloride 113 H Carbon Dioxide 23 BUN 23 Creatinine 1.40 H Glucose 121 H Calcium 8.6 - ABG Interpretation ABG results: PT/INR, D-dimer PT 26.5 Seconds (9.4-12.1) H 03/11/18 05:52 - Attending Attestation I examined this patient and my medical decision-making was reviewed with the Resident Physician. I agree with the documented findings, disposition and treatment plan as described except to the extent set forth below. <Klever Lebron - Last Filed: 03/11/18 14:31> (2) Sepsis Qualifiers: Sepsis type: Streptococcus group B Qualified Code(s): A40.1 - Sepsis due to streptococcus, group B (3) Pain and swelling of lower extremity Qualifiers: Laterality: right Qualified Code(s): M79.604 - Pain in right leg; M79.89 - Other specified soft tissue disorders (4) UTI (urinary tract infection) Qualifiers: Urinary tract infection type: site unspecified Hematuria presence: without hematuria Qualified Code(s): N39.0 - Urinary tract infection, site not specified (5) Diabetes Qualifiers: Diabetes mellitus type: type 2 Diabetes mellitus nursing home insulin use: without nursing home use Diabetes mellitus complication status: with unspecified complications Qualified Code(s): E11.8 - Type 2 diabetes mellitus with unspecified complications (6) CKD (chronic kidney disease) Qualifiers: Chronic kidney disease stage: stage 4 (severe) Qualified Code(s): N18.4 - Chronic kidney disease, stage 4 (severe) <Amy Mckenzie - Last Filed: 03/11/18 15:41> (2) Sepsis Qualifiers: Sepsis type: Streptococcus group B Qualified Code(s): A40.1 - Sepsis due to streptococcus, group B (4) CKD (chronic kidney disease) Qualifiers: Chronic kidney disease stage: stage 4 (severe) Qualified Code(s): N18.4 - Chronic kidney disease, stage 4 (severe) (5) Hypertension Qualifiers: Hypertension type: essential hypertension Qualified Code(s): I10 - Essential (primary) hypertension (7) Diabetes Qualifiers: Diabetes mellitus type: type 2 Diabetes mellitus nursing home insulin use: without superintendent container 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
--- NOTE | 2018-03-11 11:13 | Infectious Disease Progress No ---
Date of Encounter: 03/11/18 Time of Encounter: 11:11 - Assessment and Plan (1) Sepsis Current Visit: Yes Status: Resolved 3 sepsis criteria noted on admission. Likely secondary to bacteremia and UTI. Improved clinically. Afebrile. Leukocytosis and tachycardia resolved. Blood cultures drawn on 03/05/18 are +2 out of 2 sets for group B strep. Repeat blood cultures drawn 03/07/18 are NGTD x 2 sets. Recommendations: Await repeat blood cultures x 2 to finalize. Discontinue Ertapenem and re-start Levaquin as previously ordered. Continue Vancomycin IV. Pharmacy to dose. Goal trough ~15. Duration of treatment depends on the clinical picture, but recommend a total of 14 days of treatment for the bacteremia from the first set of negative blood cultures. If the 03/07/18 cultures remain negative, treat through 03/20/18. Can switch Vanc to oral doxycycline 100mg PO BID when ready for discharge to complete 14 day treatment as well. Treat through 03/23/18. Monitor renal function and dose-adjust antibiotics. Qualifiers: Sepsis type: Streptococcus group B Qualified Code(s): A40.1 - Sepsis due to streptococcus, group B (2) Bacteremia Current Visit: Yes Status: Acute Causative organism: GBS. Source: Likely UTI. Complicated due to presence of hardware in the left shoulder and right hip. No endocarditis stigmata noted on exam. The patient has two Modified Blanton's criteria. Currently on IV ertapenem. (3) UTI (urinary tract infection) Current Visit: Yes Status: Acute Causative organism GBS and E. coli, resistant to fluroroquinolones. Currently on IV Ertapenem. Received fosfomycin for E. coli. Qualifiers: Urinary tract infection type: site unspecified Hematuria presence: without hematuria Qualified Code(s): N39.0 - Urinary tract infection, site not specified (4) Diabetes Current Visit: Yes Status: Chronic Strict glucose control. Qualifiers: Diabetes mellitus type: type 2 Diabetes mellitus fci insulin use: without terminal worker use Diabetes mellitus complication status: with unspecified complications Qualified Code(s): E11.8 - Type 2 diabetes mellitus with unspecified complications (5) CKD (chronic kidney disease) Current Visit: Yes Status: Acute Monitor renal function and dose-adjust antibiotics. Avoid nephrotoxins. Qualifiers: Chronic kidney disease stage: stage 4 (severe) Qualified Code(s): N18.4 - Chronic kidney disease, stage 4 (severe) (6) Allergy to multiple antibiotics Current Visit: Yes Status: Chronic Keflex- Rash Levaquin - Hives. Per pharmacy, patient treated with Levaquin when dx'd with GBS in 2017. Bactrim - Hives PCN - Vomiting, rash. (7) Hypertension Current Visit: Yes Status: Acute Qualifiers: Hypertension type: essential hypertension Qualified Code(s): I10 - Essential (primary) hypertension (8) URTI (acute upper respiratory infection) Current Visit: Yes Status: Acute Likely viral. CXR negative. Flu ATG swab negative. Supportive care per the primary team. (9) Cellulitis Current Visit: No Status: Acute Location: RLE. Etiology unclear. Causative organism: Unclear. DVT study negative. CT of the RLE shows skin thickening and subcutaneous stranding about the anterior proximal right thigh, scarring versus cellulitis. There is diffuse skin thickening and subcutaneous edema throughout the lower thigh, leg, and foot. Considerations include chronic liymphedema and venous congestion, but superimposed cellulitis cannot be excluded. Repeat CT scan unchanged. Clinically improved today. Currently on Vanc and Ertapenem. Qualifiers: Site of cellulitis: extremity Site of cellulitis of extremity: lower extremity Laterality: right Qualified Code(s): L03.115 - Cellulitis of right lower limb - Subjective Interval history: Patient seen and examined. No acute events noted overnight. Patient sitting up in the bedside chair. Denies fevers, chills, or rigors. Denies chest pain or shortness of breath. Reports chest congestion and a moist cough with scant clear sputum. Denies nausea, vomiting or diarrhea. Last BM was this morning. Denies abdominal pain or urinary complaints. Denies oral thrush or new skin lesions. Complains of pain, redness, and swelling with bruising to the right inner thigh that is improved today. Antibiotics switched per the primary team. Infect Dis PN-Objective Data - Labs CBC & Chem 7: 03/11/18 05:52 03/11/18 05:52 Labs: Laboratory Results - last 24 hr 03/09/18 03/09/18 03/10/18 11:29 16:31 11:46 WBC RBC Hgb Hct MCV MCH MCHC RDW Plt Count MPV Immature Gran % Seg Neutrophils % Lymphocytes % Monocytes % Eosinophils % Basophils % Neutrophils # Lymphocytes # Monocytes # Eosinophils # Basophils # PT INR Sodium Potassium Chloride Carbon Dioxide BUN Creatinine Est GFR ( Amer) Est GFR (Non-Af Amer) BUN/Creatinine Ratio Glucose POC Glucose 123 H 108 H 126 H Calculated Osmolality Calcium Random Vancomycin 03/10/18 03/10/18 03/11/18 12:45 15:09 05:52 WBC RBC Hgb Hct MCV MCH MCHC RDW Plt Count MPV Immature Gran % Seg Neutrophils % Lymphocytes % Monocytes % Eosinophils % Basophils % Neutrophils # Lymphocytes # Monocytes # Eosinophils # Basophils # PT 26.5 H INR 2.4 Sodium Potassium Chloride Carbon Dioxide BUN Creatinine Est GFR ( Amer) Est GFR (Non-Af Amer) BUN/Creatinine Ratio Glucose POC Glucose 117 H Calculated Osmolality Calcium Random Vancomycin 9 03/11/18 03/11/18 03/11/18 05:52 05:52 07:23 WBC 7.4 RBC 3.30 L Hgb 10.2 L Hct 31.2 L MCV 94.5 MCH 30.9 MCHC 32.7 RDW 14.8 H Plt Count 236 MPV 10.6 Immature Gran % 2.0 Seg Neutrophils % 58.9 Lymphocytes % 20.0 Monocytes % 11.2 Eosinophils % 7.2 Basophils % 0.7 Neutrophils # 4.4 Lymphocytes # 1.5 Monocytes # 0.8 Eosinophils # 0.5 Basophils # 0.1 PT INR Sodium 143 Potassium 3.8 Chloride 113 H Carbon Dioxide 23 BUN 23 Creatinine 1.40 H Est GFR ( Amer) 44 L Est GFR (Non-Af Amer) 36 L BUN/Creatinine Ratio 16 Glucose 121 H POC Glucose 108 H Calculated Osmolality 301 H Calcium 8.6 Random Vancomycin Cultures: Cultures 03/05/18 11:30 Urine Culture - Final Urine,Clean Catch Strep agalactiae - (Group B) Escherichia coli 03/05/18 14:18 Blood Culture - Final Peripheral Venipuncture Strep agalactiae - (Group B) 03/07/18 06:15 Blood Culture - Preliminary Peripheral Venipuncture Culture is incubating and being continuously monitored for growth. Final report to follow. 03/07/18 06:25 Blood Culture - Preliminary Peripheral Venipuncture Culture is incubating and being continuously monitored for growth. Final report to follow. 03/05/18 14:10 Blood Culture - Final Peripheral Venipuncture Strep agalactiae - (Group B) 03/05/18 12:24 Influenza Types A,B Antigen - Final Nasopharyngeal Serology 03/05/18 03/05/18 Range/Units 14:18 11:30 Urine Color Yellow (Yellow) Urine Clarity Cloudy A (Clear) Urine pH 5.5 (5.0-8.0) pH Units Ur Specific [place] 1.008 L (1.010-1.025) Urine Protein 100 H (Neg-Trace) mg/dL Urine Glucose (UA) Normal (Normal) mg/dL Urine Ketones Negative (Negative) mg/dL Urine Blood Moderate H (Negative) Urine Nitrite Positive A (Negative) Urine Bilirubin Negative (Negative) Urine Urobilinogen Normal (Normal) mg/dL Ur Leukocyte Esterase Moderate H (Negative) Urine Microscopic RBC 3-5 H (0-3) per hpf Urine Microscopic WBC 50-100 H (0-3) per hpf Ur Squamous Epith Cells Moderate H (None-Few) per lpf Amorphous Sediment Few (Few) Urine Bacteria Many H (None-Few) per hpf Hyaline Casts None Seen (None-Few) per lpf Ur Culture Indicated? YES A (NO) A. baumannii (PCR) Not Detected (Not Detect) Megan albicans (PCR) Not Detected (Not Detect) C. glabrata (PCR) Not Detected (Not Detect) C. krusei (PCR) Not Detected (Not Detect) C. parapsilosis (PCR) Not Detected (Not Detect) C. tropicalis (PCR) Not Detected (Not Detect) Enterobacteriac sp PCR Not Detected (Not Detect) E. cloacae complex PCR Not Detected (Not Detect) Enterococcus sp PCR Not Detected (Not Detect) E. coli (PCR) Not Detected (Not Detect) H. influenzae (PCR) Not Detected (Not Detect) Klebsiella oxytoca PCR Not Detected (Not Detect) Klebsiella pneumoniae Not Detected (Not Detect) List. monocytogenes PCR Not Detected (Not Detect) N. meningitidis (PCR) Not Detected (Not Detect) Proteus species (PCR) Not Detected (Not Detect) Serratia marcescens PCR Not Detected (Not Detect) Staphylococcus sp PCR Not Detected (Not Detect) Staph aureus (PCR) Not Detected (Not Detect) mecA-Methicil Res Gene N/A (Not Detect) Streptococcus sp PCR DETECTED A (Not Detect) Group A Strep DNA Not Detected (Not Detect) Group B Strep (PCR) DETECTED A (Not Detect) Strep pneumoniae (PCR) Not Detected (Not Detect) P. aeruginosa (PCR) Not Detected (Not Detect) Madeline/B-Vanco Res Genes N/A (Not Detect) KPC (blaKPC) Detect PCR N/A (Not Detect) Exam - Constitutional Vitals: Temp Pulse Resp BP Pulse Ox 97.6 F 64 15 141/76 96 03/11/18 10:16 03/11/18 10:16 03/11/18 10:16 03/11/18 10:16 03/11/18 10:16 General appearance: cooperative, no acute distress, obese - Head Head exam: Present: atraumatic, normal inspection, normocephalic - Eye Eye exam: Present: EOMI, normal appearance, PERRL Pupils: Present: normal accommodation - ENT ENT exam: Present: mucous membranes moist - Neck Neck exam: Present: normal inspection - Respiratory Respiratory exam: Present: CTAB. Absent: rales, respiratory distress, rhonchi, wheezes - Cardiovascular Cardiovascular exam: Present: RRR, +S1, +S2 - GI/Abdominal GI/Abdominal exam: Present: distended (obese), normal bowel sounds, soft. Abs ent: tenderness - Extremities Exam Extremities exam: Present: pedal edema (1+ BLE), tenderness (Mild, right inner thigh.). Absent: normal inspection (Erythema to the inner right thigh improved. No warmth or open lesion noted.) - Neurological Exam Neurological exam: Present: alert, oriented X3, no focal deficits - Psychiatric Psychiatric exam: Present: normal affect, normal mood - Skin Skin exam: Present: dry, intact, normal color, warm Consult Discharge Plan - Plan Referrals: Beth Cedeno, [employer] [Primary Care Provider] - - Attending Attestation I examined this patient and my medical decision-making was reviewed with the Resident Physician. I agree with the documented findings, disposition and treatment plan as described except to the extent set forth below.
[2018-03-11] MEDS ORDERED: Aminoglycoside Consult 1 EACH MC ONE (13:10)
[2018-03-11] MEDS: traMADol 50 MG TABLET PO PRN (16:11)
[2018-03-11] MEDS ORDERED: *HR* Warfarin 4 MG TABLET PO ONE (18:00)
[2018-03-11] MEDS: Doxycycline 100 MG CAPSULE PO SCH (19:58)
[2018-03-12 06:01] LABS: Basophils # 0.1 K/mcL (0.0-0.2); Basophils % 0.5 %; Eosinophils # 0.6 K/mcL (0.0-0.6); Eosinophils % 6.9 %; Hematocrit 32.3 % (35.3-44.9); Hemoglobin 10.6 g/dL (11.5-15.4); Immature Granulocytes % 2.4 % (0-4); Lymphocytes # 1.7 K/mcL (0.6-4.6); Lymphocytes % 18.9 %; Mean Corpuscular HGB Conc 32.8 g/dL (31.6-35.5); Mean Corpuscular Hemoglobin 31.2 pg (28.0-33.3); Mean Platelet Volume 10.2 fL (9.4-12.4); Monocytes # 1.1 K/mcL (0.0-1.3); Monocytes % 11.5 %; Neutrophils # 5.5 K/mcL (1.6-8.9); Platelet Count 280 K/mcL (140-400); Red Cell Distribution Width 14.9 % (11.5-14.5); Segmented Neutrophils % 59.8 %
[2018-03-12 06:08] LABS: INR 2.1; Prothrombin Time 23.3 Seconds (9.4-12.1)
[2018-03-12 06:21] LABS: Potassium 3.9 mEq/L (3.5-5.1)
[2018-03-12] MEDS: Insulin LISPRO 300 UNITS/3 ML VIAL SQ SCH ×2 (08:25→12:01)
[2018-03-12] MEDS: cloNIDine HCl 0.1 MG TABLET PO SCH (08:30)
[2018-03-12] MEDS: rOPINIRole 1 MG TABLET PO SCH (08:30)
[2018-03-12] MEDS: Lisinopril 20 MG TABLET PO SCH (08:30)
[2018-03-12] MEDS: Doxycycline 100 MG CAPSULE PO SCH (08:30)
[2018-03-12] MEDS ORDERED: levoFLOXacin 750 MG TABLET PO SCH (09:00)
[2018-03-12] MEDS ORDERED: Levofloxacin 750 MG/150 ML 750 MG/150 ML BAG IVPB SCH (09:00)
--- NOTE | 2018-03-12 09:28 | Discharge Summary ---
<Tj Rodríguez R - Last Filed: 03/12/18 16:28> - NOTES TO OUTPATIENT PROVIDER Notes to Outpatient Provider: Follow up with PCP for Warfarin anticoagulation and discussion of Eliquis Orders not resulted at time of discharge: Pending orders 03/07/18 06:15 Culture,Blood [BC] Routine 03/13/18 04:00 BMP [Basic Metabolic Panel] AM 0400 Complete Blood Count [HEME] AM 0400 03/14/18 04:00 BMP [Basic Metabolic Panel] AM 0400 Complete Blood Count [HEME] AM 0400 Date of Encounter: 03/12/18 Time of Encounter: 08:20 - Discharge Diagnosis (1) Hx of deep venous thrombosis Priority: Secondary Status: Chronic (2) Bacteremia Priority: Primary Status: Acute (3) Sepsis Priority: Primary Status: Resolved Qualifiers: Sepsis type: Streptococcus group B Qualified Code(s): A40.1 - Sepsis due to streptococcus, group B (4) Diabetes Priority: Secondary Status: Chronic Qualifiers: Diabetes mellitus type: type 2 Diabetes mellitus termite renewal inspector insulin use: without termite renewal inspector use Diabetes mellitus complication status: with unspecified complications Qualified Code(s): E11.8 - Type 2 diabetes mellitus with unspecified complications (5) CKD (chronic kidney disease) Priority: Secondary Status: Acute Qualifiers: Chronic kidney disease stage: stage 4 (severe) Qualified Code(s): N18.4 - Chronic kidney disease, stage 4 (severe) (6) Hypertension Priority: Secondary Status: Acute Qualifiers: Hypertension type: essential hypertension Qualified Code(s): I10 - Essential (primary) hypertension (7) Allergy to multiple antibiotics Priority: Secondary Status: Chronic (8) Cellulitis of right leg Priority: Secondary Status: Acute (9) CKD (chronic kidney disease) stage 3, GFR 30-59 ml/min Priority: Secondary Status: Acute Hospital course: Ms. Dobson is a 82 year old female presented to the ED on 03/05/18 with fever and chills. Evaluation of patient in the ED revealed sepsis and bacteremia from likely UTI source. Blood and urine cultures grew group B streptococcus as well as E. Coli. Improvement with Ertapenem and IV fluids. On 03/07/18 patient was switched from Ertapenem to IV Levaquin for treatment of bacteremia and tolerated treatment well. On 03/08/18 patient had right lower extremity pain and swelling. Patient was sub-therapeutic taking Coumadin for DVT prophylaxis. DVT doppler was negative. CT Lower extremity with subcutaneous thickening and inflammation. She was bridged back to theraputic warfarin with heparin drip. Patient R leg swelling and redness treated with IV vancomycin initally for possible cellulitis and tolerated treatment well. Patient switched to oral Doxycycline on 03/11/18 and tolerated treatment well. Patient is being discharged with Levaquin, Doxycy [place] and home Coumadin. A total duration of antibiotic therapy is 14 days from time of negative blood culture. Patient will follow up at regularly scheduled Coumadin clinic to monitor INR. - Time Spent with Patient Total time spent providing and/or coordinating discharge services: - Discharge Medications Prescriptions: Doxycycline 100 mg PO BID 12 Days #24 capsule levoFLOXacin [Levofloxacin] 750 mg PO Q48H 6 Days #3 tablet Home Medications: Allopurinol [Zyloprim 100 MG] 100 mg PO HS 08/07/16 [History] Amitriptyline HCl 100 mg PO HS 08/07/16 [History] Atenolol 100 mg PO DAILY 08/07/16 [History] Pravastatin Sodium [Pravachol] 40 mg PO HS 08/07/16 [History] Ropinirole HCl [Requip] 2 mg PO BID 08/07/16 [History] Sitagliptin Phosphate [Januvia] 50 mg PO DAILY 08/07/16 [History] DiphenhydraMINE [Benadryl] 25 mg PO BID PRN #10 capsule 08/25/16 [Rx] Lisinopril [Zestril] 40 mg PO BID 10/11/16 [History] Terazosin HCl 4 mg PO BID 10/11/16 [History] cloNIDine HCl [Clonidine HCl] 0.6 mg PO QAM 10/11/16 [History] Docusate [Colace] 100 mg PO DAILY PRN 03/05/18 [History] Ferrous Gluconate 324 mg PO BID 03/05/18 [History] Furosemide [Lasix] 20 mg PO DAILY 03/05/18 [History] Tramadol HCl [Ultram] 50 mg PO TID PRN 03/05/18 [History] Warfarin Sodium 3 mg PO TUTHSA 03/05/18 [History] Warfarin Sodium [Coumadin] 6 mg PO SUMOWEFR 03/05/18 [History] cloNIDine HCl [Clonidine HCl] 0.3 mg PO HS 03/05/18 [History] Doxycycline 100 mg PO BID 12 Days #24 capsule 03/12/18 [Rx] levoFLOXacin [Levofloxacin] 750 mg PO Q48H 6 Days #3 tablet 03/12/18 [Rx] Allergies/Adverse Reactions: Allergy/AdvReac Type Severity Reaction Status Date / Time alendronate sodium Allergy See Verified 03/05/18 14:43 [From Fosamax] Comments amlodipine [From Norvasc] Allergy Blister Verified 03/05/18 14:43 atorvastatin Allergy See Verified 03/05/18 14:43 Comments cephalexin [From Keflex] Allergy Rash Verified 03/05/18 14:43 cinacalcet [From Sensipar] Allergy Blister Verified 03/05/18 14:43 denosumab [From Prolia] Allergy Blister Verified 03/05/18 14:43 felodipine Allergy Blister Verified 03/05/18 14:43 Hydralazine Allergy Blister Verified 03/05/18 14:43 levofloxacin [From Levaquin] Allergy Hives Verified 03/05/18 14:43 olmesartan [From Benicar] Allergy See Verified 03/05/18 14:43 Comments sulfamethoxazole Allergy Hives Verified 03/05/18 14:43 [From Bactrim] trandolapril Allergy See Verified 03/05/18 14:43 Comments trimethoprim [From Bactrim] Allergy Hives Verified 03/05/18 14:43 Verapamil Allergy See Verified 03/05/18 14:43 Comments Penicillins [PCN] AdvReac Vomiting Verified 03/05/18 14:43 Date of admission: 03/06/18 13:43 Primary care physician: Beth Cedeno CNP Consults: 03/05/18 13:29 Consult to Infectious Diseases [CONS] Stat Consulting Provider: [facility] [place] Reason for Consult: MDR UTI Time Notified: 13:29 Call Completed: Yes 03/11/18 13:28 Consult to Physical Therapy [CONS] Routine Comment: Evaluate, develop and implement POC Reason for Consult: Mobilization and discharge planning Does patient have active BEDREST order?: No Is patient medically & hemodynamically stable?: Yes Discharging clinician: Tj Rodríguez Anticipated date of discharge: 03/12/18 - Constitutional Vitals: Temp Pulse Resp BP Pulse Ox 97.8 F 69 16 139/78 92 03/12/18 06:44 03/12/18 06:44 03/12/18 06:44 03/12/18 06:44 03/12/18 06:44 General appearance: Present: A&O X 3, no acute distress, obese, answers questions appropriately Exam: Gen: Alert and oriented in no acute distress CV: RRR no murmur, gallops or rubs Resp: Dimished basilar breath sounds, slight early expitory wheezing in the RUL field. no rhonchi or rales GI: BS x 4, Non tender to palpation, nondistended Extremities: Improvement in right lower extremity swelling and redness. Less tenderness to palpation. Patient is able to ambulate about her room at her baseline without assistance Skin: LE venous statis, skin dry, redness on R LE. Bruising on forearms dayne. no rashes noted. Neuro: Grossly intact sensation and motor Psych: Appropriate mood and affect - Patient Status Disposition: Home, Self-Care Condition: Fair Functional capacity at discharge: independent ambulation Overall status at discharge: patient is progressing back to baseline - Discharge Instructions Instructions: Urinary Tract Infection in Women (DC), Cellulitis (DC) Follow Up With: Beth Cedeno CNP [Primary Care Provider] - 03/18/18 10:35 am (Follow up as scheduled. Arrive 15 minutes early ) - Diet and Activity Activity: increase activity as tolerated Diet: diabetic diet <Amy Mckenzie - Last Filed: 03/12/18 19:32> Date of Encounter: 03/12/18 - Discharge Diagnosis (1) Hx of deep venous thrombosis Status: Chronic (2) Bacteremia Status: Acute (3) Sepsis Status: Resolved Qualifiers: Sepsis type: Streptococcus group B Qualified Code(s): A40.1 - Sepsis due to streptococcus, group B (4) Diabetes Status: Chronic Qualifiers: Diabetes mellitus type: type 2 Diabetes mellitus termite renewal inspector insulin use: without termite renewal inspector use Diabetes mellitus complication status: with unspecified complications Qualified Code(s): E11.8 - Type 2 diabetes mellitus with unspecified complications (5) CKD (chronic kidney disease) Status: Acute Qualifiers: Chronic kidney disease stage: stage 4 (severe) Qualified Code(s): N18.4 - Chronic kidney disease, stage 4 (severe) (6) Hypertension Status: Acute Qualifiers: Hypertension type: essential hypertension Qualified Code(s): I10 - Essential (primary) hypertension (7) Allergy to multiple antibiotics Status: Chronic (8) Cellulitis of right leg Status: Acute (9) CKD (chronic kidney disease) stage 3, GFR 30-59 ml/min Status: Acute Hospital course: Ms. Dobson is a 82 year old female - Time Spent with Patient Total time spent providing and/or coordinating discharge services: Date of admission: 03/06/18 13:43 Primary care physician: Beth Cedeno CNP Consults: 03/05/18 13:29 Consult to Infectious Diseases [CONS] Stat Consulting Provider: [facility] [place] Reason for Consult: MDR UTI Time Notified: 13:29 Call Completed: Yes 03/11/18 13:28 Consult to Physical Therapy [CONS] Routine Comment: Evaluate, develop and implement POC Reason for Consult: Mobilization and discharge planning Does patient have active BEDREST order?: No Is patient medically & hemodynamically stable?: Yes - Constitutional Vitals: Temp Pulse Resp BP Pulse Ox 98.4 F 64 16 142/75 93 03/12/18 10:04 03/12/18 10:04 03/12/18 10:04 03/12/18 10:04 03/12/18 10:04 - Attending Attestation I examined this patient and my medical decision-making was reviewed with the Resident Physician. I agree with the documented findings, disposition and treatment plan as described except to the extent set forth below.
[2018-03-12 10:05] VITALS: BP 142/75
--- NOTE | 2018-03-12 12:06 | Infectious Disease Progress No ---
Date of Encounter: 03/12/18 Time of Encounter: 11:20 - Assessment and Plan (1) Sepsis Status: Resolved 3 sepsis criteria noted on admission. Likely secondary to bacteremia and UTI. Resolved. Afebrile. Leukocytosis and tachycardia resolved. Blood cultures drawn on 03/05/18 are +2 out of 2 sets for group B strep. Repeat blood cultures drawn 03/07/18 are NGTD x 2 sets. Recommendations: Await repeat blood cultures x 2 to finalize. Continue Levaquin 750mg PO Q48H. Continue doxycycline 100mg PO BID. Duration of treatment depends on the clinical picture, but recommend a total of 14 days of treatment for the bacteremia from the first set of negative blood cultures. If the 03/07/18 cultures remain negative, treat through 03/20/18. Continue doxycycline 100mg PO BID to complete 14 day treatment as well. Treat through 03/23/18. Monitor renal function and dose-adjust antibiotics. Qualifiers: Sepsis type: Streptococcus group B Qualified Code(s): A40.1 - Sepsis due to streptococcus, group B (2) Bacteremia Status: Acute Causative organism: GBS. Source: Likely UTI. Complicated due to presence of hardware in the left shoulder and right hip. No endocarditis stigmata noted on exam. The patient has two Modified Blanton's criteria. Currently on IV ertapenem. (3) UTI (urinary tract infection) Status: Acute Causative organism GBS and E. coli, resistant to fluroroquinolones. Currently on IV Ertapenem. Received fosfomycin for E. coli. Qualifiers: Urinary tract infection type: site unspecified Hematuria presence: without hematuria Qualified Code(s): N39.0 - Urinary tract infection, site not specified (4) Diabetes Status: Chronic Strict glucose control. 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 Avoid nephrotoxins. Qualifiers: Chronic kidney disease stage: stage 4 (severe) Qualified Code(s): N18.4 - Chronic kidney disease, stage 4 (severe) (6) Allergy to multiple antibiotics Status: Chronic Keflex- Rash Levaquin - Hives. Per pharmacy, patient treated with Levaquin when dx'd with GBS in 2017. Bactrim - Hives PCN - Vomiting, rash. (7) Hypertension Status: Acute Qualifiers: Hypertension type: essential hypertension Qualified Code(s): I10 - Essential (primary) hypertension (8) URTI (acute upper respiratory infection) Status: Acute Likely viral. CXR negative. Flu ATG swab negative. Supportive care per the primary team. (9) Cellulitis Status: Acute Location: RLE. Etiology unclear. Causative organism: Unclear. DVT study negative. CT of the RLE shows skin thickening and subcutaneous stranding about the anterior proximal right thigh, scarring versus cellulitis. There is diffuse skin thickening and subcutaneous edema throughout the lower thigh, leg, and foot. Considerations include chronic liymphedema and venous congestion, but superimposed cellulitis cannot be excluded. Repeat CT scan unchanged. Clinically improved today. Currently on Levaquin and doxycycline. Qualifiers: Site of cellulitis: extremity Site of cellulitis of extremity: lower extremity Laterality: right Qualified Code(s): L03.115 - Cellulitis of right lower limb - Subjective Interval history: Patient seen and examined. No acute events noted overnight. Patient sitting up in the bedside chair. Denies fevers, chills, or rigors. Denies chest pain or shortness of breath. Reports chest congestion and a moist cough with scant clear sputum, but states it is getting better. Denies nausea, vomiting or diarrhea. Last BM was this morning. Denies abdominal pain or urinary complaints. Denies oral thrush or new skin lesions. Complains of pain, redness, and swelling with bruising to the right inner thigh that is improved today. Pending discharge today. Infect Dis PN-Objective Data - Labs CBC & Chem 7: 03/12/18 05:45 03/12/18 05:45 Labs: Laboratory Results - last 24 hr 03/11/18 03/12/18 03/12/18 16:26 05:45 05:45 WBC 9.2 RBC 3.40 L Hgb 10.6 L Hct 32.3 L MCV 95.0 MCH 31.2 MCHC 32.8 RDW 14.9 H Plt Count 280 MPV 10.2 Immature Gran % 2.4 Seg Neutrophils % 59.8 Lymphocytes % 18.9 Monocytes % 11.5 Eosinophils % 6.9 Basophils % 0.5 Neutrophils # 5.5 Lymphocytes # 1.7 Monocytes # 1.1 Eosinophils # 0.6 Basophils # 0.1 PT 23.3 H INR 2.1 Sodium Potassium Chloride Carbon Dioxide BUN Creatinine Est GFR ( Amer) Est GFR (Non-Af Amer) BUN/Creatinine Ratio Glucose POC Glucose 146 H Calculated Osmolality Calcium 03/12/18 03/12/18 03/12/18 05:45 07:13 11:33 WBC RBC Hgb Hct MCV MCH MCHC RDW Plt Count MPV Immature Gran % Seg Neutrophils % Lymphocytes % Monocytes % Eosinophils % Basophils % Neutrophils # Lymphocytes # Monocytes # Eosinophils # Basophils # PT INR Sodium 143 Potassium 3.9 Chloride 111 H Carbon Dioxide 27 BUN 24 H Creatinine 1.39 H Est GFR ( Amer) 44 L Est GFR (Non-Af Amer) 36 L BUN/Creatinine Ratio 17 Glucose 121 H POC Glucose 106 H 119 H Calculated Osmolality 301 H Calcium 9.0 Cultures: Cultures 03/07/18 06:15 Blood Culture - Final Peripheral Venipuncture No growth. Final report. 03/07/18 06:25 Blood Culture - Final Peripheral Venipuncture No growth. Final report. 03/05/18 11:30 Urine Culture - Final Urine,Clean Catch Strep agalactiae - (Group B) Escherichia coli 03/05/18 14:18 Blood Culture - Final Peripheral Venipuncture Strep agalactiae - (Group B) 03/05/18 14:10 Blood Culture - Final Peripheral Venipuncture Strep agalactiae - (Group B) 03/05/18 12:24 Influenza Types A,B Antigen - Final Nasopharyngeal Serology 03/05/18 03/05/18 Range/Units 14:18 11:30 Urine Color Yellow (Yellow) Urine Clarity Cloudy A (Clear) Urine pH 5.5 (5.0-8.0) pH Units Ur Specific [place] 1.008 L (1.010-1.025) Urine Protein 100 H (Neg-Trace) mg/dL Urine Glucose (UA) Normal (Normal) mg/dL Urine Ketones Negative (Negative) mg/dL Urine Blood Moderate H (Negative) Urine Nitrite Positive A (Negative) Urine Bilirubin Negative (Negative) Urine Urobilinogen Normal (Normal) mg/dL Ur Leukocyte Esterase Moderate H (Negative) Urine Microscopic RBC 3-5 H (0-3) per hpf Urine Microscopic WBC 50-100 H (0-3) per hpf Ur Squamous Epith Cells Moderate H (None-Few) per lpf Amorphous Sediment Few (Few) Urine Bacteria Many H (None-Few) per hpf Hyaline Casts None Seen (None-Few) per lpf Ur Culture Indicated? YES A (NO) A. baumannii (PCR) Not Detected (Not Detect) Megan albicans (PCR) Not Detected (Not Detect) C. glabrata (PCR) Not Detected (Not Detect) C. krusei (PCR) Not Detected (Not Detect) C. parapsilosis (PCR) Not Detected (Not Detect) C. tropicalis (PCR) Not Detected (Not Detect) Enterobacteriac sp PCR Not Detected (Not Detect) E. cloacae complex PCR Not Detected (Not Detect) Enterococcus sp PCR Not Detected (Not Detect) E. coli (PCR) Not Detected (Not Detect) H. influenzae (PCR) Not Detected (Not Detect) Klebsiella oxytoca PCR Not Detected (Not Detect) Klebsiella pneumoniae Not Detected (Not Detect) List. monocytogenes PCR Not Detected (Not Detect) N. meningitidis (PCR) Not Detected (Not Detect) Proteus species (PCR) Not Detected (Not Detect) Serratia marcescens PCR Not Detected (Not Detect) Staphylococcus sp PCR Not Detected (Not Detect) Staph aureus (PCR) Not Detected (Not Detect) mecA-Methicil Res Gene N/A (Not Detect) Streptococcus sp PCR DETECTED A (Not Detect) Group A Strep DNA Not Detected (Not Detect) Group B Strep (PCR) DETECTED A (Not Detect) Strep pneumoniae (PCR) Not Detected (Not Detect) P. aeruginosa (PCR) Not Detected (Not Detect) Madeline/B-Vanco Res Genes N/A (Not Detect) KPC (blaKPC) Detect PCR N/A (Not Detect) Exam - Constitutional Vitals: Temp Pulse Resp BP Pulse Ox 98.4 F 64 16 142/75 93 03/12/18 10:04 03/12/18 10:04 03/12/18 10:04 03/12/18 10:04 03/12/18 10:04 General appearance: cooperative, no acute distress, obese - Head Head exam: Present: atraumatic, normal inspection, normocephalic - Eye Eye exam: Present: EOMI, normal appearance, PERRL Pupils: Present: normal accommodation - ENT ENT exam: Present: mucous membranes moist - Neck Neck exam: Present: normal inspection - Respiratory Respiratory exam: Present: CTAB. Absent: rales, respiratory distress, rhonchi, wheezes - Cardiovascular Cardiovascular exam: Present: RRR, +S1, +S2 - GI/Abdominal GI/Abdominal exam: Present: distended (obese), normal bowel sounds, soft. Absent: tenderness - Extremities Exam Extremities exam: Present: pedal edema (1+ BLE). Absent: normal inspection (Right inner thigh erythema improved.) - Neurological Exam Neurological exam: Present: alert, oriented X3, no focal deficits - Psychiatric Psychiatric exam: Present: normal affect, normal mood - Skin Skin exam: Present: dry, intact, normal color, warm Consult Discharge Plan - Plan Instructions: Urinary Tract Infection in Women (DC), Cellulitis (DC) Referrals: Beth Cedeno CNP [Primary Care Provider] - 03/18/18 10:35 am (Follow up as scheduled. Arrive 15 minutes early ) Prescriptions: RX: Doxycycline 100 mg PO BID 12 Days #24 capsule levoFLOXacin [Levofloxacin] 750 mg PO Q48H 6 Days #3 tablet - Attending Attestation I examined this patient and my medical decision-making was reviewed with the Resident Physician. I agree with the documented findings, disposition and treatment plan as described except to the extent set forth below.
[2018-03-12] MEDS ORDERED: *HR* Warfarin 3 MG TABLET PO ONE (18:00)
== END 2018-03-12 13:11 | disposition home or self-care (01) | DRG 872 ==
LOC: 3ANU 10:40 → EMEROOARM 10:40 → 3ANU 14:57 → SUATTDRO 03-06 13:43
PROVIDERS: ADMIT Internal Medicine; ATTEND Student in an Organized Health Care Education/Training Program

== ENCOUNTER 2020-02-10 19:43 | Inpatient (IN) ==
[2020-02-10] MEDS ORDERED: Isovue-370 500 ML BOTTLE IVP ONE (19:59)
[2020-02-10] MEDS ORDERED: *HR* FentaNYL (PF) 100 MCG/2 ML VIAL IVP ONE (20:01)
[2020-02-10] MEDS ORDERED: Ondansetron 4 MG/2 ML VIAL IVP ONE (20:01)
[2020-02-10 21:01] LABS: Bilirubin,Urine Negative (Negative); Blood,Urine Small (Negative); Clarity,Urine Clear (Clear); Color,Urine Light-Yellow (Yellow); Glucose,Urine (UA) Normal (Normal); Ketones,Urine Negative (Negative); Leukocyte Esterase,Urine Negative (Negative); Mucus,Urine Few per lpf (None-Few); Nitrite,Urine Negative (Negative); PH,Urine 6.5 pH Units (5.0-8.0); Protein,Urine 100 mg/dL (Neg-Trace); Specific Gravity,Urine 1.015 (1.010-1.025); Squamous Epithelial Cell,Urine Few per hpf (None-Few); Urobilinogen,Urine Normal (Normal)
[2020-02-10 21:22] LABS: Basophils % 0.1 %; Hematocrit 32.8 % (35.3-44.9); Hemoglobin 10.2 g/dL (11.5-15.4); Immature Granulocytes % 1.5 % (0-4); Lymphocytes # 0.6 K/mcL (0.6-4.6); Lymphocytes % 2.5 %; Mean Corpuscular HGB Conc 31.1 g/dL (31.6-35.5); Mean Corpuscular Hemoglobin 30.9 pg (28.0-33.3); Mean Corpuscular Volume 99.4 fL (83.0-100.0); Mean Platelet Volume 10.8 fL (9.4-12.4); Monocytes # 0.6 K/mcL (0.0-1.3); Monocytes % 2.6 %; Neutrophils # 20.8 K/mcL (1.6-8.9); Platelet Count 182 K/mcL (140-400); Red Cell Distribution Width 14.6 % (11.5-14.5); Segmented Neutrophils % 93.3 %; White Blood Count 22.3 K/mcL (4.3-11.1)
[2020-02-10 21:29] LABS: Prothrombin Time 23.2 Seconds (9.4-12.1)
[2020-02-10 22:05] LABS: Calcium 9.1 mg/dL (8.6-10.3); Potassium 5.2 mEq/L (3.5-5.1)
[2020-02-10 22:09] LABS: Troponin I 0.04 ng/mL (< 0.04)
[2020-02-10 22:24] LABS: Adenovirus Not Detected (Not Detect); Bordetella Pertussis Not Detected (Not Detect); Chlamydophila pneumoniae Not Detected (Not Detect); Coronavirus 229E Not Detected (Not Detect); Coronavirus HKU1 Not Detected (Not Detect); Coronavirus NL63 Not Detected (Not Detect); Coronavirus OC43 Not Detected (Not Detect); Human Metapneumovirus Not Detected (Not Detect); Human Rhinovirus/Enterovirus Not Detected (Not Detect); Influenza A Subtype 2009 H1 Not Detected (Not Detect); Influenza B Not Detected (Not Detect); Mycoplasma pneumoniae Not Detected (Not Detect); Parainfluenza Virus 1 Not Detected (Not Detect); Parainfluenza Virus 2 Not Detected (Not Detect); Parainfluenza Virus 3 Not Detected (Not Detect); Parainfluenza Virus 4 Not Detected (Not Detect); Respiratory Syncytial Virus Not Detected (Not Detect); SARS-CoV-2 Not Detected (Not Detect)
[2020-02-10] MEDS ORDERED: 0.9 % Sodium Chloride 1,000 ML IVC ONE (23:44)
[2020-02-11] MEDS ORDERED: Doxycycline 100 MG in 0.9 % Sodium Chloride Mini Bag 100 ML IVPB ONE (00:07)
[2020-02-11] MEDS ORDERED: MetroNIDAZOLE 500 MG/100 ML 500 MG/100 ML BAG IVPB ONE (00:07)
[2020-02-11] MEDS ORDERED: *HR* FentaNYL (PF) 100 MCG/2 ML VIAL IVP ONE (00:57)
[2020-02-11] MEDS ORDERED: Ondansetron 4 MG/2 ML VIAL IVP PRN (02:19)
[2020-02-11] MEDS ORDERED: Naloxone 0.4 MG/ML INJ IVP PRN (02:19)
[2020-02-11] MEDS ORDERED: Acetaminophen 325 MG TABLET PO PRN (02:19)
[2020-02-11] MEDS ORDERED: 0.9 % Sodium Chloride 1,000 ML IVC SCH (02:30)
[2020-02-11 03:33] LABS: Basophils % 0.1 %; Hemoglobin 10.1 g/dL (11.5-15.4); Immature Granulocytes % 1.1 % (0-4); Lymphocytes # 0.8 K/mcL (0.6-4.6); Lymphocytes % 3.6 %; Mean Corpuscular HGB Conc 30.6 g/dL (31.6-35.5); Mean Corpuscular Hemoglobin 30.9 pg (28.0-33.3); Mean Corpuscular Volume 100.9 fL (83.0-100.0); Mean Platelet Volume 10.9 fL (9.4-12.4); Monocytes % 4.4 %; Neutrophils # 20.6 K/mcL (1.6-8.9); Platelet Count 164 K/mcL (140-400); Red Blood Count 3.27 M/mcL (3.82-4.97); Red Cell Distribution Width 14.6 % (11.5-14.5); Segmented Neutrophils % 90.8 %; White Blood Count 22.7 K/mcL (4.3-11.1)
[2020-02-11 03:55] LABS: Albumin 3.4 g/dL (3.5-5.7); Albumin/Globulin Ratio 1.1 (1.1-2.2); Bilirubin,Total 0.5 mg/dL (0.3-1.0); Calcium 8.5 mg/dL (8.6-10.3); Magnesium 1.7 mg/dL (1.6-2.6); Potassium 5.2 mEq/L (3.5-5.1); Total Protein 6.4 g/dL (6.4-8.9); Troponin I 0.17 ng/mL (< 0.04)
[2020-02-11] MEDS ORDERED: *HR* Dextrose 50 % in Water (Vial) 50 ML VIAL IVP PRN (04:54)
[2020-02-11] MEDS ORDERED: D5% in Water 1,000 ML IVC PRN (04:54)
[2020-02-11] MEDS ORDERED: Dextrose Gel 15 GM/37.5 ML TUBE PO PRN ×2 (04:54)
[2020-02-11] MEDS: Insulin LISPRO 300 UNITS/3 ML VIAL SQ SCH ×3 (07:52→16:27)
[2020-02-11] MEDS ORDERED: MetroNIDAZOLE 500 MG/100 ML 500 MG/100 ML BAG IVPB SCH (08:00)
[2020-02-11] MEDS ORDERED: levoFLOXacin 750 MG/150 ML 750 MG/150 ML BAG IVPB ONE (11:56)
[2020-02-11] MEDS ORDERED: Doxycycline 100 MG in 0.9 % Sodium Chloride Mini Bag 100 ML IVPB SCH (12:00)
[2020-02-11] MEDS: metroNIDAZOLE 500 MG TABLET PO SCH ×2 (14:02→19:58)
[2020-02-11] MEDS ORDERED: Warfarin perPT PO PRN (18:00)
[2020-02-11] MEDS ORDERED: *HR* Warfarin 5 MG TABLET PO ONE (18:00)
[2020-02-11] MEDS ORDERED: *HR* Warfarin 3 MG TABLET PO ONE (18:00)
[2020-02-11] MEDS: Doxycycline 100 MG CAPSULE PO SCH (19:58)
[2020-02-11] MEDS: rOPINIRole 1 MG TABLET PO SCH (19:59)
[2020-02-11] MEDS: cloNIDine HCL 0.1 MG TABLET PO SCH (19:59)
[2020-02-12 04:37] LABS: Hematocrit 27.1 % (35.3-44.9); Mean Corpuscular HGB Conc 30.6 g/dL (31.6-35.5); Mean Corpuscular Hemoglobin 31.3 pg (28.0-33.3); Mean Corpuscular Volume 102.3 fL (83.0-100.0); Mean Platelet Volume 10.5 fL (9.4-12.4); Platelet Count 164 K/mcL (140-400); Red Blood Count 2.65 M/mcL (3.82-4.97)
[2020-02-12 04:38] LABS: INR 1.5
[2020-02-12 04:39] LABS: Hemoglobin 8.3 g/dL (11.5-15.4)
[2020-02-12 04:52] LABS: Albumin 2.9 g/dL (3.5-5.7); Albumin/Globulin Ratio 1.1 (1.1-2.2); Bilirubin,Total 0.3 mg/dL (0.3-1.0); Calcium 8.3 mg/dL (8.6-10.3); Globulin 2.7 g/dL (2.4-3.5); Magnesium 1.7 mg/dL (1.6-2.6); Phosphorous 4.5 mg/dL (2.7-4.5); Potassium 4.6 mEq/L (3.5-5.1); Total Protein 5.6 g/dL (6.4-8.9)
[2020-02-12] MEDS ORDERED: atenoloL 50 MG TABLET PO SCH (09:00)
[2020-02-12] MEDS ORDERED: 0.9 % Sodium Chloride 1,000 ML IVC SCH (09:30)
[2020-02-12] MEDS: Insulin LISPRO 300 UNITS/3 ML VIAL SQ SCH ×3 (09:37→16:02)
[2020-02-12] MEDS: Doxycycline 100 MG CAPSULE PO SCH ×2 (09:50→20:17)
[2020-02-12] MEDS: rOPINIRole 1 MG TABLET PO SCH ×2 (09:51→20:17)
[2020-02-12] MEDS: metroNIDAZOLE 500 MG TABLET PO SCH ×3 (09:51→20:17)
[2020-02-12] MEDS: cloNIDine HCL 0.1 MG TABLET PO SCH ×3 (10:24→20:12)
[2020-02-12 10:59] LABS: Hematocrit 28.8 % (35.3-44.9); Hemoglobin 8.9 g/dL (11.5-15.4)
[2020-02-12] MEDS: levoFLOXacin 500 MG/100 ML 500 MG/100 ML BAG IVPB SCH (15:00)
[2020-02-12] MEDS: Triamcinolone Acet 0.1% CRM 15 GM TUBE TP SCH ×2 (18:49→20:18)
[2020-02-13 04:57] LABS: Hematocrit 26.9 % (35.3-44.9); Hemoglobin 8.2 g/dL (11.5-15.4); Mean Corpuscular HGB Conc 30.5 g/dL (31.6-35.5); Mean Corpuscular Hemoglobin 30.7 pg (28.0-33.3); Mean Corpuscular Volume 100.7 fL (83.0-100.0); Mean Platelet Volume 10.6 fL (9.4-12.4); Platelet Count 171 K/mcL (140-400); Red Blood Count 2.67 M/mcL (3.82-4.97); Red Cell Distribution Width 14.6 % (11.5-14.5); White Blood Count 8.2 K/mcL (4.3-11.1)
[2020-02-13 05:02] LABS: INR 1.6; Prothrombin Time 18.6 Seconds (9.4-12.1)
[2020-02-13 05:16] LABS: Albumin 2.7 g/dL (3.5-5.7); Bilirubin,Total 0.3 mg/dL (0.3-1.0); Globulin 2.8 g/dL (2.4-3.5); Magnesium 1.8 mg/dL (1.6-2.6); Phosphorous 4.1 mg/dL (2.7-4.5); Potassium 4.3 mEq/L (3.5-5.1); Total Protein 5.5 g/dL (6.4-8.9)
[2020-02-13] MEDS ORDERED: cloNIDine HCL 0.1 MG TABLET PO SCH (09:00)
[2020-02-13] MEDS: Insulin LISPRO 300 UNITS/3 ML VIAL SQ SCH ×3 (09:16→16:12)
[2020-02-13] MEDS: rOPINIRole 1 MG TABLET PO SCH ×2 (10:43→19:58)
[2020-02-13] MEDS: metroNIDAZOLE 500 MG TABLET PO SCH ×3 (10:44→19:59)
[2020-02-13] MEDS: Doxycycline 100 MG CAPSULE PO SCH ×2 (10:44→19:59)
[2020-02-13] MEDS: Triamcinolone Acet 0.1% CRM 15 GM TUBE TP SCH ×3 (10:46→19:59)
[2020-02-13] MEDS ORDERED: *HR* Heparin 5,000 UNIT/ML VIAL IVP ONE (14:41)
[2020-02-13] MEDS ORDERED: *HR* Heparin 5,000 UNIT/ML VIAL IVP PRN ×2 (14:41)
[2020-02-13] MEDS: Heparin 25,000UNIT/250ML 1/2NS 25,000 UNIT/250 ML IV.SOLN IVC SCH (16:09)
[2020-02-13 16:11] LABS: Hematocrit 28.5 % (35.3-44.9); Hemoglobin 8.9 g/dL (11.5-15.4)
[2020-02-13] MEDS ORDERED: *HR* Warfarin 5 MG TABLET PO ONE (18:00)
[2020-02-13 22:52] LABS: Hematocrit 28.3 % (35.3-44.9); Hemoglobin 8.9 g/dL (11.5-15.4)
[2020-02-14] MEDS: Insulin LISPRO 300 UNITS/3 ML VIAL SQ SCH ×3 (07:22→16:44)
[2020-02-14] MEDS: rOPINIRole 1 MG TABLET PO SCH ×2 (07:36→21:47)
[2020-02-14] MEDS: Doxycycline 100 MG CAPSULE PO SCH ×2 (07:36→21:46)
[2020-02-14] MEDS: metroNIDAZOLE 500 MG TABLET PO SCH ×3 (07:36→21:46)
[2020-02-14] MEDS: Triamcinolone Acet 0.1% CRM 15 GM TUBE TP SCH ×3 (07:38→21:48)
[2020-02-14 09:03] LABS: Hematocrit 30.3 % (35.3-44.9); Hemoglobin 9.2 g/dL (11.5-15.4); Mean Corpuscular HGB Conc 30.4 g/dL (31.6-35.5); Mean Corpuscular Hemoglobin 30.4 pg (28.0-33.3); Mean Platelet Volume 10.6 fL (9.4-12.4); Platelet Count 207 K/mcL (140-400); Red Blood Count 3.03 M/mcL (3.82-4.97); Red Cell Distribution Width 14.6 % (11.5-14.5); White Blood Count 8.2 K/mcL (4.3-11.1)
[2020-02-14 09:10] LABS: INR 1.6; Prothrombin Time 17.7 Seconds (9.4-12.1)
[2020-02-14 09:14] LABS: Heparin anti-factor XA UFH 1.23 IU/mL (0.30-0.70)
[2020-02-14 09:18] LABS: Albumin 3.2 g/dL (3.5-5.7); Bilirubin,Total 0.4 mg/dL (0.3-1.0); Globulin 3.2 g/dL (2.4-3.5); Magnesium 1.7 mg/dL (1.6-2.6); Phosphorous 3.2 mg/dL (2.7-4.5); Potassium 4.1 mEq/L (3.5-5.1); Total Protein 6.4 g/dL (6.4-8.9)
[2020-02-14 09:20] LABS: % Iron Saturation 17 % (15-50); Iron 38 mcg/dL (50-170); Transferrin 161 mg/dL (203-362)
[2020-02-14 09:36] LABS: Ferritin 765 ng/mL (10-120)
[2020-02-14 09:46] LABS: Folate 15.1 ng/mL (3.0-16.0)
[2020-02-14] MEDS ORDERED: levoFLOXacin 500 MG TABLET PO ONE (16:07)
[2020-02-14] MEDS: levoFLOXacin 500 MG/100 ML 500 MG/100 ML BAG IVPB SCH (16:08)
[2020-02-14 16:42] LABS: Hematocrit 30.3 % (35.3-44.9); Hemoglobin 9.5 g/dL (11.5-15.4)
[2020-02-14] MEDS ORDERED: *HR* Warfarin 5 MG TABLET PO ONE (18:00)
[2020-02-14] MEDS: Heparin 25,000UNIT/250ML 1/2NS 25,000 UNIT/250 ML IV.SOLN IVC SCH ×2 (19:12→21:50)
[2020-02-14] MEDS ORDERED: Bisacodyl 10 MG RECTAL SUPPOSITORY RC PRN (20:18)
[2020-02-15 01:28] LABS: Basophils % 0.3 %; Eosinophils # 0.5 K/mcL (0.0-0.6); Eosinophils % 5.4 %; Hematocrit 29.4 % (35.3-44.9); Hemoglobin 9.4 g/dL (11.5-15.4); Immature Granulocytes % 1.4 % (0-4); Lymphocytes # 1.2 K/mcL (0.6-4.6); Lymphocytes % 12.4 %; Mean Corpuscular Hemoglobin 31.2 pg (28.0-33.3); Mean Corpuscular Volume 97.7 fL (83.0-100.0); Mean Platelet Volume 10.2 fL (9.4-12.4); Monocytes % 10.3 %; Neutrophils # 6.5 K/mcL (1.6-8.9); Platelet Count 209 K/mcL (140-400); Red Blood Count 3.01 M/mcL (3.82-4.97); Red Cell Distribution Width 14.6 % (11.5-14.5); Segmented Neutrophils % 70.2 %; White Blood Count 9.3 K/mcL (4.3-11.1)
[2020-02-15 01:35] LABS: Heparin anti-factor XA UFH 0.35 IU/mL (0.30-0.70); INR 1.7; Prothrombin Time 19.1 Seconds (9.4-12.1)
[2020-02-15 01:42] LABS: Calcium 8.9 mg/dL (8.6-10.3); Magnesium 1.7 mg/dL (1.6-2.6); Phosphorous 2.8 mg/dL (2.7-4.5); Potassium 4.5 mEq/L (3.5-5.1)
[2020-02-15] MEDS: Heparin 25,000UNIT/250ML 1/2NS 25,000 UNIT/250 ML IV.SOLN IVC SCH (03:03)
[2020-02-15] MEDS: Insulin LISPRO 300 UNITS/3 ML VIAL SQ SCH ×3 (07:04→16:19)
[2020-02-15] MEDS: Doxycycline 100 MG CAPSULE PO SCH ×2 (08:19→23:49)
[2020-02-15] MEDS: Triamcinolone Acet 0.1% CRM 15 GM TUBE TP SCH ×2 (08:20→15:36)
[2020-02-15] MEDS: metroNIDAZOLE 500 MG TABLET PO SCH ×3 (08:20→22:42)
[2020-02-15] MEDS: rOPINIRole 1 MG TABLET PO SCH ×2 (08:20→22:41)
[2020-02-15] MEDS ORDERED: Iron Sucrose Complex 400 MG in 0.9 % Sodium Chloride 250 ML IVPB ONE (08:48)
[2020-02-15] MEDS ORDERED: levoFLOXacin 500 MG TABLET PO SCH (14:15)
[2020-02-15] MEDS ORDERED: *HR* Labetalol 100 MG/20 ML MDV IVP PRN (14:28)
[2020-02-15] MEDS ORDERED: *HR* Labetalol 20 MG/4 ML SYRINGE IVP PRN (15:15)
[2020-02-15 15:36] LABS: ABG Base Excess -4 mEq/L (-2 to 3); ABG HCO3 21 mEq/L (21-27); ABG Oxygen Saturation 94 % (95-98); ABG PCO2 36 mmHg (35-45); ABG PH 7.38 pH Units (7.32-7.45); ABG PO2 70 mmHg (85-104); ABG TCO2 22 mEq/L (20-26)
[2020-02-15] MEDS ORDERED: *HR* Warfarin 5 MG TABLET PO ONE (18:00)
[2020-02-16] MEDS: Heparin 25,000UNIT/250ML 1/2NS 25,000 UNIT/250 ML IV.SOLN IVC SCH (00:41)
[2020-02-16] MEDS: Triamcinolone Acet 0.1% CRM 15 GM TUBE TP SCH ×3 (00:41→15:08)
[2020-02-16] MEDS: Insulin LISPRO 300 UNITS/3 ML VIAL SQ SCH ×3 (07:40→16:07)
[2020-02-16 08:47] LABS: Basophils # 0.1 K/mcL (0.0-0.2); Basophils % 0.5 %; Eosinophils # 0.5 K/mcL (0.0-0.6); Eosinophils % 4.4 %; Hemoglobin 9.7 g/dL (11.5-15.4); Lymphocytes # 1.5 K/mcL (0.6-4.6); Lymphocytes % 14.4 %; Mean Corpuscular HGB Conc 32.3 g/dL (31.6-35.5); Mean Corpuscular Hemoglobin 32.7 pg (28.0-33.3); Mean Platelet Volume 10.3 fL (9.4-12.4); Neutrophils # 7.2 K/mcL (1.6-8.9); Platelet Count 247 K/mcL (140-400); Red Blood Count 2.97 M/mcL (3.82-4.97); Red Cell Distribution Width 14.7 % (11.5-14.5); Segmented Neutrophils % 67.7 %; White Blood Count 10.6 K/mcL (4.3-11.1)
[2020-02-16 08:55] LABS: INR 2.3; Prothrombin Time 26.2 Seconds (9.4-12.1)
[2020-02-16] MEDS ORDERED: levoFLOXacin 500 MG TABLET PO SCH (09:00)
[2020-02-16 09:06] LABS: Albumin 3.2 g/dL (3.5-5.7); Bilirubin,Total 0.4 mg/dL (0.3-1.0); Calcium 9.5 mg/dL (8.6-10.3); Globulin 3.2 g/dL (2.4-3.5); Magnesium 1.8 mg/dL (1.6-2.6); Phosphorous 3.3 mg/dL (2.7-4.5); Potassium 4.7 mEq/L (3.5-5.1); Total Protein 6.4 g/dL (6.4-8.9)
[2020-02-16] MEDS: rOPINIRole 1 MG TABLET PO SCH (09:12)
[2020-02-16] MEDS: Doxycycline 100 MG CAPSULE PO SCH (09:12)
[2020-02-16] MEDS: metroNIDAZOLE 500 MG TABLET PO SCH ×2 (09:12→15:04)
[2020-02-16 09:27] LABS: Estimated Average Glucose 154 mg/dl
[2020-02-16 15:41] VITALS: BP 122/79
[2020-02-16] MEDS ORDERED: *HR* Warfarin 2.5 MG TABLET PO ONE (18:00)
== END 2020-02-16 18:20 | disposition home health service (06) | DRG 871 ==
LOC: 2ANU 19:43 → EMEROOARM 19:43 → SUATTDRO 02-11 01:15 → 2ANU 02-11 02:05
PROVIDERS: ADMIT Family Medicine; ATTEND Internal Medicine

== ENCOUNTER 2020-04-14 06:06 | Observation (INO) ==
[2020-04-14] MEDS ORDERED: *HR* FentaNYL (PF) 100 MCG/2 ML VIAL IVP ONE (08:20)
[2020-04-14 09:03] LABS: Basophils % 0.4 %; Eosinophils # 0.3 K/mcL (0.0-0.6); Eosinophils % 2.6 %; Hematocrit 37.9 % (35.3-44.9); Hemoglobin 11.5 g/dL (11.5-15.4); Immature Granulocytes % 0.5 % (0-4); Lymphocytes # 0.9 K/mcL (0.6-4.6); Lymphocytes % 8.2 %; Mean Corpuscular HGB Conc 30.3 g/dL (31.6-35.5); Mean Corpuscular Hemoglobin 31.2 pg (28.0-33.3); Mean Corpuscular Volume 102.7 fL (83.0-100.0); Monocytes % 8.8 %; Neutrophils # 8.8 K/mcL (1.6-8.9); Platelet Count 303 K/mcL (140-400); Red Blood Count 3.69 M/mcL (3.82-4.97); Red Cell Distribution Width 16.2 % (11.5-14.5); Segmented Neutrophils % 79.5 %; White Blood Count 11.1 K/mcL (4.3-11.1)
[2020-04-14 09:09] LABS: INR 1.7; Prothrombin Time 19.5 Seconds (9.4-12.1)
[2020-04-14 09:21] LABS: Magnesium 1.8 mg/dL (1.6-2.6); Potassium 4.2 mEq/L (3.5-5.1)
[2020-04-14] MEDS ORDERED: Ondansetron 4 MG/2 ML VIAL IVP PRN (10:18)
[2020-04-14] MEDS ORDERED: Naloxone 0.4 MG/ML INJ IVP PRN (10:18)
[2020-04-14] MEDS ORDERED: *HR* OxyCODONE Immed Rel 5 MG TABLET PO PRN (10:18)
[2020-04-14] MEDS ORDERED: Dextrose Gel 15 GM/37.5 ML TUBE PO PRN ×2 (10:21)
[2020-04-14] MEDS ORDERED: *HR* Dextrose 50 % in Water (Vial) 50 ML VIAL IVP PRN (10:21)
[2020-04-14] MEDS ORDERED: D5% in Water 1,000 ML IVC PRN (10:21)
[2020-04-14] MEDS: Insulin LISPRO 300 UNITS/3 ML VIAL SUBQ SCH ×3 (14:08→20:44)
[2020-04-14] MEDS ORDERED: 0.9 % Sodium Chloride 250 ML IVC PRN (14:32)
[2020-04-14] MEDS ORDERED: *HR* Heparin 10,000 UNIT/10 ML VIAL IV PRN (14:32)
[2020-04-14] MEDS ORDERED: 0.9 % Sodium Chloride 1,000 ML PRIME SCH (14:45)
[2020-04-14 15:16] LABS: Hepatitis B Surface Antibody < 3.10 mIU/mL
[2020-04-14 15:25] LABS: Hepatitis B Surface Antigen Nonreactive (Nonreactive)
[2020-04-14] MEDS ORDERED: Warfarin perPT PO PRN ×2 (18:00)
[2020-04-14] MEDS ORDERED: *HR* Warfarin 7.5 MG TABLET PO ONE (18:00)
[2020-04-14] MEDS: rOPINIRole 1 MG TABLET PO SCH (20:57)
[2020-04-14] MEDS ORDERED: Pravastatin Sodium [Pravachol] 40 MG PO SCH (21:00)
[2020-04-15 04:19] LABS: Immature Granulocytes % 0.4 % (0-4); Mean Corpuscular Volume 103.1 fL (83.0-100.0)
[2020-04-15 04:21] LABS: Basophils % 0.3 %; Eosinophils # 0.6 K/mcL (0.0-0.6); Eosinophils % 7.2 %; Hematocrit 40.3 % (35.3-44.9); Immature Platelets 5.8 % (1.1-6.1); Lymphocytes # 1.1 K/mcL (0.6-4.6); Lymphocytes % 14.2 %; Mean Corpuscular HGB Conc 29.8 g/dL (31.6-35.5); Mean Corpuscular Hemoglobin 30.7 pg (28.0-33.3); Mean Platelet Volume 10.9 fL (9.4-12.4); Monocytes # 0.6 K/mcL (0.0-1.3); Monocytes % 7.3 %; Neutrophils # 5.4 K/mcL (1.6-8.9); Platelet Count 223 K/mcL (140-400); Red Blood Count 3.91 M/mcL (3.82-4.97); Red Cell Distribution Width 16.3 % (11.5-14.5); Segmented Neutrophils % 70.6 %; White Blood Count 7.7 K/mcL (4.3-11.1)
[2020-04-15 04:22] LABS: INR 1.8; Prothrombin Time 20.9 Seconds (9.4-12.1)
[2020-04-15 04:27] LABS: Estimated Average Glucose 97 mg/dl
[2020-04-15 04:39] LABS: Calcium 9.6 mg/dL (8.6-10.3); Chol/HDL Ratio 3.9 (0-4.9); Magnesium 1.8 mg/dL (1.6-2.6); Phosphorous 3.7 mg/dL (2.7-4.5); Potassium 4.4 mEq/L (3.5-5.1)
[2020-04-15] MEDS: rOPINIRole 1 MG TABLET PO SCH ×2 (08:28→20:30)
[2020-04-15] MEDS: Insulin LISPRO 300 UNITS/3 ML VIAL SUBQ SCH ×4 (08:32→20:47)
[2020-04-15] MEDS ORDERED: *HR* Heparin 10,000 UNIT/10 ML VIAL IV PRN (15:59)
[2020-04-15] MEDS ORDERED: 0.9 % Sodium Chloride 250 ML IVC PRN (15:59)
[2020-04-15] MEDS ORDERED: *HR* OxyCODONE/APAP 5/325 TABLET PO PRN (17:52)
[2020-04-15] MEDS ORDERED: *HR* Warfarin 7.5 MG TABLET PO ONE (18:00)
[2020-04-15] MEDS: *HR* HYDROcodone/Acet 5/325 mg TABLET PO PRN (18:59)
[2020-04-15] MEDS: (Pravastatin Sodium [Pravachol] 40 MG) PO SCH (20:48)
[2020-04-16 04:56] LABS: Calcium 9.5 mg/dL (8.6-10.3)
[2020-04-16 06:32] LABS: INR 2.7; Prothrombin Time 30.5 Seconds (9.4-12.1)
[2020-04-16] MEDS: Insulin LISPRO 300 UNITS/3 ML VIAL SUBQ SCH ×4 (07:18→20:16)
[2020-04-16] MEDS: rOPINIRole 1 MG TABLET PO SCH ×2 (11:46→20:13)
[2020-04-16] MEDS: atenoloL 50 MG TABLET PO SCH (11:46)
[2020-04-16] MEDS: (Pravastatin Sodium [Pravachol] 40 MG) PO SCH (22:29)
[2020-04-17 01:25] LABS: INR 2.5; Prothrombin Time 28.7 Seconds (9.4-12.1)
[2020-04-17 01:37] LABS: Calcium 8.8 mg/dL (8.6-10.3); Potassium 3.8 mEq/L (3.5-5.1)
[2020-04-17] MEDS: Insulin LISPRO 300 UNITS/3 ML VIAL SUBQ SCH ×4 (08:33→21:12)
[2020-04-17] MEDS: rOPINIRole 1 MG TABLET PO SCH ×2 (09:01→21:12)
[2020-04-17] MEDS: atenoloL 50 MG TABLET PO SCH (09:02)
[2020-04-17 09:14] LABS: Basophils % 0.2 %; Eosinophils # 0.5 K/mcL (0.0-0.6); Eosinophils % 5.9 %; Hematocrit 36.6 % (35.3-44.9); Hemoglobin 11.4 g/dL (11.5-15.4); Immature Granulocytes % 0.4 % (0-4); Lymphocytes # 0.7 K/mcL (0.6-4.6); Lymphocytes % 8.2 %; Mean Corpuscular HGB Conc 31.1 g/dL (31.6-35.5); Mean Corpuscular Hemoglobin 31.4 pg (28.0-33.3); Mean Corpuscular Volume 100.8 fL (83.0-100.0); Mean Platelet Volume 10.1 fL (9.4-12.4); Monocytes # 0.7 K/mcL (0.0-1.3); Monocytes % 8.1 %; Neutrophils # 6.2 K/mcL (1.6-8.9); Platelet Count 248 K/mcL (140-400); Red Blood Count 3.63 M/mcL (3.82-4.97); Red Cell Distribution Width 15.8 % (11.5-14.5); Segmented Neutrophils % 77.2 %
[2020-04-17 13:01] LABS: Adenovirus Not Detected (Not Detect); Bordetella Pertussis Not Detected (Not Detect); Chlamydophila pneumoniae Not Detected (Not Detect); Coronavirus 229E Not Detected (Not Detect); Coronavirus HKU1 Not Detected (Not Detect); Coronavirus NL63 Not Detected (Not Detect); Coronavirus OC43 Not Detected (Not Detect); Human Metapneumovirus Not Detected (Not Detect); Human Rhinovirus/Enterovirus Not Detected (Not Detect); Influenza A Subtype 2009 H1 Not Detected (Not Detect); Influenza B Not Detected (Not Detect); Mycoplasma pneumoniae Not Detected (Not Detect); Parainfluenza Virus 1 Not Detected (Not Detect); Parainfluenza Virus 2 Not Detected (Not Detect); Parainfluenza Virus 3 Not Detected (Not Detect); Parainfluenza Virus 4 Not Detected (Not Detect); Respiratory Syncytial Virus Not Detected (Not Detect); SARS-CoV-2 Not Detected (Not Detect)
[2020-04-17] MEDS ORDERED: *HR* Warfarin 5 MG TABLET PO ONE (18:00)
[2020-04-17] MEDS: *HR* HYDROcodone/Acet 5/325 mg TABLET PO PRN (21:12)
[2020-04-17] MEDS: (Pravastatin Sodium [Pravachol] 40 MG) PO SCH (21:13)
[2020-04-18 03:27] LABS: Basophils % 0.3 %; Eosinophils # 0.7 K/mcL (0.0-0.6); Eosinophils % 10.3 %; Hematocrit 37.4 % (35.3-44.9); Hemoglobin 11.2 g/dL (11.5-15.4); Immature Granulocytes % 0.3 % (0-4); Lymphocytes % 15.1 %; Mean Corpuscular HGB Conc 29.9 g/dL (31.6-35.5); Mean Corpuscular Hemoglobin 30.7 pg (28.0-33.3); Mean Corpuscular Volume 102.5 fL (83.0-100.0); Mean Platelet Volume 11.7 fL (9.4-12.4); Monocytes # 0.8 K/mcL (0.0-1.3); Monocytes % 12.1 %; Neutrophils # 4.1 K/mcL (1.6-8.9); Platelet Count 185 K/mcL (140-400); Red Blood Count 3.65 M/mcL (3.82-4.97); Red Cell Distribution Width 15.8 % (11.5-14.5); Segmented Neutrophils % 61.9 %; White Blood Count 6.6 K/mcL (4.3-11.1)
[2020-04-18 03:32] LABS: INR 1.9; Prothrombin Time 21.7 Seconds (9.4-12.1)
[2020-04-18 03:43] LABS: Calcium 8.9 mg/dL (8.6-10.3); Potassium 4.2 mEq/L (3.5-5.1)
[2020-04-18] MEDS: Insulin LISPRO 300 UNITS/3 ML VIAL SUBQ SCH ×4 (08:46→20:56)
[2020-04-18] MEDS: atenoloL 50 MG TABLET PO SCH (08:47)
[2020-04-18] MEDS: rOPINIRole 1 MG TABLET PO SCH ×2 (08:47→20:54)
[2020-04-18] MEDS ORDERED: *HR* Warfarin 7.5 MG TABLET PO ONE (18:00)
[2020-04-18] MEDS: *HR* HYDROcodone/Acet 5/325 mg TABLET PO PRN (20:54)
[2020-04-18] MEDS: (Pravastatin Sodium [Pravachol] 40 MG) PO SCH (20:56)
[2020-04-19 06:27] LABS: Basophils % 0.4 %; Eosinophils # 0.6 K/mcL (0.0-0.6); Eosinophils % 11.6 %; Hematocrit 34.2 % (35.3-44.9); Hemoglobin 10.4 g/dL (11.5-15.4); Immature Granulocytes % 0.4 % (0-4); Lymphocytes # 0.9 K/mcL (0.6-4.6); Lymphocytes % 16.2 %; Mean Corpuscular HGB Conc 30.4 g/dL (31.6-35.5); Mean Corpuscular Hemoglobin 30.8 pg (28.0-33.3); Mean Corpuscular Volume 101.2 fL (83.0-100.0); Mean Platelet Volume 10.2 fL (9.4-12.4); Monocytes # 0.7 K/mcL (0.0-1.3); Neutrophils # 3.3 K/mcL (1.6-8.9); Platelet Count 268 K/mcL (140-400); Red Blood Count 3.38 M/mcL (3.82-4.97); Red Cell Distribution Width 15.7 % (11.5-14.5); Segmented Neutrophils % 59.4 %; White Blood Count 5.5 K/mcL (4.3-11.1)
[2020-04-19 06:43] LABS: INR 2.2; Prothrombin Time 25.2 Seconds (9.4-12.1)
[2020-04-19] MEDS ORDERED: *HR* Heparin 10,000 UNIT/10 ML VIAL IV PRN ×2 (08:06)
[2020-04-19] MEDS ORDERED: 0.9 % Sodium Chloride 250 ML IVC PRN (08:06)
[2020-04-19] MEDS ORDERED: 0.9 % Sodium Chloride 1,000 ML PRIME SCH (08:15)
[2020-04-19] MEDS: atenoloL 50 MG TABLET PO SCH (09:00)
[2020-04-19] MEDS: Insulin LISPRO 300 UNITS/3 ML VIAL SUBQ SCH ×2 (09:02→12:29)
[2020-04-19] MEDS: rOPINIRole 1 MG TABLET PO SCH (09:10)
[2020-04-19 13:43] VITALS: BP 139/59
[2020-04-19] MEDS ORDERED: *HR* Warfarin 7.5 MG TABLET PO ONE (18:00)
== END 2020-04-19 14:24 ==
LOC: EMEROOARM 06:06 → CDU 06:06 → SUATTDRO 11:50 → CDU 12:04 → 2ANU 04-15 17:41
PROVIDERS: ADMIT Internal Medicine; ATTEND Internal Medicine

== ENCOUNTER 2020-09-22 04:34 | Observation (INO) ==
[2020-09-22] MEDS ORDERED: 0.9 % Sodium Chloride 500 ML IVC STA (05:32)
[2020-09-22 05:44] LABS: Hematocrit 37.2 % (35.3-44.9); Hemoglobin 11.6 g/dL (11.5-15.4); Immature Granulocytes % 0.5 % (0-4); Lymphocytes % 4.7 %; Mean Corpuscular HGB Conc 31.2 g/dL (31.6-35.5); Mean Corpuscular Hemoglobin 30.1 pg (28.0-33.3); Mean Corpuscular Volume 96.6 fL (83.0-100.0); Mean Platelet Volume 9.7 fL (9.4-12.4); Platelet Count 205 K/mcL (140-400); Red Blood Count 3.85 M/mcL (3.82-4.97); Red Cell Distribution Width 14.6 % (11.5-14.5); Segmented Neutrophils % 87.8 %; White Blood Count 18.3 K/mcL (4.3-11.1)
[2020-09-22 05:45] LABS: Basophils % 0.2 %; Eosinophils # 0.2 K/mcL (0.0-0.6); Eosinophils % 1.1 %; Lymphocytes # 0.9 K/mcL (0.6-4.6); Monocytes % 5.7 %; Neutrophils # 16.1 K/mcL (1.6-8.9)
[2020-09-22 06:05] LABS: BUN/Creatinine Ratio 17 (6-26); Blood Urea Nitrogen 42 mg/dL (8-23); Calcium 9.2 mg/dL (8.6-10.3); Carbon Dioxide 27 mEq/L (23-29); Chloride 102 mEq/L (98-107); Glucose 131 mg/dL (70-105); Osmolality,Calculated 298 (280-300); Potassium 4.1 mEq/L (3.5-5.1); Sodium 138 mEq/L (136-145); Troponin I < 0.03 ng/mL (< 0.04); eGFR For African Americans 23 (> 60); eGFR For Non-African Americans 19 (> 60)
[2020-09-22] MEDS ORDERED: Vancomycin 1,500 MG/265 ML IV.SOLN IVPB ONE (06:12)
[2020-09-22] MEDS ORDERED: Piperacillin/Tazobactam 3.375 GM in 0.9 % Sodium Chloride Mini Bag 100 ML IVPB ONE (06:12)
[2020-09-22 06:22] LABS: Bilirubin,Urine Negative (Negative); Blood,Urine Negative (Negative); Clarity,Urine Clear (Clear); Color,Urine Light-Yellow (Yellow); Glucose,Urine (UA) Normal (Normal); Ketones,Urine Negative (Negative); Leukocyte Esterase,Urine Negative (Negative); Nitrite,Urine Negative (Negative); Protein,Urine 200 mg/dL (Neg-Trace); Specific Gravity,Urine 1.014 (1.010-1.025); Squamous Epithelial Cell,Urine Few per hpf (None-Few); Urobilinogen,Urine Normal (Normal); WBC,Urine 0-3 per hpf (0-3)
[2020-09-22] MEDS ORDERED: Naloxone 0.4 MG/ML INJ IVP PRN (07:45)
[2020-09-22 09:11] LABS: Adenovirus Not Detected (Not Detect); Bordetella Pertussis Not Detected (Not Detect); Chlamydophila pneumoniae Not Detected (Not Detect); Coronavirus 229E Not Detected (Not Detect); Coronavirus HKU1 Not Detected (Not Detect); Coronavirus NL63 Not Detected (Not Detect); Coronavirus OC43 Not Detected (Not Detect); Human Metapneumovirus Not Detected (Not Detect); Human Rhinovirus/Enterovirus Not Detected (Not Detect); Influenza A Subtype 2009 H1 Not Detected (Not Detect); Influenza B Not Detected (Not Detect); Mycoplasma pneumoniae Not Detected (Not Detect); Parainfluenza Virus 1 Not Detected (Not Detect); Parainfluenza Virus 2 Not Detected (Not Detect); Parainfluenza Virus 3 Not Detected (Not Detect); Parainfluenza Virus 4 Not Detected (Not Detect); Respiratory Syncytial Virus Not Detected (Not Detect); SARS-CoV-2 Not Detected (Not Detect)
[2020-09-22] MEDS ORDERED: Dextrose Gel 15 GM/37.5 ML TUBE PO PRN ×2 (09:28)
[2020-09-22] MEDS ORDERED: *HR* Dextrose 50 % in Water (Vial) 50 ML VIAL IVP PRN (09:28)
[2020-09-22] MEDS ORDERED: D5% in Water 1,000 ML IVC PRN (09:28)
[2020-09-22] MEDS ORDERED: Acetaminophen 325 MG TABLET PO PRN (09:29)
[2020-09-22] MEDS: Azithromycin 250 MG TABLET PO SCH (10:43)
[2020-09-22] MEDS: Insulin LISPRO 300 UNITS/3 ML VIAL SUBQ SCH ×3 (11:31→20:44)
[2020-09-22 14:43] LABS: INR 3.6; Prothrombin Time 40.3 Seconds (9.4-12.1)
[2020-09-22 14:44] LABS: Estimated Average Glucose 134 mg/dl; Hemoglobin A1C 6.3 %
[2020-09-22] MEDS: Piperacillin/Tazobactam 3.375 GM in 0.9 % Sodium Chloride Mini Bag 100 ML IVPB SCH ×2 (15:28→21:04)
[2020-09-22] MEDS ORDERED: Warfarin perPT PO PRN (18:00)
[2020-09-22] MEDS ORDERED: *HR* Warfarin 5 MG TABLET PO ONE (18:00)
[2020-09-23] MEDS: *HR* HYDROcodone/Acet 5/325 mg TABLET PO PRN ×2 (00:30→10:10)
[2020-09-23] MEDS: Piperacillin/Tazobactam 3.375 GM in 0.9 % Sodium Chloride Mini Bag 100 ML IVPB SCH ×3 (05:31→21:38)
[2020-09-23 05:33] LABS: Basophils % 0.3 %; Eosinophils # 0.5 K/mcL (0.0-0.6); Eosinophils % 5.4 %; Hematocrit 34.8 % (35.3-44.9); Hemoglobin 10.9 g/dL (11.5-15.4); Immature Granulocytes % 0.2 % (0-4); Lymphocytes # 1.2 K/mcL (0.6-4.6); Lymphocytes % 13.2 %; Mean Corpuscular HGB Conc 31.3 g/dL (31.6-35.5); Mean Corpuscular Hemoglobin 30.4 pg (28.0-33.3); Mean Corpuscular Volume 97.2 fL (83.0-100.0); Mean Platelet Volume 10.1 fL (9.4-12.4); Monocytes # 0.9 K/mcL (0.0-1.3); Monocytes % 10.2 %; Neutrophils # 6.5 K/mcL (1.6-8.9); Platelet Count 187 K/mcL (140-400); Red Blood Count 3.58 M/mcL (3.82-4.97); Red Cell Distribution Width 14.4 % (11.5-14.5); Segmented Neutrophils % 70.7 %; White Blood Count 9.2 K/mcL (4.3-11.1)
[2020-09-23 05:44] LABS: INR 2.8; Prothrombin Time 31.2 Seconds (9.4-12.1)
[2020-09-23 05:48] LABS: Calcium 8.7 mg/dL (8.6-10.3)
[2020-09-23] MEDS: Insulin LISPRO 300 UNITS/3 ML VIAL SUBQ SCH ×4 (07:48→20:49)
[2020-09-23] MEDS: Azithromycin 250 MG TABLET PO SCH (10:06)
[2020-09-23 12:04] LABS: Hepatitis B Surface Antibody < 3.10 mIU/mL
[2020-09-23 12:15] LABS: Hepatitis B Surface Antigen Nonreactive (Nonreactive)
[2020-09-23] MEDS: rOPINIRole 1 MG TABLET PO SCH ×2 (12:28→21:38)
[2020-09-23] MEDS: carvediloL 25 MG TABLET PO SCH (17:31)
[2020-09-23] MEDS ORDERED: *HR* Warfarin 7.5 MG TABLET PO ONE (18:00)
[2020-09-24 03:54] LABS: INR 2.2; Prothrombin Time 24.4 Seconds (9.4-12.1)
[2020-09-24 03:55] LABS: Calcium 9.1 mg/dL (8.6-10.3); Potassium 4.1 mEq/L (3.5-5.1)
[2020-09-24] MEDS: Piperacillin/Tazobactam 3.375 GM in 0.9 % Sodium Chloride Mini Bag 100 ML IVPB SCH ×2 (05:43→15:36)
[2020-09-24] MEDS: Insulin LISPRO 300 UNITS/3 ML VIAL SUBQ SCH ×3 (07:51→15:49)
[2020-09-24] MEDS: rOPINIRole 1 MG TABLET PO SCH (08:17)
[2020-09-24] MEDS: Azithromycin 250 MG TABLET PO SCH (08:18)
[2020-09-24] MEDS: carvediloL 25 MG TABLET PO SCH ×2 (08:18→17:34)
[2020-09-24] MEDS ORDERED: Gadolinium Contrast Agent (WT Based) IV PRN (08:26)
[2020-09-24] MEDS ORDERED: Cholecalciferol (D-3) 1,000 UNIT (25MCG) TABLET PO SCH (09:00)
[2020-09-24 10:48] VITALS: O2SAT 94
[2020-09-24 14:32] LABS: Total Volume 24 Hour,Urine 1.46 Liters (0.60-1.60)
[2020-09-24] MEDS ORDERED: Cyanocobalamin (B-12) 1,000 MCG TABLET PO SCH (15:45)
[2020-09-24 15:49] LABS: Protein/Creatinine Ratio,Urine 2.2 mg/mg (0.00-0.20)
[2020-09-24 15:56] LABS: Total Volume 24 Hour,Urine 1.46 Liters (0.60-1.60)
[2020-09-24 17:26] VITALS: BP 142/86; PULSE 87; TEMP 97.6
[2020-09-24] MEDS ORDERED: *HR* Warfarin 10 MG TABLET PO ONE (18:00)
== END 2020-09-24 19:20 | disposition home health service (06) ==
LOC: CDU 04:34 → EMEROOARM 04:34 → SUATTDRO 08:18 → CDU 08:47 → 2ANU 16:01
PROVIDERS: ADMIT Internal Medicine; ATTEND Internal Medicine

== ENCOUNTER 2020-12-25 16:18 | Inpatient (IN) ==
[2020-12-25] MEDS ORDERED: 0.9 % Sodium Chloride 1,000 ML IVC ONE (16:53)
[2020-12-25 17:14] LABS: Basophils % 0.1 %; Eosinophils % 0.1 %; Hematocrit 38.2 % (35.3-44.9); Hemoglobin 11.6 g/dL (11.5-15.4); Immature Granulocytes % 0.4 % (0-4); Lymphocytes # 0.4 K/mcL (0.6-4.6); Lymphocytes % 2.9 %; Mean Corpuscular HGB Conc 30.4 g/dL (31.6-35.5); Mean Corpuscular Hemoglobin 29.4 pg (28.0-33.3); Mean Corpuscular Volume 96.7 fL (83.0-100.0); Mean Platelet Volume 9.8 fL (9.4-12.4); Monocytes # 0.3 K/mcL (0.0-1.3); Monocytes % 2.2 %; Neutrophils # 11.4 K/mcL (1.6-8.9); Platelet Count 247 K/mcL (140-400); Red Blood Count 3.95 M/mcL (3.82-4.97); Red Cell Distribution Width 13.9 % (11.5-14.5); Segmented Neutrophils % 94.3 %; White Blood Count 12.1 K/mcL (4.3-11.1)
[2020-12-25 17:17] LABS: VBG HCO3 20 mEq/L (21-27); VBG PCO2 32 mmHg (41-51); VBG PO2 96 mmHg (25-50)
[2020-12-25 17:25] LABS: INR 2.1; Prothrombin Time 23.8 Seconds (9.4-12.1)
[2020-12-25 17:39] LABS: Activated Partial Thrombo Time 39.1 Seconds (26.0-36.0)
[2020-12-25] MEDS ORDERED: Morphine Sulfate 2 MG/ML SYRINGE IVP ONE (17:41)
[2020-12-25 17:48] LABS: Albumin 3.3 g/dL (3.5-5.7); Albumin/Globulin Ratio 0.8 (1.1-2.2); Bilirubin,Direct 0.1 mg/dL (0.0-0.2); Bilirubin,Indirect 0.3 mg/dL (0.0-1.0); Bilirubin,Total 0.4 mg/dL (0.3-1.0); Calcium 9.1 mg/dL (8.6-10.3); Potassium 4.8 mEq/L (3.5-5.1); Total Protein 7.3 g/dL (6.4-8.9)
[2020-12-25 19:03] LABS: Bacteria,Urine Few per hpf (None-Few); Bilirubin,Urine Negative (Negative); Blood,Urine Large (Negative); Clarity,Urine Turbid (Clear); Color,Urine Light-Yellow (Yellow); Glucose,Urine (UA) Normal (Normal); Ketones,Urine Negative (Negative); Leukocyte Esterase,Urine Small (Negative); Mucus,Urine Few per lpf (None-Few); Nitrite,Urine Negative (Negative); Protein,Urine 100 mg/dL (Neg-Trace); RBC,Urine 50-100 per hpf (0-3); Specific Gravity,Urine 1.011 (1.010-1.025); Squamous Epithelial Cell,Urine Few per hpf (None-Few); Urobilinogen,Urine Normal (Normal); WBC,Urine 15-30 per hpf (0-3)
[2020-12-25] MEDS ORDERED: Clindamycin 600 MG/50 ML 600 MG/50 ML IV.SOLN IVPB ONE (19:39)
[2020-12-25] MEDS ORDERED: Naloxone 0.4 MG/ML INJ IVP PRN (20:48)
[2020-12-25] MEDS ORDERED: Ondansetron 4 MG/2 ML VIAL IVP PRN (20:48)
[2020-12-25] MEDS ORDERED: Acetaminophen 325 MG TABLET PO PRN (20:48)
[2020-12-25] MEDS ORDERED: *HR* HYDROcodone/Acet 5/325 mg TABLET PO PRN (20:48)
[2020-12-25] MEDS ORDERED: Dextrose Gel 15 GM/37.5 ML TUBE PO PRN ×2 (20:58)
[2020-12-25] MEDS ORDERED: *HR* Dextrose 50 % in Water (Syg) 50 ML SYRINGE IVP PRN (20:58)
[2020-12-25] MEDS ORDERED: D5% in Water 1,000 ML IVC PRN (20:58)
[2020-12-25 21:57] LABS: Adenovirus Not Detected (Not Detect); Bordetella Pertussis Not Detected (Not Detect); Chlamydophila pneumoniae Not Detected (Not Detect); Coronavirus 229E Not Detected (Not Detect); Coronavirus HKU1 Not Detected (Not Detect); Coronavirus NL63 Not Detected (Not Detect); Coronavirus OC43 Not Detected (Not Detect); Human Metapneumovirus Not Detected (Not Detect); Human Rhinovirus/Enterovirus Not Detected (Not Detect); Influenza A Subtype 2009 H1 Not Detected (Not Detect); Influenza B Not Detected (Not Detect); Mycoplasma pneumoniae Not Detected (Not Detect); Parainfluenza Virus 1 Not Detected (Not Detect); Parainfluenza Virus 2 Not Detected (Not Detect); Parainfluenza Virus 3 Not Detected (Not Detect); Parainfluenza Virus 4 Not Detected (Not Detect); Respiratory Syncytial Virus Not Detected (Not Detect); SARS-CoV-2 Not Detected (Not Detect)
[2020-12-25] MEDS ORDERED: Vancomycin 1,250 MG/262.5 ML IV.SOLN IVPB ONE (22:00)
[2020-12-25] MEDS: *HR* OxyCODONE Immed Rel 5 MG TABLET PO PRN (23:05)
[2020-12-25] MEDS: Insulin LISPRO 300 UNITS/3 ML VIAL SUBQ SCH (23:05)
[2020-12-25] MEDS: 0.9 % Sodium Chloride 1,000 ML IVC SCH (23:56)
[2020-12-26] MEDS: levoFLOXacin 750 MG/150 ML 750 MG/150 ML BAG IVPB ONE ×2 (01:03→01:30)
[2020-12-26 02:51] LABS: Basophils % 0.1 %; Eosinophils % 0.1 %; Hematocrit 33.3 % (35.3-44.9); Hemoglobin 10.1 g/dL (11.5-15.4); Immature Granulocytes % 0.9 % (0-4); Lymphocytes # 0.7 K/mcL (0.6-4.6); Lymphocytes % 3.6 %; Mean Corpuscular HGB Conc 30.3 g/dL (31.6-35.5); Mean Corpuscular Hemoglobin 29.5 pg (28.0-33.3); Mean Corpuscular Volume 97.4 fL (83.0-100.0); Monocytes # 0.9 K/mcL (0.0-1.3); Monocytes % 4.6 %; Neutrophils # 17.1 K/mcL (1.6-8.9); Platelet Count 218 K/mcL (140-400); Red Blood Count 3.42 M/mcL (3.82-4.97); Red Cell Distribution Width 14.4 % (11.5-14.5); Segmented Neutrophils % 90.7 %; White Blood Count 18.8 K/mcL (4.3-11.1)
[2020-12-26 03:00] LABS: INR 1.9; Prothrombin Time 20.7 Seconds (9.4-12.1)
[2020-12-26 03:14] LABS: Calcium 8.8 mg/dL (8.6-10.3); Magnesium 1.7 mg/dL (1.6-2.6); Phosphorous 4.8 mg/dL (2.7-4.5); Potassium 4.1 mEq/L (3.5-5.1)
[2020-12-26] MEDS: Insulin LISPRO 300 UNITS/3 ML VIAL SUBQ SCH ×4 (08:31→20:15)
[2020-12-26] MEDS: *HR* OxyCODONE Immed Rel 5 MG TABLET PO PRN (14:04)
[2020-12-26] MEDS ORDERED: *HR* OxyCODONE/APAP 5/325 TABLET PO PRN (14:13)
[2020-12-26] MEDS: carvediloL 25 MG TABLET PO SCH (16:23)
[2020-12-26] MEDS: 0.9 % Sodium Chloride 1,000 ML IVC SCH (16:23)
[2020-12-26] MEDS ORDERED: *HR* Heparin 5,000 UNIT/ML VIAL IVP ONE (17:43)
[2020-12-26] MEDS ORDERED: *HR* Heparin 5,000 UNIT/ML VIAL IVP PRN ×2 (17:43)
[2020-12-26] MEDS ORDERED: Warfarin perPT PO PRN (18:00)
[2020-12-26] MEDS ORDERED: *HR* Warfarin 5 MG TABLET PO ONE (18:00)
[2020-12-26] MEDS: Heparin 25,000UNIT/250ML 1/2NS 25,000 UNIT/250 ML IV.SOLN IVC SCH (18:21)
[2020-12-26] MEDS: rOPINIRole 1 MG TABLET PO SCH (20:38)
[2020-12-26 22:04] LABS: Hematocrit 31.6 % (35.3-44.9); Hemoglobin 9.9 g/dL (11.5-15.4); Mean Corpuscular HGB Conc 31.3 g/dL (31.6-35.5); Mean Corpuscular Hemoglobin 30.6 pg (28.0-33.3); Mean Corpuscular Volume 97.5 fL (83.0-100.0); Mean Platelet Volume 9.9 fL (9.4-12.4); Platelet Count 188 K/mcL (140-400); Red Blood Count 3.24 M/mcL (3.82-4.97); Red Cell Distribution Width 14.5 % (11.5-14.5)
[2020-12-26] MEDS ORDERED: Vancomycin 1,250 MG/262.5 ML IV.SOLN IVPB ONE (23:00)
[2020-12-27 00:09] LABS: Sodium, Urine 54.3 mEq/L
[2020-12-27] MEDS: *HR* OxyCODONE Immed Rel 5 MG TABLET PO PRN ×2 (00:48→20:46)
[2020-12-27 00:53] LABS: Basophils % 0.1 %; Eosinophils # 0.3 K/mcL (0.0-0.6); Eosinophils % 2.7 %; Hematocrit 33.3 % (35.3-44.9); Hemoglobin 10.1 g/dL (11.5-15.4); Immature Granulocytes % 0.5 % (0-4); Lymphocytes % 7.7 %; Mean Corpuscular HGB Conc 30.3 g/dL (31.6-35.5); Mean Corpuscular Hemoglobin 30.5 pg (28.0-33.3); Mean Corpuscular Volume 100.6 fL (83.0-100.0); Monocytes # 1.1 K/mcL (0.0-1.3); Monocytes % 9.1 %; Neutrophils # 9.9 K/mcL (1.6-8.9); Platelet Count 172 K/mcL (140-400); Red Blood Count 3.31 M/mcL (3.82-4.97); Red Cell Distribution Width 14.6 % (11.5-14.5); Segmented Neutrophils % 79.9 %; White Blood Count 12.4 K/mcL (4.3-11.1)
[2020-12-27 01:12] LABS: Calcium 8.1 mg/dL (8.6-10.3); Magnesium 1.7 mg/dL (1.6-2.6); Phosphorous 5.4 mg/dL (2.7-4.5)
[2020-12-27 02:20] LABS: Heparin anti-factor XA UFH 0.66 IU/mL (0.30-0.70)
[2020-12-27] MEDS: 0.9 % Sodium Chloride 1,000 ML IVC SCH ×2 (04:02→20:47)
[2020-12-27 05:41] LABS: INR 1.9
[2020-12-27] MEDS: Insulin LISPRO 300 UNITS/3 ML VIAL SUBQ SCH ×4 (07:16→21:47)
[2020-12-27] MEDS: carvediloL 25 MG TABLET PO SCH ×2 (09:00→16:30)
[2020-12-27] MEDS: Cholecalciferol (D-3) 1,000 UNIT (25MCG) TABLET PO SCH (09:00)
[2020-12-27] MEDS: rOPINIRole 1 MG TABLET PO SCH ×2 (09:00→20:46)
[2020-12-27] MEDS: Piperacillin/Tazobactam 3.375 GM in 0.9 % Sodium Chloride Mini Bag 100 ML IVPB SCH (16:30)
[2020-12-27] MEDS ORDERED: *HR* Warfarin 5 MG TABLET PO ONE (18:00)
[2020-12-27] MEDS ORDERED: Warfarin perPT PO PRN (18:00)
[2020-12-27] MEDS: Heparin 25,000UNIT/250ML 1/2NS 25,000 UNIT/250 ML IV.SOLN IVC SCH (19:36)
[2020-12-28] MEDS ORDERED: levoFLOXacin 500 MG/100 ML 500 MG/100 ML BAG IVPB SCH (01:00)
[2020-12-28] MEDS ORDERED: Vancomycin 1,500 MG/265 ML IV.SOLN IVPB ONE (01:00)
[2020-12-28 04:46] LABS: Basophils % 0.3 %; Eosinophils # 0.4 K/mcL (0.0-0.6); Eosinophils % 4.8 %; Hematocrit 31.5 % (35.3-44.9); Hemoglobin 9.2 g/dL (11.5-15.4); Immature Granulocytes % 0.4 % (0-4); Lymphocytes # 0.7 K/mcL (0.6-4.6); Lymphocytes % 9.4 %; Mean Corpuscular HGB Conc 29.2 g/dL (31.6-35.5); Mean Corpuscular Hemoglobin 29.2 pg (28.0-33.3); Mean Platelet Volume 9.8 fL (9.4-12.4); Monocytes # 0.7 K/mcL (0.0-1.3); Monocytes % 9.5 %; Neutrophils # 5.7 K/mcL (1.6-8.9); Platelet Count 191 K/mcL (140-400); Red Blood Count 3.15 M/mcL (3.82-4.97); Red Cell Distribution Width 14.6 % (11.5-14.5); Segmented Neutrophils % 75.6 %; White Blood Count 7.6 K/mcL (4.3-11.1)
[2020-12-28 04:59] LABS: INR 1.5; Prothrombin Time 16.8 Seconds (9.4-12.1)
[2020-12-28 05:03] LABS: Calcium 7.9 mg/dL (8.6-10.3); Magnesium 1.8 mg/dL (1.6-2.6); Phosphorous 5.6 mg/dL (2.7-4.5); Potassium 4.4 mEq/L (3.5-5.1); Uric Acid 7.4 mg/dL (2.3-7.6)
[2020-12-28] MEDS: Piperacillin/Tazobactam 3.375 GM in 0.9 % Sodium Chloride Mini Bag 100 ML IVPB SCH ×2 (05:51→16:10)
[2020-12-28] MEDS: Insulin LISPRO 300 UNITS/3 ML VIAL SUBQ SCH ×4 (07:48→19:59)
[2020-12-28] MEDS: Cholecalciferol (D-3) 1,000 UNIT (25MCG) TABLET PO SCH (09:45)
[2020-12-28] MEDS: carvediloL 25 MG TABLET PO SCH ×2 (09:45→16:10)
[2020-12-28] MEDS: rOPINIRole 1 MG TABLET PO SCH ×2 (09:47→20:27)
[2020-12-28] MEDS ORDERED: Sodium Bicarbonate 75 MEQ in 0.45 % Sodium Chloride 1,000 ML IVC SCH (13:30)
[2020-12-28] MEDS ORDERED: *HR* Warfarin 7.5 MG TABLET PO ONE (18:00)
[2020-12-28] MEDS: 0.9 % Sodium Chloride 1,000 ML IVC SCH (19:44)
[2020-12-28] MEDS: *HR* OxyCODONE Immed Rel 5 MG TABLET PO PRN (22:07)
[2020-12-29] MEDS: Piperacillin/Tazobactam 3.375 GM in 0.9 % Sodium Chloride Mini Bag 100 ML IVPB SCH ×2 (04:29→16:32)
[2020-12-29 05:21] LABS: Basophils % 0.3 %; Eosinophils # 0.4 K/mcL (0.0-0.6); Eosinophils % 5.6 %; Hematocrit 30.7 % (35.3-44.9); Hemoglobin 9.6 g/dL (11.5-15.4); Immature Granulocytes % 0.6 % (0-4); Lymphocytes # 0.8 K/mcL (0.6-4.6); Lymphocytes % 12.2 %; Mean Corpuscular HGB Conc 31.3 g/dL (31.6-35.5); Mean Corpuscular Hemoglobin 30.1 pg (28.0-33.3); Mean Corpuscular Volume 96.2 fL (83.0-100.0); Mean Platelet Volume 9.9 fL (9.4-12.4); Monocytes # 0.7 K/mcL (0.0-1.3); Monocytes % 11.1 %; Neutrophils # 4.4 K/mcL (1.6-8.9); Platelet Count 209 K/mcL (140-400); Red Blood Count 3.19 M/mcL (3.82-4.97); Red Cell Distribution Width 14.4 % (11.5-14.5); Segmented Neutrophils % 70.2 %; White Blood Count 6.3 K/mcL (4.3-11.1)
[2020-12-29 05:43] LABS: Calcium 7.9 mg/dL (8.6-10.3); Magnesium 1.8 mg/dL (1.6-2.6); Phosphorous 4.9 mg/dL (2.7-4.5); Potassium 4.2 mEq/L (3.5-5.1)
[2020-12-29 05:45] LABS: INR 1.7; Prothrombin Time 19.4 Seconds (9.4-12.1)
[2020-12-29] MEDS: Insulin LISPRO 300 UNITS/3 ML VIAL SUBQ SCH ×4 (07:50→20:07)
[2020-12-29] MEDS: rOPINIRole 1 MG TABLET PO SCH ×2 (08:45→19:57)
[2020-12-29] MEDS: carvediloL 25 MG TABLET PO SCH ×2 (08:45→16:35)
[2020-12-29] MEDS: Cholecalciferol (D-3) 1,000 UNIT (25MCG) TABLET PO SCH (08:46)
[2020-12-29] MEDS ORDERED: Vancomycin 500 MG in 0.9 % Sodium Chloride Mini Bag 100 ML IVPB ONE (09:55)
[2020-12-29] MEDS ORDERED: *HR* Warfarin 7.5 MG TABLET PO ONE (18:00)
[2020-12-30] MEDS: *HR* OxyCODONE Immed Rel 5 MG TABLET PO PRN ×3 (02:12→23:05)
[2020-12-30 05:27] LABS: Basophils % 0.3 %; Eosinophils # 0.4 K/mcL (0.0-0.6); Eosinophils % 5.2 %; Hematocrit 32.4 % (35.3-44.9); Immature Granulocytes % 0.8 % (0-4); Lymphocytes # 0.8 K/mcL (0.6-4.6); Lymphocytes % 11.6 %; Mean Corpuscular HGB Conc 30.9 g/dL (31.6-35.5); Mean Corpuscular Hemoglobin 29.5 pg (28.0-33.3); Mean Corpuscular Volume 95.6 fL (83.0-100.0); Mean Platelet Volume 10.1 fL (9.4-12.4); Monocytes % 13.4 %; Neutrophils # 4.9 K/mcL (1.6-8.9); Platelet Count 216 K/mcL (140-400); Red Blood Count 3.39 M/mcL (3.82-4.97); Red Cell Distribution Width 14.2 % (11.5-14.5); Segmented Neutrophils % 68.7 %; White Blood Count 7.1 K/mcL (4.3-11.1)
[2020-12-30 05:33] LABS: INR 2.2; Prothrombin Time 23.9 Seconds (9.4-12.1)
[2020-12-30 05:43] LABS: Calcium 8.4 mg/dL (8.6-10.3); Magnesium 1.7 mg/dL (1.6-2.6); Potassium 3.9 mEq/L (3.5-5.1)
[2020-12-30] MEDS: Piperacillin/Tazobactam 3.375 GM in 0.9 % Sodium Chloride Mini Bag 100 ML IVPB SCH (05:48)
[2020-12-30 06:03] LABS: Estimated Average Glucose 143 mg/dl; Hemoglobin A1C 6.6 %
[2020-12-30] MEDS: Insulin LISPRO 300 UNITS/3 ML VIAL SUBQ SCH ×4 (08:09→20:24)
[2020-12-30] MEDS: rOPINIRole 1 MG TABLET PO SCH ×2 (08:10→20:23)
[2020-12-30] MEDS: carvediloL 25 MG TABLET PO SCH ×2 (08:10→17:59)
[2020-12-30] MEDS: Cholecalciferol (D-3) 1,000 UNIT (25MCG) TABLET PO SCH (08:10)
[2020-12-30] MEDS: Amoxicillin/Clavulanate 500 MG TABLET PO SCH ×2 (17:58→18:01)
[2020-12-30] MEDS ORDERED: *HR* Warfarin 5 MG TABLET PO ONE (18:00)
[2020-12-30] MEDS: Lactobacillus 1 EACH CAP.SPRINK PO SCH (20:23)
[2020-12-31 05:19] LABS: Calcium 8.7 mg/dL (8.6-10.3); Magnesium 1.8 mg/dL (1.6-2.6); Phosphorous 4.1 mg/dL (2.7-4.5); Potassium 3.7 mEq/L (3.5-5.1)
[2020-12-31 05:20] LABS: Basophils % 0.4 %; Eosinophils # 0.4 K/mcL (0.0-0.6); Eosinophils % 5.7 %; Hematocrit 32.4 % (35.3-44.9); Hemoglobin 9.9 g/dL (11.5-15.4); Immature Granulocytes % 0.7 % (0-4); Lymphocytes % 13.5 %; Mean Corpuscular HGB Conc 30.6 g/dL (31.6-35.5); Mean Corpuscular Hemoglobin 29.2 pg (28.0-33.3); Mean Corpuscular Volume 95.6 fL (83.0-100.0); Monocytes # 0.8 K/mcL (0.0-1.3); Monocytes % 11.9 %; Neutrophils # 4.8 K/mcL (1.6-8.9); Platelet Count 235 K/mcL (140-400); Red Blood Count 3.39 M/mcL (3.82-4.97); Red Cell Distribution Width 14.2 % (11.5-14.5); Segmented Neutrophils % 67.8 %
[2020-12-31 05:36] LABS: INR 2.6; Prothrombin Time 28.6 Seconds (9.4-12.1)
[2020-12-31 08:04] VITALS: BP 144/74; PULSE 82; TEMP 97.5; O2SAT 95
[2020-12-31] MEDS: Insulin LISPRO 300 UNITS/3 ML VIAL SUBQ SCH (08:16)
[2020-12-31] MEDS: rOPINIRole 1 MG TABLET PO SCH (08:28)
[2020-12-31] MEDS: Lactobacillus 1 EACH CAP.SPRINK PO SCH (08:28)
[2020-12-31] MEDS: carvediloL 25 MG TABLET PO SCH (08:28)
[2020-12-31] MEDS: Cholecalciferol (D-3) 1,000 UNIT (25MCG) TABLET PO SCH (08:28)
[2020-12-31] MEDS: Amoxicillin/Clavulanate 500 MG TABLET PO SCH (08:28)
[2020-12-31] MEDS ORDERED: *HR* Warfarin 5 MG TABLET PO ONE (18:00)
== END 2020-12-31 12:12 | disposition home health service (06) | DRG 871 ==
LOC: EMEROOARM 16:18 → 3BNU 16:18 → OBSVTOIN 20:40 → INTOOBSV 20:40 → 3BNU 22:44 → SUATTDRO 12-27 17:41
PROVIDERS: ADMIT Student in an Organized Health Care Education/Training Program; ATTEND Internal Medicine

== ENCOUNTER 2021-06-26 23:42 | Inpatient (IN) ==
[2021-06-27] MEDS ORDERED: Vancomycin 1,500 MG/265 ML IV.SOLN IVPB ONE (00:43)
[2021-06-27] MEDS ORDERED: 0.9 % Sodium Chloride 500 ML IV ONE (00:43)
[2021-06-27] MEDS ORDERED: *HR* HYDROcodone/Acet 5/325 mg TABLET PO ONE (00:44)
[2021-06-27] MEDS ORDERED: Cefepime HCl 2,000 MG in 0.9 % Sodium Chloride 10 ML IVP ONE (00:51)
[2021-06-27] MEDS ORDERED: Ertapenem 1,000 MG in 0.9 % Sodium Chloride Mini Bag 100 ML IVPB SCH (01:00)
[2021-06-27 01:28] LABS: Bacteria,Urine Few per hpf (None-Few); Bilirubin,Urine Negative (Negative); Blood,Urine Small (Negative); Clarity,Urine Turbid (Clear); Color,Urine Light-Yellow (Yellow); Glucose,Urine (UA) Normal (Normal); Ketones,Urine Negative (Negative); Leukocyte Esterase,Urine Moderate (Negative); Nitrite,Urine Positive (Negative); PH,Urine 6.5 pH Units (5.0-8.0); Protein,Urine 200 mg/dL (Neg-Trace); Specific Gravity,Urine 1.012 (1.010-1.025); Squamous Epithelial Cell,Urine Few per hpf (None-Few); Urobilinogen,Urine Normal (Normal); WBC,Urine 50-100 per hpf (0-3)
[2021-06-27 01:36] LABS: Basophils % 0.1 %; Eosinophils # 0.1 K/mcL (0.0-0.6); Eosinophils % 0.5 %; Hemoglobin 10.9 g/dL (11.5-15.4); Immature Granulocytes % 0.4 % (0-4); Lymphocytes # 0.6 K/mcL (0.6-4.6); Lymphocytes % 3.4 %; Mean Corpuscular HGB Conc 31.1 g/dL (31.6-35.5); Mean Corpuscular Hemoglobin 30.9 pg (28.0-33.3); Mean Corpuscular Volume 99.2 fL (83.0-100.0); Mean Platelet Volume 9.8 fL (9.4-12.4); Monocytes # 0.8 K/mcL (0.0-1.3); Monocytes % 4.6 %; Neutrophils # 15.1 K/mcL (1.6-8.9); Platelet Count 258 K/mcL (140-400); Red Blood Count 3.53 M/mcL (3.82-4.97); Red Cell Distribution Width 13.8 % (11.5-14.5); White Blood Count 16.6 K/mcL (4.3-11.1)
[2021-06-27 01:44] LABS: INR 1.8; Prothrombin Time 19.8 Seconds (9.4-12.1)
[2021-06-27 01:45] LABS: Albumin 3.7 g/dL (3.5-5.7); Bilirubin,Indirect 0.4 mg/dL (0.0-1.0); Bilirubin,Total 0.4 mg/dL (0.3-1.0); Calcium 9.8 mg/dL (8.6-10.3); Globulin 3.8 g/dL (2.4-3.5); Potassium 4.8 mEq/L (3.5-5.1); Total Protein 7.5 g/dL (6.4-8.9)
[2021-06-27 01:47] LABS: Activated Partial Thrombo Time 37.5 Seconds (26.0-36.0)
[2021-06-27 02:00] LABS: Influenza A PCR Negative (Negative); Influenza B PCR Negative (Negative); Resp. Syncytial Virus PCR Negative (Negative)
[2021-06-27 02:05] LABS: SARS-CoV-2 by PCR (In House) Negative (Negative)
[2021-06-27] MEDS ORDERED: Ondansetron 4 MG/2 ML VIAL IVP PRN (03:25)
[2021-06-27] MEDS ORDERED: Naloxone 0.4 MG/ML INJ IVP PRN (03:25)
[2021-06-27] MEDS ORDERED: Dextrose 4 GM Chewable Tablets PO PRN ×2 (03:28)
[2021-06-27] MEDS ORDERED: *HR* Dextrose 50 % in Water (Syg) 50 ML SYRINGE IVP PRN (03:28)
[2021-06-27] MEDS ORDERED: D5% in Water 1,000 ML IVC PRN (03:28)
[2021-06-27] MEDS ORDERED: 0.9 % Sodium Chloride 1,000 ML IVC SCH (04:30)
[2021-06-27] MEDS: Insulin LISPRO 300 UNITS/3 ML VIAL SUBQ SCH ×3 (07:34→16:28)
[2021-06-27] MEDS: Acetaminophen 325 MG TABLET PO PRN (09:33)
[2021-06-27] MEDS: *HR* HYDROcodone/Acet 5/325 mg TABLET PO PRN ×2 (11:17→23:49)
[2021-06-27 16:23] LABS: CTX-M ESBL Gene Not Detected (Not Detect); IMP Carbapenem-Resist Gene Not Detected (Not Detect); NDM Carbapenem-Resist Gene Not Detected (Not Detect); OXA-48-like Carbap-Resist Gene Not Detected (Not Detect); VIM Carbapenem-Resist Gene Not Detected (Not Detect); blaKPC Carbapenem-Resist Gene Not Detected (Not Detect); mcr-1 Colistin-Resist Gene Not Detected (Not Detect); mecA/C & MREJ (MRSA) Gene Not Detected (Not Detect); mecA/C Methicillin-Resist Gene Not Detected (Not Detect); vanA/B Vancomycin-Resist Genes Not Detected (Not Detect)
[2021-06-27 16:24] LABS: A.calcoaceticus-baumannii cplx Not Detected (Not Detect); Bacteroides fragilis by PCR Not Detected (Not Detect); Candida albicans by PCR Not Detected (Not Detect); Candida auris by PCR Not Detected (Not Detect); Candida glabrata by PCR Not Detected (Not Detect); Candida krusei by PCR Not Detected (Not Detect); Candida parapsilosis by PCR Not Detected (Not Detect); Candida tropicalis by PCR Not Detected (Not Detect); Crypto. neoformans/gattii PCR Not Detected (Not Detect); Enterobacter cloacae Cmplx PCR Not Detected (Not Detect); Enterococcus faecalis by PCR Not Detected (Not Detect); Enterococcus faecium by PCR Not Detected (Not Detect); Escherichia coli by PCR DETECTED (Not Detect); Klebs. pneumoniae group by PCR Not Detected (Not Detect); Klebsiella aerogenes by PCR Not Detected (Not Detect); Klebsiella oxytoca by PCR Not Detected (Not Detect); Proteus by PCR Not Detected (Not Detect); Pseudomonas aeruginosa by PCR Not Detected (Not Detect); Salmonella species by PCR Not Detected (Not Detect); Serratia marcescens by PCR Not Detected (Not Detect); Staph epidermidis by PCR Not Detected (Not Detect); Staph lugdunensis by PCR Not Detected (Not Detect); Staphylococcus aureus by PCR Not Detected (Not Detect); Staphylococcus by PCR Not Detected (Not Detect); Stenotrophomonas maltophilia Not Detected (Not Detect); Streptococcus agalactiae(B)PCR Not Detected (Not Detect); Streptococcus by PCR Not Detected (Not Detect); Streptococcus pneumoniae PCR Not Detected (Not Detect); Streptococcus pyogenes (A) PCR Not Detected (Not Detect)
[2021-06-27] MEDS ORDERED: Warfarin perPT PO PRN (18:00)
[2021-06-27] MEDS ORDERED: *HR* Warfarin 5 MG TABLET PO ONE (18:00)
[2021-06-27] MEDS: Cefepime HCl 1,000 MG in 0.9 % Sodium Chloride 10 ML IVPB SCH (23:48)
[2021-06-28] MEDS: Acetaminophen 325 MG TABLET PO PRN (03:27)
[2021-06-28 06:03] LABS: Hematocrit 28.4 % (35.3-44.9); Mean Corpuscular HGB Conc 31.3 g/dL (31.6-35.5); Platelet Count 197 K/mcL (140-400); Red Blood Count 2.87 M/mcL (3.82-4.97); Red Cell Distribution Width 13.9 % (11.5-14.5); White Blood Count 8.9 K/mcL (4.3-11.1)
[2021-06-28 06:11] LABS: Hemoglobin 8.9 g/dL (11.5-15.4)
[2021-06-28 06:14] LABS: INR 1.9; Prothrombin Time 21.1 Seconds (9.4-12.1)
[2021-06-28 06:38] LABS: Calcium 8.5 mg/dL (8.6-10.3)
[2021-06-28] MEDS: Insulin LISPRO 300 UNITS/3 ML VIAL SUBQ SCH ×3 (07:28→16:39)
[2021-06-28] MEDS ORDERED: Sodium Bicarbonate 75 MEQ in 0.45 % Sodium Chloride 1,000 ML IVC SCH (07:45)
[2021-06-28] MEDS: rOPINIRole 1 MG TABLET PO SCH ×2 (09:39→19:57)
[2021-06-28] MEDS: carvediloL 25 MG TABLET PO SCH ×2 (09:40→19:57)
[2021-06-28] MEDS: *HR* HYDROcodone/Acet 5/325 mg TABLET PO PRN (09:40)
[2021-06-28] MEDS: Doxycycline 100 MG in 0.9 % Sodium Chloride Mini Bag 100 ML IVPB SCH ×4 (09:42→22:44)
[2021-06-28] MEDS ORDERED: *HR* Warfarin 5 MG TABLET PO ONE (18:00)
[2021-06-28] MEDS: PRAVASTATIN SODIUM 80 MG PO SCH (19:48)
[2021-06-28] MEDS: Cefepime HCl 1,000 MG in 0.9 % Sodium Chloride 10 ML IVPB SCH (23:44)
[2021-06-29 03:44] LABS: Basophils % 0.1 %; Eosinophils # 0.6 K/mcL (0.0-0.6); Eosinophils % 8.2 %; Hematocrit 27.4 % (35.3-44.9); Hemoglobin 8.6 g/dL (11.5-15.4); Immature Granulocytes % 0.7 % (0-4); Lymphocytes # 0.9 K/mcL (0.6-4.6); Lymphocytes % 12.9 %; Mean Corpuscular HGB Conc 31.4 g/dL (31.6-35.5); Mean Corpuscular Hemoglobin 30.9 pg (28.0-33.3); Mean Corpuscular Volume 98.6 fL (83.0-100.0); Mean Platelet Volume 9.8 fL (9.4-12.4); Monocytes # 0.7 K/mcL (0.0-1.3); Monocytes % 9.9 %; Platelet Count 205 K/mcL (140-400); Red Blood Count 2.78 M/mcL (3.82-4.97); Segmented Neutrophils % 68.2 %; White Blood Count 7.3 K/mcL (4.3-11.1)
[2021-06-29 03:49] LABS: INR 1.9; Prothrombin Time 21.4 Seconds (9.4-12.1)
[2021-06-29 04:11] LABS: Calcium 8.3 mg/dL (8.6-10.3); Magnesium 1.3 mg/dL (1.6-2.6); Phosphorous 3.8 mg/dL (2.7-4.5); Potassium 3.8 mEq/L (3.5-5.1)
[2021-06-29] MEDS: Insulin LISPRO 300 UNITS/3 ML VIAL SUBQ SCH ×3 (07:33→18:57)
[2021-06-29] MEDS: rOPINIRole 1 MG TABLET PO SCH ×2 (07:34→19:28)
[2021-06-29] MEDS: carvediloL 25 MG TABLET PO SCH ×2 (07:35→19:28)
[2021-06-29] MEDS: *HR* HYDROcodone/Acet 5/325 mg TABLET PO PRN (07:35)
[2021-06-29] MEDS: Doxycycline 100 MG in 0.9 % Sodium Chloride Mini Bag 100 ML IVPB SCH ×2 (12:26→21:59)
[2021-06-29] MEDS ORDERED: *HR* Warfarin 5 MG TABLET PO ONE (18:00)
[2021-06-29] MEDS: PRAVASTATIN SODIUM 80 MG PO SCH (19:15)
[2021-06-29] MEDS: Cefepime HCl 1,000 MG in 0.9 % Sodium Chloride 10 ML IVPB SCH (22:56)
[2021-06-30 01:07] LABS: Magnesium 2.3 mg/dL (1.6-2.6); Phosphorous 3.3 mg/dL (2.7-4.5)
[2021-06-30] MEDS: *HR* HYDROcodone/Acet 5/325 mg TABLET PO PRN ×2 (02:56→11:49)
[2021-06-30 03:45] LABS: Basophils % 0.4 %; Eosinophils # 0.7 K/mcL (0.0-0.6); Eosinophils % 9.5 %; Hematocrit 31.9 % (35.3-44.9); Immature Granulocytes % 1.1 % (0-4); Lymphocytes # 1.1 K/mcL (0.6-4.6); Mean Corpuscular HGB Conc 31.3 g/dL (31.6-35.5); Mean Corpuscular Hemoglobin 30.5 pg (28.0-33.3); Mean Corpuscular Volume 97.3 fL (83.0-100.0); Mean Platelet Volume 10.1 fL (9.4-12.4); Monocytes # 0.8 K/mcL (0.0-1.3); Monocytes % 11.7 %; Neutrophils # 4.3 K/mcL (1.6-8.9); Platelet Count 246 K/mcL (140-400); Red Blood Count 3.28 M/mcL (3.82-4.97); Red Cell Distribution Width 13.9 % (11.5-14.5); Segmented Neutrophils % 61.3 %; White Blood Count 7.1 K/mcL (4.3-11.1)
[2021-06-30 03:52] LABS: INR 1.8; Prothrombin Time 19.6 Seconds (9.4-12.1)
[2021-06-30 06:53] VITALS: PULSE 78; TEMP 98; O2SAT 95
[2021-06-30] MEDS: rOPINIRole 1 MG TABLET PO SCH (08:49)
[2021-06-30] MEDS: carvediloL 25 MG TABLET PO SCH (08:49)
[2021-06-30] MEDS: Insulin LISPRO 300 UNITS/3 ML VIAL SUBQ SCH (09:14)
[2021-06-30 09:40] VITALS: BP 168/92
[2021-06-30] MEDS: Doxycycline 100 MG in 0.9 % Sodium Chloride Mini Bag 100 ML IVPB SCH (12:12)
[2021-06-30] MEDS ORDERED: *HR* Warfarin 7.5 MG TABLET PO ONE (18:00)
== END 2021-06-30 12:10 | disposition home health service (06) | DRG 872 ==
LOC: 3BNU 23:42 → EMEROOARM 23:42 → SUATTDRO 06-27 02:00 → 3BNU 06-27 03:02
PROVIDERS: ADMIT Internal Medicine; ATTEND Internal Medicine

== ENCOUNTER 2021-07-21 12:42 | Observation (INO) ==
[2021-07-21] MEDS ORDERED: Gentamicin 130 MG in 0.9 % Sodium Chloride 100 ML IVPB STA (13:33)
[2021-07-21] MEDS ORDERED: 0.9 % Sodium Chloride 1,000 ML IVC ONE (13:35)
[2021-07-21 14:12] LABS: Hematocrit 33.6 % (35.3-44.9); Hemoglobin 10.2 g/dL (11.5-15.4); Mean Corpuscular HGB Conc 30.4 g/dL (31.6-35.5); Mean Corpuscular Hemoglobin 30.2 pg (28.0-33.3); Mean Corpuscular Volume 99.4 fL (83.0-100.0); Mean Platelet Volume 9.7 fL (9.4-12.4); Platelet Count 308 K/mcL (140-400); Red Blood Count 3.38 M/mcL (3.82-4.97); Red Cell Distribution Width 13.5 % (11.5-14.5); White Blood Count 14.8 K/mcL (4.3-11.1)
[2021-07-21 14:31] LABS: Albumin 3.3 g/dL (3.5-5.7); Albumin/Globulin Ratio 0.9 (1.1-2.2); Bilirubin,Indirect 0.3 mg/dL (0.0-1.0); Bilirubin,Total 0.3 mg/dL (0.3-1.0); Calcium 9.2 mg/dL (8.6-10.3); Globulin 3.5 g/dL (2.4-3.5); Potassium 4.5 mEq/L (3.5-5.1); Total Protein 6.8 g/dL (6.4-8.9)
[2021-07-21] MEDS ORDERED: Cefepime HCl 1,000 MG in 0.9 % Sodium Chloride 10 ML IVP STA (15:22)
[2021-07-21 15:44] LABS: Bacteria,Urine Few per hpf (None-Few); Bilirubin,Urine Negative (Negative); Blood,Urine Small (Negative); Clarity,Urine Turbid (Clear); Color,Urine Yellow (Yellow); Glucose,Urine (UA) Normal (Normal); Ketones,Urine Negative (Negative); Leukocyte Esterase,Urine Large (Negative); Mucus,Urine Few per lpf (None-Few); Nitrite,Urine Positive (Negative); PH,Urine 5.5 pH Units (5.0-8.0); Protein,Urine 200 mg/dL (Neg-Trace); Specific Gravity,Urine 1.016 (1.010-1.025); Squamous Epithelial Cell,Urine Few per hpf (None-Few); Urobilinogen,Urine Normal (Normal); WBC,Urine TNTC per hpf (0-3)
[2021-07-21 16:05] LABS: Influenza A PCR Negative (Negative); Influenza B PCR Negative (Negative); Resp. Syncytial Virus PCR Negative (Negative)
[2021-07-21 16:09] LABS: SARS-CoV-2 by PCR (In House) Negative (Negative)
[2021-07-21] MEDS ORDERED: Ondansetron 4 MG/2 ML VIAL IVP PRN (16:38)
[2021-07-21] MEDS ORDERED: Naloxone 0.4 MG/ML INJ IVP PRN (16:38)
[2021-07-21 16:44] LABS: INR 1.8; Prothrombin Time 19.9 Seconds (9.4-12.1)
[2021-07-21] MEDS ORDERED: *HR* FentaNYL (PF) 100 MCG/2 ML VIAL IVP STA (16:53)
[2021-07-21] MEDS ORDERED: carvediloL 25 MG TABLET PO SCH (17:00)
[2021-07-21] MEDS ORDERED: *HR* FentaNYL (PF) 100 MCG/2 ML VIAL IVP PRN (17:13)
[2021-07-21] MEDS ORDERED: *HR* Warfarin 5 MG TABLET PO ONE (18:00)
[2021-07-21] MEDS ORDERED: Warfarin perPT PO PRN (18:00)
[2021-07-21] MEDS ORDERED: *HR* HYDROcodone/Acet 5/325 mg TABLET PO SCH (18:00)
[2021-07-21] MEDS: *HR* HYDROcodone/Acet 5/325 mg TABLET PO PRN (18:19)
[2021-07-21] MEDS: Cholecalciferol (D-3) 1,000 UNIT (25MCG) TABLET PO SCH (21:06)
[2021-07-21] MEDS: rOPINIRole 1 MG TABLET PO SCH (21:06)
[2021-07-22 02:22] LABS: Eosinophils % 0.1 %; Mean Corpuscular Volume 97.5 fL (83.0-100.0)
[2021-07-22 02:24] LABS: Basophils % 0.1 %; Hematocrit 30.7 % (35.3-44.9); Hemoglobin 9.7 g/dL (11.5-15.4); Immature Granulocytes % 2.4 % (0-4); Lymphocytes % 2.9 %; Mean Corpuscular HGB Conc 31.6 g/dL (31.6-35.5); Mean Corpuscular Hemoglobin 30.8 pg (28.0-33.3); Mean Platelet Volume 9.5 fL (9.4-12.4); Monocytes # 1.1 K/mcL (0.0-1.3); Monocytes % 4.2 %; Neutrophils # 23.2 K/mcL (1.6-8.9); Platelet Count 267 K/mcL (140-400); Red Blood Count 3.15 M/mcL (3.82-4.97); Red Cell Distribution Width 13.9 % (11.5-14.5); Segmented Neutrophils % 90.3 %; White Blood Count 25.7 K/mcL (4.3-11.1)
[2021-07-22 02:29] LABS: Lymphocytes # 0.8 K/mcL (0.6-4.6)
[2021-07-22 02:30] LABS: INR 1.8; Prothrombin Time 19.5 Seconds (9.4-12.1)
[2021-07-22 02:36] LABS: Calcium 8.7 mg/dL (8.6-10.3); Potassium 4.5 mEq/L (3.5-5.1)
[2021-07-22] MEDS: Cefepime HCl 1,000 MG in 0.9 % Sodium Chloride 10 ML IVP SCH ×2 (03:14→16:14)
[2021-07-22 04:57] LABS: A.calcoaceticus-baumannii cplx Not Detected (Not Detect); Bacteroides fragilis by PCR Not Detected (Not Detect); CTX-M ESBL Gene Not Detected (Not Detect); Candida albicans by PCR Not Detected (Not Detect); Candida auris by PCR Not Detected (Not Detect); Candida glabrata by PCR Not Detected (Not Detect); Candida krusei by PCR Not Detected (Not Detect); Candida parapsilosis by PCR Not Detected (Not Detect); Candida tropicalis by PCR Not Detected (Not Detect); Crypto. neoformans/gattii PCR Not Detected (Not Detect); Enterobacter cloacae Cmplx PCR Not Detected (Not Detect); Enterococcus faecalis by PCR Not Detected (Not Detect); Enterococcus faecium by PCR Not Detected (Not Detect); Escherichia coli by PCR DETECTED (Not Detect); IMP Carbapenem-Resist Gene Not Detected (Not Detect); Klebs. pneumoniae group by PCR Not Detected (Not Detect); Klebsiella aerogenes by PCR Not Detected (Not Detect); Klebsiella oxytoca by PCR Not Detected (Not Detect); NDM Carbapenem-Resist Gene Not Detected (Not Detect); OXA-48-like Carbap-Resist Gene Not Detected (Not Detect); Proteus by PCR Not Detected (Not Detect); Pseudomonas aeruginosa by PCR Not Detected (Not Detect); Salmonella species by PCR Not Detected (Not Detect); Serratia marcescens by PCR Not Detected (Not Detect); Staph epidermidis by PCR Not Detected (Not Detect); Staph lugdunensis by PCR Not Detected (Not Detect); Staphylococcus aureus by PCR Not Detected (Not Detect); Staphylococcus by PCR Not Detected (Not Detect); Stenotrophomonas maltophilia Not Detected (Not Detect); Streptococcus agalactiae(B)PCR Not Detected (Not Detect); Streptococcus by PCR Not Detected (Not Detect); Streptococcus pneumoniae PCR Not Detected (Not Detect); Streptococcus pyogenes (A) PCR Not Detected (Not Detect); VIM Carbapenem-Resist Gene Not Detected (Not Detect); blaKPC Carbapenem-Resist Gene Not Detected (Not Detect); mcr-1 Colistin-Resist Gene Not Detected (Not Detect)
[2021-07-22] MEDS: carvediloL 25 MG TABLET PO SCH ×2 (08:17→17:29)
[2021-07-22] MEDS: Cholecalciferol (D-3) 1,000 UNIT (25MCG) TABLET PO SCH ×2 (08:17→22:24)
[2021-07-22] MEDS: Furosemide 20 MG TABLET PO SCH (08:17)
[2021-07-22] MEDS: rOPINIRole 1 MG TABLET PO SCH ×2 (08:17→22:24)
[2021-07-22] MEDS: *HR* HYDROcodone/Acet 10/325 mg TABLET PO PRN ×2 (08:25→17:29)
[2021-07-22] MEDS ORDERED: *HR* Warfarin 5 MG TABLET PO ONE ×2 (18:00)
[2021-07-22] MEDS: *HR* HYDROcodone/Acet 5/325 mg TABLET PO PRN (22:38)
[2021-07-23] MEDS: Cefepime HCl 1,000 MG in 0.9 % Sodium Chloride 10 ML IVP SCH ×2 (04:23→15:41)
[2021-07-23 06:20] LABS: Basophils % 0.1 %; Eosinophils # 0.5 K/mcL (0.0-0.6); Eosinophils % 2.7 %; Hemoglobin 9.1 g/dL (11.5-15.4); Immature Granulocytes % 0.7 % (0-4); Lymphocytes # 0.9 K/mcL (0.6-4.6); Lymphocytes % 5.1 %; Mean Corpuscular HGB Conc 31.4 g/dL (31.6-35.5); Mean Corpuscular Hemoglobin 31.4 pg (28.0-33.3); Mean Platelet Volume 9.8 fL (9.4-12.4); Monocytes # 1.1 K/mcL (0.0-1.3); Monocytes % 6.4 %; Neutrophils # 14.9 K/mcL (1.6-8.9); Platelet Count 260 K/mcL (140-400); White Blood Count 17.5 K/mcL (4.3-11.1)
[2021-07-23 06:44] LABS: Calcium 8.8 mg/dL (8.6-10.3); Potassium 4.3 mEq/L (3.5-5.1)
[2021-07-23] MEDS: Cholecalciferol (D-3) 1,000 UNIT (25MCG) TABLET PO SCH ×2 (07:49→22:46)
[2021-07-23] MEDS: rOPINIRole 1 MG TABLET PO SCH ×2 (07:49→22:46)
[2021-07-23] MEDS: carvediloL 25 MG TABLET PO SCH ×2 (07:49→17:19)
[2021-07-23] MEDS: *HR* HYDROcodone/Acet 10/325 mg TABLET PO PRN ×2 (07:51→15:45)
[2021-07-23] MEDS ORDERED: *HR* Warfarin 5 MG TABLET PO ONE (18:00)
[2021-07-23] MEDS: *HR* HYDROcodone/Acet 5/325 mg TABLET PO PRN (22:46)
[2021-07-24 02:13] LABS: Basophils % 0.1 %; Eosinophils # 0.5 K/mcL (0.0-0.6); Eosinophils % 4.3 %; Hematocrit 29.5 % (35.3-44.9); Hemoglobin 9.1 g/dL (11.5-15.4); Immature Granulocytes % 0.6 % (0-4); Lymphocytes # 0.7 K/mcL (0.6-4.6); Lymphocytes % 5.7 %; Mean Corpuscular HGB Conc 30.8 g/dL (31.6-35.5); Mean Corpuscular Hemoglobin 30.5 pg (28.0-33.3); Mean Platelet Volume 9.9 fL (9.4-12.4); Monocytes # 0.8 K/mcL (0.0-1.3); Monocytes % 6.1 %; Neutrophils # 10.4 K/mcL (1.6-8.9); Platelet Count 272 K/mcL (140-400); Red Blood Count 2.98 M/mcL (3.82-4.97); Red Cell Distribution Width 13.7 % (11.5-14.5); Segmented Neutrophils % 83.2 %; White Blood Count 12.5 K/mcL (4.3-11.1)
[2021-07-24 02:21] LABS: Prothrombin Time 22.6 Seconds (9.4-12.1)
[2021-07-24 02:32] LABS: Calcium 8.7 mg/dL (8.6-10.3); Potassium 4.6 mEq/L (3.5-5.1)
[2021-07-24] MEDS: Cefepime HCl 1,000 MG in 0.9 % Sodium Chloride 10 ML IVP SCH ×2 (03:52→15:36)
[2021-07-24] MEDS: rOPINIRole 1 MG TABLET PO SCH ×2 (07:52→21:01)
[2021-07-24] MEDS: Cholecalciferol (D-3) 1,000 UNIT (25MCG) TABLET PO SCH ×2 (07:53→21:01)
[2021-07-24] MEDS: carvediloL 25 MG TABLET PO SCH ×2 (07:53→15:36)
[2021-07-24] MEDS: Furosemide 20 MG TABLET PO SCH (07:53)
[2021-07-24] MEDS: *HR* HYDROcodone/Acet 5/325 mg TABLET PO PRN ×2 (14:49→23:34)
[2021-07-24] MEDS ORDERED: *HR* Warfarin 3 MG TABLET PO ONE (18:00)
[2021-07-25] MEDS ORDERED: Cefepime HCl 1,000 MG in 0.9 % Sodium Chloride 10 ML IVP SCH (04:00)
[2021-07-25] MEDS: Cefepime HCl 1,000 MG in 0.9 % Sodium Chloride 10 ML IVP SCH (04:47)
[2021-07-25] MEDS: *HR* HYDROcodone/Acet 10/325 mg TABLET PO PRN ×2 (05:12→10:53)
[2021-07-25 06:52] LABS: Basophils % 0.3 %; Eosinophils # 0.5 K/mcL (0.0-0.6); Eosinophils % 5.7 %; Hematocrit 30.8 % (35.3-44.9); Hemoglobin 9.5 g/dL (11.5-15.4); Lymphocytes # 0.9 K/mcL (0.6-4.6); Lymphocytes % 9.7 %; Mean Corpuscular HGB Conc 30.8 g/dL (31.6-35.5); Mean Corpuscular Hemoglobin 30.2 pg (28.0-33.3); Mean Corpuscular Volume 97.8 fL (83.0-100.0); Mean Platelet Volume 10.1 fL (9.4-12.4); Monocytes # 0.9 K/mcL (0.0-1.3); Neutrophils # 7.1 K/mcL (1.6-8.9); Platelet Count 290 K/mcL (140-400); Red Blood Count 3.15 M/mcL (3.82-4.97); Red Cell Distribution Width 13.8 % (11.5-14.5); Segmented Neutrophils % 74.3 %; White Blood Count 9.6 K/mcL (4.3-11.1)
[2021-07-25 06:58] LABS: INR 2.1; Prothrombin Time 23.7 Seconds (9.4-12.1)
[2021-07-25 07:17] LABS: Calcium 9.1 mg/dL (8.6-10.3); Potassium 4.4 mEq/L (3.5-5.1)
[2021-07-25 08:01] VITALS: O2SAT 98
[2021-07-25] MEDS ORDERED: Metoclopramide 10 MG/2 ML VIAL IVP ONE (09:20)
[2021-07-25] MEDS ORDERED: Sennosides/Docusate Sodium TABLET PO PRN (09:21)
[2021-07-25] MEDS: Cholecalciferol (D-3) 1,000 UNIT (25MCG) TABLET PO SCH (10:15)
[2021-07-25] MEDS: rOPINIRole 1 MG TABLET PO SCH (10:15)
[2021-07-25] MEDS: carvediloL 25 MG TABLET PO SCH (10:15)
[2021-07-25 10:42] VITALS: BP 115/73; PULSE 73; TEMP 99.2
[2021-07-25] MEDS ORDERED: *HR* Warfarin 7.5 MG TABLET PO ONE (18:00)
== END 2021-07-25 12:28 | disposition home health service (06) ==
LOC: EMEROOARM 12:42 → 2ANU 12:42 → SUATTDRO 16:47 → 2ANU 17:35
PROVIDERS: ADMIT Pharmacist; ATTEND Student in an Organized Health Care Education/Training Program

== ENCOUNTER 2021-08-28 19:23 | Inpatient (IN) ==
[2021-08-28 20:01] LABS: Basophils % 0.1 %; Hematocrit 35.8 % (35.3-44.9); Hemoglobin 11.1 g/dL (11.5-15.4); Immature Granulocytes % 1.6 % (0-4); Lymphocytes # 0.6 K/mcL (0.6-4.6); Lymphocytes % 3.4 %; Mean Corpuscular Hemoglobin 29.8 pg (28.0-33.3); Mean Corpuscular Volume 96.2 fL (83.0-100.0); Monocytes # 0.6 K/mcL (0.0-1.3); Monocytes % 3.2 %; Neutrophils # 15.8 K/mcL (1.6-8.9); Platelet Count 147 K/mcL (140-400); Red Blood Count 3.72 M/mcL (3.82-4.97); Red Cell Distribution Width 14.4 % (11.5-14.5); Segmented Neutrophils % 91.7 %; White Blood Count 17.3 K/mcL (4.3-11.1)
[2021-08-28 20:28] LABS: Calcium 8.8 mg/dL (8.6-10.3); Troponin I 0.1 ng/mL (< 0.04)
[2021-08-28 20:44] LABS: Influenza A PCR Negative (Negative); Influenza B PCR Negative (Negative); Resp. Syncytial Virus PCR Negative (Negative)
[2021-08-28 20:46] LABS: SARS-CoV-2 by PCR (In House) Positive (Negative)
[2021-08-28 21:25] LABS: Bacteria,Urine Moderate per hpf (None-Few); Bilirubin,Urine Negative (Negative); Blood,Urine Moderate (Negative); Clarity,Urine Ex.Turbid (Clear); Color,Urine Yellow (Yellow); Glucose,Urine (UA) Normal (Normal); Ketones,Urine Negative (Negative); Leukocyte Esterase,Urine Large (Negative); Nitrite,Urine Negative (Negative); Protein,Urine >=300 mg/dL (Neg-Trace); RBC,Urine 15-30 per hpf (0-3); Specific Gravity,Urine 1.014 (1.010-1.025); Urobilinogen,Urine Normal (Normal); WBC,Urine TNTC per hpf (0-3)
[2021-08-28] MEDS ORDERED: cefTRIAXone 1,000 MG in 0.9 % Sodium Chloride Mini Bag 100 ML IVPB ONE (21:35)
[2021-08-28 21:58] LABS: INR 1.2; Prothrombin Time 13.4 Seconds (9.4-12.1)
[2021-08-28 22:00] LABS: Activated Partial Thrombo Time 32.9 Seconds (26.0-36.0)
[2021-08-28] MEDS ORDERED: Ondansetron 4 MG/2 ML VIAL IVP PRN (22:30)
[2021-08-28] MEDS ORDERED: Naloxone 0.4 MG/ML INJ IVP PRN (22:30)
[2021-08-28] MEDS ORDERED: Melatonin 3 MG TABLET PO PRN (22:30)
[2021-08-28] MEDS ORDERED: *HR* Dextrose 50 % in Water (Syg) 50 ML SYRINGE IVP PRN (22:36)
[2021-08-28] MEDS ORDERED: D5% in Water 1,000 ML IVC PRN (22:36)
[2021-08-28] MEDS ORDERED: Dextrose Gel 15 GM/37.5 ML TUBE PO PRN ×2 (22:36)
[2021-08-28] MEDS ORDERED: *HR* Heparin 5,000 UNIT/ML VIAL IVP PRN ×2 (23:26)
[2021-08-28] MEDS ORDERED: *HR* Heparin 5,000 UNIT/ML VIAL IVP ONE (23:26)
[2021-08-29] MEDS: Heparin 25,000UNIT/250ML 1/2NS 25,000 UNIT/250 ML IV.SOLN IVC SCH ×2 (00:26→09:07)
[2021-08-29 02:09] LABS: Basophils % 0.1 %; Hematocrit 31.3 % (35.3-44.9); Hemoglobin 9.9 g/dL (11.5-15.4); Immature Granulocytes % 2.1 % (0-4); Lymphocytes # 0.7 K/mcL (0.6-4.6); Lymphocytes % 3.8 %; Mean Corpuscular HGB Conc 31.6 g/dL (31.6-35.5); Mean Corpuscular Hemoglobin 30.4 pg (28.0-33.3); Mean Platelet Volume 10.4 fL (9.4-12.4); Monocytes # 0.7 K/mcL (0.0-1.3); Monocytes % 3.8 %; Neutrophils # 16.3 K/mcL (1.6-8.9); Platelet Count 138 K/mcL (140-400); Red Blood Count 3.26 M/mcL (3.82-4.97); Red Cell Distribution Width 14.4 % (11.5-14.5); Segmented Neutrophils % 90.2 %
[2021-08-29 02:19] LABS: INR 1.1; Prothrombin Time 12.3 Seconds (9.4-12.1)
[2021-08-29 02:30] LABS: Albumin 3.1 g/dL (3.5-5.7); Bilirubin,Direct 0.1 mg/dL (0.0-0.2); Bilirubin,Indirect 0.2 mg/dL (0.0-1.0); Bilirubin,Total 0.3 mg/dL (0.3-1.0); Total Protein 6.1 g/dL (6.4-8.9)
[2021-08-29 02:32] LABS: Calcium 8.6 mg/dL (8.6-10.3); Potassium 3.9 mEq/L (3.5-5.1)
[2021-08-29 02:48] LABS: Troponin I 0.11 ng/mL (< 0.04)
[2021-08-29] MEDS: Insulin LISPRO 300 UNITS/3 ML VIAL SUBQ SCH ×4 (08:17→21:15)
[2021-08-29] MEDS: Cefepime HCl 1,000 MG in 0.9 % Sodium Chloride 10 ML IVP SCH (09:06)
[2021-08-29] MEDS: Acetaminophen 325 MG TABLET PO PRN ×2 (10:12→21:23)
[2021-08-29] MEDS: Benzonatate 100 MG CAPSULE PO PRN (10:12)
[2021-08-29 19:01] LABS: Hematocrit 34.6 % (35.3-44.9); Hemoglobin 10.4 g/dL (11.5-15.4)
[2021-08-30] MEDS: *HR* HYDROcodone/Acet 5/325 mg TABLET PO PRN ×3 (02:03→16:50)
[2021-08-30] MEDS: Insulin LISPRO 300 UNITS/3 ML VIAL SUBQ SCH ×4 (07:27→22:17)
[2021-08-30] MEDS ORDERED: *HR* Heparin 5,000 UNIT/ML VIAL IVP ONE (07:31)
[2021-08-30] MEDS ORDERED: *HR* Heparin 5,000 UNIT/ML VIAL IVP PRN ×2 (07:31)
[2021-08-30] MEDS: Heparin 25,000UNIT/250ML 1/2NS 25,000 UNIT/250 ML IV.SOLN IVC SCH (08:13)
[2021-08-30] MEDS: Cefepime HCl 1,000 MG in 0.9 % Sodium Chloride 10 ML IVP SCH (08:17)
[2021-08-30] MEDS: Benzonatate 100 MG CAPSULE PO PRN ×2 (08:19→16:50)
[2021-08-30 08:42] LABS: Heparin anti-factor XA UFH < 0.04 IU/mL (0.30-0.70); INR 1.4; Prothrombin Time 15.2 Seconds (9.4-12.1)
[2021-08-30 08:43] LABS: D-Dimer 1891 ng/mLFEU (0-500)
[2021-08-30 08:53] LABS: Calcium 8.3 mg/dL (8.6-10.3); Magnesium 1.7 mg/dL (1.6-2.6); Potassium 3.9 mEq/L (3.5-5.1)
[2021-08-30 09:47] LABS: Basophils % 0.1 %; Eosinophils # 0.1 K/mcL (0.0-0.6); Eosinophils % 1.2 %; Hematocrit 34.7 % (35.3-44.9); Hemoglobin 10.4 g/dL (11.5-15.4); Immature Granulocytes % 0.6 % (0-4); Lymphocytes # 0.7 K/mcL (0.6-4.6); Lymphocytes % 7.5 %; Mean Corpuscular Hemoglobin 29.5 pg (28.0-33.3); Mean Corpuscular Volume 98.6 fL (83.0-100.0); Mean Platelet Volume 10.8 fL (9.4-12.4); Monocytes # 0.3 K/mcL (0.0-1.3); Monocytes % 3.6 %; Platelet Count 145 K/mcL (140-400); Red Blood Count 3.52 M/mcL (3.82-4.97); Red Cell Distribution Width 14.9 % (11.5-14.5); White Blood Count 9.5 K/mcL (4.3-11.1)
[2021-08-30 09:48] LABS: Neutrophils # 8.3 K/mcL (1.6-8.9)
[2021-08-30 10:45] LABS: Estimated Average Glucose 137 mg/dl; Hemoglobin A1C 6.4 %
[2021-08-30] MEDS: 0.9 % Sodium Chloride 1,000 ML IVC SCH (11:36)
[2021-08-30] MEDS: Acetaminophen 325 MG TABLET PO PRN ×2 (11:36→22:11)
[2021-08-30] MEDS: carvediloL 25 MG TABLET PO SCH (16:40)
[2021-08-30] MEDS: rOPINIRole 1 MG TABLET PO SCH (22:10)
[2021-08-31 01:50] LABS: Basophils % 0.2 %; Eosinophils # 0.2 K/mcL (0.0-0.6); Eosinophils % 3.1 %; Hematocrit 34.5 % (35.3-44.9); Hemoglobin 10.7 g/dL (11.5-15.4); Immature Granulocytes % 0.5 % (0-4); Lymphocytes # 0.7 K/mcL (0.6-4.6); Mean Corpuscular Hemoglobin 30.3 pg (28.0-33.3); Mean Corpuscular Volume 97.7 fL (83.0-100.0); Mean Platelet Volume 10.2 fL (9.4-12.4); Monocytes # 0.3 K/mcL (0.0-1.3); Monocytes % 5.2 %; Neutrophils # 5.3 K/mcL (1.6-8.9); Platelet Count 143 K/mcL (140-400); Red Blood Count 3.53 M/mcL (3.82-4.97); Red Cell Distribution Width 14.7 % (11.5-14.5); White Blood Count 6.5 K/mcL (4.3-11.1)
[2021-08-31 01:57] LABS: Potassium 4.2 mEq/L (3.5-5.1)
[2021-08-31 02:01] LABS: INR 1.3; Prothrombin Time 14.2 Seconds (9.4-12.1)
[2021-08-31] MEDS: 0.9 % Sodium Chloride 1,000 ML IVC SCH (07:00)
[2021-08-31] MEDS: Heparin 25,000UNIT/250ML 1/2NS 25,000 UNIT/250 ML IV.SOLN IVC SCH (09:06)
[2021-08-31] MEDS: Insulin LISPRO 300 UNITS/3 ML VIAL SUBQ SCH ×4 (09:08→20:27)
[2021-08-31] MEDS: rOPINIRole 1 MG TABLET PO SCH ×2 (09:08→20:27)
[2021-08-31] MEDS: *HR* HYDROcodone/Acet 5/325 mg TABLET PO PRN (09:09)
[2021-08-31] MEDS: carvediloL 25 MG TABLET PO SCH ×2 (09:09→18:21)
[2021-08-31] MEDS: Cefepime HCl 1,000 MG in 0.9 % Sodium Chloride 10 ML IVP SCH (09:09)
[2021-09-01 04:10] LABS: Basophils % 0.4 %; Eosinophils # 0.3 K/mcL (0.0-0.6); Eosinophils % 5.3 %; Hematocrit 33.7 % (35.3-44.9); Hemoglobin 10.2 g/dL (11.5-15.4); Immature Granulocytes % 1.3 % (0-4); Lymphocytes # 0.8 K/mcL (0.6-4.6); Lymphocytes % 15.2 %; Mean Corpuscular HGB Conc 30.3 g/dL (31.6-35.5); Mean Corpuscular Hemoglobin 29.4 pg (28.0-33.3); Mean Corpuscular Volume 97.1 fL (83.0-100.0); Mean Platelet Volume 10.5 fL (9.4-12.4); Monocytes # 0.4 K/mcL (0.0-1.3); Monocytes % 7.7 %; Neutrophils # 3.7 K/mcL (1.6-8.9); Platelet Count 186 K/mcL (140-400); Red Blood Count 3.47 M/mcL (3.82-4.97); Red Cell Distribution Width 14.7 % (11.5-14.5); Segmented Neutrophils % 70.1 %; White Blood Count 5.3 K/mcL (4.3-11.1)
[2021-09-01 04:29] LABS: Calcium 8.2 mg/dL (8.6-10.3); Potassium 3.9 mEq/L (3.5-5.1)
[2021-09-01 07:59] VITALS: BP 149/66; PULSE 77; TEMP 98.1; O2SAT 93
[2021-09-01] MEDS: Insulin LISPRO 300 UNITS/3 ML VIAL SUBQ SCH (08:14)
[2021-09-01] MEDS: Heparin 25,000UNIT/250ML 1/2NS 25,000 UNIT/250 ML IV.SOLN IVC SCH (08:25)
[2021-09-01] MEDS: Cefepime HCl 1,000 MG in 0.9 % Sodium Chloride 10 ML IVP SCH (08:27)
[2021-09-01] MEDS: rOPINIRole 1 MG TABLET PO SCH (08:27)
[2021-09-01] MEDS: carvediloL 25 MG TABLET PO SCH (08:27)
[2021-09-01] MEDS ORDERED: Apixaban 5 MG TABLET PO SCH (09:00)
== END 2021-09-01 11:40 | disposition home health service (06) | DRG 178 ==
LOC: 2NENU 19:23 → EMEROOARM 19:23 → SUATTDRO 21:58 → 2NENU 22:21 → SUATTDRO 08-30 18:27
PROVIDERS: ADMIT Internal Medicine; ATTEND Internal Medicine

== ENCOUNTER 2021-11-15 15:52 | Inpatient (IN) ==
[2021-11-15 17:50] LABS: Bacteria,Urine Moderate per hpf (None-Few); Bilirubin,Urine Negative (Negative); Blood,Urine Large (Negative); Clarity,Urine Ex.Turbid (Clear); Color,Urine Light-Orange (Yellow); Glucose,Urine (UA) Normal (Normal); Ketones,Urine Negative (Negative); Leukocyte Esterase,Urine Large (Negative); Mucus,Urine Few per lpf (None-Few); Nitrite,Urine Positive (Negative); Protein,Urine 200 mg/dL (Neg-Trace); RBC,Urine TNTC per hpf (0-3); Specific Gravity,Urine 1.015 (1.010-1.025); Squamous Epithelial Cell,Urine Few per hpf (None-Few); Urobilinogen,Urine Normal (Normal); WBC,Urine TNTC per hpf (0-3)
[2021-11-15 19:41] LABS: Basophils % 0.1 %; Eosinophils # 0.1 K/mcL (0.0-0.6); Eosinophils % 0.4 %; Hematocrit 32.1 % (35.3-44.9); Immature Granulocytes % 1.2 % (0-4); Lymphocytes # 0.8 K/mcL (0.6-4.6); Mean Corpuscular HGB Conc 31.2 g/dL (31.6-35.5); Mean Corpuscular Volume 96.4 fL (83.0-100.0); Mean Platelet Volume 9.8 fL (9.4-12.4); Monocytes # 1.2 K/mcL (0.0-1.3); Neutrophils # 18.2 K/mcL (1.6-8.9); Platelet Count 234 K/mcL (140-400); Red Blood Count 3.33 M/mcL (3.82-4.97); Red Cell Distribution Width 14.6 % (11.5-14.5); Segmented Neutrophils % 88.3 %; White Blood Count 20.6 K/mcL (4.3-11.1)
[2021-11-15 20:20] LABS: Albumin 3.3 g/dL (3.5-5.7); Albumin/Globulin Ratio 0.9 (1.1-2.2); Bilirubin,Direct 0.2 mg/dL (0.0-0.2); Bilirubin,Indirect 0.2 mg/dL (0.0-1.0); Bilirubin,Total 0.4 mg/dL (0.3-1.0); Calcium 9.1 mg/dL (8.6-10.3); Globulin 3.5 g/dL (2.4-3.5); Potassium 3.9 mEq/L (3.5-5.1); Total Protein 6.8 g/dL (6.4-8.9)
[2021-11-15 21:50] LABS: Candida DNA Not Detected (Not Detect); Gardnerella DNA Not Detected (Not Detect); Trichomonas DNA Not Detected (Not Detect)
[2021-11-15] MEDS ORDERED: Vancomycin 1,250 MG/262.5 ML IV.SOLN IVPB ONE (21:51)
[2021-11-15] MEDS ORDERED: cefTRIAXone 1,000 MG in Water for inj. (sterile) 10 ML IVP ONE (21:51)
[2021-11-15] MEDS ORDERED: Clindamycin 600 MG/50 ML 600 MG/50 ML IV.SOLN IVPB ONE (21:51)
[2021-11-16] MEDS ORDERED: Naloxone 0.4 MG/ML INJ IVP PRN (00:41)
[2021-11-16] MEDS ORDERED: Ondansetron 4 MG/2 ML VIAL IVP PRN (00:41)
[2021-11-16] MEDS ORDERED: *HR* Dextrose 50 % in Water (Syg) 50 ML SYRINGE IVP PRN (02:54)
[2021-11-16] MEDS ORDERED: D5% in Water 1,000 ML IVC PRN (02:54)
[2021-11-16] MEDS ORDERED: Dextrose Gel 15 GM/37.5 ML TUBE PO PRN ×2 (02:54)
[2021-11-16 04:13] LABS: Basophils % 0.1 %; Eosinophils # 0.4 K/mcL (0.0-0.6); Hemoglobin 8.6 g/dL (11.5-15.4); Immature Granulocytes % 0.8 % (0-4); Lymphocytes # 0.8 K/mcL (0.6-4.6); Lymphocytes % 4.4 %; Mean Corpuscular HGB Conc 30.7 g/dL (31.6-35.5); Mean Corpuscular Hemoglobin 29.3 pg (28.0-33.3); Mean Corpuscular Volume 95.2 fL (83.0-100.0); Monocytes # 1.1 K/mcL (0.0-1.3); Monocytes % 6.3 %; Neutrophils # 15.1 K/mcL (1.6-8.9); Platelet Count 228 K/mcL (140-400); Red Blood Count 2.94 M/mcL (3.82-4.97); Red Cell Distribution Width 14.6 % (11.5-14.5); Segmented Neutrophils % 86.4 %; White Blood Count 17.5 K/mcL (4.3-11.1)
[2021-11-16 04:20] LABS: INR 2.2; Prothrombin Time 24.2 Seconds (9.4-12.1)
[2021-11-16 04:22] LABS: Activated Partial Thrombo Time 33.2 Seconds (26.0-36.0)
[2021-11-16 04:37] LABS: Albumin 2.9 g/dL (3.5-5.7); Albumin/Globulin Ratio 0.8 (1.1-2.2); Bilirubin,Total 0.3 mg/dL (0.3-1.0); Calcium 8.6 mg/dL (8.6-10.3); Globulin 3.5 g/dL (2.4-3.5); Magnesium 1.7 mg/dL (1.6-2.6); Phosphorous 3.7 mg/dL (2.7-4.5); Potassium 3.6 mEq/L (3.5-5.1); Total Protein 6.4 g/dL (6.4-8.9)
[2021-11-16] MEDS: Ringers Solution, Lactated 1,000 ML IVC SCH ×2 (05:48→18:55)
[2021-11-16] MEDS ORDERED: Doxycycline 100 MG in 0.9 % Sodium Chloride Mini Bag 100 ML IVPB SCH (06:00)
[2021-11-16] MEDS ORDERED: Cefepime HCl 1,000 MG in 0.9 % Sodium Chloride Mini Bag 100 ML IVPB SCH (06:00)
[2021-11-16] MEDS: Insulin LISPRO 300 UNITS/3 ML VIAL SUBQ SCH ×3 (07:53→18:51)
[2021-11-16] MEDS: Lactobacillus 1 EACH CAP.SPRINK PO SCH ×2 (09:01→19:58)
[2021-11-16] MEDS: Apixaban 5 MG TABLET PO SCH ×2 (09:02→19:58)
[2021-11-16 18:37] LABS: A.calcoaceticus-baumannii cplx Not Detected (Not Detect); Bacteroides fragilis by PCR Not Detected (Not Detect); Enterobacter cloacae Cmplx PCR Not Detected (Not Detect); Enterobacterales by PCR Not Detected (Not Detect); Enterococcus faecalis by PCR Not Detected (Not Detect); Enterococcus faecium by PCR Not Detected (Not Detect); Escherichia coli by PCR Not Detected (Not Detect); Klebs. pneumoniae group by PCR Not Detected (Not Detect); Klebsiella aerogenes by PCR Not Detected (Not Detect); Klebsiella oxytoca by PCR Not Detected (Not Detect); Staph epidermidis by PCR Not Detected (Not Detect); Staph lugdunensis by PCR Not Detected (Not Detect); Staphylococcus aureus by PCR DETECTED (Not Detect); Streptococcus agalactiae(B)PCR Not Detected (Not Detect); Streptococcus by PCR Not Detected (Not Detect); Streptococcus pneumoniae PCR Not Detected (Not Detect); Streptococcus pyogenes (A) PCR Not Detected (Not Detect); mecA/C & MREJ (MRSA) Gene DETECTED (Not Detect)
[2021-11-16 18:38] LABS: Candida albicans by PCR Not Detected (Not Detect); Candida auris by PCR Not Detected (Not Detect); Candida glabrata by PCR Not Detected (Not Detect); Candida krusei by PCR Not Detected (Not Detect); Candida parapsilosis by PCR Not Detected (Not Detect); Candida tropicalis by PCR Not Detected (Not Detect); Crypto. neoformans/gattii PCR Not Detected (Not Detect); Proteus by PCR Not Detected (Not Detect); Pseudomonas aeruginosa by PCR Not Detected (Not Detect); Salmonella species by PCR Not Detected (Not Detect); Serratia marcescens by PCR Not Detected (Not Detect); Stenotrophomonas maltophilia Not Detected (Not Detect)
[2021-11-16] MEDS: ceFAZolin 2,000 MG in 0.9 % Sodium Chloride 100 ML IVPB SCH (19:57)
[2021-11-16] MEDS: *HR* HYDROcodone/Acet 7.5/325 mg TABLET PO PRN (20:14)
[2021-11-17] MEDS: Nystatin POWDER 30 GM BOTTLE TP SCH ×4 (00:01→21:33)
[2021-11-17 02:12] LABS: Basophils % 0.2 %; Eosinophils # 0.9 K/mcL (0.0-0.6); Eosinophils % 7.4 %; Hematocrit 29.9 % (35.3-44.9); Hemoglobin 9.5 g/dL (11.5-15.4); Immature Granulocytes % 0.6 % (0-4); Lymphocytes # 0.9 K/mcL (0.6-4.6); Lymphocytes % 7.3 %; Mean Corpuscular HGB Conc 31.8 g/dL (31.6-35.5); Mean Corpuscular Hemoglobin 30.1 pg (28.0-33.3); Mean Corpuscular Volume 94.6 fL (83.0-100.0); Monocytes # 0.9 K/mcL (0.0-1.3); Monocytes % 7.7 %; Neutrophils # 9.4 K/mcL (1.6-8.9); Platelet Count 225 K/mcL (140-400); Red Blood Count 3.16 M/mcL (3.82-4.97); Red Cell Distribution Width 14.6 % (11.5-14.5); Segmented Neutrophils % 76.8 %; White Blood Count 12.3 K/mcL (4.3-11.1)
[2021-11-17 02:34] LABS: Calcium 8.7 mg/dL (8.6-10.3); Potassium 3.6 mEq/L (3.5-5.1)
[2021-11-17] MEDS: ceFAZolin 2,000 MG in 0.9 % Sodium Chloride 100 ML IVPB SCH (07:14)
[2021-11-17] MEDS: Insulin LISPRO 300 UNITS/3 ML VIAL SUBQ SCH ×3 (09:06→15:06)
[2021-11-17] MEDS: Lactobacillus 1 EACH CAP.SPRINK PO SCH ×2 (09:09→21:33)
[2021-11-17] MEDS: Acetaminophen 325 MG TABLET PO PRN (09:09)
[2021-11-17] MEDS: Apixaban 5 MG TABLET PO SCH ×2 (09:09→21:33)
[2021-11-17] MEDS: *HR* HYDROcodone/Acet 7.5/325 mg TABLET PO PRN ×2 (09:09→16:57)
[2021-11-17] MEDS: carvediloL 25 MG TABLET PO SCH ×2 (09:09→15:07)
[2021-11-17] MEDS: rOPINIRole 1 MG TABLET PO SCH ×2 (09:12→21:33)
[2021-11-17] MEDS: *HR* Labetalol 20 MG/4 ML SYRINGE IVP PRN (10:24)
[2021-11-17] MEDS ORDERED: DAPTOmycin 350 MG in 0.9 % Sodium Chloride 100 ML IVPB SCH (11:00)
[2021-11-17] MEDS ORDERED: cefTRIAXone 1,000 MG in 0.9 % Sodium Chloride Mini Bag 100 ML IVPB SCH (11:00)
[2021-11-17] MEDS: cefTRIAXone 1,000 MG in 0.9 % Sodium Chloride Mini Bag 100 ML IVPB SCH ×2 (13:49→14:58)
[2021-11-17] MEDS: DAPTOmycin 350 MG in 0.9 % Sodium Chloride 100 ML IVPB SCH (14:03)
[2021-11-17] MEDS ORDERED: ceFAZolin 1,000 MG in 0.9 % Sodium Chloride 10 ML IVP SCH (18:00)
[2021-11-18 04:05] LABS: Basophils % 0.2 %; Eosinophils # 0.9 K/mcL (0.0-0.6); Hematocrit 29.7 % (35.3-44.9); Hemoglobin 9.2 g/dL (11.5-15.4); Immature Granulocytes % 0.5 % (0-4); Lymphocytes # 0.9 K/mcL (0.6-4.6); Mean Corpuscular Hemoglobin 29.2 pg (28.0-33.3); Mean Corpuscular Volume 94.3 fL (83.0-100.0); Mean Platelet Volume 10.1 fL (9.4-12.4); Monocytes # 0.8 K/mcL (0.0-1.3); Neutrophils # 5.7 K/mcL (1.6-8.9); Platelet Count 249 K/mcL (140-400); Red Blood Count 3.15 M/mcL (3.82-4.97); Red Cell Distribution Width 14.4 % (11.5-14.5); Segmented Neutrophils % 67.3 %; White Blood Count 8.4 K/mcL (4.3-11.1)
[2021-11-18 04:25] LABS: Calcium 8.6 mg/dL (8.6-10.3); Potassium 3.7 mEq/L (3.5-5.1)
[2021-11-18] MEDS: Insulin LISPRO 300 UNITS/3 ML VIAL SUBQ SCH ×3 (08:34→16:58)
[2021-11-18] MEDS: Lactobacillus 1 EACH CAP.SPRINK PO SCH ×2 (08:56→21:43)
[2021-11-18] MEDS: rOPINIRole 1 MG TABLET PO SCH ×2 (08:56→21:43)
[2021-11-18] MEDS: Apixaban 5 MG TABLET PO SCH ×2 (08:57→21:43)
[2021-11-18] MEDS: Nystatin POWDER 30 GM BOTTLE TP SCH ×3 (08:57→21:43)
[2021-11-18] MEDS: carvediloL 25 MG TABLET PO SCH ×2 (08:57→17:43)
[2021-11-18] MEDS: *HR* HYDROcodone/Acet 7.5/325 mg TABLET PO PRN ×2 (09:35→17:42)
[2021-11-18] MEDS: Fluconazole 40 MG/ML UDC PO SCH (14:29)
[2021-11-18] MEDS: Acetaminophen 325 MG TABLET PO PRN (17:43)
[2021-11-19] MEDS: *HR* Labetalol 20 MG/4 ML SYRINGE IVP PRN ×4 (04:07→21:36)
[2021-11-19] MEDS: *HR* HYDROcodone/Acet 7.5/325 mg TABLET PO PRN ×3 (04:08→21:36)
[2021-11-19 05:27] LABS: Basophils % 0.4 %; Eosinophils % 11.9 %; Hematocrit 31.6 % (35.3-44.9); Hemoglobin 9.9 g/dL (11.5-15.4); Immature Granulocytes % 1.2 % (0-4); Lymphocytes # 1.1 K/mcL (0.6-4.6); Mean Corpuscular HGB Conc 31.3 g/dL (31.6-35.5); Mean Corpuscular Hemoglobin 29.6 pg (28.0-33.3); Mean Corpuscular Volume 94.6 fL (83.0-100.0); Mean Platelet Volume 9.8 fL (9.4-12.4); Monocytes # 1.1 K/mcL (0.0-1.3); Monocytes % 12.4 %; Neutrophils # 5.2 K/mcL (1.6-8.9); Platelet Count 253 K/mcL (140-400); Red Blood Count 3.34 M/mcL (3.82-4.97); Red Cell Distribution Width 14.5 % (11.5-14.5); Segmented Neutrophils % 61.1 %; White Blood Count 8.5 K/mcL (4.3-11.1)
[2021-11-19 05:44] LABS: Calcium 8.9 mg/dL (8.6-10.3); Potassium 3.7 mEq/L (3.5-5.1)
[2021-11-19] MEDS: Insulin LISPRO 300 UNITS/3 ML VIAL SUBQ SCH ×3 (07:58→17:24)
[2021-11-19] MEDS: carvediloL 25 MG TABLET PO SCH ×2 (09:13→17:43)
[2021-11-19] MEDS: Apixaban 5 MG TABLET PO SCH ×2 (09:13→21:31)
[2021-11-19] MEDS: Lactobacillus 1 EACH CAP.SPRINK PO SCH ×2 (09:13→21:31)
[2021-11-19] MEDS: cefTRIAXone 1,000 MG in 0.9 % Sodium Chloride Mini Bag 100 ML IVPB SCH (09:14)
[2021-11-19] MEDS: Nystatin POWDER 30 GM BOTTLE TP SCH ×3 (09:14→21:31)
[2021-11-19] MEDS: rOPINIRole 1 MG TABLET PO SCH ×2 (09:16→21:35)
[2021-11-19] MEDS: DAPTOmycin 350 MG in 0.9 % Sodium Chloride 100 ML IVPB SCH (15:07)
[2021-11-19] MEDS: Melatonin 3 MG TABLET PO PRN (21:35)
[2021-11-20 05:53] LABS: Basophils % 0.4 %; Eosinophils # 1.3 K/mcL (0.0-0.6); Eosinophils % 16.3 %; Hematocrit 28.4 % (35.3-44.9); Hemoglobin 8.7 g/dL (11.5-15.4); Immature Granulocytes % 1.8 % (0-4); Lymphocytes # 1.1 K/mcL (0.6-4.6); Lymphocytes % 13.8 %; Mean Corpuscular HGB Conc 30.6 g/dL (31.6-35.5); Mean Corpuscular Hemoglobin 29.7 pg (28.0-33.3); Mean Corpuscular Volume 96.9 fL (83.0-100.0); Mean Platelet Volume 9.9 fL (9.4-12.4); Monocytes % 12.4 %; Neutrophils # 4.6 K/mcL (1.6-8.9); Platelet Count 264 K/mcL (140-400); Red Blood Count 2.93 M/mcL (3.82-4.97); Red Cell Distribution Width 14.7 % (11.5-14.5); Segmented Neutrophils % 55.3 %; White Blood Count 8.2 K/mcL (4.3-11.1)
[2021-11-20 06:12] LABS: Calcium 8.4 mg/dL (8.6-10.3); Potassium 3.6 mEq/L (3.5-5.1)
[2021-11-20] MEDS: Insulin LISPRO 300 UNITS/3 ML VIAL SUBQ SCH ×3 (08:03→16:32)
[2021-11-20] MEDS: cefTRIAXone 1,000 MG in 0.9 % Sodium Chloride Mini Bag 100 ML IVPB SCH (08:12)
[2021-11-20] MEDS: carvediloL 25 MG TABLET PO SCH ×2 (08:12→16:38)
[2021-11-20] MEDS: Apixaban 5 MG TABLET PO SCH ×2 (08:12→20:26)
[2021-11-20] MEDS: *HR* HYDROcodone/Acet 7.5/325 mg TABLET PO PRN ×2 (08:12→16:38)
[2021-11-20] MEDS: Lactobacillus 1 EACH CAP.SPRINK PO SCH ×2 (08:12→20:26)
[2021-11-20] MEDS: Nystatin POWDER 30 GM BOTTLE TP SCH ×3 (08:13→20:26)
[2021-11-20] MEDS: rOPINIRole 1 MG TABLET PO SCH ×2 (08:15→20:25)
[2021-11-20] MEDS: Melatonin 3 MG TABLET PO PRN (20:25)
[2021-11-20] MEDS: *HR* Labetalol 20 MG/4 ML SYRINGE IVP PRN (20:29)
[2021-11-21] MEDS: *HR* HYDROcodone/Acet 7.5/325 mg TABLET PO PRN (06:03)
[2021-11-21 06:40] VITALS: BP 151/72; PULSE 73; TEMP 98.3; O2SAT 91
[2021-11-21 06:49] LABS: Basophils # 0.1 K/mcL (0.0-0.2); Basophils % 0.5 %; Eosinophils # 1.4 K/mcL (0.0-0.6); Eosinophils % 13.5 %; Hematocrit 28.9 % (35.3-44.9); Hemoglobin 8.9 g/dL (11.5-15.4); Immature Granulocytes % 1.8 % (0-4); Lymphocytes # 1.1 K/mcL (0.6-4.6); Lymphocytes % 10.4 %; Mean Corpuscular HGB Conc 30.8 g/dL (31.6-35.5); Mean Corpuscular Hemoglobin 29.6 pg (28.0-33.3); Mean Platelet Volume 9.7 fL (9.4-12.4); Monocytes # 1.1 K/mcL (0.0-1.3); Monocytes % 10.4 %; Neutrophils # 6.6 K/mcL (1.6-8.9); Platelet Count 269 K/mcL (140-400); Red Blood Count 3.01 M/mcL (3.82-4.97); Red Cell Distribution Width 14.6 % (11.5-14.5); Segmented Neutrophils % 63.4 %; White Blood Count 10.3 K/mcL (4.3-11.1)
[2021-11-21 07:14] LABS: Potassium 3.9 mEq/L (3.5-5.1)
[2021-11-21] MEDS: Apixaban 5 MG TABLET PO SCH (09:18)
[2021-11-21] MEDS: carvediloL 25 MG TABLET PO SCH ×2 (09:18→16:36)
[2021-11-21] MEDS: Insulin LISPRO 300 UNITS/3 ML VIAL SUBQ SCH ×3 (09:19→16:36)
[2021-11-21] MEDS: cefTRIAXone 1,000 MG in 0.9 % Sodium Chloride Mini Bag 100 ML IVPB SCH (09:19)
[2021-11-21] MEDS: Nystatin POWDER 30 GM BOTTLE TP SCH ×2 (09:20→16:36)
[2021-11-21] MEDS: Lactobacillus 1 EACH CAP.SPRINK PO SCH (09:20)
[2021-11-21] MEDS: rOPINIRole 1 MG TABLET PO SCH (09:34)
[2021-11-21] MEDS: DAPTOmycin 350 MG in 0.9 % Sodium Chloride 100 ML IVPB SCH (12:31)
[2021-11-21] MEDS: Fluconazole 40 MG/ML UDC PO SCH (13:47)
== END 2021-11-21 18:40 | disposition home health service (06) | DRG 872 ==
LOC: 2ANU 15:52 → EMEROOARM 15:52 → 2ANU 11-16 18:30 → SUATTDRO 11-17 12:02
PROVIDERS: ADMIT Internal Medicine; ATTEND Internal Medicine